=== PATIENT | male | born 1970 | race Caucasian/White ===

== ENCOUNTER → 2023-05-14 12:43 | Outpatient (CLI) | payer BC, SELFPAY ==
--- NOTE | 2023-05-14 12:43 | CT_ITS ---
FINAL REPORT TECHNIQUE: Then section axial CT images of the chest were obtained with contrast. Three-D reformatted images were also obtained.This study was performed with techniques to keep radiation doses as low as reasonably achievable (ALARA). Individualized dose reduction techniques using automated exposure control or adjustment of mA and/or kV according to the patient''s size were employed. CLINICAL HISTORY: atypical angina/abnl ecg COMPARISON: None FINDINGS: There is no evidence of pulmonary embolism. There is no evidence of thoracic aortic aneurysm or dissection. There is no evidence of mediastinal or hilar mass or adenopathy. There is no evidence of pulmonary mass or suspicious nodule. There is mild emphysema. Limited images of the upper abdomen demonstrate fatty infiltration of the liver. IMPRESSION: No evidence of pulmonary embolism. Fatty liver. Reviewed, Interpreted and Dictated by Johan Bang III, MD Transcribed by Cherie Phan Authenticated and [facility]
== END ==
LOC: RAD 12:43
PROVIDERS: PCP Nurse Practitioner Family; Visit Provider Physician Assistant
DX: I20.8 Other forms of angina pectoris (principal); R94.31 Abnormal electrocardiogram [ECG] [EKG]; Z85.72 Personal history of non-Hodgkin lymphomas; Z86.711 Personal history of pulmonary embolism; Z86.718 Personal history of other venous thrombosis and embolism
CPT/HCPCS: 71275; Q9967

== ENCOUNTER → 2023-06-30 12:59 | Outpatient (CLI) | payer BC, SELFPAY ==
--- NOTE | 2023-06-30 13:04 | CA_ITS ---
APPROVED REPORT EXAM: Comprehensive 2D, Doppler, and color-flow Echocardiogram Internet Webmaster: Kym Perez CRT Ht: 6 ft 0 in Wt: 274lbs BSA: 2.44 BP: 124/77 mmHg Indications: Abnormal ECG, Chest Pain, Diabetes, Hyperlipidemia, Hypertension/HDD, chemo/radiation , non-hodgkin lymphoma, obesity 2D Dimensions LVOT 2.09 cm (M/F) 1.5-2.5 LA Volume 32.70 mL LA Volume Index 13.40 mL/m2 (M/F) 16-34 M-Mode Dimensions RVDd 3.02 cm (0.9-2.6) LA Diam 2.69 cm (1.9-4.0) LVDd 5.25 cm (3.5-5.7) Ao Diam 4.44 cm (2.0-3.7) LVDs 3.80 cm (3.5-5.7) IVSd 1.59 cm (0.6-1.1) PWd 0.92 cm (0.6-1.1) EF (Teich) 53.20% FS 27.60% EDV (Teich) 132.40 mL TAPSE 1.48 (<1.7) ESV (Teich) 62.00 mL LV Diastology E Decel Time 160.00 (160-240 msec) E/A Ratio 0.69 MED E' 6.00 (< 7 cm/sec) MED A' 8.80 cm/s E'/MED E' Ratio 7.83 (>14) LAT E' 10.60 (<10 cm/sec) LAT A' 14.20 cm/s E/LAT E' Ratio 4.43 (>14) Aortic Valve AI PHT 544.00 ms AO Peak GR. 6.70 mmHg Mitral Valve MV A Velocity 68.00 (40-130 cm/s) E/A Ratio 0.69 MV Decel. Time 160.00 (160-240 ms) Pulmonary Valve PV Peak Velocity 154.00 (50-150 cm/s) Tricuspid Valve TR P. Velocity 178.00 cm/s RAP Estimate 10.00 mmHg RVSP 22.70 mmHg Left Ventricle The left ventricle is normal size. Left ventricular systolic function is mildly decreased. There is normal left ventricular wall thickness. There is mild global hypokinesis of the LV seay. Diastolic function is normal. LVEF is 40-45%. Right Ventricle The right ventricle is mildly dilated. The right ventricular systolic function is normal. Atria The left atrium size is normal. The right atrium size is normal. There is no Doppler evidence of interatrial shunt. Aortic Valve The aortic valve is mildly thickened. There is no aortic valvular stenosis. No aortic regurgitation is present. Mitral Valve The mitral valve is normal in structure. No evidence of mitral valve stenosis. No Mitral Regurgitation. Tricuspid Valve The tricuspid valve leaflets are thin and pliable. Trace tricuspid regurgitation. There is insufficient TR jet to estimate RVSP. Pulmonic Valve The pulmonary valve is normal in structure. Trace pulmonic regurgitation. Great Vessels The aortic root is normal in size. The ascending aorta is normal in size. IVC is normal in size and collapses >50% with inspiration. Pericardium There is no pericardial effusion. Other Information Study Quality: Fair Conclusion Mildly reduced LV systolic function (LVEF 40-45%) Mildly dilated RV with normal RV function. No significant valvular disease. Electronically signed by : Indira Segura, 06/30/2023 18:21:34
== END ==
PROVIDERS: PCP Nurse Practitioner Family; Visit Provider Internal Medicine
DX: I20.8 Other forms of angina pectoris (principal); R94.31 Abnormal electrocardiogram [ECG] [EKG]
CPT/HCPCS: 93306

== ENCOUNTER → 2023-07-19 11:44 | Outpatient (CLI) | payer BC, SELFPAY ==
[2023-07-19] VITALS (8 sets, daily range): BP systolic 113–140; BP diastolic 64–74; PULSE 68–78; RESP 16–18; TEMP 36.4–36.7; O2SAT 95–100
--- NOTE | 2023-07-19 12:36 | PC.NURSE ---
1225-[facility] 137
--- NOTE | 2023-07-19 13:10 | PC.NURSE ---
pt's heartrate is mid 70's, Metoprolol 5mg IV given per CTA standing orders. BP 120/64.
--- NOTE | 2023-07-19 13:34 | PC.NURSE ---
pt to CTA room, HR still 72, Metoprolol 5mg IV given. 133/69, Nitro 0.8mg SL given per orders
--- NOTE | 2023-07-19 13:47 | PC.NURSE ---
Pt tolerated procedure and medications well, no C/O. Taken to post op for recovery.
[2023-07-20 07:49] LABS: POC Glucose,Bedside 137 (70-110)
== END ==
LOC: RAD 11:44
PROVIDERS: PCP Nurse Practitioner Family; Visit Provider Physician Assistant
DX: I20.8 Other forms of angina pectoris (principal); R94.31 Abnormal electrocardiogram [ECG] [EKG]; Z85.72 Personal history of non-Hodgkin lymphomas; Z86.711 Personal history of pulmonary embolism; Z86.718 Personal history of other venous thrombosis and embolism
CPT/HCPCS: 75574; 82962; Q9967

== ENCOUNTER → 2023-07-28 14:03 | Outpatient (CLI) | payer BC, SELFPAY ==
[2023-07-28 15:41] LABS: Chloride 106 mmol/L (98-107)
[2023-07-28 15:42] LABS: Potassium 4.4 mmoL/L (3.5-5.1); Sodium 140 mmol/L (136-145)
[2023-07-28 15:44] LABS: Blood Urea Nitrogen 21 mg/dl (9-20)
[2023-07-28 15:45] LABS: Anion Gap 14.4 mEq/L (5-15); Calcium 9.3 mg/dl (8.4-10.2); Carbon Dioxide 24 mmol/L (22.0-30.0); Estimated Glomerular Filt Rate 78 ml/min (>60); GFR (African American) 94 ML/MIN (>60); Glucose 127 mg/dl (74-100)
[2023-07-28 16:39] LABS: Basophils % 0.3 % (0.1-2.0); Eosinophils # 0.2 K/mm3 (0.0-0.4); Eosinophils % 3.4 % (0.1-12.0); Hematocrit 53.4 % (42.0-52.0); Hemoglobin 17.4 g/dL (14.1-18.0); Lymphocytes # 1.5 K/mm3 (0.7-4.5); Lymphocytes % 23.6 % (10-50); Mean Corpuscular HGB Conc 32.5 g/dL (31.8-35.4); Mean Corpuscular Hemoglobin 26.5 pg (27.0-31.2); Mean Corpuscular Volume 81.5 fl (80-94); Mean Platelet Volume 8.1 fl (7.4-10.4); Monocytes # 0.6 K/mm3 (0.1-1.0); Monocytes % 9.1 % (1.7-9.3); Neutrophils # 4.2 K/mm3 (1.8-7.8); Neutrophils % 63.6 % (37.0-80.0); Platelet Count 244 K/mm3 (142-424); Red Blood Count 6.55 M/mm3 (4.60-6.20); Red Cell Distribution Width 17.6 % (11.5-17.5); White Blood Count 6.5 K/mm3 (4.8-10.8)
[2023-07-28 16:40] LABS: Cholesterol 166 mg/dl (140-200); HDL Cholesterol 41 mg/dl (40-60); Triglycerides 307 mg/dl (30-150); VLDL Cholesterol 61 mg/dL (0-40)
[2023-07-28 16:51] LABS: Direct LDL Cholesterol 94.91 mg/dL (100-129)
== END ==
PROVIDERS: PCP Nurse Practitioner Family; Visit Provider Physician Assistant
DX: E11.9 Type 2 diabetes mellitus without complications (principal); I10 Essential (primary) hypertension; R93.1 Abnormal findings on diagnostic imaging of heart and coronary circulation; E78.5 Hyperlipidemia, unspecified; Z85.72 Personal history of non-Hodgkin lymphomas; Z86.718 Personal history of other venous thrombosis and embolism
CPT/HCPCS: 36415; 80048; 80061; 85025

== ENCOUNTER 2023-07-29 12:40 | Outpatient (CLI) | payer BC, SELFPAY ==
[2023-07-29 13:15] VITALS: BP 139/72; PULSE 82; RESP 18; O2SAT 98
[2023-07-29 13:38] VITALS: BP 143/70; PULSE 87; RESP 18; O2SAT 98
== END 2023-07-29 13:38 | disposition home or self-care (01) ==
LOC: INF 12:41
PROVIDERS: PCP Nurse Practitioner Family; Visit Provider Nurse Practitioner Family
DX: D75.1 Secondary polycythemia (principal)
CPT/HCPCS: 99195

== ENCOUNTER 2024-02-29 14:38 | Outpatient (CLI) | payer BC, SELFPAY ==
--- NOTE | 2024-02-29 14:42 | MR_ITS ---
FINAL REPORT TECHNIQUE: Multiplanar MR without contrast was obtained of the left knee. CLINICAL HISTORY: PAIN OF LEFT KNEE JOINT. medial sided knee pain. COMPARISON: None FINDINGS: Motion artifact decreases sensitivity of this exam. Articular cartilage: No focal defect Marrow signal: Unremarkable Joint fluid: Physiologic Menisci: Normal morphology without tear Ligaments: Collateral and cruciate ligaments intact IMPRESSION: Unremarkable exam Reviewed, Interpreted and Dictated by Susi Palacios MD Transcribed by Cherie Phan Authenticated and [facility]
== END 2024-02-29 23:59 | disposition home or self-care (01) ==
LOC: RAD 14:38
PROVIDERS: PCP Nurse Practitioner Family; Visit Provider Nurse Practitioner Family
DX: M25.562 Pain in left knee (principal)
CPT/HCPCS: 73721

== ENCOUNTER 2024-03-25 09:49 | Outpatient (CLI) | payer BC, SELFPAY ==
--- NOTE | 2024-03-25 09:59 | MR_ITS ---
FINAL REPORT CLINICAL HISTORY: LOW BACK PAIN FINDINGS: Multiplanar MR imaging of the lumbar spine was performed without contrast. On the sagittal T2-weighted images, mild to moderate decreased signal seen throughout. There is a small hemangioma in the L1 vertebral body. There is grade 1 anterolisthesis of L4 on L5. There is no evidence of fracture. No bony mass is identified. The conus is seen at approximately the L1 level and has an unremarkable appearance. L1-2: Moderate disc bulge resulting in moderate bilateral neuroforaminal narrowing. There is mild canal stenosis. There is ligamentum flavum hypertrophy and hypertrophic facet change. L2-3: Mild disc bulge with hypertrophic facet changes. L3-4: Mild disc bulge with mild canal stenosis. There is a small focus of increased signal suggestive of annular tear. There are hypertrophic facet changes and ligamentum flavum hypertrophy. L4-5: Moderate disc bulge with central focal protrusion. There is severe canal stenosis with significant ligamentum flavum hypertrophy and moderate bilateral neuroforaminal narrowing. L5-S1: Mild disc bulge with ligamentum flavum hypertrophy and hypertrophic facet change. There is mild bilateral neuroforaminal narrowing. IMPRESSION: Multilevel degenerative disc disease with focal protrusion at L4-5 resulting in severe canal stenosis and moderate bilateral neuroforaminal narrowing. Reviewed, Interpreted and Dictated by Sarah Anand MD Transcribed by Meliza Larose Authenticated and [facility]
== END 2024-03-25 23:59 | disposition home or self-care (01) ==
PROVIDERS: PCP Nurse Practitioner Family; Visit Provider Nurse Practitioner Family
DX: M54.50 Low back pain, unspecified (principal)
CPT/HCPCS: 72148

== ENCOUNTER 2024-05-09 06:34 | Outpatient (CLI) | payer BC, SELFPAY ==
--- NOTE | 2024-05-09 07:40 | MR_ITS ---
FINAL REPORT CLINICAL HISTORY: LOCALIZED SWELLING, MASS AND LUMP. SWELLING MID FEMUR. PUT MARKER ON THIGH. COMPARISON: None FINDINGS: Multiplanar MR imaging of the left thigh was performed without contrast. A marker was placed at the lateral aspect of the mid thigh. Images are degraded by artifact. There is no evidence of fracture or bone marrow edema. No bony mass is identified. There is a presumed osteochondral lesion in the superior medial femoral head. Musculature is intact. No soft tissue mass or abnormal fluid collection is identified. No soft tissue inflammation is seen. There are mild degenerative changes in the left hip and knee. IMPRESSION: No evidence of soft tissue mass or abnormal fluid collection. Presumed osteochondral lesion superior medial femoral head. Reviewed, Interpreted and Dictated by Johan Bang III, MD Transcribed by Cherie Phan Authenticated and [facility]
[2024-05-09 07:41] LABS: Blood Urea Nitrogen 12 mg/dl (9-20); Estimated Glomerular Filt Rate 88 ml/min (>60); GFR (African American) 106 ML/MIN (>60)
== END 2024-05-09 23:59 | disposition home or self-care (01) ==
LOC: RAD 06:35
PROVIDERS: PCP Nurse Practitioner Family; Visit Provider Orthopaedic Surgery
DX: R22.42 Localized swelling, mass and lump, left lower limb (principal)
CPT/HCPCS: 36415; 73718; 82565; 84520

== ENCOUNTER 2024-05-16 10:19 | Outpatient (CLI) | payer BC, SELFPAY ==
--- NOTE | 2024-05-16 11:12 | MR_ITS ---
FINAL REPORT CLINICAL HISTORY: SWELLING LEFT THIGH. prior without done 05-09-2024 COMPARISON: 05/09/2024 FINDINGS: Post-contrast multiplanar imaging was obtained of the left femur and compared to the recent exam. Bone marrow signal intensity is within normal limits in the femoral shaft. There is no abnormal enhancement. The previously described osteochondral abnormality in the femoral head is incompletely imaged on all sequences but appears to be similar compared to the prior study on the coronal T1 weighted imaging. There is no abnormal enhancement within the muscular structures. There is no subcutaneous mass or abnormal enhancement. No other abnormality identified. IMPRESSION: No mass or abnormal soft tissue enhancement. Abnormality of the femoral head is unchanged from prior. Reviewed, Interpreted and Dictated by Farzana Merchant MD Transcribed by Cherie Phan Authenticated and . [facility]
[2024-05-16] MEDS: GADOTERIDOL INJ 20ML SYRINGE 20 ML IV (11:23)
[2024-05-16] MEDS: SODIUM CHLORIDE 0.9% 10ML SYR (RAD ONLY) 10 ML IV (11:23)
[2024-05-16] MEDS: GADOTERIDOL INJ 10ML SYRINGE 5 ML IV (11:23)
== END 2024-05-16 23:59 | disposition home or self-care (01) ==
LOC: RAD 10:19
PROVIDERS: PCP Nurse Practitioner Family; Visit Provider Orthopaedic Surgery
DX: R22.42 Localized swelling, mass and lump, left lower limb (principal)
CPT/HCPCS: 73719; A9576

== ENCOUNTER 2024-09-12 11:04 | Outpatient (CLI) | payer BC, SELFPAY ==
--- NOTE | 2024-09-12 11:24 | CA_ITS ---
APPROVED REPORT EXAM: Comprehensive 2D, Doppler, and color-flow Echocardiogram Respiratory Assistant: Maday Hilliard RVT Ht: 6 ft 0 in Wt: 260lbs BSA: 2.38 BP: 123/77 mmHg Indications: HFrEF,PRE-OP,HX NON-HODGKINS LYMPHOMA,ABN EKG,CAD,DM,HTN 2D Dimensions IVSd 0.93 cm M: 0.6-1.2 LVEF (Visual) 50.00 % PWd 0.78 cm M: 0.6 - 1.2 LA Volume 53.30 mL LVDd 5.38 cm M: 4.2 - 5.9 LA Volume Index 22.39 mL/m2 (M/F) 16-34 LVDs 4.00 cm M: 2.5 - 4.0 M-Mode Dimensions LA Diam 3.79 cm (1.9-4.0) TAPSE 3.06 (<1.7) LV Diastology E Decel Time 237 (160-240 msec) E/A Ratio 0.6 Aortic Valve RAUL Index 1.69 cm2/m2 AoV Peak Brendon. 109.0 (50-130 cm/s) AO Peak GR. 4.70 mmHg AO Mean GR. 2.80 (<5 mmHg) AO VTI 19.2 (18-25 cm) RAUL (VTI) 4.12 (2.5-4.5 cm2) Mitral Valve MV E Max Brendon. 38.0 (40-130 cm/s) MV A Velocity 69.0 (40-130 cm/s) E/A Ratio 0.54 MV PHT 69.0 ms Pulmonary Valve PV Peak Velocity 64.0 (50-150 cm/s) Left Ventricle The left ventricle is normal size. The left ventricular systolic function is mildly to moderately reduced. There is increased LV wall thickness. There is mild to moderate global hypokinesis present. The LV apical wall is moderately hypokinetic. Grade 1 diastolic dysfunction is present. LVEF is 40%. Right Ventricle Right ventricle is mildly dilated. The right ventricular systolic function is normal. Atria The left atrium size is normal. The right atrium size is normal. There is no Doppler evidence of interatrial shunt. Aortic Valve Aortic valve is mildly thickened. There is no aortic valvular stenosis. Trace aortic regurgitation is present. Mitral Valve The mitral valve leaflets are mildly thickened. No evidence of mitral valve stenosis. Trace mitral regurgitation. Tricuspid Valve Tricuspid valve is grossly normal in structure and function. Trace tricuspid regurgitation. There is insufficient TR jet to estimate RVSP. Pulmonic Valve The pulmonary valve is normal in structure. Trace pulmonic regurgitation. Great Vessels The aortic root is normal in size. The ascending aorta is not well-visualized. IVC is normal in size and collapses >50% with inspiration. Pericardium There is no pericardial effusion. Other Information Study Quality: Fair Conclusion Mild to moderate reduction in LV systolic function (LVEF 40%). LV apical wall is moderately hypokinetic. Mild RV dilation with normal RV function. No significant valvular stenosis or regurgitation. When directly compared to the prior TTE from 06/30/2023, the LV systolic function is overall unchanged. Electronically signed by : Indira Segura MD 09/13/2024 00:22:34
== END 2024-09-12 23:59 | disposition home or self-care (01) ==
LOC: RT 11:05
PROVIDERS: PCP Nurse Practitioner Family; Visit Provider Physician Assistant
DX: Z01.810 Encounter for preprocedural cardiovascular examination (principal); I51.7 Cardiomegaly; I50.20 Unspecified systolic (congestive) heart failure
CPT/HCPCS: 93306

== ENCOUNTER 2025-09-20 08:21 | Outpatient (CLI) | payer BC, SELFPAY ==
--- OUTSIDE RECORDS SUMMARY | 2025-09-05 08:40 | XMS_ITS | Encounter Summary ---
Author Organization [facility] Address [address] [place] [address] Care Team Providers Care Supervisor Assembly Room Name Role Phone Thao harrellreynaldo Zeynep TIP FINISHER Primary Care Provider [phone] Mary Aviles TIP FINISHER Unavailable [phone] Encounter Details Date Type Department Care Team (Late st Contact Info) Description 09/05/2025 8:40 AM EST Office Visit [place] [facility] [address], [address] [place] [address] Mary Aviles, TIP FINISHER [address] [place] [address] Acute left-sided low back pain without sciatica (Primary Dx); Mid back pain; Tobacco use Social History Tobacco Use Types Packs/Day Years Used Date Smoking Tobacco: Never Smokeless Tobacco: Current Chew Alcohol Use Standard Drinks/Week Comments Not Currently 0 (1 standard drink = 0.6 oz pur e alcohol) Sex and Gender Information Value Date Recorded Sex Assigned at Not on file Legal Sex Male 7:49 PM EDT Gender Identity Not on file Sexual Orientation Not on file documented as of this encounter Last Filed Vital Signs Vital Sign Reading Time Taken Comments Blood Pressure 126/82 09/05/2025 9:01 AM EST Pulse - - Temperature - - Respiratory Rate - - Oxygen Saturation - - Inhaled Oxygen Concentration - - Weight 125 kg (274 lb 11.1 oz) 09/05/2025 9:01 A M EST Height 182.9 cm (6') 09/05/2025 9:01 AM EST Body Mass Index 37.26 09/05/2025 9:01 AM EST documented in this encounter Miscellaneous Notes * Progress Notes - Mary Aviles, TIP FINISHER - 09/05/2025 8:40 AM EST We had the pleasure of seeing your patient in our clinic today for continued Neurosurgical evaluation. Verbal consent was obtained to use ambient listening technology to assist in the documentation of the encounter: yes Chief Complaint: Midback and left lower back pain History Of Present Illness Subjective Juarez Mark is a 54 y.o. male presents to the neurosurgical clinic today for midback pain and left lower back pain. History of Present Illness The patient presents for evaluation of mid back pain and left lower back pain. The patient has previously neurosurgical clinic in 2023 for left knee pain, however had an anterior listhesis at L4-5 and did not recommend any neurosurgical intervention. He began experiencing right-sided mid back pain approximately 3 weeks ago, which was severe enough to necessitate a hospital visit due to his inability to walk. The pain has since improved, which could be due to use of tramadol. He also reports left lower back pain but does not experience any leg pain, numbness, tingling, weakness, or loss of bowel or bladder control. The patient denies any saddle anesthesia. His pain is alleviated by sitting and exacerbated by bending over or lifting heavy objects. He has not taken tramadol today and reports no change in his condition without it. He recalls an incident last night where he was unable to walk after working on a tractor, even though he did not engage in heavy lifting. He had to sit down for 5 minutes before he could stand again, and the pain recurred after 10 minutes of standing. He has received chiropractic treatment, pain management, and injections in his back and hip since his last visit in 2023. He underwent a left hip replacement a year ago, after which he developed a blood clot extending from his ankle to his hip. He is currently on Xarelto, managed by his primary care physician. He also sees a subsea engineer, Dr. Campbell. He received a back injection in either June or July of 2024, which did not provide relief. However, an injection in his hip did provide temporary relief, leading to the diagnosis of a hip issue. He has not required any intervention sincehis surgery. He is currently taking tramadol for pain, administered 3 times daily, but has not taken any today. He has been advised against physical therapy by his pain management team. Past Medical History[1] Surgical History[2] Family History[3] Social History[4] Current Outpatient Medications Medication Instructions Aspirin Low Dose 81 mg, Oral, As needed B-D 3CC LUER-JAREN SYR 23GX1 23G X 1 3 ML misc USE DIRECTED TO INJECT TESTOSTERONE BD Disp Needle 23G X 1 misc USE DIRECTED FOR TESTOSTERONE BY DOCTOR BD Plastipak Syringe 21G X 1 3 ML misc USE DIRECTED FOR TESTOSTERONE INJECTIONS carvedilol (Coreg) 3.125 MG tablet TAKE ONE (1) TABLET BY MOUTH TWICE DAILY WITH FOOD OR A MEAL cyclobenzaprine (Flexeril) 10 MG tablet TAKE ONE (1) TABLET ORAL ROUTE EVERY 8 HOURS NEEDED DULoxetine (CYMBALTA) 60 mg, Oral, Daily esomeprazole (NEXIUM) 20 mg, Oral, Daily ezetimibe (Zetia) 10 MG tablet 1 tablet, Oral, Daily ibuprofen 800 MG tablet TAKE ONE (1) TABLET ORAL ROUTE EVERY 8 HOURS NEEDED Invokamet 150-1000 MG 1 tablet, Oral levothyroxine (Synthroid, Levoxyl) 75 MCG tablet TAKE ONE (1) TABLET (75 MCG) BY ORAL ROUTE ONCE DAILY ON AN EMPTY STOMACH WITH FULL GLASS OF WATER WAIT FOR ONE (1) HR BEFORE TAKING OTHER MEDS OR EATI meloxicam (MOBIC) 15 mg, Oral tamsulosin (Flomax) 0.4 MG 24 hr capsule Oral, Daily testosterone cypionate (Depo-Testosterone) 200 MG/ML injection INJECT INTRAMUSCULARLY 0.75 MLS EVERY WEEK valsartan (DIOVAN) 80 mg, Oral, Daily Xarelto 20 mg, Oral, Daily with dinner Xigduo XR 5-1000 MG TAKE TWO (2) TABLETS EVERY DAY BY ORAL ROUTE FOR 90 DAYS. Allergies Statins and Tirzepatide Objective Review of Systems 14 point review of systems was performed and was negative except as noted per HPI. Visit Vitals Ht 1.829 m (6') BMI 36.62 kg/m?? Smoking Status Never BSA 2.49 m?? Physical Exam Neurologic exam: Alert and oriented x3. Appropriate memory, attention span, and insight. Normal coordination noted. Strength 5/5 bilaterally in upper and lower extremities. No tremor noted. Biceps, triceps, brachioradialis, patellar, achilles reflexes symmetric and 2+ bilaterally. Sensation, including light touch, intact bilaterally. Negative Kenya's bilaterally. No clonus noted bilaterally. Negative straight leg raise test and Clint's test bilaterally. Results Imaging I personally reviewed and independently interpreted flexion-extension x-rays from the lumbar spine on September 05, 2025. Imaging demonstrates movement in flexion with reduction in extension. This is slightly worsened since his x-ray from 2023. The thoracic x-ray does not show any new fractures. Assessment and Plan Juarez Mark is a 54 y.o. male presents to the neurosurgical clinic today for midback and low back pain Assessment & Plan Imaging was reviewed in his noted above. The patient is complaining of localized unilateral back pain as well as localized unilateral midback pain which has improved since initial onset. He is not complaining of any symptoms consistent with neurogenic claudication at this time. Nonetheless, he doesshow some worsening slipping on lumbar x-rays today, therefore I would like the patient to follow up in 6 weeks for continued surveillance to make sure his symptoms do not worsened or changed. I havealso provided the patient a 1 time prescription for a muscle relaxer to see if this will help with some of his symptoms. If the patient finds relief in his, he will need to speak with his primary care provider for further refills. In addition, we discussed following up with pain management about potential injective therapies that could be beneficial for the patient in the meantime as well.Discussed the effects of tobacco use on overall health as well as back health and its contribution to pain.Recommended tobacco use and this counseling session lasted approximately 3-5 minutes. Patient was agreeable with this plan. They were given the opportunity to ask questions, which were answered to their satisfaction. They were informed to to contact the Neurosurgery clinic with any questions, concerns, or worsening symptoms. Patient specific comorbidities further complicating management during the perioperative period include: -Obesity - with a last BMI of: Body mass index is 37.26 kg/m??. -Tobacco use I personally spent a total of 35 minutes on this encounter. This time includes face to face with patient, and review of imaging, counseling and discussion and/or coordination of care. Parts of this note were dictated using M Modal Fluency Direct voice recognition software. As a result, errors may occur. When identified, these desk interviewer errors are corrected, but while every attempt is made to prevent/correct these, errors may still exist. Mary Aviles APRN [facility] Department of Neurosurgery There are no diagnoses linked to this encounter. [1] Past Medical History: Diagnosis Date High cholesterol Hypertension Type 2 diabetes mellitus [2] Past Surgical History: Procedure Laterality Date LYMPH NODE BIOPSY in groin TOTAL HIP ARTHROPLASTY Right UVULOPALATOPHARYNGOPLASTY [3] Family History Problem Relation Name Age of Onset Hypertension Mother Heart attack Father Cancer Father Conversions - Other Other Family history unknown [4] Social History Tobacco Use Smoking status: Never Smokeless tobacco: Current Types: Chew Substance Use Topics Alcohol use: Not Currently Drug use: Never documented in this encounter Plan of Treatment Upcoming Encounters Date Type Department Care Team (Late st Contact Info) Description 10/18/2025 10:00 AM EST Office Visit [place] [facility] [address], [address] [place] [address] Mary Aviles APRN [address] [facility] [address] [place] [address] documented as of this encounter Results * XR Thoracic Spine 2 Views (09/05/2025 10:05 AM EST) Anatomical Region Laterality Modality Spine, T-spine Digital Radiogra phy Impressions 09/05/2025 11:20 AM EST 1. Chronic appearing wedge deformity at T11 and T12 with sequelae of diffuse idiopathic skeletal hyperostosis in the lower thoracic spine. 2. Moderate degenerative disc changes at T12-L1, L1-L2 and L4-L5 with minimal posterior subluxation at L1-L2 and minimal anterior subluxation at L4-L5. No instability. CRITICAL RESULT: No. COMMUNICATION: Per this written report. Drafted by Sam Rodriguez MD on 09/05/2025 11:16 AM Final report signed by Sam Rodriguez MD on 09/05/2025 11:20 AM Narrative 09/05/2025 11:20 AM EST CLINICAL INDICATION: mid back pain TECHNIQUE: XR THORACIC SPINE 2 VIEWS, XR LUMBAR SPINE 4 VIEWS TO INCLUDE FLEXION EXTENSION COMPARISON: May 02, 2024. FINDINGS: 2 views of the thoracic spine show wedge shape of T11 and T12. Bulky bridging paravertebral ossification in the lower thoracic spine. No bone destruction. No paraspinal mass. Aorta is tortuous. Cardiac silhouette is appropriate in size and configuration. Calcified granuloma is appreciated in the left hilum. 4 views of the lumbar spine show disc space narrowing at T12-L1, L1-L2, L4-L5 and L5-S1. Minimal posterior subluxation at L1-L2 and minimal anterior subluxation at L4-L5. No instability in flexion or extension. Hypertrophic degenerative changes in the facets at L4-L5 and L5-S1. No fracture or bone destruction. Sacroiliac joints are normal. Procedure Note Sam Rodriguez MD - 09/05/2025 CLINICAL INDICATION: mid back pain TECHNIQUE: XR THORACIC SPINE 2 VIEWS, XR LUMBAR SPINE 4 VIEWS TO INCLUDE FLEXIONEXTENSION COMPARISON: May 02, 2024. FINDINGS: 2 views of the thoracic spine show wedge shape of T11 and T12. Bulkybridging paravertebral ossification in the lower thoracic spine. No bonedestruction. No paraspinal mass. Aorta is tortuous. Cardiac silhouette isappropriate in size and configuration. Calcified granuloma is appreciatedin the left hilum. 4 views of the lumbar spine show disc space narrowing at T12-L1, L1-L2,L4-L5 and L5-S1. Minimal posterior subluxation at L1-L2 and minimalanterior subluxation at L4-L5. No instability in flexion or extension.Hypertrophic degenerative changes in the facets at L4-L5 and L5-S1. Nofracture or bone destruction. Sacroiliac joints are normal. IMPRESSION: 1.Chronic appearing wedge deformity at T11 and T12 with sequelae ofdiffuse idiopathic skeletal hyperostosis in the lower thoracic spine. 2.Moderate degenerative disc changes at T12-L1, L1-L2 and L4-L5 withminimal posterior subluxation at L1-L2 and minimal anterior subluxation atL4-L5. No instability. CRITICAL RESULT: No. COMMUNICATION: Per this written report. Drafted by Sam Rodriguez MD on 09/05/2025 11:16 AM Final report signed by Sam Rodriguez MD on 09/05/2025 11:20 AM Mary Aviles TIP FINISHER IMG XR PROCEDURES Final Result * XR Lumbar Spine 4+ Views w Flexion Extension (09/05/2025 10:05 AM EST) Anatomical Region Laterality Modality Spine, L-spine Digital Radiogra phy Impressions 09/05/2025 11:20 AM EST 1. Chronic appearing wedge deformity at T11 and T12 with sequelae of diffuse idiopathic skeletal hyperostosis in the lower thoracic spine. 2. Moderate degenerative disc changes at T12-L1, L1-L2 and L4-L5 with minimal posterior subluxation at L1-L2 and minimal anterior subluxation at L4-L5. No instability. CRITICAL RESULT: No. COMMUNICATION: Per this written report. Drafted by Sam Rodriguez MD on 09/05/2025 11:16 AM Final report signed by Sam Rodriguez MD on 09/05/2025 11:20 AM Narrative 09/05/2025 11:20 AM EST CLINICAL INDICATION: mid back pain TECHNIQUE: XR THORACIC SPINE 2 VIEWS, XR LUMBAR SPINE 4 VIEWS TO INCLUDE FLEXION EXTENSION COMPARISON: May 02, 2024. FINDINGS: 2 views of the thoracic spine show wedge shape of T11 and T12. Bulky bridging paravertebral ossification in the lower thoracic spine. No bone destruction. No paraspinal mass. Aorta is tortuous. Cardiac silhouette is appropriate in size and configuration. Calcified granuloma is appreciated in the left hilum. 4 views of the lumbar spine show disc space narrowing at T12-L1, L1-L2, L4-L5 and L5-S1. Minimal posterior subluxation at L1-L2 and minimal anterior subluxation at L4-L5. No instability in flexion or extension. Hypertrophic degenerative changes in the facets at L4-L5 and L5-S1. No fracture or bone destruction. Sacroiliac joints are normal. Procedure Note Sam Rodriguez MD - 09/05/2025 CLINICAL INDICATION: mid back pain TECHNIQUE: XR THORACIC SPINE 2 VIEWS, XR LUMBAR SPINE 4 VIEWS TO INCLUDE FLEXIONEXTENSION COMPARISON: May 02, 2024. FINDINGS: 2 views of the thoracic spine show wedge shape of T11 and T12. Bulkybridging paravertebral ossification in the lower thoracic spine. No bonedestruction. No paraspinal mass. Aorta is tortuous. Cardiac silhouette isappropriate in size and configuration. Calcified granuloma is appreciatedin the left hilum. 4 views of the lumbar spine show disc space narrowing at T12-L1, L1-L2,L4-L5 and L5-S1. Minimal posterior subluxation at L1-L2 and minimalanterior subluxation at L4-L5. No instability in flexion or extension.Hypertrophic degenerative changes in the facets at L4-L5 and L5-S1. Nofracture or bone destruction. Sacroiliac joints are normal. IMPRESSION: 1.Chronic appearing wedge deformity at T11 and T12 with sequelae ofdiffuse idiopathic skeletal hyperostosis in the lower thoracic spine. 2.Moderate degenerative disc changes at T12-L1, L1-L2 and L4-L5 withminimal posterior subluxation at L1-L2 and minimal anterior subluxation atL4-L5. No instability. CRITICAL RESULT: No. COMMUNICATION: Per this written report. Drafted by Sam Rodriguez MD on 09/05/2025 11:16 AM Final report signed by Sam Rodriguez MD on 09/05/2025 11:20 AM Mary Aviles APRN IMG XR PROCEDURES Final Result documented in this encounter Visit Diagnoses Diagnosis Acute left-sided low back pain without sciatica- Primary Mid back pain Tobacco use Acute left-sided low back pain without sciatica Mid back pain documented in this encounter Additional Health Concerns Assessment Noted Time A fall risk assessment has been complete d for the patient 09/05/2025 9:07 AM EST A Body Mass Index follow-up plan has been documented for the patient 09/05/2025 10:27 AM EST documented as of this encounter Care Teams Supervisor Assembly Room Relationship Specialty Start Date End Date Danial Keller APRN [address] [place] [address] PCP - General 08/31/25 Mary Aviles APRN [address] [place] [address] Nurse Practitioner Neurosurgery 09/05/25 documented as of this encounter
--- OUTSIDE RECORDS SUMMARY | 2025-09-05 09:49 | XMS_ITS | Encounter Summary ---
Author Organization [facility] Address [address] [place] [place] [address] Care Team Providers Care Slitting Machine Feeder Name Role Phone Danial harrell CORRESPONDENCE REPRESENTATIVE Primary Care Provider [phone] Mary Aviles CORRESPONDENCE REPRESENTATIVE Unavailable [phone] Encounter Details Date Type Department Care Team (Latest Contact Info) Description 09/05/2025 9:49 AM EST - 09/05/2025 11:[address] [facility] Hospital Encounter [place] [facility] Rad[facility] [address], [address] [place] [address] Acute left-sided low back pain without sciatica; Mid back pain Discharge Disposition: Home or Self Care Social History Tobacco Use Types Packs/Day Years [...] on file documented as of this encounter Medications at Time of Discharge Aspirin Low Dose 81 MG EC tablet Take 1 tablet (81 mg) by mouth if needed. B-D 3CC LUER-JAREN SYR 23GX1 23G X 1 3 ML misc USE DIRECTED TO INJECT TESTOSTERONE 08/17/2023 BD Disp Needle 23G X 1 misc USE DIRECTED FOR TESTOSTERONE BY DOCTOR 01/21/2024 BD Plastipak Syringe 21G X 1 3 ML misc USE DIRECTED FOR TESTOSTERONE INJECTIONS 02/01/2024 carvedilol (Coreg) 3.125 MG tablet TAKE ONE (1) TABLET BY MOUTH TWICE DAILY WITH FOOD OR A MEAL Clomid 50 MG tablet Take 0.5 tablets by mouth daily. Cyanocobalamin ER 1000 MCG tablet controlled-rele ase daily. cyclobenzaprine (Flexeril) 5 MG tablet Take 1 tablet by mouth 3 times a day. 60 tablet 09/05/2025 09/25/20 25 DULoxetine (Cymbalta) [address] capsule Take 1 capsule (60 mg) by mouth 1 (one) time each day. esomeprazole (NexIUM) [address] capsule Take 1 capsule (20 mg) by mouth 1 (one) time each day. ezetimibe (Zetia) 10 MG tablet Take 1 tablet (10 mg) by mouth Daily. ibuprofen 800 MG tablet TAKE ONE (1) TABLET ORAL ROUTE EVERY 8 HOURS NEEDED Invokamet 150-1000 MG Take 1 tablet by mouth. levothyroxine (Synthroid, Levoxyl) 75 MCG tablet TAKE ONE (1) TABLET (75 MCG) BY ORAL ROUTE ONCE DAILY ON AN EMPTY STOMACH WITH FULL GLASS OF WATER WAIT FOR ONE (1) HR BEFORE TAKING OTHER MEDS OR EATI meloxicam (Mobic) 15 MG tablet Take 1 tablet (15 mg) by mouth. Ozempic, 0.25 or 0.5 MG/DOSE, 2 MG/3ML solution pen-injector tamsulosin (Flomax) 0.4 MG 24 hr capsule Take by mouth daily. testosterone cypionate (Depo-Testoster one) 200 MG/ML injection INJECT INTRAMUSCULARLY 0.75 MLS EVERY WEEK valsartan (Diovan) 80 MG tablet Take 1 tablet (80 mg) by mouth 1 (one) time each day. Xarelto 20 MG tablet Take 1 tablet by mouth 1 time each day with dinner. Xigduo XR 5-1000 MG TAKE TWO (2) TABLETS EVERY DAY BY ORAL ROUTE FOR 90 DAYS. documented as of this encounter Plan of Treatment Upcoming Encounters Date Type Department Care Team (Late st Contact Info) Description 10/18/2025 10:00 AM EST Office Visit [place] [facility] [address] [place] [address] Mary Aviles, CORRESPONDENCE REPRESENTATIVE [address] [place] [address] documented as of this encounter Procedures Procedure Name Priority Date/Time Associated Diagnosis Comments XR LUMBAR SPINE 4 VIEWS TO INCLUDE FLEXION EXTENSION Routine 09/05/2025 10:05 AM EST Acute left-sided low back pain without sciatica Mid back pain XR THORACIC SPINE 2 VIEWS Routine 09/05/2025 10:05 AM EST Acute left-sided low back pain without sciatica Mid back pain documented in this encounter Results * XR Lumbar Spine 4+ Views w [...] MD on 09/05/2025 11:20 AM Mary Aviles CORRESPONDENCE REPRESENTATIVE IMG XR PROCEDURES Final Result * XR Thoracic Spine 2 Views (09/05/2025 [...] Diagnosis Acute left-sided low back pain without sciatica Mid back pain documented in this encounter Additional Health Concerns Assessment Noted Time A fall risk assessment has been complete d for the patient 09/05/2025 9:07 AM EST A Body Mass Index follow-up plan has been documented for the patient 09/05/2025 10:27 AM EST documented as of this encounter Care Teams Slitting Machine Feeder Relationship Specialty Start Date End Date Danial Keller APRN [address] [place] [id number] PCP - General 08/31/25 Mary Aviles APRN [address] [facility] [address] [place] [address] Nurse Practitioner Neurosurgery 09/05/25 documented as of this encounter
--- OUTSIDE RECORDS SUMMARY | 2025-09-20 08:25 | XMS_ITS | Encounter Summary ---
Author Organization [facility] Address [address] [place] [address] Care Team Providers Care Produce Field Merchandiser Name Role Phone Ruby Gregorio MD Primary Care Provider [phone] Danial Keller SAFETY ANALYST Primary Care Provider Mary Aviles SAFETY ANALYST Unavailable [phone] Encounter Details Date Type Department Care Team (Late st Contact Info) Description 03/25/2024 Orders Only External Location [address] [place] [address] Danial Keller, SAFETY ANALYST [address] [place], [place] [id number] Social History Tobacco Use Types Packs/Day Years Used Date Smoking Tobacco: Never Assessed Sex and Gender Information Value Date Recorded Sex Assigned at Not on file Legal Sex Male 7:49 PM EDT Gender Identity Not on file Sexual Orientation Not on file documented as of this encounter Plan of Treatment Upcoming Encounters Date Type Department Care Team (Late st Contact Info) Description 10/18/2025 10:00 AM EST Office Visit [place] [facility] [address] [place] [address] Mary Aviles, SAFETY ANALYST [address] [place] [address] documented as of this encounter Procedures Procedure Name Priority Date/Time Associated Diagnosis Comments MR OUTSIDE IMAGES 03/25/2024 10:42 AM EDT documented in this encounter Results * MR transfer of outside films (03/25/2024 10:42 AM EDT) Anatomical Region Laterality Modality Magnetic Resonan ce 03/25/2024 10:4 2 AM EDT Danial Keller SAFETY ANALYST IMG MRI PROCEDURES Final R esult documented in this encounter Visit Diagnoses Not on filedocumented in this encounter Care Teams Produce Field Merchandiser Relationship Specialty Start Date End Date Ruby Gregorio MD [address] [place] [id number] PCP - General 03/14/21 08/30/25 Danial Keller APRN [address] [place] [id number] PCP - General 08/31/25 Mary Aviles APRN [id number] [place] [address] Nurse Practitioner Neurosurgery 09/05/25 documented as of this encounter
--- OUTSIDE RECORDS SUMMARY | 2025-09-20 08:26 | XMS_ITS | Clinical Summary ---
Author Organization [facility] Address [address] [place] [address] Care Team Providers Care Casting Molder Name Role Phone Pcp, Pending Only MD Primary Care Provider [phone] Allergies Active Allergy Reactions Criticality Noted Date Comments Statins Unknown 09/27/2024 Medications aspirin 81 MG TBEC daily. Active carvedilol (COREG) 3.125 MG TABS TAKE ONE (1) TABLET BY MOUTH TWICE DAILY WITH FOOD OR A MEAL Active DULoxetine (CYMBALTA) 60 MG CPEP Take 60 mg by mouth daily. Active esomeprazole (NEXIUM) 20 MG CPDR Take 20 mg by mouth daily. Active ezetimibe (ZETIA) 10 MG TABS Take 1 tablet by mouth daily. Active levothyroxine (SYNTHROID, LEVOTHROID) 75 MCG TABS Take 75 mcg by mouth daily. Active XARELTO 15 MG TABS Take 1 tablet twice a day by oral route. 09/26/2024 Active testosterone cypionate (DEPOTESTOTERONE CYPIONATE) 200 MG/ML SOLN SMARTSI. 75 Milliliter( s) IM Once a Week Active dapagliflozin-me tFORMIN (XIGDUO XR) 5-1000 mg TB24 Take 1 tablet by mouth 2 (two) times daily. Active Active Problems No known active problems Social History Tobacco Use Types Packs/Day Years Used Date Smoking Tobacco: Never Smokeless Tobacco: Current Tobacco Cessation:Ready to Q uit: Not Asked; Counseling Given: Not Answered Alcohol Use Standard Drinks/Week Comments Not Currently 0 (1 standard drink = 0.6 oz pur e alcohol) Sex and Gender Information Value Date Recorded Sex Assigned at Not on file Legal Sex Male 8:33 AM EST Gender Identity Not on file Sexual Orientation Not on file Last Filed Vital Signs Vital Sign Reading Time Taken Comments Blood Pressure 118/74 10/13/2024 8:44 AM EST Pulse 96 10/13/2024 8:44 AM EST Temperature - - Respiratory Rate 14 10/13/2024 8:44 AM EST Oxygen Saturation 97% 10/13/2024 8:44 AM EST Inhaled Oxygen Concentration - - Weight 118.8 kg (262 lb) 10/13/2024 8:44 AM EST Height 182.9 cm (6') 09/29/2024 10:46 AM EST Body Mass Index 35.53 09/29/2024 10:46 AM EST Plan of Treatment Health Maintenance Due Date Last Done Comments Colonoscopy 2013 PSA YEARLY 2018 Pneumococcal 50+ (1 of 1 - PCV) 2018 Shingrix (#1) 2018 DTap,Tdap,and Td (2 - Td or Tdap) 10/07/2022 10/07/2012 Influenza Vaccine (#1) 2025 2, 07/22/2021, 08/22/2019, Additional history exists RSV Vaccine (60+ or ) (1 - 1-dose 75+ series) 2043 HPV Aged Out No longer eligi ble based on patient's age to complete this topic Meningococcal conjugate valent 4 (MCV4) Aged Out No longer eligible based on patient's age to complete this topic RSV Immunization (<20 months) Aged Out No longer eligible based on patient's age to complete this topic Insurance ANTH BLUE CROSS ALL OTHERS NOT MEDICARE Care Teams Casting Molder Relationship Specialty Start Date End Date Pcp, Pending Only, [place], [place] [phone] PCP - General Internal Medicine 09/27/24
--- OUTSIDE RECORDS SUMMARY | 2025-09-20 08:26 | XMS_ITS | Continuity of Care Document ---
[facility] Organization [facility] Address [address] [place] [address] Care Team Providers Care Gate Watchman Name Role Phone GABRIELA GODDARD [facility] Assessment No assessment recorded. Plan of Treatment Reminders Order Date Submit Date Provider Last Modified By Organization Details Last Modified Time Details Appointments Follow Up 20 2024 08:00A M Kelsey Peralta, [employer]CHO[employer] GUIDANCE COUNSELOR Not available Not available Not available ESTABLISH ED PT 30 2025 08:30A M Danielle Groves, HIGH SCHOOL GUIDANCE COUNSELOR Not available Not available Not available Lab TSH, ultra-sen sitive, serum 2024 025 MEGAN [facility], [address], [address], [place], [address], 09/11/2025 08:31:50 CMP, serum or plasma 2024 025 MEAGN [facility], [address], [address], [place], [address], 09/11/2025 08:31:49 lipid panel, serum 2024 025 MEGAN [facility], [address], [address], [place], [address], 09/11/2025 08:31:49 CBC w/ auto diff 2024 025 MEGAN [facility], [address], [address], [place], [address], 09/11/2025 08:31:48 vitamin B12, serum 2024 MEGAN [facility], [address], [address], [place], [address], 09/11/2025 08:31:51 vitamin D, 25-hydrox y, total, serum 2024 MEGAN [facility], [address], [address], [place], [address], 09/11/2025 08:31:50 glucose, fingersti ck, blood 2024 [facility], [address] [place] [address] , [place], [address], 09/10/2025 08:56:54 HbA1c (hemoglob in A1c), blood 2024 [facility], [address] [place] [address] , [place], [address], 09/10/2025 08:56:53 Referral None recorded. Procedures None recorded. Surgeries None recorded. Imaging None recorded. Medication Orders Ozempic 0.25 mg or 0.5 mg (2 mg/3 mL) subcutane ous pen injector 2024 [facility], [address] [place] [address], [place], [address], 09/10/2025 08:56:55 Patient TargetsNo targets recorded. Patient Instructions Encounter Date Encounter Id Patient Instructions Last Modified By Organization Details Last Modified Time 09/10/2025 [id number] learning about type 2 diabetes rjessee Not available 09/10/2025 08:56:53 type 2 diabetes: care instructions rjessee Not available 09/10/2025 08:56:54 hip arthritis: care instructions rjessee Not available 09/10/2025 08:56:53 osteoarthritis: care instructions rjessee Not available 09/10/2025 08:56:53 learning about type 2 diabetes rjessee Not available 09/10/2025 08:56:53 type 2 diabetes: care instructions rjessee Not available 09/10/2025 08:56:53 iron deficiency anemia: care instructions rjessee Not available 09/10/2025 08:56:54 body mass index: care instructions rjessee Not available 09/10/2025 08:56:53 learning about healthy weight rjessee Not available 09/10/2025 08:56:53 obesity educatio n information rjessee Not available 09/10/2025 08:56:53 Continue Xigduo XR 03/1000 mg two tabs daily. Continue Ozempic 0.5 mg weekly. We will call you with your lab results. Follow up with your other health care providers as scheduled. I want to see you back in 3 months. rjessee Not available 09/10/2025 08:59:17 Reason for Referral None Reported. Results Created Date Observation Date Name Description Value Unit Range Abnormal Flag Note LastModifiedBy Organization Detail LastModifiedTime 08/27/2008/28/2025 CBC WITH DIFFE RENTI AL/PL ATELE T WBC 6.6 x10e3 /uL 3.4-10 .8 normal Not Available [facility] ([facility]) [address] [place], [address], 08/28/2025 11:08:07 08/27/2008/28/2025 CBC WITH DIFFE RENTI AL/PL ATELE T RBC 5.45 x10e6 /uL 4.14-5 .80 normal Not Available [facility] ([facility]) [address] [place], [address], 08/28/2025 11:08:07 08/27/2008/28/2025 CBC WITH DIFFE RENTI AL/PL ATELE T hemoglobin 16.3 g/dL 13.0-1 7.7 normal Not Available [facility] ([facility]) [address] [place], [address], 08/28/2025 11:08:07 08/27/2008/28/2025 CBC WITH DIFFE RENTI AL/PL ATELE T hematocrit 49.5 % 37.5-5 1.0 normal Not Available [facility] ([facility]) [address] [place], [address], 08/28/2025 11:08:07 08/27/2008/28/2025 CBC WITH DIFFE RENTI AL/PL ATELE T MCV 91 fL 79-97 normal Not Available [facility] ([facility]) [address] [place], [address], 08/28/2025 11:08:07 08/27/2008/28/2025 CBC WITH DIFFE RENTI AL/PL ATELE T MCH 29.9 pg 26.6-3 3.0 normal Not Available [facility] ([facility]) [address] [place], [address], 08/28/2025 11:08:07 08/27/2008/28/2025 CBC WITH DIFFE RENTI AL/PL ATELE T MCHC 32.9 g/dL 31.5-3 5.7 normal Not Available [facility] ([facility]) [address] [place], [address], 08/28/2025 11:08:07 08/27/2008/28/2025 CBC WITH DIFFE RENTI AL/PL ATELE T RDW 14.4 % 11.6-1 5.4 Not Available [facility] ([facility]) [address] [place], [address], 08/28/2025 11:08:07 08/27/2008/28/2025 CBC WITH DIFFE RENTI AL/PL ATELE T platelets 230 x10e3 /uL 150-45 0 normal Not Available [facility] ([facility]) [address] [place], [address], 08/28/2025 11:08:07 10/27/20 25 08/28/2025 CBC WITH DIFFE RENTI AL/PL ATELE T neutrophils 70 % not estab. normal Not Available [facility] ([facility]) [address] [facility], [place], [address], 08/28/2025 11:08:07 08/27/2008/28/2025 CBC WITH DIFFE RENTI AL/PL ATELE T lymphs 18 % not estab. normal Not Available [facility] ([facility]) [address] [facility], [place], [address], 08/28/2025 11:08:07 08/27/2008/28/2025 CBC WITH DIFFE RENTI AL/PL ATELE T monocytes 7 % not estab. normal Not Available [facility] ([facility]) [address] [facility], [place], [address], 08/28/2025 11:08:07 08/27/2008/28/2025 CBC WITH DIFFE RENTI AL/PL ATELE T eos 4 % not estab. normal Not Available [facility] ([facility]) [address] [facility], [place], [address], 08/28/2025 11:08:07 08/27/2008/28/2025 CBC WITH DIFFE RENTI AL/PL ATELE T basos 1 % not estab. normal Not Available [facility] ([facility]) [address] [facility], [place], [address], 08/28/2025 11:08:07 08/27/2008/28/2025 CBC WITH DIFFE RENTI AL/PL ATELE T immature cells CUTTER OPERATOR Not Available [facility] ([facility]) [address] [facility], [place], [address], 08/28/2025 11:08:07 08/27/2008/28/2025 CBC WITH DIFFE RENTI AL/PL ATELE T neutrophils (absolute) 4.6 x10e3 /uL 1.4-7. 0 normal Not Available [facility] ([facility]) [address] [facility], [place], [address], 08/28/2025 11:08:07 08/27/20 25 08/28/2025 CBC WITH DIFFE RENTI AL/PL ATELE T lymphs (absolute) 1.2 x10e3 /uL 0.7-3. 1 normal Not Available [facility] ([facility]) [address] [facility], [place], [address], 08/28/2025 11:08:07 08/27/2008/28/2025 CBC WITH DIFFE RENTI AL/PL ATELE T monocytes(ab solute) 0.5 x10e3 /uL 0.1-0. 9 normal Not Available [facility] ([facility]) [address] [facility], [place], [address], 08/28/2025 11:08:07 08/27/20 25 08/28/2025 CBC WITH DIFFE RENTI AL/PL ATELE T eos (absolute) 0.3 x10e3 /uL 0.0-0. 4 normal Not Available [facility] ([facility]) [address] [facility], [place], [address], 08/28/2025 11:08:07 08/27/20 25 08/28/2025 CBC WITH DIFFE RENTI AL/PL ATELE T baso (absolute) 0.0 x10e3 /uL 0.0-0. 2 normal Not Available [facility] ([facility]) [address] [facility], [place], [address], 08/28/2025 11:08:07 08/27/20 25 08/28/2025 CBC WITH DIFFE RENTI AL/PL ATELE T immature granulocytes 0 % not estab. Not Available [facility] ([facility]) [address] [facility], [place], [address], 08/28/2025 11:08:07 08/27/20 25 08/28/2025 CBC WITH DIFFE RENTI AL/PL ATELE T immature grans (abs) 0.0 x10e3 /uL 0.0-0. 1 Not Available [facility] ([facility]) [address] [facility], [place], [address], 08/28/2025 11:08:07 08/27/20 25 08/28/2025 CBC WITH DIFFE RENTI AL/PL ATELE T NRBC CUTTER OPERATOR Not Available [facility] ([facility]) [address] [facility], [place], [address], 08/28/2025 11:08:07 08/27/2008/28/2025 CBC WITH DIFFE RENTI AL/PL ATELE T hematology comments: CUTTER OPERATOR Not Available [facility] ([facility]) [address] [facility], [place], [address], 08/28/2025 11:08:07 08/27/2008/28/2025 COMP. METAB OLIC PANEL (14) glucose 157 mg/dL 70-99 above high normal Not Available [facility] ([facility]) [address] [facility], [place], [address], 08/28/2025 11:08:07 08/27/2008/28/2025 COMP. METAB OLIC PANEL (14) BUN 12 mg/dL 6-24 normal Not Available [facility] ([facility]) [address] [place], [address], 08/28/2025 11:08:07 08/27/2008/28/2025 COMP. METAB OLIC PANEL (14) creatinine 0.94 mg/dL 0.76-1 .27 normal Not Available [facility] ([facility]) [address] [place], [address], 08/28/2025 11:08:07 08/27/20 25 08/28/2025 COMP. METAB OLIC PANEL (14) eGFR 95 mL/mi n/1.7 3 >59 normal Not Available [facility] ([facility]) [address] [place], [address], 08/28/2025 11:08:07 08/27/2008/28/2025 COMP. METAB OLIC PANEL (14) BUN/creatini ne ratio 13 9-20 normal Not Available [facility] ([facility]) [address] [place], [address], 08/28/2025 11:08:07 08/27/2008/28/2025 COMP. METAB OLIC PANEL (14) sodium 139 mmol/ L 134-14 4 normal Not Available [facility] ([facility]) [address] [place], [address], 08/28/2025 11:08:07 08/27/2008/28/2025 COMP. METAB OLIC PANEL (14) potassium 4.6 mmol/ L 3.5-5. 2 normal Not Available [facility] ([facility]) [address] [place] [place], [address], 08/28/2025 11:08:07 08/27/2008/28/2025 COMP. METAB OLIC PANEL (14) chloride 104 mmol/ L 96-106 normal Not Available [facility] ([facility]) [address] [place] [place], [address], 08/28/2025 11:08:07 08/27/20 25 08/28/2025 COMP. METAB OLIC PANEL (14) carbon dioxide, total 20 mmol/ L 20-29 normal Not Available [facility] ([facility]) [address] [place] [place], [address], 08/28/2025 11:08:07 08/27/2008/28/2025 COMP. METAB OLIC PANEL (14) calcium 9.5 mg/dL 8.7-10 .2 normal Not Available [facility] ([facility]) [address] [place] [place], [address], 08/28/2025 11:08:07 08/27/2008/28/2025 COMP. METAB OLIC PANEL (14) protein, total 6.7 g/dL 6.0-8. 5 normal Not Available [facility] ([facility]) [address] [facility] [place], [address], 08/28/2025 11:08:07 08/27/2008/28/2025 COMP. METAB OLIC PANEL (14) albumin 4.4 g/dL 3.8-4. 9 normal Not Available [facility] ([facility]) [address] [place], [address], 08/28/2025 11:08:07 08/27/2008/28/2025 COMP. METAB OLIC PANEL (14) globulin, total 2.3 g/dL 1.5-4. 5 Not Available [facility] ([facility]) [address] [place] [place], [address], 08/28/2025 11:08:07 08/27/2008/28/2025 COMP. METAB OLIC PANEL (14) bilirubin, total 0.4 mg/dL 0.0-1. 2 normal Not Available [facility] ([facility]) [address] [place] [place], [address], 08/28/2025 11:08:07 08/27/2008/28/2025 COMP. METAB OLIC PANEL (14) alkaline phosphatase 57 IU/L 47-123 normal Not Available [facility] ([facility]) [address] [place] [place], [address], 08/28/2025 11:08:07 08/27/2008/28/2025 COMP. METAB OLIC PANEL (14) AST (SGOT) 32 IU/L 0-40 normal Not Available [facility] ([facility]) [address] [place] [place], [address], 08/28/2025 11:08:07 08/27/2008/28/2025 COMP. METAB OLIC PANEL (14) ALT (SGPT) 35 IU/L 0-44 normal Not Available [facility] ([facility]) [address] [place] [place], [address], 08/28/2025 11:08:07 08/27/20 25 08/28/2025 LIPID PANEL cholesterol, total 149 mg/dL 100-19 9 normal Not Available [facility] ([facility]) [address] [place] [place], [address], 08/28/2025 11:08:08 08/27/2008/28/2025 LIPID PANEL triglyceride s 193 mg/dL 0-149 above high normal Not Available [facility] ([facility]) [address] [facility], [place], [address], 08/28/2025 11:08:08 08/27/2008/28/2025 LIPID PANEL HDL cholesterol 34 mg/dL >39 below low normal Not Available [facility] ([facility]) [address] [facility], [place], [address], 08/28/2025 11:08:08 08/27/2008/28/2025 LIPID PANEL VLDL cholesterol barrie 33 mg/dL 5-40 Not Available [facility] ([facility]) [address] [facility], [place], [address], 08/28/2025 11:08:08 08/27/2008/28/2025 LIPID PANEL LDL chol calc ([facility]) 82 mg/dL 0-99 Not Available [facility] ([facility]) [address] [place] [place], [address], 08/28/2025 11:08:08 08/27/2008/28/2025 LIPID PANEL LDL calc comment: CUTTER OPERATOR Not Available [facility] ([facility]) [address] [facility], [place], [address], 08/28/2025 11:08:08 08/27/2008/28/2025 MONICO+L IPASE amylase 69 U/L 31-110 normal Not Available [facility] ([facility]) [address] [facility], [place], [address], 08/28/2025 11:08:08 08/27/2008/28/2025 MONICO+L IPASE lipase 62 U/L 13-78 normal Not Available [facility] ([facility]) [address] [facility], [place], [address], 08/28/2025 11:08:08 08/27/2008/28/2025 HEMOG LOBIN A1C hemoglobin A1C 7.2 % 4.8-5. 6 above high normal Predi abete s: 5.7 - 6.4 Diabe zena: >6.4 Glyce keri contr ol for adult s with diabe zena: <7.0 Not Available [facility] ([facility]) [address] [facility], [place], [address], 08/28/2025 11:08:09 08/27/2008/27/2025 urina lysis , dipst ick Leukocytes Negati ve Not Available [address], [address], 08/27/2025 10:09:16 08/27/2008/27/2025 urina lysis , dipst ick Nitrite negati ve Not Available [address], [address], 08/27/2025 10:09:16 08/27/2008/27/2025 urina lysis , dipst ick Urobilinogen .2 Not Available [facility] [address], [address], 08/27/2025 10:09:16 08/27/20 25 08/27/2025 urina lysis , dipst ick Protein Negati ve Not Available [address], [address], 08/27/2025 10:09:16 08/27/2008/27/2025 urina lysis , dipst ick pH 5.5 Not Available [address], [address], 08/27/2025 10:09:16 08/27/2008/27/2025 urina lysis , dipst ick Blood Negati ve Not Available [address], [address], 08/27/2025 10:09:16 08/27/2008/27/2025 urina lysis , dipst ick Specific [place] 1.015 Not Available [address], [address], 08/27/2025 10:09:16 08/27/2008/27/2025 urina lysis , dipst ick Ketone Negati ve Not Available [address], [address], 08/27/2025 10:09:16 08/27/2008/27/2025 urina lysis , dipst ick Bilirubin Negati ve Not Available [address], [address], 08/27/2025 10:09:16 08/27/2008/27/2025 urina lysis , dipst ick Glucose 1000 Not Available [address], [address], 08/27/2025 10:09:16 08/27/2008/27/2025 urina lysis , dipst ick Appearance Clear Not Available [address], [address], 08/27/2025 10:09:16 08/27/2008/27/2025 urina lysis , dipst ick Color Yellow Not Available [address], [address], 08/27/2025 10:09:16 09/10/20 25 09/10/2025 CBC WITH DIFFE RENTI AL/PL ATELE T WBC 5.9 x10e3 /uL 3.4-10 .8 normal Not Available [facility] ([facility]) [address] [place], [address], 09/11/2025 08:31:48 09/10/20 25 09/10/2025 CBC WITH DIFFE RENTI AL/PL ATELE T RBC 5.45 x10e6 /uL 4.14-5 .80 normal Not Available [facility] ([facility]) [address] [place], [address], 09/11/2025 08:31:48 09/10/20 25 09/10/2025 CBC WITH DIFFE RENTI AL/PL ATELE T hemoglobin 16.3 g/dL 13.0-1 7.7 normal Not Available [facility] ([facility]) [address] [place], [address], 09/11/2025 08:31:48 09/10/20 25 09/10/2025 CBC WITH DIFFE RENTI AL/PL ATELE T hematocrit 49.2 % 37.5-5 1.0 normal Not Available [facility] ([facility]) [address] [place], [address], 09/11/2025 08:31:48 09/10/20 25 09/10/2025 CBC WITH DIFFE RENTI AL/PL ATELE T MCV 90 fL 79-97 normal Not Available [facility] ([facility]) [address] [facility], [place], [address], 09/11/2025 08:31:48 09/10/20 25 09/10/2025 CBC WITH DIFFE RENTI AL/PL ATELE T MCH 29.9 pg 26.6-3 3.0 normal Not Available [facility] ([facility]) [address] [facility], [place], [address], 09/11/2025 08:31:48 09/10/20 25 09/10/2025 CBC WITH DIFFE RENTI AL/PL ATELE T MCHC 33.1 g/dL 31.5-3 5.7 normal Not Available [facility] ([facility]) [address] [facility], [place], [address], 09/11/2025 08:31:48 09/10/20 25 09/10/2025 CBC WITH DIFFE RENTI AL/PL ATELE T RDW 14.0 % 11.6-1 5.4 Not Available [facility] ([facility]) [address] [facility], [place], [address], 09/11/2025 08:31:48 09/10/20 25 09/10/2025 CBC WITH DIFFE RENTI AL/PL ATELE T platelets 221 x10e3 /uL 150-45 0 normal Not Available [facility] ([facility]) [address] [place], [address], 09/11/2025 08:31:48 09/10/20 25 09/10/2025 CBC WITH DIFFE RENTI AL/PL ATELE T neutrophils 65 % not estab. normal Not Available [facility] ([facility]) [address] [place], [address], 09/11/2025 08:31:48 09/10/20 25 09/10/2025 CBC WITH DIFFE RENTI AL/PL ATELE T lymphs 21 % not estab. normal Not Available [facility] ([facility]) [address] [place], [address], 09/11/2025 08:31:48 09/10/20 25 09/10/2025 CBC WITH DIFFE RENTI AL/PL ATELE T monocytes 7 % not estab. normal Not Available [facility] ([facility]) [address] [place], [address], 09/11/2025 08:31:48 09/10/20 25 09/10/2025 CBC WITH DIFFE RENTI AL/PL ATELE T eos 5 % not estab. normal Not Available [facility] ([facility]) [address] [place], [address], 09/11/2025 08:31:48 09/10/20 25 09/10/2025 CBC WITH DIFFE RENTI AL/PL ATELE T basos 1 % not estab. normal Not Available [facility] ([facility]) [address] [place], [address], 09/11/2025 08:31:48 09/10/20 25 09/10/2025 CBC WITH DIFFE RENTI AL/PL ATELE T immature cells CUTTER OPERATOR Not Available [facility] ([facility]) [address] [place], [address], 09/11/2025 08:31:48 09/10/20 25 09/10/2025 CBC WITH DIFFE RENTI AL/PL ATELE T neutrophils (absolute) 3.9 x10e3 /uL 1.4-7. 0 normal Not Available [facility] ([facility]) [address] [place], [address], 09/11/2025 08:31:48 09/10/20 25 09/10/2025 CBC WITH DIFFE RENTI AL/PL ATELE T lymphs (absolute) 1.2 x10e3 /uL 0.7-3. 1 normal Not Available [facility] ([facility]) [address] [place], [address], 09/11/2025 08:31:48 09/10/20 25 09/10/2025 CBC WITH DIFFE RENTI AL/PL ATELE T monocytes(ab solute) 0.4 x10e3 /uL 0.1-0. 9 normal Not Available [facility] ([facility]) [address] [facility], [place], [address], 09/11/2025 08:31:48 09/10/20 25 09/10/2025 CBC WITH DIFFE RENTI AL/PL ATELE T eos (absolute) 0.3 x10e3 /uL 0.0-0. 4 normal Not Available [facility] ([facility]) [address] [place], [address], 09/11/2025 08:31:48 09/10/20 25 09/10/2025 CBC WITH DIFFE RENTI AL/PL ATELE T baso (absolute) 0.0 x10e3 /uL 0.0-0. 2 normal Not Available [facility] ([facility]) [address] [place], [address], 09/11/2025 08:31:48 09/10/20 25 09/10/2025 CBC WITH DIFFE RENTI AL/PL ATELE T immature granulocytes 0 % not estab. Not Available [facility] ([facility]) [address] [place], [address], 09/11/2025 08:31:48 09/10/20 25 09/10/2025 CBC WITH DIFFE RENTI AL/PL ATELE T immature grans (abs) 0.0 x10e3 /uL 0.0-0. 1 Not Available [facility] ([facility]) [address] [place], [address], 09/11/2025 08:31:48 09/10/20 25 09/10/2025 CBC WITH DIFFE RENTI AL/PL ATELE T NRBC CUTTER OPERATOR Not Available [facility] ([facility]) [address] [place], [address], 09/11/2025 08:31:48 09/10/20 25 09/10/2025 CBC WITH DIFFE OREN AL/LIN Jenkins hematology comments: CUTTER OPERATOR Not Available [facility] ([facility]) [address], [place], [address], 09/11/2025 08:31:48 09/10/20 25 09/11/2025 COMP. METAB OLIC PANEL (14) glucose 179 mg/dL 70-99 above high normal Not Available [facility] ([facility]) [address], [place], [address], 09/11/2025 08:31:49 09/10/20 25 09/11/2025 COMP. METAB OLIC PANEL (14) BUN 14 mg/dL 6-24 normal Not Available [facility] ([facility]) [address] [facility], [place], [address], 09/11/2025 08:31:49 09/10/20 25 09/11/2025 COMP. METAB OLIC PANEL (14) creatinine 1.02 mg/dL 0.76-1 .27 normal Not Available [facility] ([facility]) [address] [facility], [place], [address], 09/11/2025 08:31:49 09/10/20 25 09/11/2025 COMP. METAB OLIC PANEL (14) eGFR 86 mL/mi n/1.7 3 >59 normal Not Available [facility] ([facility]) [address] [facility], [place], [address], 09/11/2025 08:31:49 09/10/20 25 09/11/2025 COMP. METAB OLIC PANEL (14) BUN/creatini ne ratio 14 9-20 normal Not Available [facility] ([facility]) [address] [facility], [place], [address], 09/11/2025 08:31:49 09/10/20 25 09/11/2025 COMP. METAB OLIC PANEL (14) sodium 138 mmol/ L 134-14 4 normal Not Available [facility] ([facility]) [address] [facility] [place], [address], 09/11/2025 08:31:49 09/10/20 25 09/11/2025 COMP. METAB OLIC PANEL (14) potassium 4.6 mmol/ L 3.5-5. 2 normal Not Available [facility] ([facility]) [address] [facility], [place], [address], 09/11/2025 08:31:49 09/10/20 25 09/11/2025 COMP. METAB OLIC PANEL (14) chloride 101 mmol/ L 96-106 normal Not Available [facility] ([facility]) [address] [facility], [place], [address], 09/11/2025 08:31:49 09/10/20 25 09/11/2025 COMP. METAB OLIC PANEL (14) carbon dioxide, total 22 mmol/ L 20-29 normal Not Available [facility] ([facility]) [address] [place], [address], 09/11/2025 08:31:49 09/10/20 25 09/11/2025 COMP. METAB OLIC PANEL (14) calcium 9.7 mg/dL 8.7-10 .2 normal Not Available [facility] ([facility]) [address] [place], [address], 09/11/2025 08:31:49 09/10/20 25 09/11/2025 COMP. METAB OLIC PANEL (14) protein, total 6.6 g/dL 6.0-8. 5 normal Not Available [facility] ([facility]) [address] [place], [address], 09/11/2025 08:31:49 09/10/20 25 09/11/2025 COMP. METAB OLIC PANEL (14) albumin 4.4 g/dL 3.8-4. 9 normal Not Available [facility] ([facility]) [address] [place], [address], 09/11/2025 08:31:49 09/10/20 25 09/11/2025 COMP. METAB OLIC PANEL (14) globulin, total 2.2 g/dL 1.5-4. 5 Not Available [facility] ([facility]) [address] [place] [place], [address], 09/11/2025 08:31:49 09/10/20 25 09/11/2025 COMP. METAB OLIC PANEL (14) bilirubin, total 0.6 mg/dL 0.0-1. 2 normal Not Available [facility] ([facility]) [address] [place], [address], 09/11/2025 08:31:49 09/10/20 25 09/11/2025 COMP. METAB OLIC PANEL (14) alkaline phosphatase 58 IU/L 47-123 normal Not Available [facility] ([facility]) [address] [place], [address], 09/11/2025 08:31:49 09/10/20 25 09/11/2025 COMP. METAB OLIC PANEL (14) AST (SGOT) 27 IU/L 0-40 normal Not Available [facility] ([facility]) [address] [place] [place], [address], 09/11/2025 08:31:49 09/10/20 25 09/11/2025 COMP. METAB OLIC PANEL (14) ALT (SGPT) 32 IU/L 0-44 normal Not Available [facility] ([facility]) [address] [place], [address], 09/11/2025 08:31:49 09/10/20 25 09/11/2025 LIPID PANEL cholesterol, total 127 mg/dL 100-19 9 normal Not Available [facility] ([facility]) [address] [facility], [place], [address], 09/11/2025 08:31:49 09/10/20 25 09/11/2025 LIPID PANEL triglyceride s 119 mg/dL 0-149 normal Not Available [facility] ([facility]) [address] [facility] [place], [address], 09/11/2025 08:31:49 09/10/20 25 09/11/2025 LIPID PANEL HDL cholesterol 34 mg/dL >39 below low normal Not Available [facility] ([facility]) [address] [facility] [place], [address], 09/11/2025 08:31:49 09/10/20 25 09/11/2025 LIPID PANEL VLDL cholesterol barrie 22 mg/dL 5-40 Not Available [facility] ([facility]) [address] [place], [address], 09/11/2025 08:31:49 09/10/20 25 09/11/2025 LIPID PANEL LDL chol calc ([facility]) 71 mg/dL 0-99 Not Available [facility] ([facility]) [address] [facility], [place], [address], 09/11/2025 08:31:49 09/10/20 25 09/11/2025 LIPID PANEL LDL calc comment: [employer]TER [employer] Not Available [facility] ([facility]) [address] [place], [address], 09/11/2025 08:31:49 09/10/20 25 09/11/2025 VITAM IN D, 25-HY DROXY vitamin D, 25-hydroxy 49.7 NG/mL 30.0-1 00.0 Vitam in D defic iency has been defin ed by the Insti tute of Medic ine and an Endoc rine Socie ty pract ice guide line as a level of serum 25-OH vitam in D less than 20 ng/mL (1,2) . The Endoc rine Socie ty went on to [facility] defin e vitam in D insuf ficie ncy as a level betwe en 21 and 29 ng/mL (2). 1. IOM (Inst itute of Medic ine). 2009. Dieta ry refer ence intlilian es for calci um and D. Kurtis sullivan [place]: [facility] . 2. Holic k MF, Binkl ey [place], Bisch off-F errar i BARBOSA, et al. Evalu ation , treat ment, and preve ntion of vitam in D defic iency : an Endoc rine Socie ty clini barrie pract ice guide line. JCEM. 2010; 96(7) :1911 -30. Not Available [facility] ([facility]) [address] [place], [address], 09/11/2025 08:31:50 09/10/20 25 09/11/2025 TSH RFX ON ABNOR MAL TO FREE T4 TSH 1.850 uIU/m L 0.450- 4.500 normal Not Available [facility] ([facility]) [address] [place], [address], 09/11/2025 08:31:50 09/10/20 25 09/11/2025 VITAM IN B12 vitamin B12 646 pg/mL 232-12 45 normal Not Available [facility] ([facility]) [address] [place], [address], 09/11/2025 08:31:51 09/10/20 25 09/10/2025 HbA1c (hemo globi n A1c), blood HbA1C 7.1 % Not Available [address] , [place], [address], 09/10/2025 08:21:55 09/10/20 25 09/10/2025 gluco se, ashutosh rodriguez k, blood Blood Glucose: mg/dl 189 Not Available [address] , [place], [address], 09/10/2025 08:21:55 08/27/2008/21/2025 CT, abdom en + pelvi s, w/o contr ast No observ ation record ed. [facility] (Medical Records) [address] [place], [address], 08/27/2025 13:13:09 08/30/20 CT, abdom en + pelvi s, w/ contr ast No observ ation record ed. [address] [facility], [place], [address], 08/31/2025 14:44:36 09/10/20 [place], ciara carballo r No observ ation record ed. [address] , [place], [address], 09/10/2025 12:02:40 09/10/2009/05/2025 XR, thora cic spine , 4 or more view No observ ation record ed. efryman Not Available 2024 13:39:04 Result Notes None recorded. 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 side of the nose Paula Perez RN [address], [place], [address], [place] [facility] 0 08:19:08 History of repair of hip joint 859367073 Active Paula Perez RN [address], [place], [address], [place] [facility] 0 08:19:08 Type 2 diabetes mellitus 18030827 Active Paula Perez RN [address], [place], [address], [place] [facility] 0 08:19:08 Hyperlip idemia [id number] Leilani Perez RN [address], [place], [address] [facility] 0 08:19:08 Hyperten sive disorder 13588721 Active Paula Perez RN [address], [place], [address] [facility] 0 08:19:08 History of malignan t lymphoma 795450279 Active Paula Perez RN [address], [place], [address] [facility] 0 08:19:08 Obesity 001738742 Active Paula Perez RN [address], [place], [address] [facility] 0 08:19:08 Sleep apnea 90850467 Active Paula Perez RN [address], [place], [address] [facility] 0 08:19:08 Pulmonar y embolism 32601390 Active Paula Perez RN [address], [place], [address] [facility] 0 08:19:08 Abnormal testoste addie 072469030 Active Paula Perez RN [address], [place], [address] [facility] 0 08:19:08 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 Paula Perez RN [address], [place], [address] [facility] 0 08:19:08 Exposure to SARS-CoV -2 Completed 201909/07/2024 Removal Reason: pt does not have covid now Mandie Stears null, [place] [facility] 4 08:38:53 Mixed hyperlip idemia 000534722 Active 2020 Danielle Groves, HIGH [employer]CHO[employer] GUIDANCE COUNSELOR [address], [place], [address] [facility] 1 13:44:59 Non-Hodg kin's lymphoma (clinica l) 704404245 Active 2020 Danielle Groves, HIGH SCHO[employer] GUIDANCE COUNSELOR [address], [place], [address] [facility] 13:45:00 Gastroes ophageal reflux disease without esophagi tis 194840053 Active 2020 Danielle Groves, HIGH SCHO[employer] GUIDANCE COUNSELOR [address], [place], [address] [facility] 13:45:05 Anxiety 71709067 Active 2020 Danielle Groves, HIGH SCHO[employer] GUIDANCE COUNSELOR [address], [place], [address] [facility] 13:45:07 Obstruct omi sleep apnea syndrome 82764998 Active 2020 Danielle Groves, HIGH SCHO[employer] GUIDANCE COUNSELOR [address], [place], [address] [facility] 13:45:13 Degenera tion of lumbar interver tebral disc 91536399 Active 2020 Danielle Groves, HIGH [employer]CHO[employer] GUIDANCE COUNSELOR [address], [place], [address], [place] [facility] 13:45:15 Osteoart hritis 660105373 Active 2020 Danielle Groves, HIGH [employer]CHO[employer] GUIDANCE COUNSELOR [address], [place], [address], [place] [facility] 13:45:18 Hypergly cemia due to type 2 diabetes mellitus 59824684943 9109 Active 2020 Danielle Groves, HIGH [employer]CHO[employer] GUIDANCE COUNSELOR [address], [place], [address], [place] [facility] 13:45:20 Osteoart hritis of hip 035564161 Active 2020 Danielle Groves, HIGH [employer]CHO[employer] GUIDANCE COUNSELOR [address], [place], [address] [facility] 13:45:21 Testoste addie level below referenc e range 202235534 Active 2020 Danielle Groves, HIGH [employer]CHO[employer] GUIDANCE COUNSELOR [address], [place], [address] [facility] 1 13:45:25 Vitamin B12 deficien cy (non anemic) 47497854 Active 2020 Danielle Groves, HIGH [employer]CHO[employer] GUIDANCE COUNSELOR [address], [place], [address] [facility] 1 13:45:35 Divertic ular disease 108706338 Active [address] 02-04-2024 Mandie Stears null[place] [facility] 5 10:55:53 Pain of left hip joint 48068309267 9100 Completed 202311/16/2024 Mandie Stears null[place] [facility] 5 09:03:46 Osteoart hritis of left hip joint 90593013375 9108 Active 2023 Kunal Wiseman, DO [address], [place], [address] [facility] 4 21:18:17 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 759764740 Active 2023 Kunal Wiseman, DO [address], [place], [address] [facility] 4 21:25:44 Somatic dysfunct ion of head region 725569918 Completed 202311/16/2024 Mandie Stears null[place] [facility] 5 09:03:26 Cervical somatic dysfunct ion 667356702 Active 2023 Kunal Wiseman, DO [address], [place], [address] [facility] 4 21:29:12 Somatic dysfunct ion of thoracic region 294451511 Completed 202311/16/2024 Mandie Stears [place] [facility] 5 09:02:53 Somatic dysfunct ion of lumbar region 396088939 Completed 202311/16/2024 Mandie Ste[place] [facility] 5 09:03:21 Somatic dysfunct ion of pelvic region 780025641 Completed 202311/16/2024 Mandie Stears [place] [facility] 5 09:03:10 Somatic dysfunct ion of sacral region 407850446 Completed 202311/16/2024 Mandie Stears [place] [facility] 5 09:02:58 Somatic dysfunct ion of lower limb 018533599 Completed 202311/16/2024 Mandie Stears [place] [facility] 5 09:03:16 Somatic dysfunct ion of upper limb 959698786 Completed 202311/16/2024 Mandie Stears [place] [facility] 5 09:02:47 Somatic dysfunct ion of rib 585125246 Completed 202311/16/2024 Mand[place] [facility] 5 09:03:03 Pain of left knee joint 05725927424 4107 Completed 202311/16/2024 Mandie Ste[place] [facility] 5 09:03:41 Deep venous thrombos is of lower extremit y 561538789 Active 2023 Kelsey Peralta, HIGH [employer]CHO[employer]UID[employer] COUNSELOR [address], [place], [address], [place] [facility] 4 10:16:29 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 Please review this document and add these problems to the patient's chart manually as needed. Problem Notes None recorded. Procedures Surgical History Date Name Laterality Status Provider Name and Address Organization Details Recorded Time 08/27/20 Medication Reconcilliation completed Mandie Mark [place] [facility] 08/27/2025 09:45:12 05/08/20 25 A1C level 8.0 to 9.0 completed [place] [facility] 05/08/2025 08:30:35 02/02/20 25 A1C level 7.0 to 7.9 completed [place] [facility] 02/01/2025 08:35:38 11/16/19 25 Negative Microalbumin completed [place] [email or web address] - [facility] 11/16/2024 12:40:31 11/16/19 25 A1C level 7.0 to 7.[address] [place] [address] - [facility] 11/16/2024 12:36:14 09/18/20 24 total replacement of hip completed Mandie Mark CT - [facility] 04/17/2025 10:34:26 08/09/20 24 Cryosurgery Dermatology completed Gabriela Goddard APRN [address], [place], [address], [place] [facility] 08/09/2024 18:22:52 08/07/20 24 A1C level 6.9 and below completed [place] - [facility] 08/07/2024 08:23:04 08/02/20 24 OMT completed Kunal Wiseman DO [address], [place], [address], [place] [facility] 08/01/2024 21:28:42 04/24/20 24 A1C level 7.0 to 7.9 completed [place] [email or web address] - [facility] 04/24/2024 08:29:26 01/12/20 24 A1C level 6.9 and below completed Batsheva Caballero [email or web address] - [facility] 01/12/2024 08:31:21 10/04/20 23 Negative Microalbumin completed [place] [facility] 10/04/2023 08:30:21 10/04/20 23 A1C level 6.9 and below completed [place] [email or web address] - [facility] 10/04/2023 08:30:58 06/17/20 23 A1C level 6.9 and below completed [place] [facility] 06/17/2023 08:24:49 05/12/20 23 Cryosurgery Dermatology completed Gabriela Goddard APRN [address], [place], [address], [place] [facility] 05/12/2023 17:48:37 03/04/20 A1C level 7.0 to 7.9 completed [place] [facility] 03/04/2023 08:27:24 01/05/20 Cryosurgery Dermatology completed Gabriela Goddard APRN [address], [place], [address], [place] [facility] 01/04/2023 18:14:32 11/26/19 23 A1C level 6.9 and below completed [place] [facility] 11/26/2022 08:43:45 11/18/19 Cryosurgery Dermatology completed Gabriela Goddard APRN [address], [place], [address], [place] [facility] 11/18/2022 18:02:12 08/19/20 Cryosurgery Dermatology completed Gabriela Goddard APRN [address], [place], [address], [place] [facility] 08/19/2022 15:45:48 08/17/20 Negative Microalbumin completed [place] [facility] 08/17/2022 08:40:32 08/17/20 A1C level 7.0 to 7.9 completed [place] [facility] 08/17/2022 08:40:28 05/13/20 A1C level 7.0 to 7.9 completed [place] [facility] 05/13/2022 08:52:34 04/09/20 22 Shave Biopsy trunk, arms, or legs completed Gabriela Goddard APRN [address], [place], [address], [place] [facility] 04/09/2022 17:50:49 01/22/20 A1C level 6.9 and below completed [place] [facility] 01/21/2022 08:25:16 10/22/20 A1C level 6.9 and below completed [place] [facility] 10/22/2021 08:44:24 07/22/20 Negative Microalbumin completed [place] [facility] 07/22/2021 08:42:49 07/22/20 A1C level 6.9 and below completed [place] [facility] 07/22/2021 08:46:31 04/30/20 A1C level 6.9 and below completed [place] [facility] 04/30/2021 08:50:47 01/30/20 A1C level 7.0 to 7.9 completed [place] [facility] 01/29/2021 08:32:19 10/01/20 Systolic B/P less than 130 mm Hg completed [place] [facility] 10/01/2020 14:56:16 10/01/20 Diastolic B/P less than 80 mm Hg completed [place] [facility] 10/01/2020 14:56:12 08/22/20 20 Systolic B/P less than 130 mm Hg completed [place] [facility] 08/22/2020 08:07:09 08/22/20 20 Diastolic B/P 80-89 mm Hg completed [place] [facility] 08/22/2020 08:07:19 08/07/20 20 Diastolic B/P less than 80 mm Hg completed [place] [facility] 08/07/2020 16:28:40 08/07/20 20 Systolic B/P 130-139 mm Hg completed [place] [facility] 08/07/2020 16:28:44 08/07/20 A1C level 6.9 and below completed [place] [facility] 08/07/2020 16:31:37 05/29/20 20 Suture/Staple removal completed Gabriela Goddard, H[employer]UID[employer] COUNSELOR [address], [place], [address] [place] [facility] 05/29/2020 18:32:14 05/22/20 20 Systolic B/P less than 130 mm Hg completed [place] [facility] 05/22/2020 08:33:33 05/22/20 20 Diastolic B/P less than 80 mm Hg completed [place] [facility] 05/22/2020 08:33:41 05/22/20 20 Negative Microalbumin completed [place] [facility] 05/22/2020 08:38:31 05/22/20 20 A1C level 6.9 and below completed [place] [facility] 05/22/2020 08:39:11 05/16/20 20 Punch Biopsy completed Gabriela Goddard APRN [address], [place], [address], [place] [facility] 05/16/2020 14:48:13 02/21/20 20 Systolic B/P less than 130 mm Hg completed [place] [facility] 02/21/2020 08:37:54 02/21/20 Diastolic B/P 80-89 mm Hg completed [place] [facility] 02/21/2020 08:38:00 02/21/20 A1C level 6.9 and below completed Jamila [place] [facility] 02/21/2020 08:39:41 11/22/19 Diastolic B/P 80-89 mm Hg completed [place] [facility] 11/22/2019 08:24:23 11/22/19 20 Systolic B/P 130-139 mm Hg completed [place] [facility] 11/22/2019 08:24:03 11/22/19 20 A1C level 6.9 and below completed [place] [facility] 11/22/2019 08:26:46 05/22/20 19 A1C level 6.9 and below completed [place] [facility] 05/22/2019 09:27:56 02/21/20 19 A1C level 6.9 and below completed [place] [facility] 02/20/2019 08:37:09 01/19/20 19 Suture/Staple removal completed Gabriela Goddard APRN [address], [place], [address], [place] [facility] 01/18/2019 08:55:01 01/12/20 19 Punch Biopsy completed Gabriela Goddard APRN [address], [place], [address], [place] [facility] 01/11/2019 11:04:43 11/21/19 19 A1C level 6.9 and below completed [place] [facility] 11/21/2018 08:30:52 09/28/20 18 Suture/Staple removal completed Gabriela Goddard APRN [address], [place], [address], [place] [facility] 09/28/2018 10:49:02 09/21/20 18 Punch Biopsy completed Gabriela Goddard, H[employer] COUNSELOR [address], [place], [address], [place] [facility] 09/21/2018 13:11:42 07/13/20 18 Cryosurgery Dermatology completed Gabriela Goddard, H[employer] G[employer] COUNSELOR [address], [place], [address], [place] [facility] 07/13/2018 08:51:18 Mohs surgery completed Mandie [place]oods [place] [facility] 07/16/2020 16:46:04 Colonoscopy completed [place] [facility] 05/08/2025 08:29:10 total replacement of hip completed Mand[place] [facility] 05/26/2022 08:13:45 biopsy completed Mand[place] Stears [place] [facility] 09/07/2024 08:30:02 Imaging Results None recorded. Procedure Notes None recorded. Medical Equipment None Reported. Allergies Allergen ID Allergen Name Allergen Category Reaction Reaction Severity Criticality Documentation Date Start Date Code Code System Note Provider Name and Address Organization Details Recorded Time 184438 Product containin g 3-hydroxy -3-methyl glutaryl- coenzyme A reductase inhibitor (product) medicatio n myalgias (muscle pain) moderate Not available 02/20/2019 73479 009 SNOMED Danielle Aubrey Groves, [employer] COUNSELOR [address], [place], [address], [place] [facility] 9 08:50:22 [id number] Mounjaro medicatio n Not available Not available Not available 08/07/2024 35935 34 RxNorm diver ticul itis [place] Vij[place] [facility] [place] [facility], [place] - [facility] 4 08:17:36 Medications Name Sig Start Date Stop Date Status Note LastModified by Organization Details LastModified Time Prescript ion - Prior Authoriza tion Request active Not Available Not Available Not Available ENCLOMIPH GEORGES 12.5 MG CAPSULE Take 1 capsule by mouth daily 2024 active Not Available Not Available Not Avai lable BD Luer-Flo Syringe 3 mL 23 x 1 USE DIRECTED FOR TESTOSTE ADDIE INJECTIO NS 10/18 completed Not Available Not Available Not Available cyclobenz aprine 10 mg tablet TAKE ONE (1) TABLET ORAL ROUTE EVERY 8 HOURS NEEDED 09/10 completed Not Available Not Available Not Available metformin 500 mg tablet take 1 tablet (500 mg) by oral route 2 times per day with morning and evening meals for 30 days 10/08 completed metformi n 500 mg oral tablet;R ecorded Status: Recorded on: 10/05/20 14 10:05AM; Disconti nued Status: Disconti nued on: 10/08/20 14 8:28AM;U ser: vinicius ;Est. Completi on: 04/03/20 15;Print ed: 10/05/20 14 Not Available Not Available Not Available cyanocoba yefri (vit B-12) ER 1,000 mcg tablet,ex tended release 06/01 completed Not Available Not Available Not Available nystatin 100,000 unit/mL oral suspensio n take 5 millilit ers (500,000 unit) by oral route 4 times per day for 14 days 07/01 completed nystatin 100,000 unit/mL oral suspensi on;Recor ded Status: Recorded on: 06/17/20 16 2:01PM;U ser: kenyatta kempEst. Completi on: 07/01/20 16;Print ed: 06/17/20 16 Not Available Not Available Not Available prednison e 10 mg tablet TAKE 1 TABLET BY MOUTH TWICE DAILY FOR THREE (3) DAYS THEN TAKE 1 TABLET ONCE DAILY FOR THREE (3) DAYS THEN TAKE ONE HALF (1/2) TABLET FOR THREE (3) DAYS 05/24 completed Not Available Not Available Not Available Cortispor in 3.5 mg/mL-10, 000 unit/mL-1 % ear drops,cindy pension instill 4 drops into both ears by otic route 3 times per day for 3-4 days 10/07 completed Cortispo rin 3.5-10,0 00-1 mg/mL-un it/mL-% otic drops,ty spension ;Recorde d Status: Recorded on: 03/22/20 12 10:05AM; Disconti nued Status: Disconti nued on: 10/07/20 12 9:33AM;U ser: vinicius ;Est. Completi on: 03/25/20 12;Indic ation: Otitis Externa - (3805 00);Prin quinten: 03/22/20 12 Not Available Not Available Not Available ibuprofen 800 mg tablet TAKE ONE (1) TABLET ORAL ROUTE EVERY 8 HOURS NEEDED active Not Available Not Available No t Available clarithro mycin 500 mg tablet take 1 tablet by oral route BID for 10 days 03/10 completed clarithr omycin 500 mg oral tablet;R ecorded Status: Recorded on: 02/04/20 10 3:06PM;D iscontin ued Status: Disconti nued on: 03/10/20 10 10:42AM; User: vniicius Baptiste on: 02/14/20 10;Print ed: 02/04/20 10 Not Available Not Available Not Available Avelox 400 mg tablet take 1 tablet (400 mg) by oral route once daily for 6 days 04/02 completed Avelox 400 mg oral tablet;R ecorded Status: Recorded on: 03/10/20 10 11:15AM; Disconti nued Status: Disconti nued on: 04/02/20 11 4:16PM;U ser: vinicius Baptiste on: 03/16/20 10 Not Available Not Available Not Available meloxicam 15 mg tablet TAKE ONE (1) TABLET BY MOUTH EVERY DAY 11/14 completed Not Available Not Available Not Available prednison e 20 mg tablet TAKE ONE (1) TABLET TWICE A DAY BY ORAL ROUTE FOR FIVE (5) DAYS. 05/24 completed Not Available Not Available Not Available testoster one cypionate 100 mg/mL intramusc ular oil inject 0.5 millilit er (50 mg) by intramus cular route every 2 weeks 05/18 completed testoste addie cypionat e 100 mg/mL intramus cular oil;comm ent: pt elected to stop;Rec orded Status: Recorded on: 11/28/19 14 9:33AM;D iscontin ued Status: Disconti nued on: 05/18/20 14 12:28PM; User: vinicius Baptiste on: 02/27/20 14;Indic ation: Androgen Deficien cy - (03.2599 02);Prin quinten: 11/28/19 14 Not Available Not Available Not Available fluoroura cil 5 % topical cream APPLY A SUFFICIE NT AMOUNT TO COVER THE LESIONS IN THE AFFECTED AREA(S) BY TOPICAL ROUTE 2 TIMES PER DAY for 4 weeks on biljillian l arms 12/23 completed Not Available Not Available Not Available Ferrex 150 mg iron capsule TAKE TWO (2) CAPSULES BY MOUTH EVERY DAY 06/17 completed Not Available Not Available Not Available valsartan 80 mg tablet TAKE 1 TABLET BY MOUTH EVERY DAY active Not Available Not Available No t Available metronida zole 500 mg tablet Take 1 tablet 3 times a day by oral route for 10 days. 11/14 completed Not Available Not Available Not Available ciproflox acin 500 mg tablet TAKE ONE (1) TABLET EVERY 12 HOURS BY ORAL ROUTE FOR 7 DAYS. 02/14 completed Not Available Not Available Not Available sulfameth oxazole 800 mg-trimet hoprim 160 mg tablet Take 1 tablet every 12 hours by oral route for 10 days. 09/29 completed Not Available Not Available Not Available lovastati n 10 mg tablet 10 mg by oral route. 08/12 completed Not Available Not Available Not Available aspirin 81 mg tablet,de layed release TAKE 1 TABLET BY MOUTH EVERY DAY active Not Available Not Available No t Available tramadol 50 mg tablet Take 1 tablet 3 times a day by oral route as needed. active old medicati on from 2023, pt restarte d taking 08-22-25 for back pain Not Available Not Available Not Available carvedilo l 3.125 mg tablet TAKE 1 TABLET BY MOUTH TWICE DAILY active Not Available Not Available No t Available lidocaine -prilocai ne 2.5 %-2.5 % topical cream Apply 1 applicat ion every day by topical route at bedtime for 30 days. 12/23 completed Not Available Not Available Not Available Hypodermi c Yale 23 gauge x 1 USE DIRECTED FOR YULI REAL BY DOCTOR 10/18 completed Not Available Not Available Not Available levothyro xine 75 mcg tablet TAKE ONE (1) TABLET BY MOUTH EVERY DAY ON AN EMPTY STOMACH WITH FULL GLASS OF WATER - WAIT FOR ONE (1) HOUR BEFORE TAKING OTHER MEDS OR EATING 2024 active Not Available Not Available Not Avai lable cefadroxi l 500 mg capsule TAKE ONE (1) CAPSULE BY MOUTH TWICE DAILY 10/18 completed Not Available Not Available Not Available levothyro xine 100 mcg tablet take 1 tablet (100 mcg) by oral route once daily for 30 days 07/17 completed levothyr oxine 100 mcg oral tablet;R ecorded Status: Recorded on: 10/05/20 14 10:05AM; Disconti nued Status: Disconti nued on: 07/17/20 15 9:33AM;U ser: vinicius ;Est. Completi on: 04/03/20 15;Print ed: 10/05/20 14 Not Available Not Available Not Available oxycodone -acetamin ophen 5 mg-325 mg tablet TAKE ONE (1) TABLET BY MOUTH EVERY FOUR (4) HOURS NEEDED FOR PAIN 10/18 completed Not Available Not Available Not Available Tessalon Perles 100 mg capsule take 1 capsule (100 mg) by oral route every 6 hours as needed for cough 05/18 completed Tessalon Perles 100 mg oral capsule; Recorded Status: Recorded on: 11/15/19 14 8:30PM;D iscontin ued Status: Disconti nued on: 05/18/20 14 11:59AM; User: vinicius TuttleEst. Completi on: 12/05/19 14;Indic ation: Cough - (16.7862 00);Prin quinten: 11/15/19 14 Not Available Not Available Not Available amoxicill in 875 mg tablet Take 1 tablet every 12 hours by oral route. 03/24 completed Not Available Not Available Not Available citalopra m 20 mg tablet Take 1 tablet every day by oral route. 04/15 completed Not Available Not Available Not Available pravastat in 10 mg tablet 10 mg by oral route. 10/19 completed Not Available Not Available Not Available tamsulosi n 0.4 mg capsule TAKE 1 CAPSULE BY MOUTH EVERY DAY active Not Available Not Available No t Available oseltamiv ir 75 mg capsule take 1 capsule (75 mg) by oral route 2 times per day for 5 days 01/25 completed Not Available Not Available Not Available metformin 1,000 mg tablet take 1 tablet (1,000 mg) by oral route 2 times per day with morning and evening meals for 30 days 04/14 completed metformi n 1,000 mg oral tablet;R ecorded Status: Recorded on: 03/16/20 16 2:07PM;D iscontin ued Status: Disconti nued on: 04/14/20 16 12:59PM; User: philip moscoso;EstYinka Completi on: 04/15/20 16;Print ed: 03/16/20 16 Not Available Not Available Not Available ranitidin e 150 mg tablet 150 mg by oral route. 08/12 completed Not Available Not Available Not Available lisinopri l 10 mg tablet take 1 tablet (10 mg) by oral route once daily for 30 days 03/[address] Hickman Not Available Not Available Not Available naproxen sodium 220 mg tablet 220 mg by oral route. 08/12 completed Not Available Not Available Not Available BD Luer-Flo Syringe 3 mL 25 gauge x 1 USE DIRECTED FOR TESTOSTE ADDIE INJECTIO NS 10/18 completed Not Available Not Available Not Available betametha sone dipropion ate 0.05 % topical cream APPLY A THIN LAYER TO THE AFFECTED AREA(S) BY TOPICAL ROUTE 2 times daily after completi on of Efudex treatmen t to alleviat e redness 12/23 completed Not Available Not Available Not Available omeprazol e 20 mg capsule,d elayed release 20 mg by oral route. 08/12 completed Not Available Not Available Not Available diclofena c sodium 75 mg tablet,de layed release 1 po bid prn 11/30 completed diclofen ac sodium 75 mg oral tablet,d elayed release (DR/EC); Recorded Status: Recorded on: 08/04/20 08 10:04PM; Disconti nued Status: Disconti nued on: 11/30/19 09 10:40AM; User: [email or web address] Not Available Not Available Not Available lisinopri l 5 mg tablet TAKE ONE (1) TABLET BY MOUTH EVERY DAY 09/03 completed Not Available Not Available Not Available Coumadin 5 mg tablet as directed 03/04 completed Coumadin 5 mg oral tablet;R ecorded Status: Recorded on: 10/05/20 11 10:19AM; Disconti nued Status: Disconti nued on: 03/04/20 12 8:36AM;U ser: [email or web address] ;Est. Completi on: 04/02/20 12;Indic ation: Cerebral Thromboe mbolism Preventi on - (4349 );Prin quinten: 10/05/20 11 Not Available Not Available Not Available testoster one cypionate 200 mg/mL intramusc ular oil active Not Available Not Available Not Available methylpre dnisolone 4 mg tablets in a dose pack Take 1 dose pk by oral route as directed . 03/14 completed Not Available Not Available Not Available hydrocodo ne 10 mg-chlorp heniramin e 8 mg/5 mL oral susp extend.re l 12hr Take 5 mL every 12 hours by oral route as needed. 03/07 completed Not Available Not Available Not Available albuterol sulfate HFA 90 mcg/actua tion aerosol inhaler inhale 2 puffs by inhalati on route every 4-6 hours as needed 04/14 completed albutero l sulfate 90 mcg/actu ation inhalati on HFA aerosol inhaler; Recorded Status: Recorded on: 11/16/19 14 1:21PM;D iscontin ued Status: Disconti nued on: 04/14/20 16 12:27PM; User: [email or web address] ;Est. Completi on: 11/18/19 14;Indic ation: Bronchos pasm Preventi on - (5191 );Prin quinten: 11/16/19 14 Not Available Not Available Not Available Clomid 50 mg tablet TAKE 1/2 TABLET BY MOUTH EVERY DAY 08/27 completed Not Available Not Available Not Available naproxen 500 mg tablet Take 1 tablet twice a day by oral route. 01/15 completed Not Available Not Available Not Available BD Luer-Flo Syringe 3 mL 21 gauge x 1 USE DIRECTED FOR TESTOSTE ADDIE KRAMER NS 10/18 completed Not Available Not Available Not Available amoxicill in 875 mg-potass ium clavulana te 125 mg tablet Take 1 tablet every 12 hours by oral route for 10 days. 03/07 completed Not Available Not Available Not Available esomepraz ole magnesium 20 mg capsule,d elayed release TAKE ONE (1) CAPSULE BY MOUTH EVERY DAY active Not Available Not Available No t Available enoxapari n 40 mg/0.4 mL subcutane ous syringe 10/01 completed Not Available Not Available Not Available Skelaxin 800 mg tablet Take 1 tablet 3 times a day by oral route. 01/15 completed Not Available Not Available Not Available ezetimibe 10 mg tablet TAKE ONE (1) TABLET BY MOUTH EVERY DAY active Not Available Not Available No t Available ketamine (bulk) 100 % powder 10/18 completed Not Available Not Available Not Available B-12 1,000 mcg tablet Take by oral route. active Not Available Not Available No t Available cyclobenz aprine 5 mg tablet TAKE ONE (1) TABLET BY MOUTH THREE (3) TIMES A DAY. active Not Available Not Available No t Available duloxetin e 60 mg capsule,d elayed release TAKE ONE (1) CAPSULE BY MOUTH EVERY DAY 2024 active Not Available Not Available Not Avai lable Aleve as needed active Not Available Not Available No t Available Coumadin 10/05 completed Coumadin Oral;Rec orded Status: Recorded on: 10/02/20 11 11:41AM; Disconti nued Status: Disconti nued on: 10/05/20 11 10:19AM; User: [email or web address];I ndicatio n: Cerebral Thromboe mbolism Preventi on - (4349 ) Not Available Not Available Not Available Vitamin D 5,000 IU daily x 2 active Not Available Not Available No t Available BD Regular Bevel Yale 18 gauge x 1 1/2 USE DIRECTED TO DRAW UP TESTOSTE ADDIE 10/18 completed Not Available Not Available Not Available Suprep Bowel Prep Kit 17.5 gram-3.13 gram-1.6 gram oral solution 01/17 completed Not Available Not Available Not Available AndroGel 20.25 mg/1.25 gram per pump act. (1.62 %) transderm al gel Apply 4 pumps daily as directed 11/28 completed AndroGel 20.25 mg/1.25 gram (1.62 %) transder mal gel in metered- dose pump;com ment: cost;Rec orded Status: Recorded on: 07/17/20 13 1:18PM;D iscontin ued Status: Disconti nued on: 11/28/19 14 9:38AM;U ser: [email or web address]; Est. Completi on: 01/14/20 14 Not Available Not Available Not Available Xarelto 15 mg tablet 10/18 completed Not Available Not Available Not Available Xarelto 20 mg tablet TAKE ONE (1) TABLET EVERY DAY BY ORAL ROUTE FOR 30 DAYS. active Not Available Not Available No t Available AndroGel 1.62 % (20.25 mg/1.25 gram) transderm al gel packet apply 2 pumps (20.25 mg) by transder mal route once daily in the morning to upper arm and shoulder 07/17 completed AndroGel 1.62 % (20.25 mg/1.25 gram) transder mal gel in packet;R ecorded Status: Recorded on: 04/27/20 13 4:10PM;D iscontin ued Status: Disconti nued on: 07/17/20 13 1:18PM;U ser: [email or web address];E st. Completi on: 10/24/20 13;Print ed: 04/27/20 13 Not Available Not Available Not Available Invokamet 150 mg-1,000 mg tablet TAKE ONE TABLET BY MOUTH TWO (2) TIMES A DAY WITH MEALS 05/25 completed changed to xigduo Not Available Not Available Not Available Xigduo XR 5 mg-1,000 mg tablet,ex tended release TAKE TWO (2) TABLETS EVERY DAY BY ORAL ROUTE FOR 90 DAYS. active Not Available Not Available No t Available Entresto 49 mg-51 mg tablet Take 1 tablet twice a day by oral route as directed for 90 days. 02/14 completed Not Available Not Available Not Available Entresto 24 mg-26 mg tablet Take 1 tablet twice a day by oral route for 30 days. 09/03 completed Not Available Not Available Not Available Synjardy 5 mg-500 mg tablet 07/13 completed Not Available Not Available Not Available Synjardy 12.5 mg-1,000 mg tablet Take 1 tablet twice a day by oral route as directed for 30 days. 07/13 completed Not Available Not Available Not Available Synjardy XR 25 mg-1,000 mg tablet, extended release Take 1 tablet every day by oral route. 11/21 completed Not Available Not Available Not Available Xyosted 75 mg/0.5 mL subcutane ous auto-inje ctor 12/08 completed Not Available Not Available Not Available Mounjaro 7.5 mg/0.5 mL subcutane ous pen injector INJECT 7.5 MG EVERY WEEK BY SUBCUTAN EOUS ROUTE. 05/12 completed Not Available Not Available Not Available Mounjaro 5 mg/0.5 mL subcutane ous pen injector INJECT FIVE (5) MG EVERY WEEK BY SUBCUTAN EOUS ROUTE. 10/14 completed Not Available Not Available Not Available Mounjaro 2.5 mg/0.5 mL subcutane ous pen injector 04/24 completed Not Available Not Available Not Available Ozempic 0.25 mg or 0.5 mg (2 mg/3 mL) subcutane ous pen injector Inject 0.5 mg every week by subcutan eous route for 90 days. 2024 active Not Available Not Available Not Avai lable Vitals Date Recorded Body height Body mass index (BMI) Body weight Body temperature Heart rate Oxygen saturation Respiratory rate Pain severity - 0-10 verbal numeric rating [Score] - Reported Systolic And Diastolic Provider Name and Address Organization Details Last Updated DateTime 5 182.88 cm 37.4 kg/m2 271072. 19 g 98.7 [degF] 82 /min 98 % 18 /min 0 132/72 mm[Hg] Elizabeth Lilly [place] - [facility] 5 08:48:34 Social History Question Answer Notes LastModified by Organizat ion Details LastModified Time Tobacco Smoking Status Former Smoker Not Available [employer] 08/16/2020 03:17:10 Able To Swim? No Information not available 09/29/2016 Do You Have An Advance Directive? No [id number] Information not available 08/16/2020 Do You Wear A Helmet When Biking? No [id number] Information not available 08/16/2020 Are You Blind Or Do You Have Difficulty Seeing? No [id number] Information not available 08/16/2020 What Is Your Level Of Caffeine Consumption? Moderate [id number] Information not available 08/16/2020 How Much Tobacco Do You Chew? 1/day Information not available 08/27/2025 Are You Deaf Or Do You Have Serious Difficulty Hearing? No [id number] Information not available 08/16/2020 What Type Of Diet Are You Following? REGULAR [id number] Information not available 08/16/2020 Which Illicit Or Recreational Drugs Have You Used? None [id number] Information not available 08/16/2020 What Is The Highest Grade Or Level Of School You Have Completed Or The Highest Degree You Have Received? [id number] Information not available 08/27/2025 Swimming/diving No Informati on not available 09/29/2016 Have There Been Any Changes To Your Family Or Social Situation? No Information no t available 08/27/2025 What Is The Fluoride Status Of Your Home? Unknown Information not available 08/27/2025 When Did You Quit Smoking? 16+yearssince lastcialbert Information not available 03/04/2023 Hard Of Hearing Or Deaf In One Or Both Ears? No Information not available 09/29/2016 Legally Blind In One Or Both Eyes? No Information no t available 09/29/2016 Live Alone Or With Others? With Others Information not available 09/29/2016 Do You Have A Medical Power Of Review Analyst? No Information not available 08/27/2025 What Was The Date Of Your Most Recent Tobacco Screening? 02/01/2025 Information not available 02/01/2025 How Many Children Do You Have? 3 [id number] Information not available 08/16/2020 What Is Your Current Pack Years? 10-19pahelga s Information not available 03/04/2023 Do You Use Protection During Sex? No [id number] Information not available 08/16/2020 What Is Your Relationship Status? [id number] Information not available 08/16/2020 Seat Belts Used Routinely Yes Information not available 09/29/2016 Are You Sexually Active? Yes [id number] Information not available 08/16/2020 Smoke Alarm In Home Yes Information not available 09/29/2016 At What Age Did You Start Smoking Tobacco? 11 Information not available 03/04/2023 Are You Passively Exposed To Smoke? No Information no t available 09/29/2016 How Much Tobacco Do You Smoke? No [email or web address] Information not available 01/12/2024 General Stress Level Medium Information not available 09/29/2016 Do You Use Sunscreen Routinely? No [id number] Information not available 08/16/2020 Has Tobacco Cessation Counseling Been Provided? Yes Information not available 03/04/2023 On What Date Was Tobacco Cessation Counseling Provided? 02/01/2025 Information not available 02/01/2025 How Many Years Have You Smoked Tobacco? 20 Information not available 03/04/2023 Do You Have Difficulty Walking Or Climbing Stairs? No [id number] Information not available 08/16/2020 Sex: Male Functional Status Question Answer Note LastModified by Organizat ion Details LastModified Time Do you or have you ever used smokeless tobacco? Currently chews tobacco Information not available 08/27/2025 Are you currently employed? Yes [id number] Information not available 08/16/2020 Do you have transportation difficulties? No Information not available 08/27/2025 Are you able to care for yourself independently? Yes [id number] Information not available 08/16/2020 Do you have difficulty dressing, bathing, grooming, or toileting? No [id number] Information not available 08/16/2020 Do you or have you ever used e-cigarettes or vape? Never used electronic cigarettes [id number] Information not available 08/16/2020 What is your exercise level? None [id number] Information not available 08/16/2020 Do you use any illicit or recreational drugs? No Information not available 08/27/2025 Do you or have you ever used any other forms of tobacco or nicotine? Yes Information not available 08/27/2025 What is your level of alcohol consumption? None [id number] Information not available 08/16/2020 Are you able to walk independently without assistance or assistive devices? YESWOREST [id number] Information not available 08/16/2020 Do you have difficulty doing errands alone? 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 [id number] Information not available 08/27/2025 Do you have difficulty concentrating, remembering or making decisions? No [id number] Information no t available 08/16/2020 Family History Relationship Description Onset Age of this Age Resolved Age Notes LastModified by Organization Details LastModified Time Paternal Grandmother Malignant neoplasm of colon bstears Not available 2019 16:46:43 Paternal Aunt Malignant neoplasm of pharynx bstears Not available 2019 16:46:54 Maternal Uncle Heart disease bstears Not available 2019 16:47:10 Maternal Uncle Heart valve replacement bstears Not available 05/2023 16:13:59 Maternal Grandfather Heart disease bstears Not available 2019 16:47:10 Mother Heart valve replacement bstears Not available 05/2023 16:13:59 Maternal Aunt Heart valve replacement bstears Not available 05/2023 16:13:59 Medical History Condition Response Allergies/Hayfever Y Vitamin B12 Deficiency Y Diabetes Y Hypertension Y Immunizations Vaccine Type Date Status Note Provider Nam e and Address Organization Details Recorded Time Influenza, split virus, quadrivalent, PF 1 completed Elizabeth Lilly [facility], [place] - [facility] 07/22/2021 09:50:07 Influenza, split virus, quadrivalent, preservative 2 completed Danielle Groves, ZEHRA [facility] [address], [place], [address], [facility] - [facility] 08/17/2022 08:50:47 Tdap 2 completed Not Available [facility] 09/03/2020 14:44:39 Influenza, split virus, quadrivalent, preservative 8 completed Not Available [facility] 11/18/2019 03:55:23 Influenza, split virus, quadrivalent, preservative 9 completed Not Available [facility] 11/18/2019 03:56:07 Past Encounters Encounter ID Performer Location Encounter Start Date Encounter Closed Date Diagnosis/Indication Diagnosis SNOMED-CT Code Diagnosis ICD10 Code Diagnosis IMO Codes Diagnosis Note [id number] Danial Keller APRN [facility] [address] [place] [address] 08/27/2025 09:36:07 08/27/2025 10:48:26 Acute abdominal pain 472287482 R10.9 80741 labsct- r/o kidney stones, hx of diverticul itis,lymph jeffrey Diverticular disease 397 201312 K57.90 discussed with pt the plan of care and if any worsening or pain not improving he needs to go to ed [facility]. Non-Hodgki n's lymphoma (clinical) 887661216 C85.90 Type 2 laci betes mellitus 87837338 E11.9 checked a1c with labs Disorder of aorta 809892 06 I70.0 9579811 calcificat ion seen on ct with out contrast- needs to follow up with cardiology . [id number] Danielle Groves APRN [address] [place] [address] 09/10/2025 08:20:15 09/10/2025 09:10:54 Hyperglycemia due to type 2 diabetes mellitus 7722442969 55546 E11.65 Long-term drug therapy 296420336 Z79.899 Body mass index 30+ - obesity 586048234 Z68.36 Mixed hyperlipidemia 267 933605 E78.2 Non-Hodgki n's lymphoma (clinical) 407511875 C85.90 Vitamin D deficiency 347 68416 E55.9 Gastroesop hageal reflux disease without esophagitis 982356649 K21.9 Anxiety 87456654 F41.9 Obstructiv e sleep apnea syndrome 27543687 G47.33 Vitamin B1 2 deficiency (non anemic) 38844481 E53.8 Degenerati on of lumbar intervertebral disc 59163600 M51.369 Osteoarthritis of hip 23 2235308 M16.9 Testostero ne level below reference range 549758599 R79.89 Iron defic iency anemia 25561792 D50.9 Subclinica l hypothyroidism 27226360 E02 Deep venou s thrombosis of lower extremity 652030523 I82.409 Type 2 laci betes mellitus 37334959 E11.9 Health Concerns Section Related Observation LastModified by Organization Detai ls LastModified Time None Recorded Concern Status LastModified by Organization Details LastModified Time None Recorded Payers Encounter Date Sequence Insurance Name Policy Number Policy Magana Covered Member ID Magana Member ID Guarantor Name 09/10/2025 1 [employer] [id number] Mandie Mark [id number] Juarez S Deedee Notes Date Note Type Note Provider Name and Address Organization Details Recorded Time 09/10/2025 text/html Juarez presents for 3 month follow up on his diabetes. He is currently on Xigduo XR 03/1000 mg 2 tabs daily and Ozempic 0.5 mg every other week (taking it this way due to expense but his deductible is now met so it should be covered at 100%). In the past, I had written Mounjaro but this was going to be too expensive. His last hgb a1c was 8.0%. Today it is 7.1%. No h/o pancreatitis or medullary thyroid carcinoma. He has h/o left thyroid nodule and ultrasound from 01/31/2018 revealed 4 mm hypoechoic nodule that was stable from 12/09/2016. Last ultrasound from 02/20/2019 showed that cyst had decreased in size and radiologist stated no further follow up studies were needed. For hypothyroidism, he is on Levothyroxine 75 mcg daily. He has h/o non-hodgkins lyphoma. He has sleep apnea and wears C-pap nightly and is benefiting from this. He has low T which is being managed by Kelsey Peralta APRN. He has iron deficiency anemia and sees editorial specialist, Dr. Hazel. Last PSA 02/01/2025Last colonoscopy 10/19/2018 - due for follow up 2027Former smoker who quit over 16 years ago. Chronic issues reviewed and stable. Danielle Groves, HIGH [employer]CHO[employer] G[employer]ANCE COUNSELOR [address], [place], [address], [facility] - [facility] 09/10/2025 09:00:40
--- OUTSIDE RECORDS SUMMARY | 2025-09-20 08:26 | XMS_ITS | Clinical Summary ---
Author Organization [facility] Address [address] [place] [address] Care Team Providers Care Bar Tacker Name Role Phone Danial Keller BELT OPERATOR Primary Care Provider [phone] Mary Aviles BELT OPERATOR Unavailable [phone] Allergies Active Allergy Reactions Criticality Noted Date Comments Statins Itching Medium 05/02/2024 Tirzepatide Other - please docum ent in the comment field Low 09/05/2025 Mounjaro Medications esomeprazole (NexIUM) [address] capsule Take 1 capsule (20 mg) by mouth 1 (one) time each day. Active levothyroxine (Synthroid, Levoxyl) 75 MCG tablet TAKE ONE (1) TABLET (75 MCG) BY ORAL ROUTE ONCE DAILY ON AN EMPTY STOMACH WITH FULL GLASS OF WATER WAIT FOR ONE (1) HR BEFORE TAKING OTHER MEDS OR EATI Active meloxicam (Mobic) 15 MG tablet Take 1 tablet (15 mg) by mouth. Active BD Disp Needle 23G X 1 misc USE DIRECTED FOR TESTOSTERONE BY DOCTOR 024 Active B-D 3CC LUER-JAREN SYR 23GX1 23G X 1 3 ML misc USE DIRECTED TO INJECT TESTOSTERONE 023 Active BD Plastipak Syringe 21G X 1 3 ML misc USE DIRECTED FOR TESTOSTERONE INJECTIONS 024 Active testosterone cypionate (Depo-Testost erone) 200 MG/ML injection INJECT INTRAMUSCULARLY 0.75 MLS EVERY WEEK Active valsartan (Diovan) 80 MG tablet Take 1 tablet (80 mg) by mouth 1 (one) time each day. Active Aspirin Low Dose 81 MG EC tablet Take 1 tablet (81 mg) by mouth if needed. Active Invokamet 150-1000 MG Take 1 tablet by mouth. Active carvedilol (Coreg) 3.125 MG tablet TAKE ONE (1) TABLET BY MOUTH TWICE DAILY WITH FOOD OR A MEAL Active DULoxetine (Cymbalta) [address] capsule Take 1 capsule (60 mg) by mouth 1 (one) time each day. Active ezetimibe (Zetia) 10 MG tablet Take 1 tablet (10 mg) by mouth Daily. Active tamsulosin (Flomax) 0.4 MG 24 hr capsule Take by mouth daily. Active Xarelto 20 MG tablet Take 1 tablet by mouth 1 time each day with dinner. Active ibuprofen 800 MG tablet TAKE ONE (1) TABLET ORAL ROUTE EVERY 8 HOURS NEEDED Active Xigduo XR 5-1000 MG TAKE TWO (2) TABLETS EVERY DAY BY ORAL ROUTE FOR 90 DAYS. Active Cyanocobalami n ER 1000 MCG tablet controlled-re lease daily. Active Clomid 50 MG tablet Take 0.5 tablets by mouth daily. Active Ozempic, 0.25 or 0.5 MG/DOSE, 2 MG/3ML solution pen-injector Active cyclobenzapri ne (Flexeril) 5 MG tablet Take 1 tablet by mouth 3 times a day. 60 tablet 025 2024 Active cyclobenzapri ne (Flexeril) 10 MG tablet TAKE ONE (1) TABLET ORAL ROUTE EVERY 8 HOURS NEEDED 2024 Discontinued Active Problems No known active problems Encounters Date Type Department Care Team Description 09/05/2025 9:49 AM EST - 09/05/2025 11:59 PM EST [facility] [address], [facility] [place] [address] Acute left-sided low back pain without sciatica; Mid back pain Discharge Disposition: Home or Self Care 09/05/2025 8:40 AM EST [facility] Visit [facility] [address], [address]st [place] [address] Mary Aviles, ZEHRA Acute left-sided low back pain without sciatica (Primary Dx); Mid back pain; Tobacco use 09/05/[address] [facility] [address], [address] [place] [address] Mary Aviles APRN 09/05/2025 Travel 08/31/[address] [facility] [address], [address] [place] [address] Boogie Dutton MD HCN - Patient Message from Last 3 Months Family History Medical History Relation Name Comments Cancer Father Heart attack Father Hypertension Mother Conversions - Other Other Family h istory unknown Relation Name Status Comments Father Mother Other Social History Tobacco Use Types Packs/Day Years [...] Pressure 126/82 09/05/2025 9:01 AM EST Pulse 81 09/26/2024 11:24 PM EST Temperature 36.8 C (98.2 F) 09/26/2024 11:24 PM EST Respiratory Rate 18 09/26/2024 11:24 PM EST Oxygen Saturation 96% 09/26/2024 11:24 PM EST Inhaled Oxygen Concentration - - Weight 125 kg (274 lb 11.1 oz) 09/05/2025 9:01 A M EST Height 182.9 cm (6') 09/05/2025 9:01 AM EST Body Mass Index 37.26 09/05/2025 9:01 AM EST Plan of Treatment Upcoming Encounters Date Type Department Care Team (Late st Contact Info) Description 10/18/2025 10:00 AM EST Office Visit [facility] [address], [address] [place] [address] Mary Aviles, BELT OPERATOR [address] [place] [address] Health Maintenance Due Date Last Done Comments [facility]-Depression Screening 1968 [facility]-/Child/Adol SDOH Screenings 1968 DVV-POTSH-86 Vaccine (#1) 1973 [facility]- SDOH Screenings 1986 [facility]-Adult SDOH Screenings 1986 [facility]-Hepatitis B Vaccines (1 of 3 - 19+ 3-dose series) 1987 CT Colonography 2013 Colonoscopy 2013 FIT-DNA 2013 FIT 2013 FOBT 2013 Sigmoidoscopy 2013 [facility]-Colorectal Cancer Screening 2013 [facility]-Pneumococcal Vaccine: 50+ Years (1 of 1 - PCV) 2018 [facility]-Zoster Vaccines (1 of 2) 2018 [facility]-DTaP,Tdap,and Td Vaccines (2 - Td or Tdap) 10/07/2022 10/07/2012 [facility]-Influenza Vaccine (#1) 07/02/202508/17, 07/22/2021, 08/22/2019, Additional history exists [facility]-HIV Screening Completed 09/26/2024 [facility]-Hepatitis C Screening Completed 09/26/2024 [facility]-Obesity Intervention Completed 09/05/2025, 12/2023 HPV Vaccines Aged Out No longer eligi ble based on patient's age to complete this topic [facility]-HIB Vaccines Aged Out No longer e ligible based on patient's age to complete this topic [facility]-Hepatitis A Vaccines Aged Out No longer eligible based on patient's age to complete this topic [facility]-IPV Vaccines Aged Out No longer e ligible based on patient's age to complete this topic [facility]-Rotavirus Vaccines Aged Out No lo nger eligible based on patient's age to complete this topic Procedures Procedure Name Priority Date/Time Associated Diagnosis Comments XR LUMBAR SPINE 4 VIEWS TO INCLUDE FLEXION EXTENSION Routine 09/05/2025 10:05 AM EST Acute left-sided low back pain without sciatica Mid back pain XR THORACIC SPINE 2 VIEWS Routine 09/05/2025 10:05 AM EST Acute left-sided low back pain without sciatica Mid back pain HEPATITIS C ANTIBODY - ED W/REFLEX TO HCV QUANT PCR STAT 09/26/2024 9:05 PM EST ED HIV 1/2 ANTIBODY/ANTIGEN SCREEN WITH REFLEX TO HIV I/II DIFFERENTIATION STAT 09/26/2024 9:05 PM EST from Last 3 Months or Most Recently Relevant to Health Maintenance Results * XR Lumbar Spine 4+ Views [...] MD on 09/05/2025 11:20 AM Mary Aviles BELT OPERATOR IMG XR PROCEDURES Final Result * XR [...] COMMUNICATION: Per this written report. Drafted by Sma Rodriguez MD on 09/05/2025 11:16 AM Final report signed by Sam Rodriguez MD on 09/05/2025 11:20 AM Mary Aviles BELT OPERATOR IMG XR PROCEDURES Final Result * ED HIV 1/2 Antibody/Antigen Screen w/Reflex to HIV 1/2 Differentiation (09/26/2024 9:05 PM EST) HIV 1 & 2 Antibody/Antigen Screen Non Reactive Non Reactive 09/26/2024 9:59 PM EST [facility] Comment:Screening for HIV 1 & 2 antibodies, and P24 antigen is NONREACTIVE. No confirmatory testing is required. Blood Venous blood specimen / Unknown Venipuncture / Unknown 09/26/2024 9:05 PM EST 09/26/2024 9:19 PM EST Christy Harris MD LAB BLOOD ORDERABLES Final Res ult Performing Organization Address City/[facility]/ZIP Co de Phone Number [facility] [address] [place] [address] * Hepatitis C Antibody - ED (09/26/2024 9:05 PM EST) Hepatitis C Antibody Negative Negative 09/26/2024 9:59 PM EST [facility] Blood Venous blood specimen / Unknown Venipuncture / Unknown 09/26/2024 9:05 PM EST 09/26/2024 9:19 PM EST Christy Harris MD LAB BLOOD ORDERABLES Final Res ult Performing Organization Address City/[facility]/ZIP Co de Phone Number [facility] [address] [place] [address] from Last 3 Months or Most Recently Relevant to Health Maintenance Insurance ANTHEM Care Teams Bar Tacker Relationship Specialty Start Date End Date Danial Keller APRN [address] [place], [place] [id number] PCP - General 08/31/25 Mary Aviles APRN [address] [address] Nurse Practitioner Neurosurgery 09/05/25
--- OUTSIDE RECORDS SUMMARY | 2025-09-20 08:26 | XMS_ITS | Encounter Summary ---
Author Organization Healthcare Address [address] [place] [address] Care Team Providers Care Underwater Welder Name Role Phone Danial Keller SPORTS CARTOONIST Primary Care Provider [phone] Mary Aviles SPORTS CARTOONIST Unavailable Encounter Details Date Type Department Care Team (Latest Contact Info) Description 09/05/2025 Travel Social History Tobacco Use Types Packs/Day Years [...] Visit [place] [facility] [address], [address]st [place] [address] Mary Aviles, SPORTS CARTOONIST [address] [place] [address] documented as of this encounter Visit Diagnoses Not on filedocumented in this encounter Additional Health Concerns Assessment Noted Time A fall risk assessment has been complete d for the patient 09/05/2025 9:07 AM EST A Body Mass Index follow-up plan has been documented for the patient 09/05/2025 10:27 AM EST documented as of this encounter Care Teams Underwater Welder Relationship Specialty Start Date End Date Danial Keller, SPORTS CARTOONIST [address] [place] [address] PCP - General 08/31/25 Mary Aviles, ZEHRA [address] [facility] [address] [place] [address] Nurse Practitioner Neurosurgery 09/05/25 documented as of this encounter
--- OUTSIDE RECORDS SUMMARY | 2025-09-20 08:26 | XMS_ITS | Data Portability ---
Author Organization [facility] Address [address] [place] [address] Care Team Providers Care Billing Supervisor Name Role Phone DANIELLE [place] Primary Care Provider Assessment Encounter Date Assessment Date Assessment LastModified by Organization Details LastModified Time 04/06/2019 04/06/2019 Mr. leblanc is symptomatic from L4-5 spondylolisthesis with lateral recess and foraminal stenosis. The bottom line here is he is better with chiropractic treatment. His pain waxes and wanes. It's been going on for 10 years. Functionally he has days where he has significant pain. 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 I told him a lumbar fusion is certainly an option. However, with the strenuous nature of his work I'm not sure even if surgery Progresses routinely ultimately does well that he will be able to get back to this type of physical work. He's not interested in pursuing surgery now. I support this. I told him if he gets to point where his pain is constant and he's having great difficulty working that she get back in to see me and we can further discuss surgery. He was happy with the plan. His was 2Yinka hathaway Not available 04/06/2019 10:38:04 Plan of Treatment Reminders Order Date Submit Date Provider Last Modified By Organization Details Last Modified Time Details Appointments None record ed. Lab None record ed. Referral None record ed. Procedures None record ed. Surgeries None record ed. Imaging None record ed. Medication Orders None record ed. Patient TargetsNo targets recorded. Patient Instructions Encounter Date Encounter Id Patient Instructions Last Modified By Organization Details Last Modified Time 03/14/2019 [id number] Spent 40 total minutes with the patient today. Greater than 50% of this time was spent counseling/coordi nation of care as documented in my assessment and plan above. Not available 03/18/2019 20:28:43 Reason for Referral None Reported. Results Created Date Observation Date Name Description Value Unit Range Abnormal Flag Note LastModifiedBy Organization Detail LastModifiedTime 03/13/20 19 03/02/2019 MRI, lumba r spine , w/o contr ast No observ ation record ed. ewiner Not Available 2018 11:25:32 03/13/20 19 01/17/2019 arthr oscop y hip photo s* No observ ation record ed. ewiner Not Available 2018 11:24:51 Result Notes None recorded. Procedures Surgical History Date Name Laterality Status Provider Name and Address Organization Details Recorded Time uvulopalatopharyngoplasty completed Britanyviviane Ayon [facility] 9 11:49:37 Imaging Results None recorded. Procedure Notes None recorded. Medical Equipment None Reported. Allergies No known drug allergies Medications Name Sig Start Date Stop Date Status Note LastModified by Organization Details LastModified Time lovastatin 10 mg tablet 03/14 completed Not Available Not Available Not Available citalopram 20 mg tablet active Not Available Not Available Not Available ranitidine 150 mg tablet 03/14 completed Not Available Not Available Not Available lisinopril 5 mg tablet active Not Available Not Available Not Available methylprednisolo ne 4 mg tablets in a dose pack 03/14 completed Not Available Not Available Not Available Suprep Bowel Prep Kit 17.5 gram-3.13 gram-1.6 gram oral solution 03/14 completed Not Available Not Available Not Available Invokamet 150 mg-1,000 mg tablet 2018 active Not Available Not Available Not Avai lable Synjardy XR 25 mg-1,000 mg tablet, extended release 03/14 completed Not Available Not Available Not Available Vitals Date Recorded Body height Body mass index (BMI) Body weight Systolic And Diastolic Provider Name and Address Organization Details Last Updated DateTime 03/14/2019 182.88 cm 40.7 kg/m2 598638.71 g 140/80 mm[Hg] Britanyviviane Ayon [facility] 03/14/2019 11:47:59 Date Recorded Body height Body mass index (BMI) Body weight Systolic And Diastolic Provider Name and Address Organization Details Last Updated DateTime 04/06/2019 182.88 cm 40.7 kg/m2 040229.71 g 132/80 mm[Hg] Britany Ayon [facility] 04/06/2019 09:44:18 Social History None recorded. Functional Status None recorded. Mental Status None recorded. Family History Nothing Reported. Medical History Condition Response Diabetes Y Cancer Y Deep Vein Thrombosis Y Sleep Apnea Y Past Encounters Encounter ID Performer Location Encounter Start Date Encounter Closed Date Diagnosis/Indication Diagnosis SNOMED-CT Code Diagnosis ICD10 Code Diagnosis IMO Codes Diagnosis Note [id number] MEENA NAVARRO PA-C [facility] [address] [place] [address] 03/14/2019 11:23:31 03/20/2019 11:20:55 Lumbar radiculopathy 499910325 M54.16 Mr. Mark is a 48 YO WM with a history of non-Hodgki n s lymphoma here today as a new patient referral from Danielle Chapman APRN for a evaluation of his 10 year history of intermitte nt low back pain which radiates down the posterior aspect of the right lower extremity. He states his leg pain is much more severe than his back pain. His lumbar MRI without contrast from 03/02/19 on a CD from [facility] was reviewed showing Grade 1 anterior listhesis of L4 on L5 with a right paracentra l disc protrusion and a small extruded component of the disc which extends superiorit y on the inferior end plate of L4 producing moderate central canal and right sided neuroforam inal stenosis at this level. Dr. Devries would recommend physical therapy, pain management referral for an injection at L4 to 5, and flexion extension lumbar x-rays to evaluate for instabilit y. He will follow up in a couple weeks for a recheck. He knows to call with any questions or concerns. Due to his history of non-Hodgki n s which was diagnosed by a biopsy in 2010 at , he reports Dr. Pulido ordered a pet scan. He s going to complete this and bring the results and CD with him at his next visit. The patient was seen and examined by Dr. Devries and myself. He agrees with the plan as stated above. [id number] JALEEL DEVRIES MD [facility] [address] [place] [address] 04/06/2019 09:35:35 04/10/2019 12:59:34 Lumbar spondylolisthesis [id number] 29133 M43.16 Health Concerns Section Related Observation LastModified by Organization Detai ls LastModified Time None Recorded Concern Status LastModified by Organization Details LastModified Time None Recorded Advance Directives Directive None Recorded Payers Insurance Date Sequence Insurance Name Policy Number Policy Magana Covered Member ID Magana Member ID Guarantor Name 09/25/2020 1 [place] [id number] Mandie Mark [id number] Juarez Mark Notes Date Note Type Note Provider Name and Address Organization Details Recorded Time 03/14/2019 text/html ROS as noted in the HPI Mr. Mark is a 48 YO WM with a history of non-Hodgkin s lymphoma here today as a new patient referral from Danielle Chapman APRN for a evaluation of his 10 year history of low back pain. He states his symptoms are intermittent, and his last flareup began in October 2018. He states his low back pain radiates down the posterior aspect of his right leg. He rates his pain as nine out of 10 and multi factorial. His pain is better with standing still and worse with walking and getting up from a chair. He s been to the chiropractor monthly for the last two years. He has been on steroids for the last two days which is slightly improving his symptoms. He intermittently takes Advil. He is self-employed as a fork lift mechanic. He presents today with a lumbar MRI from 03/02/19 on a CD from [facility]. MEENA NAVARRO PA-C [address] [place], [address], [facility] 03/18/2019 20:37:29 04/06/2019 text/html I saw Mr. leblanc in follow-up. I saw him about a month ago. He's had 10 years of back pain and occasional right lower extremity pain. Today, he describes an intermittent right L4-L5 radiculopathy. He wants her 1 visit a physical therapy. He didn't think it helped at all. He states he the therapist is less than his chiropractor. He's been going to a chiropractor 3 times a week since the last appointment. He's better. He does not want to undergo an epidural injection because he doesn't know anybody to they have helped. He is a pad extractor tender. He is self-employed and has one person works with him. JALEEL DEVRIES MD [facility] [place], [address], [facility] 04/06/2019 10:38:22
--- OUTSIDE RECORDS SUMMARY | 2025-09-20 08:26 | XMS_ITS | Encounter Summary ---
Author Organization [facility] Address [address] [place] [address] Care Team Providers Care Child Watch Attendant Name Role Phone Danial Keller GEOSCIENCE PROFESSOR Primary Care Provider [phone] Mary Aviles GEOSCIENCE PROFESSOR Unavailable [phone] Encounter Details Date Type Department Care Team (Late st Contact Info) Description 09/05/2025 Telephone [place] [facility] [address], [address] [place] [address] Mary Aviles, ZEHRA [address] [place] [address] Social History Tobacco Use Types Packs/Day Years [...] on file documented as of this encounter Miscellaneous Notes * Telephone Encounter - Mary Aviles APRN - 09/05/2025 11:40 AM EST Called the patient and left a detailed voicemail about x-rays, they did identified himself on voicemail. Asked him to call me back if they have any additional questions. No change in plan of care at this time. documented in this encounter Plan of Treatment Upcoming Encounters Date Type Department Care Team (Late st Contact Info) Description 10/18/2025 10:00 AM EST Office Visit [place] [facility] [address], [address] [place] [address] Mary Aviles APRN [id number] [place] [address] documented as of this encounter Visit Diagnoses Not on filedocumented in this encounter Additional Health Concerns Assessment Noted Time A fall risk assessment has been complete d for the patient 09/05/2025 9:07 AM EST A Body Mass Index follow-up plan has been documented for the patient 09/05/2025 10:27 AM EST documented as of this encounter Care Teams Child Watch Attendant Relationship Specialty Start Date End Date Danial Keller APRN [address] [place] [address] PCP - General 08/31/25 Mary Aviles APRN [id number] [place] [address] Nurse Practitioner Neurosurgery 09/05/25 documented as of this encounter
--- OUTSIDE RECORDS SUMMARY | 2025-09-20 08:26 | XMS_ITS | Continuity of Care Document ---
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 topical testosterone would be lower risk, but the lowest risk would be from clomiphene if he will respond to it well. He is extremely fatigued still and acknowledges the risk of using clomiphene and that it can still increase risk of VTE some even though it is lower risk. he would like to try this. continue flomax. stop clomiphene but switch to compounded enclomiphene. fu with us in 3 months and repeat labs prior to that apt Not available 07/26/2025 08:48:40 Plan of Treatment Reminders Order Date Submit Date Provider Last Modified By Organization Details Last Modified Time Details Appointments Follow Up 20 2024 08:00A M Kelsey Peralta APRN Not available Not available Not available ESTABLISH ED PT 30 2025 08:30A M Danielle Groves APRN Not available Not available Not available Lab CBC w/ auto diff - GET IN MORNING BEFORE 10AM 10/01/ 025 [facility], [address], [address], [place], [address], 07/26/2025 09:59:36 testoster one, free + total, serum - GET IN MORNING BEFORE 10AM 2024 025 [facility], [address], [address], [place], [address], 07/26/2025 09:59:36 Referral None recorded. Procedures None recorded. Surgeries None recorded. Imaging None recorded. Medication Orders tamsulosi n 0.4 mg capsule 2024 025 [facility], [address] [place], [address], 07/26/2025 09:59:38 ENCLOMIPH GEORGES 12.5 MG CAPSULE 2024 025 [facility], [address] [place], [address], 07/26/2025 09:59:38 Patient TargetsNo targets recorded. Patient Instructions Encounter Date Encounter Id Patient Instructions Last Modified By Organization Details Last Modified Time 07/26/2025 [id number] body mass index: care instructions Not available 07/26/2025 09:59:36 Starting a Weight-Loss Plan: Care Instructions Not available 07/26/2025 09:59:36 sleep apnea: car e instructions Not available 07/26/2025 09:59:36 type 2 diabetes: care instructions Not available 07/26/2025 09:59:36 benign prostatic hyperplasia: care instructions Not available 07/26/2025 09:59:36 Reason for Referral None Reported. Results Created Date Observation Date Name Description Value Unit Range Abnormal Flag Note LastModifiedBy Organization Detail LastModifiedTime 07/23/2007/24/2025 TSH+F REE T4 TSH 1.170 uIU/m L 0.450- 4.500 normal Not Available [facility] ([facility]) [address] [facility], [place], [address], 07/28/2025 12:11:25 07/23/2007/24/2025 TSH+F REE T4 T4,free(dire ct) 1.02 NG/dL 0.82-1 .77 normal Not Available [facility] ([facility]) [address] [place], [address], 07/28/2025 12:11:25 07/23/2007/24/2025 CBC WITH DIFFE RENTI AL/PL ATELE T WBC 6.4 x10e3 /uL 3.4-10 .8 normal Not Available [facility] ([facility]) [address] [place], [address], 07/28/2025 12:11:25 07/23/2007/24/2025 CBC WITH DIFFE RENTI AL/PL ATELE T RBC 5.50 x10e6 /uL 4.14-5 .80 normal Not Available [facility] ([facility]) [address] [place], [address], 07/28/2025 12:11:25 07/23/2007/24/2025 CBC WITH DIFFE RENTI AL/PL ATELE T hemoglobin 16.3 g/dL 13.0-1 7.7 normal Not Available [facility] ([facility]) [address] [place], [address], 07/28/2025 12:11:25 07/23/2007/24/2025 CBC WITH DIFFE RENTI AL/PL ATELE T hematocrit 50.0 % 37.5-5 1.0 normal Not Available [facility] ([facility]) [address] [place], [address], 07/28/2025 12:11:25 07/23/2007/24/2025 CBC WITH DIFFE RENTI AL/PL ATELE T MCV 91 fL 79-97 normal Not Available [facility] ([facility]) [address] [place], [address], 07/28/2025 12:11:25 07/23/2007/24/2025 CBC WITH DIFFE RENTI AL/PL ATELE T MCH 29.6 pg 26.6-3 3.0 normal Not Available [facility] ([facility]) [address] [facility], [place], [address], 07/28/2025 12:11:25 07/23/20 25 07/24/2025 CBC WITH DIFFE RENTI AL/PL ATELE T MCHC 32.6 g/dL 31.5-3 5.7 normal Not Available [facility] ([facility]) [address] [facility], [place], [address], 07/28/2025 12:11:25 07/23/2007/24/2025 CBC WITH DIFFE RENTI AL/PL ATELE T RDW 14.8 % 11.6-1 5.4 Not Available [facility] ([facility]) [address] [facility], [place], [address], 07/28/2025 12:11:25 07/23/2007/24/2025 CBC WITH DIFFE RENTI AL/PL ATELE T platelets 211 x10e3 /uL 150-45 0 normal Not Available [facility] ([facility]) [address] [facility], [place], [address], 07/28/2025 12:11:25 07/23/2007/24/2025 CBC WITH DIFFE RENTI AL/PL ATELE T neutrophils 66 % not estab. normal Not Available [facility] ([facility]) [address] [facility], [place], [address], 07/28/2025 12:11:25 07/23/2007/24/2025 CBC WITH DIFFE RENTI AL/PL ATELE T lymphs 21 % not estab. normal Not Available [facility] ([facility]) [address] [place], [address], 07/28/2025 12:11:25 07/23/20 25 07/24/2025 CBC WITH DIFFE RENTI AL/PL ATELE T monocytes 7 % not estab. normal Not Available [facility] ([facility]) [address] [place], [address], 07/28/2025 12:11:25 07/23/20 25 07/24/2025 CBC WITH DIFFE RENTI AL/PL ATELE T eos 4 % not estab. normal Not Available [facility] ([facility]) [address] [facility], [place], [address], 07/28/2025 12:11:25 07/23/20 25 07/24/2025 CBC WITH DIFFE RENTI AL/PL ATELE T basos 1 % not estab. normal Not Available [facility] ([facility]) [address] [facility], [place], [address], 07/28/2025 12:11:25 07/23/20 25 07/24/2025 CBC WITH DIFFE RENTI AL/PL ATELE T immature cells AIR BRAKE MAN Not Available [facility] ([facility]) [address] [place], [address], 07/28/2025 12:11:25 07/23/20 25 07/24/2025 CBC WITH DIFFE RENTI AL/PL ATELE T neutrophils (absolute) 4.3 x10e3 /uL 1.4-7. 0 normal Not Available [facility] ([facility]) [address] [place], [address], 07/28/2025 12:11:25 07/23/20 25 07/24/2025 CBC WITH DIFFE RENTI AL/PL ATELE T lymphs (absolute) 1.4 x10e3 /uL 0.7-3. 1 normal Not Available [facility] ([facility]) [address] [place], [address], 07/28/2025 12:11:25 07/23/20 25 07/24/2025 CBC WITH DIFFE RENTI AL/PL ATELE T monocytes(ab solute) 0.5 x10e3 /uL 0.1-0. 9 normal Not Available [facility] ([facility]) [address] [facility], [place], [address], 07/28/2025 12:11:25 07/23/20 25 07/24/2025 CBC WITH DIFFE RENTI AL/PL ATELE T eos (absolute) 0.3 x10e3 /uL 0.0-0. 4 normal Not Available [facility] ([facility]) [address] [facility], [place], [address], 07/28/2025 12:11:25 07/23/2007/24/2025 CBC WITH DIFFE RENTI AL/PL ATELE T baso (absolute) 0.0 x10e3 /uL 0.0-0. 2 normal Not Available [facility] ([facility]) [address] [facility], [place], [address], 07/28/2025 12:11:25 07/23/2007/24/2025 CBC WITH DIFFE RENTI AL/PL ATELE T immature granulocytes 0 % not estab. Not Available [facility] ([facility]) [address] [facility], [place], [address], 07/28/2025 12:11:25 07/23/2007/24/2025 CBC WITH DIFFE RENTI AL/PL ATELE T immature grans (abs) 0.0 x10e3 /uL 0.0-0. 1 Not Available [facility] ([facility]) [address] [facility], [place], [address], 07/28/2025 12:11:25 07/23/2007/24/2025 CBC WITH DIFFE RENTI AL/PL ATELE T NRBC [employer] MAN Not Available [facility] ([facility]) [address] [facility], [place], [address], 07/28/2025 12:11:25 07/23/2007/24/2025 CBC WITH DIFFE RENTI AL/PL ATELE T hematology comments: AIR BRAKE MAN Not Available [facility] ([facility]) [address] [place], [address], 07/28/2025 12:11:25 07/23/20 25 07/24/2025 COMP. METAB OLIC PANEL (14) glucose 178 mg/dL 70-99 above high normal Not Available [facility] ([facility]) [address] [place], [address], 07/28/2025 12:11:26 07/23/20 25 07/24/2025 COMP. METAB OLIC PANEL (14) BUN 16 mg/dL 6-24 normal Not Available [facility] ([facility]) [address] [place], [address], 07/28/2025 12:11:26 07/23/20 25 07/24/2025 COMP. METAB OLIC PANEL (14) creatinine 1.00 mg/dL 0.76-1 .27 normal Not Available [facility] ([facility]) [address] [place], [address], 07/28/2025 12:11:26 07/23/20 25 07/24/2025 COMP. METAB OLIC PANEL (14) eGFR 88 mL/mi n/1.7 3 >59 normal Not Available [facility] ([facility]) [address] [place], [address], 07/28/2025 12:11:26 07/23/20 25 07/24/2025 COMP. METAB OLIC PANEL (14) BUN/creatini ne ratio 16 9-20 normal Not Available [facility] ([facility]) [address] [place], [address], 07/28/2025 12:11:26 07/23/20 25 07/24/2025 COMP. METAB OLIC PANEL (14) sodium 143 mmol/ L 134-14 4 normal Not Available [facility] ([facility]) [address] [place], [address], 07/28/2025 12:11:26 07/23/20 25 07/24/2025 COMP. METAB OLIC PANEL (14) potassium 4.4 mmol/ L 3.5-5. 2 normal Not Available [facility] ([facility]) [address] [place], [address], 07/28/2025 12:11:26 07/23/20 25 07/24/2025 COMP. METAB OLIC PANEL (14) chloride 107 mmol/ L 96-106 above high normal Not Available [facility] ([facility]) [address] [place], [address], 07/28/2025 12:11:26 07/23/20 25 07/24/2025 COMP. METAB OLIC PANEL (14) carbon dioxide, total 17 mmol/ L 20-29 below low normal Not Available [facility] ([facility]) [address] [place], [address], 07/28/2025 12:11:26 07/23/20 25 07/24/2025 COMP. METAB OLIC PANEL (14) calcium 9.2 mg/dL 8.7-10 .2 normal Not Available [facility] ([facility]) [address] [place], [address], 07/28/2025 12:11:26 07/23/20 25 07/24/2025 COMP. METAB OLIC PANEL (14) protein, total 6.7 g/dL 6.0-8. 5 normal Not Available [facility] ([facility]) [address] [place], [address], 07/28/2025 12:11:26 07/23/20 25 07/24/2025 COMP. METAB OLIC PANEL (14) albumin 4.6 g/dL 3.8-4. 9 normal Not Available [facility] ([facility]) [address] [place], [address], 07/28/2025 12:11:26 07/23/20 25 07/24/2025 COMP. METAB OLIC PANEL (14) globulin, total 2.1 g/dL 1.5-4. 5 Not Available [facility] ([facility]) [address] [place], [address], 07/28/2025 12:11:26 07/23/20 25 07/24/2025 COMP. METAB OLIC PANEL (14) bilirubin, total 0.4 mg/dL 0.0-1. 2 normal Not Available [facility] ([facility]) [address] [place], [address], 07/28/2025 12:11:26 07/23/20 25 07/24/2025 COMP. METAB OLIC PANEL (14) alkaline phosphatase 67 IU/L 47-123 normal Ple ase note refer ence inter babs suarez e Not Available [facility] ([facility]) [address] [place], [address], 07/28/2025 12:11:26 07/23/20 25 07/24/2025 COMP. METAB OLIC PANEL (14) AST (SGOT) 31 IU/L 0-40 normal Not Available [facility] ([facility]) [address] [place], [address], 07/28/2025 12:11:26 07/23/20 25 07/24/2025 COMP. METAB OLIC PANEL (14) ALT (SGPT) 31 IU/L 0-44 normal Not Available [facility] ([facility]) [address] [place], [address], 07/28/2025 12:11:26 07/23/20 25 07/24/2025 TESTO STERO NE,FR EE AND TOTAL testosterone 256 NG/dL 264-91 6 below low normal Adult male refer ence inter babs is based on a popul ation of healt hy nonob gloria males (BMI <30) betwe en 19 and 39 years old. Carloz sharma et.al . JCEM 2017, 102;1 161-1 173. PMID: 10822 103. Not Available [facility] ([facility]) [address] [facility], [place], [address], 07/28/2025 12:11:26 07/23/2007/28/2025 TESTO STERO NE,FR EE AND TOTAL free testosterone (direct) 9.9 pg/mL 7.2-24 .0 Not Available [facility] ([facility]) [address] [facility], [place], [address], 07/28/2025 12:11:26 07/23/2007/24/2025 VITAM IN D, 25-HY DROXY vitamin D, 25-hydroxy 38.3 NG/mL 30.0-1 00.0 Vitam in D defic iency has been defin ed by the Insti tute of Medic ine and an Endoc rine Socie ty pract ice guide line as a level of serum 25-OH vitam in D less than 20 ng/mL (1,2) . The Endoc rine Socie ty went on to furth er defin e vitam in D insuf ficie ncy as a level betwe en 21 and 29 ng/mL (2). 1. IOM (Inst itute of Medic ine). 2009. Dieta ry refer ence intak es for calci um and D. Kurtis sullivan [place]: The [facility] . 2. Dean godinez MF, Berta do [place], Natalia off-F errcassidy i BARBOSA, et al. Evalu ation , treat ment, and preve ntion of vitam in D defic iency : an Endoc rine Socie ty clini barrie pract ice guide line. JCEM. 2010; 96(7) :1911 -30. Not Available [facility] ([facility]) [address] [facility], [place], [address], 07/28/2025 12:11:26 07/23/2007/24/2025 PLEZIYAD E NOTE please note Commen t The date and/o r time of colle ction was not indic ated on the requi sitio n as requi red by state and karishma al law. The date of recei pt of the speci men was used as the colle ction date if not suppl ied. Not Available [facility] ([facility]) [address] [facility], [place], [address], 07/28/2025 12:11:27 08/27/2008/21/2025 CT, abdom en + pelvi s, w/o contr ast No observ ation record ed. [facility] (Medical Records) [address] [place] [address] , [place], [address], 08/27/2025 13:13:09 08/30/20 CT, abdom en + pelvi s, w/ contr ast No observ ation record ed. [facility] [address], [place], [address], 08/31/2025 14:44:36 09/10/20 [place], ciara ladde r No observ ation record ed. [address] , [place], [address], 09/10/2025 12:02:40 09/10/2009/05/2025 XR, thora cic spine , 4 or more view No observ ation record ed. ef[facility]man Not Available 2024 13:39:04 Result Notes None recorded. 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 side of the nose Paula Perez RN [address], [place], [address], [place] [facility] 0 08:19:08 History of repair of hip joint 889116029 Active Paula Perez RN [address], [place], [address], [place] [facility] 0 08:19:08 Type 2 diabetes mellitus 74553100 Active Paula Perez, CHARLI [address], [place], [address], [place] [facility] 0 08:19:08 Hyperlip idemia 92733747 Active Paula Perez RN [address], [place], [address], [place] [facility] 0 08:19:08 Hyperten sive disorder 36807339 Active Paula Perez, RN [address], [place], [address], [place] [facility] 0 08:19:08 History of malignan t lymphoma 549388493 Active Paula Perez, CHARLI [address], [place], [address], [place] [facility] 0 08:19:08 Obesity 025046725 Active Paula Perez RN [address], [place], [address], [place] [facility] 0 08:19:08 Sleep apnea 58478977 Active Paula Perez, CHARLI [address], [place], [address], [place] [facility] 0 08:19:08 Pulmonar y embolism 84399094 Active Paula Perez, CHARLI [address], [place], [address], [place] [facility] 0 08:19:08 Abnormal testoste addie 239117141 Active Paula Perez, CHARLI [address], [place], [address], [place] [facility] 0 08:19:08 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 Paula Perez, CHARLI [address], [place], [address], [place] [facility] 0 08:19:08 Exposure to SARS-CoV -2 Completed 201909/07/2024 Removal Reason: pt does not have covid now Mandie Mark null, [place] - [facility] 4 08:38:53 Mixed hyperlip idemia 629693830 Active 2020 Danielle Groves, [employer] [address], [place], [address], [place] [facility] 13:44:59 Non-Hodg kin's lymphoma (clinica l) 941052740 Active 2020 Danielle Groves, [employer] [address], [place], [address], [place] [facility] 13:45:00 Gastroes ophageal reflux disease without esophagi tis 921363625 Active 2020 Danielle Groves, [employer] [address], [place], [address], [place] [facility] 13:45:05 Anxiety 41235985 Active 2020 Danielle Groves, [employer] [address], [place], [address], [place] [facility] 13:45:07 Obstruct omi sleep apnea syndrome 18512929 Active 2020 Danielle Groves, [employer] [address], [place], [address], [place] [facility] 13:45:13 Degenera tion of lumbar interver tebral disc 55593808 Active 2020 Danielle Groves, [employer] [address], [place], [address], [place] [facility] 13:45:15 Osteoart hritis 028822065 Active 2020 Danielle Groves, [employer] [address], [place], [address], [place] [facility] 13:45:18 Hypergly cemia due to type 2 diabetes mellitus 28927349554 9109 Active 2020 Danielle Groves, [employer] [address], [place], [address], [place] [facility] 13:45:20 Osteoart hritis of hip 106609084 Active 2020 Danielle Groves, [employer] [address], [place], [address], [place] [facility] 1 13:45:21 Testoste addie level below referenc e range 223050034 Active 2020 Danielle Groves, [employer] [address], [place], [address], [place] [facility] 1 13:45:25 Vitamin B12 deficien cy (non anemic) 20851251 Active 2020 Danielle Groves, [employer] [address], [place], [address] [facility] 13:45:35 Divertic ular disease 385197490 Active [address] 02-04-2024 Mandie Stears null, [place] [facility] 5 10:55:53 Pain of left hip joint 13042713572 9100 Completed 202311/16/2024 Mandie Stears null[place] [facility] 5 09:03:46 Osteoart hritis of left hip joint 93738262041 9108 Active 2023 Kunal Wiseman, DO [address], [place], [address], [place] [facility] 4 21:18:17 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 823706698 Active 2023 Kunal Long, DO [address], [place], [address], [place] [facility] 4 21:25:44 Somatic dysfunct ion of head region 939619146 Completed 202311/16/2024 Mandie Stears null[place] [facility] 5 09:03:26 Cervical somatic dysfunct ion 592479260 Active 2023 Kunal Long, DO [address], [place], [address], [place] [facility] 4 21:29:12 Somatic dysfunct ion of thoracic region 589150007 Completed 202311/16/2024 Mandie Stears null[place] [facility] 5 09:02:53 Somatic dysfunct ion of lumbar region 827975156 Completed 202311/16/2024 Mandie Stears null[place] [facility] 5 09:03:21 Somatic dysfunct ion of pelvic region 608075400 Completed 202311/16/2024 Mandie Stears null[place] [facility] 5 09:03:10 Somatic dysfunct ion of sacral region 909664479 Completed 202311/16/2024 Mandie Stears null[place] [facility] 5 09:02:58 Somatic dysfunct ion of lower limb 679557294 Completed 202311/16/2024 Mandie Stears null[place] [facility] 5 09:03:16 Somatic dysfunct ion of upper limb 506821486 Completed 202311/16/2024 Mandie Stears null[place] [facility] 5 09:02:47 Somatic dysfunct ion of rib 067260782 Completed 202311/16/2024 Mandie Stears null[place] [facility] 5 09:03:03 Pain of left knee joint 88038842518 4107 Completed 202311/16/2024 Mandie Stears null[place] [facility] 5 09:03:41 Deep venous thrombos is of lower extremit y 028898247 Active 2023 Kelsey Peralta, [employer] [address], [place], [address] [place] [facility] 4 10:16:29 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 Please review this document and add these problems to the patient's chart manually as needed. Problem Notes None recorded. Procedures Surgical History Date Name Laterality Status Provider Name and Address Organization Details Recorded Time 08/27/20 Medication Reconcilliation completed Mandie Mark [place] [facility] 08/27/2025 09:45:12 05/08/20 25 A1C level 8.0 to 9.0 completed Elizabeth [place] - [facility] 05/08/2025 08:30:35 02/02/20 25 A1C level 7.0 to 7.9 completed Elizabeth [place] [facility] 02/01/2025 08:35:38 11/16/19 25 Negative Microalbumin completed Elizabeth [place] [facility] 11/16/2024 12:40:31 11/16/19 25 A1C level 7.0 to 7.9 completed Elizabeth [place] [facility] 11/16/2024 12:36:14 09/18/20 24 total replacement of hip completed Mandie Mark [place] [facility] 04/17/2025 10:34:26 08/09/20 24 Cryosurgery Dermatology completed Gabriela Rupesh, [employer] [address], [place], [address], [place] [facility] 08/09/2024 18:22:52 08/07/20 24 A1C level 6.9 and below completed Elizabeth [place] [facility] 08/07/2024 08:23:04 08/02/20 24 OMT completed Kunal Wiseman, DO [address], [place], [address], [place] [facility] 08/01/2024 21:28:42 04/24/20 24 A1C level 7.0 to 7.9 completed Elizabeth [place] [facility] 04/24/2024 08:29:26 01/12/20 24 A1C level 6.9 and below completed Batsheva Caballero [place] [facility] 01/12/2024 08:31:21 10/04/20 23 Negative Microalbumin completed Elizabeth Vijaya [place] [facility] 10/04/2023 08:30:21 10/04/20 23 A1C level 6.9 and below completed Elizabeth Vijaya [place] [facility] 10/04/2023 08:30:58 06/17/20 23 A1C level 6.9 and below completed Elizabeth [place]ijaya [place] [facility] 06/17/2023 08:24:49 05/12/20 23 Cryosurgery Dermatology completed Gabriela Goddard APRN [address], [place], [address], [place] [facility] 05/12/2023 17:48:37 03/04/20 23 A1C level 7.0 to 7.9 completed Elizabeth [place]rios[place] [facility] 03/04/2023 08:27:24 01/05/20 23 Cryosurgery Dermatology completed Gabriela Goddard APRN [address], [place], [address], [place] [facility] 01/04/2023 18:14:32 11/26/19 23 A1C level 6.9 and below completed Elizabeth [place] [facility] 11/26/2022 08:43:45 11/18/19 23 Cryosurgery Dermatology completed Gabriela Goddard APRN [address], [place], [address], [place] [facility] 11/18/2022 18:02:12 08/19/20 22 Cryosurgery Dermatology completed Gabriela Goddard APRN [address], [place], [address], [place] [facility] 08/19/2022 15:45:48 08/17/20 Negative Microalbumin completed Elizabeth [place] [facility] 08/17/2022 08:40:32 08/17/20 22 A1C level 7.0 to 7.9 completed Elizabeth [place] [facility] 08/17/2022 08:40:28 05/13/20 22 A1C level 7.0 to 7.9 completed Elizabeth [place] [facility] 05/13/2022 08:52:34 04/09/20 22 Shave Biopsy trunk, arms, or legs completed Gabriela Goddard APRN [address], [place], [address], [place] [facility] 04/09/2022 17:50:49 01/22/20 A1C level 6.9 and below completed Elizabeth Vijaya [place] [facility] 01/21/2022 08:25:16 10/22/20 A1C level 6.9 and below completed [place]ijaya [place] [facility] 10/22/2021 08:44:24 07/22/20 Negative Microalbumin completed [place]ijaya [place] [facility] 07/22/2021 08:42:49 07/22/20 A1C level 6.9 and below completed [place]ij[place] [facility] 07/22/2021 08:46:31 04/30/20 A1C level 6.9 and below completed [place]ijaya [place] [facility] 04/30/2021 08:50:47 01/30/20 A1C level 7.0 to 7.9 completed [place] Vijaya [place] [facility] 01/29/2021 08:32:19 10/01/20 20 Systolic B/P less than 130 mm Hg completed Elizabeth Vijaya [place] [facility] 10/01/2020 14:56:16 10/01/20 20 Diastolic B/P less than 80 mm [...] 05/29/20 20 Suture/Staple removal completed Gabriela Goddard, [employer] [address], [place], [address], [place] [facility] 05/29/2020 18:32:14 05/22/20 20 Systolic B/P less than 130 mm Hg completed Elizabeth Vijaya [place] [facility] 05/22/2020 08:33:33 05/22/20 Diastolic B/P less than 80 mm Hg completed Elizabeth Berriosyles [place] [facility] 05/22/2020 08:33:41 05/22/20 Negative Microalbumin completed Elizabeth Vijaya [place] [facility] 05/22/2020 08:38:31 05/22/20 A1C level 6.9 and below completed Elizabeth Berriosyles [place] [facility] 05/22/2020 08:39:11 05/16/20 Punch Biopsy completed Gabriela Goddard APRN [address], [place], [address], [place] [facility] 05/16/2020 14:48:13 02/21/20 Systolic B/P less than 130 mm Hg completed Jamila Amy [place] [facility] 02/21/2020 08:37:54 02/21/20 Diastolic B/P 80-89 mm Hg [place] Jamila Denton [place] [facility] 02/21/2020 08:38:00 02/21/20 A1C level 6.9 and below completed Jamila Denton [place] [facility] 02/21/2020 08:39:41 11/22/19 Diastolic B/P 80-89 mm Hg completed Elizabeth Vijaya [place] [facility] 11/22/2019 08:24:23 11/22/19 Systolic B/P 130-139 mm Hg completed [place] Vijaya [place] [facility] 11/22/2019 08:24:03 11/22/19 A1C level 6.9 and below completed Elizabeth Berriosyles [place] [facility] 11/22/2019 08:26:46 05/22/20 A1C level 6.9 and below completed Jaimla Amy [place] [facility] 05/22/2019 09:27:56 02/21/20 A1C level 6.9 and below completed [place] Vijaya [place] [facility] 02/20/2019 08:37:09 01/19/20 19 Suture/Staple removal completed Gabriela Goddard APRN [address], [place], [address], [place] [facility] 01/18/2019 08:55:01 01/12/20 19 Punch Biopsy completed Gabriela Goddard APRN [address], [place], [address], [place] [facility] 01/11/2019 11:04:43 11/21/19 19 A1C level 6.9 and below completed Elizabeth Lilly [place] [facility] 11/21/2018 08:30:52 09/28/20 18 Suture/Staple removal completed Gabriela Goddard [employer] [address], [place], [address], [place] [facility] 09/28/2018 10:49:02 09/21/20 18 Punch Biopsy completed Gabriela Goddard [employer] [address], [place], [address], [place] [facility] 09/21/2018 13:11:42 07/13/20 18 Cryosurgery Dermatology completed Gabriela Rupesh [employer] [address], [place], [address], [facility] - [facility] 07/13/2018 08:51:18 Mohs surgery completed Mandiemike Soods [place] - [facility] 07/16/2020 16:46:04 Colonoscopy completed Elizabeth Lilly [place] [facility] 05/08/2025 08:29:10 total replacement of hip completed Mandie Stears [place] [facility] 05/26/2022 08:13:45 biopsy completed Mandie Stears [place] [facility] 09/07/2024 08:30:02 Imaging Results None recorded. Procedure Notes None recorded. Medical Equipment None Reported. Allergies Allergen ID Allergen Name Allergen Category Reaction Reaction Severity Criticality Documentation Date Start Date Code Code System Note Provider Name and Address Organization Details Recorded Time 653410 Product containin g 3-hydroxy -3-methyl glutaryl- coenzyme A reductase inhibitor (product) medicatio n myalgias (muscle pain) moderate Not available 02/20/2019 52014 009 SNOMED Danielle Aubrey Groves, [employer] [address], [place], [address], [place] - [facility] 9 08:50:22 561132 Mounjaro medicatio n Not available Not available Not available 08/07/2024 32260 34 RxNorm diver ticul itis Elizabeth Lilly null, [place] - [facility] 4 08:17:36 Medications Name Sig Start Date Stop Date Status Note LastModified by Organization Details LastModified Time ENCLOMIPH GEORGES 12.5 MG CAPSULE Take 1 capsule by mouth daily 2024 active Not Available Not Available Not Avai lable Prescript ion - Prior Authoriza tion Request active Not Available Not Available Not Available BD Luer-Flo Syringe 3 mL 23 x [...] Recorded on: 06/17/20 16 2:01PM;U ser: kenyatta maki;Est. Completi on: 07/01/20 16;Print ed: 06/17/20 16 [...] on: 03/25/20 12;Indic ation: Otitis Externa - (380 00);Prin quinten: 03/22/20 12 Not Available Not [...] Disconti nued on: 03/10/20 10 10:42AM; User: vinicius TuttleEst. Carmeni on: 02/14/20 10;Print ed: 02/04/20 10 Not Available Not Available Not Available Avelox 400 mg tablet take 1 tablet (400 mg) by oral route once daily for 6 days 04/02 completed Avelox 400 mg oral tablet;R ecorded Status: Recorded on: 03/10/20 10 11:15AM; Disconti nued Status: Disconti nued on: 04/02/20 11 4:16PM;U ser: vinicius ;Est. Completi on: 03/16/20 10 Not Available Not Available [...] nued on: 05/18/20 14 12:28PM; User: vinicius ;Est. Completi on: 02/27/20 14;Indic ation: Androgen Deficien cy - (03.2599 );Prin quinten: 11/28/19 14 Not Available Not Available Not Available fluoroura cil 5 % topical cream APPLY A SUFFICIE NT AMOUNT TO COVER THE LESIONS IN THE AFFECTED AREA(S) BY TOPICAL ROUTE 2 TIMES PER DAY for 4 weeks on bilatera l arms 12/23 completed Not Available Not [...] Available Not Available Not Available Hypodermi c Purchase 23 gauge x 1 USE DIRECTED FOR TESTOSTE ADDIE BY DOCTOR 10/18 completed Not Available Not [...] nued on: 05/18/20 14 11:59AM; User: vinicius ;Est. Completi on: 12/05/19 14;Indic ation: Cough - [...] mg tablet 10 mg by oral route. 12/19 /2018 completed Not Available Not Available Not Available [...] nued on: 04/14/20 16 12:59PM; User: philip Baptiste on: 04/15/20 16;Print ed: 03/16/20 Not Available Not Available Not Available ranitidin [...] sodium 75 mg oral tablet,d elayed release (/EC); Recorded Status: Recorded on: 08/04/20 08 10:04PM; [...] Disconti nued on: 03/04/20 12 8:36AM;U ser: vinicius ;Est. Completi on: 04/02/20 12;Indic ation: Cerebral Thromboe mbolism Preventi on - (43407 03);Prin quinten: 10/05/20 11 Not Available Not Available [...] 14;Indic ation: Bronchos pasm Preventi on - (51911 01);Prin quinten: 11/16/19 14 Not Available Not Available [...] Disconti nued on: 10/05/20 11 10:19AM; User: Cathryn plummer n: Cerebral Thromboe mbolism Preventi on - () Not Available Not Available Not Available Vitamin D 5,000 IU daily x 2 active Not Available Not Available No t Available BD Regular Bevel Purchase 18 gauge x 1 1/2 USE DIRECTED TO DRAW UP YULI REAL 10/18 completed Not Available Not Available Not [...] height Body mass index (BMI) Body weight Heart rate Oxygen saturation Respiratory rate Pain severity - 0-10 verbal numeric rating [Score] - Reported Systolic And Diastolic Provider Name and Address Organization Details Last Updated DateTime 5 182.88 cm 37.2 kg/m2 368092. 31 g 81 /min 98 % 18 /min 0 128/78 mm[Hg] Valeria Hardwick [place] - [facility] 5 08:24:22 Social History Question Answer Notes LastModified by Organizat ion Details LastModified Time Tobacco Smoking Status Former Smoker Not Available [facility] 08/16/2020 03:17:10 Able To Swim? No Information not available 09/29/2016 Do You Have An Advance Directive? No [id number] Information not available 08/16/2020 Do You Wear A Helmet When Biking? No [id number] Information not available 08/16/2020 Are You Blind Or Do You Have Difficulty Seeing? No [id number] Information not available 08/16/2020 What Is Your Level Of Caffeine Consumption? Moderate [id number] Information not available 08/16/2020 How Much Tobacco Do You Chew? 1/day Information not available 08/27/2025 Are You Deaf Or Do You Have Serious Difficulty Hearing? No [id number] Information not available 08/16/2020 What Type Of Diet Are You Following? REGULAR [id number] Information not available 08/16/2020 Which Illicit Or Recreational Drugs Have You Used? None [id number] Information not available 08/16/2020 What Is The Highest Grade Or Level Of School You Have Completed Or The Highest Degree You Have Received? [id number] Information not available 08/27/2025 Swimming/diving No Informati on not available 09/29/2016 Have There Been Any Changes To Your Family Or Social Situation? No Information no t available 08/27/2025 What Is The Fluoride Status Of Your Home? Unknown Information not available 08/27/2025 When Did You Quit Smoking? 16+yearssince lastcigarette Information not available 03/04/2023 Hard Of Hearing Or Deaf In One Or Both Ears? No Information not available 09/29/2016 Legally Blind In One Or Both Eyes? No Information no t available 09/29/2016 Live Alone Or With Others? With Others Information not available 09/29/2016 Do You Have A Medical Power Of Financial Dealers? No Information not available 08/27/2025 What Was The Date Of Your Most Recent Tobacco Screening? 02/01/2025 Information not available 02/01/2025 How Many Children Do You Have? 3 [id number] Information not available 08/16/2020 What Is Your Current Pack Years? 10-19pahelga s Information not available 03/04/2023 Do You Use Protection During Sex? No [id number] Information not available 08/16/2020 What Is Your Relationship Status? [id number] Information not available 08/16/2020 Seat Belts Used Routinely Yes Information not available 09/29/2016 Are You Sexually Active? Yes [id number] Information not available 08/16/2020 Smoke Alarm In Home Yes Information not available 09/29/2016 At What Age Did You Start Smoking Tobacco? 11 Information not available 03/04/2023 Are You Passively Exposed To Smoke? No Information no t available 09/29/2016 How Much Tobacco Do You Smoke? No [email or web address] Information not available 01/12/2024 General Stress Level Medium Information not available 09/29/2016 Do You Use Sunscreen Routinely? No [id number] Information not available 08/16/2020 Has Tobacco Cessation Counseling Been Provided? Yes Information not available 03/04/2023 On What Date Was Tobacco Cessation Counseling Provided? 02/01/2025 Information not available 02/01/2025 How Many Years Have You Smoked Tobacco? 20 Information not available 03/04/2023 Do You Have Difficulty Walking Or Climbing Stairs? No [id number] Information not available 08/16/2020 Sex: Male Functional Status Question Answer Note LastModified by Organizat ion Details LastModified Time Do you or have you ever used smokeless tobacco? Currently chews tobacco Information not available 08/27/2025 Are you currently employed? Yes [id number] Information not available 08/16/2020 Do you have transportation difficulties? No Information not available 08/27/2025 Are you able to care for yourself independently? Yes [id number] Information not available 08/16/2020 Do you have difficulty dressing, bathing, grooming, or toileting? No [id number] Information not available 08/16/2020 Do you or have you ever used e-cigarettes or vape? Never used electronic cigarettes [id number] Information not available 08/16/2020 What is your exercise level? None [id number] Information not available 08/16/2020 Do you use any illicit or recreational drugs? No Information not available 08/27/2025 Do you or have you ever used any other forms of tobacco or nicotine? Yes Information not available 08/27/2025 What is your level of alcohol consumption? None [id number] Information not available 08/16/2020 Are you able to walk independently without assistance or assistive devices? YESWOREST [id number] Information not available 08/16/2020 Do you have difficulty doing errands alone? 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 [id number] Information not available 08/27/2025 Do you have difficulty concentrating, remembering or making decisions? No [id number] Information no t available 08/16/2020 Family History [...] available 05/2023 16:13:59 Medical History Condition Response Vitamin B12 Deficiency Y Allergies/Hayfever Y Diabetes Y Hypertension Y Immunizations Vaccine Type Date Status Note Provider Nam e and Address Organization Details Recorded Time Influenza, split virus, quadrivalent, PF 1 completed Elizabeth Lilly null, [place] - [facility] 07/22/2021 09:50:07 Influenza, split virus, quadrivalent, preservative 2 completed Danielle Groves, [employer] [address], [place], [address], [place] [facility] 08/17/2022 08:50:47 Tdap 2 completed Not Available formerly [facility] 09/03/2020 14:44:39 Influenza, split virus, quadrivalent, preservative 8 completed Not Available formerly [facility] 11/18/2019 03:55:23 Influenza, split virus, quadrivalent, preservative 9 completed Not Available formerly [facility] 11/18/2019 03:56:07 Past Encounters Encounter ID Performer Location Encounter Start Date Encounter Closed Date Diagnosis/Indication Diagnosis SNOMED-CT Code Diagnosis ICD10 Code Diagnosis IMO Codes Diagnosis Note [id number] Kelsey Peralta APRN [facility] [address] [place] [address] 07/26/2025 08:15:23 07/26/2025 10:09:33 Male hypogonadism 02783658 E29.1 Testostero ne level below reference range 649516542 R79.89 noted transferen ce risk with topical testostero ne rx to his and grandchild justen who are at his home daily. xyosted was denied prior. Type 2 laci betes mellitus 66761223 E11.9 Obstructiv e sleep apnea syndrome 78903147 G47.33 Obesity 155994355 E66.9 Reduced libido 5573466 R 68.82 Needle phobia 890874510 F40.231 difficulty with doing his own injections d/t fear of needles and incoordina tion. Dysmetria 15501327 R27.8 difficulty with doing his own injections d/t fear of needles and incoordina tion. 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 Urinary fr equency due to benign prostatic hypertrophy 7417469431 55009 N40.1 R35.0 [id number] Danial ZEHRA Keller [address] [address] 07/23/2025 12:49:55 07/23/2025 13:04:59 Abnormal testosterone 510249125 R94.7 Malaise and fatigue 2717 03265 R53.81 R53.83 58594 Generalize d abdominal pain 249244866 R10.84 [id number] Health Concerns Section Related Observation LastModified by Organization Detai ls LastModified Time None Recorded Concern Status LastModified by Organization Details LastModified Time None Recorded Payers Encounter Date Sequence Insurance Name Policy Number Policy Magana Covered Member ID Magana Member ID Guarantor Name 07/26/2025 1 [place] [id number] Mandie Mark [id number] Juarez Mark Notes Date Note Type Note Provider Name and Address Organization Details Recorded Time 07/26/20 25 text/htm l Lower Urinary Tract Symptoms (LUTS)Reported by PatientHPIFor associated symptoms, patient reportsurgencyandnocturia 2 times a nightbut reportsno abdominal pain,no groin pain,no flank pain,no low back pain,no chills,no fever,no constipation,no diarrhea,no nausea,no vomiting,no temperaure,good force of stream,no straining,no post void dribbling,no hesitancy,empties well,no frequency,no dysuria,no incontinence,no urine odor,no gross hematuria,normal erection,normal libido,no hematospermia,no ejaculatory pain,no premature ejaculation,no penile pain, andno penile curvature. For duration, patient reportschronic.-04/30/21- testosterone 192-07/22/21- testosterone 91-10/22/21- testosterone 477, PSA 0.6-01/21/22- testosterone 322-05/13/22- testosterone 744-08/17/22- testosterone 85. -11/26/22- PSA 0.9, testosterone 247 -03/04/23- totalT 473, CBC- rbc 6.67, hgb 16.4, hct 50.7 -05/07/23- CBC- hct 51, hgb- 16.5, rbc 6.7 -07/09/23- CBC- rbc- 6.72, hgb 17.8, hct 54.1 -07/29/23- therapeutic phlebotomy x 500ml. -10/04/23- totalT 43, freeT 7.5 (pt was past due for a shot) -10/16/23- CBC- RBC- 5.86, hgb/hct. -01/12/24- psa 0.7, cmp- 0.92, gfr 98, cbc- rbc- 6.0, hgb 16.6, hct 50.1 04/05/24- testo- 315, cbc WNL, iron/tibc/ferritin WNL (5 days post injection) 06/30/24- rbc- 5.85, hgb- 17.6, hct 51.9, testo 642 08/28/24- RBC- 5.7, hgb 17.5, hct 48.2 02/01/25- Testo- 266, freeT 10.1, CBC WNL. CMP Stable, PSA 0.4, VitD 29.9, TSH 1.4, b12 652 07/24/25- CBC WNL. testo 256. Blaine comes from Danielle Groves APRN for low testosterone. He has h/o non-hodgkins lyphoma.He has sleep apnea and wears C-pap nightly and is benefiting from this.Chronic issues reviewed and stable. Sees Danielle Burgos as his PCP he does testosterone cypionate 150mg (0.75ml) q1wk.has been doing it since 2019. 07/26/25 pt rtc fu on lowt, secondary polycythemia, BPHhad hip replacement 09/18/[address] fernandez. has not taken testo since august 2024 d/t his hip sx as directed by ortho. he states that 1 wk postop he got a clot in his operative leg that went from his groin all the way to his heel. he has seen vascular sx and had the clot removed at [facility] he has seen hematology- consult reviewed from 11/15/24. reports flomattie working great got his labs to review still very fatigued. Kelsey Peralta, [employer] [address], [place], [address], [place] [facility] 07/26/2025 10:00:07
--- OUTSIDE RECORDS SUMMARY | 2025-09-20 08:27 | XMS_ITS | Continuity of Care Document ---
Author Organization [facility] Address [address] [place] [address] Care Team Providers Care Schedule Announcer Name Role Phone GABRIELA GODDARD [facility] Assessment Encounter Date Assessment Date Assessment LastModified by Organization Details LastModified Time 08/27/2025 08/27/2025 -Medications were reviewed and any necessary updates and renewals were made, patient instructed to complete as prescribed. -The potential side effects of medications were discussed. -Counseling was done on care goals and ways to prevent future hospitalizatio ns. -Further treatment per orders listed below. [email or web address] Not available 08/27/2025 09:45:11 Plan of Treatment Reminders Order Date Submit Date Provider Last Modified By Organization Details Last Modified Time Details Appointments Follow Up 20 2024 08:00A M Kelsey Peralta, [employer] Not available Not available Not available ESTABLISH ED PT 30 2025 08:30A M Danielle Groves APRN Not available Not available Not available Lab HbA1c (hemoglob in A1c), blood 2024 025 MEGAN [facility], [address], [address], [place], [address], 08/28/2025 11:08:09 urinalysi s, dipstick 2024 025 [facility], [address] [facility], [place], [address], 08/27/2025 10:33:18 amylase + lipase, serum 2024 MEGAN [facility], [address], [address], [place], [address], 08/28/2025 11:08:08 CBC w/ auto diff 2024 MEGAN [facility], [address], [address], [place], [address], 08/28/2025 11:08:07 CMP, serum or plasma 2024 MEGAN [facility], [address], [address], [place], [address], 08/28/2025 11:08:07 lipid panel, serum 2024 MEGAN [facility], [address], [address], [place], [address], 08/28/2025 11:08:08 Referral cardiolog ist referral - alek rodriguez, Call patients Mandie to schedule 2024 MEGAN Morgan MD, [address] [place] [address] [address], [place], [address], 09/12/2025 08:33:36 Procedures None recorded. Surgeries None recorded. Imaging CT, abdomen + pelvis, w/ contrast - r/o kidney stone, calcifica tion to aorta? hx of lymphoma, diverticu lar dz 2024 [facility], [address] [facility], [place], [address], 08/30/2025 15:32:26 [place], gallbladd er 2024 [facility], [address] [place] [address] , [place], [address], 09/10/2025 09:47:50 Medication Orders None recorded. Patient TargetsNo targets recorded. Patient InstructionsNo instructions recorded. Reason for Referral Body Presser Referral for Di sorder of aorta [facility], Call patients tera Lockwood to schedule [phone] Referring Physician: Danial Keller, Family Medicine, Encounter Date: 08/27/2025 Results Created Date Observation Date Name Description Value Unit Range Abnormal Flag Note LastModifiedBy Organization Detail LastModifiedTime 08/27/2008/28/2025 CBC WITH DIFFE RENTI AL/PL ATELE T WBC 6.6 x10e3 /uL 3.4-10 .8 normal Not Available [facility] ([facility]) [address] [place], [address], 08/28/2025 11:08:07 08/27/2008/28/2025 CBC WITH DIFFE RENTI AL/PL ATELE T RBC 5.45 x10e6 /uL 4.14-5 .80 normal Not Available [facility] ([facility]) [address] [place], [address], 08/28/2025 11:08:07 08/27/2008/28/2025 CBC WITH DIFFE RENTI AL/PL ATELE T hemoglobin 16.3 g/dL 13.0-1 7.7 normal Not Available [facility] ([facility]) [address] [place], [address], 08/28/2025 11:08:07 08/27/2008/28/2025 CBC WITH DIFFE RENTI AL/PL ATELE T hematocrit 49.5 % 37.5-5 1.0 normal Not Available [facility] ([facility]) [address] [place], [address], 08/28/2025 11:08:07 08/27/2008/28/2025 CBC WITH DIFFE RENTI AL/PL ATELE T MCV 91 fL 79-97 normal Not Available [facility] ([facility]) [address] [place], [address], 08/28/2025 11:08:07 08/27/20 25 08/28/2025 CBC WITH DIFFE RENTI AL/PL ATELE T MCH 29.9 pg 26.6-3 3.0 normal Not Available [facility] ([facility]) [address] [facility], [place], [address], 08/28/2025 11:08:07 08/27/2008/28/2025 CBC WITH DIFFE RENTI AL/PL ATELE T MCHC 32.9 g/dL 31.5-3 5.7 normal Not Available [facility] ([facility]) [address] [place], [address], 08/28/2025 11:08:07 08/27/2008/28/2025 CBC WITH DIFFE RENTI AL/PL ATELE T RDW 14.4 % 11.6-1 5.4 Not Available [facility] ([facility]) [address] [facility], [place], [address], 08/28/2025 11:08:07 08/27/2008/28/2025 CBC WITH DIFFE RENTI AL/PL ATELE T platelets 230 x10e3 /uL 150-45 0 normal Not Available [facility] ([facility]) [address] [place], [address], 08/28/2025 11:08:07 08/27/20 25 08/28/2025 CBC WITH DIFFE RENTI AL/PL ATELE T neutrophils 70 % not estab. normal Not Available [facility] ([facility]) [address] [place], [address], 08/28/2025 11:08:07 08/27/20 25 08/28/2025 CBC WITH DIFFE RENTI AL/PL ATELE T lymphs 18 % not estab. normal Not Available [facility] ([facility]) [address] [place], [address], 08/28/2025 11:08:07 08/27/2008/28/2025 CBC WITH DIFFE RENTI AL/PL ATELE T monocytes 7 % not estab. normal Not Available [facility] ([facility]) [address] [facility], [place], [address], 08/28/2025 11:08:07 08/27/2008/28/2025 CBC WITH DIFFE RENTI AL/PL ATELE T eos 4 % not estab. normal Not Available [facility] ([facility]) [address] [place], [address], 08/28/2025 11:08:07 08/27/2008/28/2025 CBC WITH DIFFE RENTI AL/PL ATELE T basos 1 % not estab. normal Not Available [facility] ([facility]) [address] [facility], [place], [address], 08/28/2025 11:08:07 08/27/2008/28/2025 CBC WITH DIFFE RENTI AL/PL ATELE T immature cells COURIER DELIVERY DRIVER Not Available [facility] ([facility]) [address] [place], [address], 08/28/2025 11:08:07 08/27/20 25 08/28/2025 CBC WITH DIFFE RENTI AL/PL ATELE T neutrophils (absolute) 4.6 x10e3 /uL 1.4-7. 0 normal Not Available [facility] ([facility]) [address] [place], [address], 08/28/2025 11:08:07 08/27/2008/28/2025 CBC WITH DIFFE RENTI AL/PL ATELE T lymphs (absolute) 1.2 x10e3 /uL 0.7-3. 1 normal Not Available [facility] ([facility]) [address] [place], [address], 08/28/2025 11:08:07 08/27/20 25 08/28/2025 CBC WITH DIFFE RENTI AL/PL ATELE T monocytes(ab solute) 0.5 x10e3 /uL 0.1-0. 9 normal Not Available [facility] ([facility]) [address] [facility], [place], [address], 08/28/2025 11:08:07 08/27/20 25 08/28/2025 CBC WITH DIFFE RENTI AL/PL ATELE T eos (absolute) 0.3 x10e3 /uL 0.0-0. 4 normal Not Available [facility] ([facility]) [address] [facility], [place], [address], 08/28/2025 11:08:07 08/27/2008/28/2025 CBC WITH DIFFE RENTI AL/PL ATELE T baso (absolute) 0.0 x10e3 /uL 0.0-0. 2 normal Not Available [facility] ([facility]) [address] [facility], [place], [address], 08/28/2025 11:08:07 08/27/2008/28/2025 CBC WITH DIFFE RENTI AL/PL ATELE T immature granulocytes 0 % not estab. Not Available [facility] ([facility]) [address] [facility], [place], [address], 08/28/2025 11:08:07 08/27/2008/28/2025 CBC WITH DIFFE RENTI AL/PL ATELE T immature grans (abs) 0.0 x10e3 /uL 0.0-0. 1 Not Available [facility] ([facility]) [address] [facility], [place], [address], 08/28/2025 11:08:07 08/27/20 25 08/28/2025 CBC WITH DIFFE RENTI AL/PL ATELE T NRBC COURIER DELIVERY DRIVER Not Available [facility] ([facility]) [address] [facility], [place], [address], 08/28/2025 11:08:07 08/27/20 25 08/28/2025 CBC WITH DIFFE RENTI AL/PL ATELE T hematology comments: COURIER DELIVERY DRIVER Not Available [facility] ([facility]) [address] [facility], [place], [address], 08/28/2025 11:08:07 08/27/20 25 08/28/2025 COMP. METAB OLIC PANEL (14) glucose 157 mg/dL 70-99 above high normal Not Available [facility] ([facility]) [address] [facility], [place], [address], 08/28/2025 11:08:07 08/27/2008/28/2025 COMP. METAB OLIC PANEL (14) BUN 12 mg/dL 6-24 normal Not Available [facility] ([facility]) [address] [facility], [place], [address], 08/28/2025 11:08:07 08/27/20 25 08/28/2025 COMP. METAB OLIC PANEL (14) creatinine 0.94 mg/dL 0.76-1 .27 normal Not Available [facility] ([facility]) [address] [facility], [place], [address], 08/28/2025 11:08:07 08/27/20 25 08/28/2025 COMP. METAB OLIC PANEL (14) eGFR 95 mL/mi n/1.7 3 >59 normal Not Available [facility] ([facility]) [address] [facility], [place], [address], 08/28/2025 11:08:07 08/27/20 25 08/28/2025 COMP. METAB OLIC PANEL (14) BUN/creatini ne ratio 13 9-20 normal Not Available [facility] ([facility]) [address] [facility], [place], [address], 08/28/2025 11:08:07 08/27/20 25 08/28/2025 COMP. METAB OLIC PANEL (14) sodium 139 mmol/ L 134-14 4 normal Not Available [facility] ([facility]) [address] [facility] [place], [address], 08/28/2025 11:08:07 08/27/20 25 08/28/2025 COMP. METAB OLIC PANEL (14) potassium 4.6 mmol/ L 3.5-5. 2 normal Not Available [facility] ([facility]) [address] [facility] [place], [address], 08/28/2025 11:08:07 08/27/2008/28/2025 COMP. METAB OLIC PANEL (14) chloride 104 mmol/ L 96-106 normal Not Available [facility] ([facility]) [address] [facility] [place], [address], 08/28/2025 11:08:07 08/27/2008/28/2025 COMP. METAB OLIC PANEL (14) carbon dioxide, total 20 mmol/ L 20-29 normal Not Available [facility] ([facility]) [address] [facility] [place], [address], 08/28/2025 11:08:07 08/27/20 25 08/28/2025 COMP. METAB OLIC PANEL (14) calcium 9.5 mg/dL 8.7-10 .2 normal Not Available [facility] ([facility]) [address] [facility] [place], [address], 08/28/2025 11:08:07 08/27/2008/28/2025 COMP. METAB OLIC PANEL (14) protein, total 6.7 g/dL 6.0-8. 5 normal Not Available [facility] ([facility]) [address] [facility] [place], [address], 08/28/2025 11:08:07 08/27/20 25 08/28/2025 COMP. METAB OLIC PANEL (14) albumin 4.4 g/dL 3.8-4. 9 normal Not Available [facility] ([facility]) [address] [place], [address], 08/28/2025 11:08:07 08/27/2008/28/2025 COMP. METAB OLIC PANEL (14) globulin, total 2.3 g/dL 1.5-4. 5 Not Available [facility] ([facility]) [address] [place], [address], 08/28/2025 11:08:07 08/27/2008/28/2025 COMP. METAB OLIC PANEL (14) bilirubin, total 0.4 mg/dL 0.0-1. 2 normal Not Available [facility] ([facility]) [address] [place], [address], 08/28/2025 11:08:07 08/27/2008/28/2025 COMP. METAB OLIC PANEL (14) alkaline phosphatase 57 IU/L 47-123 normal Not Available [facility] ([facility]) [address] [place], [address], 08/28/2025 11:08:07 08/27/2008/28/2025 COMP. METAB OLIC PANEL (14) AST (SGOT) 32 IU/L 0-40 normal Not Available [facility] ([facility]) [address] [place], [address], 08/28/2025 11:08:07 08/27/2008/28/2025 COMP. METAB OLIC PANEL (14) ALT (SGPT) 35 IU/L 0-44 normal Not Available [facility] ([facility]) [address] [place], [address], 08/28/2025 11:08:07 08/27/20 25 08/28/2025 LIPID PANEL cholesterol, total 149 mg/dL 100-19 9 normal Not Available [facility] ([facility]) [address] [place], [address], 08/28/2025 11:08:08 08/27/20 25 08/28/2025 LIPID PANEL triglyceride s 193 mg/dL 0-149 above high normal Not Available [facility] ([facility]) [address] [place], [address], 08/28/2025 11:08:08 08/27/2008/28/2025 LIPID PANEL HDL cholesterol 34 mg/dL >39 below low normal Not Available [facility] ([facility]) [address] [place], [address], 08/28/2025 11:08:08 08/27/2008/28/2025 LIPID PANEL VLDL cholesterol barrie 33 mg/dL 5-40 Not Available [facility] ([facility]) [address] [place], [address], 08/28/2025 11:08:08 08/27/2008/28/2025 LIPID PANEL LDL chol calc ([facility]) 82 mg/dL 0-99 Not Available [facility] ([facility]) [address] [place], [address], 08/28/2025 11:08:08 08/27/2008/28/2025 LIPID PANEL LDL calc comment: COURIER DELIVERY DRIVER Not Available [facility] ([facility]) [address] [place], [address], 08/28/2025 11:08:08 08/27/2008/28/2025 MONICO+L IPASE amylase 69 U/L 31-110 normal Not Available [facility] ([facility]) [address] [place], [address], 08/28/2025 11:08:08 08/27/2008/28/2025 MONICO+L IPASE lipase 62 U/L 13-78 normal Not Available [facility] ([facility]) [address] [place], [address], 08/28/2025 11:08:08 08/27/2008/28/2025 HEMOG LOBIN A1C hemoglobin A1C 7.2 % 4.8-5. 6 above high normal Predi abete s: 5.7 - 6.4 Diabe zena: >6.4 Glyce keri contr ol for adult s with diabe zena: <7.0 Not Available [facility] ([facility]) [address] [facility], [place], [address], 08/28/2025 11:08:09 08/27/2008/27/2025 urina lysis , dipst ick Leukocytes Negati ve Not Available [address], [address], 08/27/2025 10:09:16 08/27/2008/27/2025 urina lysis , dipst ick Nitrite negati ve Not Available [address], [address], 08/27/2025 10:09:16 08/27/2008/27/2025 urina lysis , dipst ick Urobilinogen .2 Not Available [facility] [address], [address], 08/27/2025 10:09:16 08/27/2008/27/2025 urina lysis , dipst ick Protein Negati ve Not Available [address], [address], 08/27/2025 10:09:16 08/27/2008/27/2025 urina lysis , dipst ick pH 5.[address], [address], 08/27/2025 10:09:16 08/27/2008/27/2025 urina lysis , dipst ick Blood Negati ve Not Available [address], [address], 08/27/2025 10:09:16 08/27/2008/27/2025 urina lysis , dipst ick Specific Harrison 1.015 Not Available [address], [address], 08/27/2025 10:09:16 08/27/2008/27/2025 urina lysis , dipst ick Ketone Negati ve Not Available [address], [address], 08/27/2025 10:09:16 08/27/2008/27/2025 urina lysis , dipst ick Bilirubin Negati ve Not Available [address], [address], 08/27/2025 10:09:16 08/27/2008/27/2025 urina lysis , dipst ick Glucose [address], [address], 08/27/2025 10:09:16 08/27/2008/27/2025 urina lysis , dipst ick Appearance Clear Not Available [address], [address], 08/27/2025 10:09:16 08/27/2008/27/2025 urina lysis , dipst ick Color Yellow Not Available [address], [address], 08/27/2025 10:09:16 10/27/20 25 08/21/2025 CT, abdom en + pelvi s, w/o contr ast No observ ation record ed. [facility] (Medical Records) [address] [place], [address], 08/27/2025 13:13:09 08/30/[address], abdom en + pelvi s, w/ contr ast No observ ation record ed. [facility] [address] [facility], [place], [address], 08/31/2025 14:44:36 09/10/20 [place], gallb ladde r No observ ation record ed. [address] , [place], [address], 09/10/2025 12:02:40 09/10/2009/05/2025 XR, thora cic spine , 4 or more view No observ ation record ed. ef[facility]man Not Available 2024 13:39:04 Result Notes None recorded. 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 basal squamous under right side of the nose Paula Perez RN [address], [place], [address], [place] [facility] 0 08:19:08 History of repair of hip joint 271498088 Active Paula Perez RN [address], [place], [address], [place] [facility] 0 08:19:08 Type 2 diabetes mellitus 49794382 Active Paula Perez RN [address], [place], [address], [place] [facility] 0 08:19:08 Hyperlip idemia 44017114 Leilani Perez RN [address], [place], [address], [place] [facility] 0 08:19:08 Hyperten sive disorder 02722852 Active Paula Perez RN [address], [place], [address] [facility] 0 08:19:08 History of malignan t lymphoma 329466630 Active Paula Perez RN [address], [place], [address] [facility] 0 08:19:08 Obesity 743350312 Active Paula Perez RN [address], [place], [address], [place] [facility] 0 08:19:08 Sleep apnea 33009251 Active Paula Perez RN [address], [place], [address], [place] [facility] 0 08:19:08 Pulmonar y embolism 01102883 Active Paula Perez RN [address], [place], [address], [place] [facility] 0 08:19:08 Abnormal testoste addie 305161666 Active Paula Perez RN [address], [place], [address] [facility] 0 08:19:08 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 Paula Perez RN [address], [place], [address], [place] [facility] 0 08:19:08 Exposure to SARS-CoV -2 Completed 201909/07/2024 Removal Reason: pt does not have covid now Mandiecristel Mark null, [place] - [facility] 4 08:38:53 Mixed hyperlip idemia 634856797 Active 2020 Danielle Groves, ZEHRA [address], [place], [address], [place] [facility] 1 13:44:59 Non-Hodg kin's lymphoma (clinica l) 106759270 Active 2020 Danielle Groves, ZEHRA [address], [place], [address], [place] [facility] 13:45:00 Gastroes ophageal reflux disease without esophagi tis 305495604 Active 2020 Danielle Aubrey Groves, [employer] [facility] [facility] [address], [place], [address], [place] [facility] 13:45:05 Anxiety 03390969 Active 2020 Danielle Aubrey Groves, [employer] [facility] [address], [place], [address], [place] [facility] 13:45:07 Obstruct omi sleep apnea syndrome 92625027 Active 2020 Danielleleno Groves, [employer] [address], [place], [address], [place] [facility] 13:45:13 Degenera tion of lumbar interver tebral disc 84446387 Active 2020 Danielle Groves, [employer] [address], [place], [address], [place] [facility] 13:45:15 Osteoart hritis 416940237 Active 2020 Danielle Groves, [employer] [address], [place], [address], [place] [facility] 13:45:18 Hypergly cemia due to type 2 diabetes mellitus 99518257221 9109 Active 2020 Danielle Groves, [employer] [address], [place], [address], [place] [facility] 13:45:20 Osteoart hritis of hip 305060008 Active 2020 Danielle Groves, [employer] [address], [place], [address], [place] [facility] 13:45:21 Testoste addie level below referenc e range 971087677 Active 2020 Danielle Groves, [employer] [address], [place], [address], [place] [facility] 13:45:25 Vitamin B12 deficien cy (non anemic) 12441731 Active 2020 Danielle Groves, [facility] [address], [place], [address], [place] [facility] 1 13:45:35 Divertic ular disease 836690395 Active [address] 02-04-2024 Mandie Stears null, [place] [facility] 5 10:55:53 Pain of left hip joint 86892640805 9100 Completed 202311/16/2024 Mandie Stears null[place] [facility] 5 09:03:46 Osteoart hritis of left hip joint 69869804239 9108 Active 2023 Kunal Wiseman, DO [address], [place], [address], [place] [facility] 4 21:18:17 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 169547962 Active 2023 Kunal Wiseman, DO [address], [place], [address], [place] [facility] 4 21:25:44 Somatic dysfunct ion of head region 501122843 Completed 202311/16/2024 Mandie Stears null[place] [facility] 5 09:03:26 Cervical somatic dysfunct ion 466317041 Active 2023 Kunal Wiseman, DO [address], [place], [address], [place] [facility] 4 21:29:12 Somatic dysfunct ion of thoracic region 992825684 Completed 202311/16/2024 Mandie Stears null[place] [facility] 5 09:02:53 Somatic dysfunct ion of lumbar region 603319504 Completed 202311/16/2024 Mandie Stears null[place] [facility] 5 09:03:21 Somatic dysfunct ion of pelvic region 473010401 Completed 202311/16/2024 Mandie Stears null[place] [facility] 5 09:03:10 Somatic dysfunct ion of sacral region 924464124 Completed 202311/16/2024 Mandie Stears null[place] [facility] 5 09:02:58 Somatic dysfunct ion of lower limb 923879942 Completed 202311/16/2024 Mandie Stears null[place] [facility] 5 09:03:16 Somatic dysfunct ion of upper limb 606965910 Completed 202311/16/2024 Mandie Stears null[place] [facility] 5 09:02:47 Somatic dysfunct ion of rib 733638986 Completed 202311/16/2024 Mandie Stears null[place] [facility] 5 09:03:03 Pain of left knee joint 05654301337 4107 Completed 202311/16/2024 Mand[place] Stears null[place] [facility] 5 09:03:41 Deep venous thrombos is of lower extremit y 956455090 Active 2023 Kelsey Peralta, [employer] [address], [place], [address], [place] [facility] 4 10:16:29 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 Please review this document and add these problems to the patient's chart manually as needed. Problem Notes None recorded. Procedures Surgical History Date Name Laterality Status Provider Name and Address Organization Details Recorded Time 08/27/20 Medication Reconcilliation completed Mandie Stears [place] [facility] 08/27/2025 09:45:12 05/08/20 25 [...] completed Gabriela Goddard APRN [address], [place], [address], [place] [facility] 08/09/2024 18:22:52 08/07/20 24 A1C level 6.9 and below completed Elizabeth Berriosyles [place] [facility] 08/07/2024 08:23:04 08/02/20 24 OMT completed uKnal Wiseman DO [address], [place], [address], [place] [facility] 08/01/2024 21:28:42 04/24/20 24 A1C level 7.0 to 7.9 completed Elizabeth [place]riosyles [place] [facility] 04/24/2024 08:29:26 01/12/20 24 A1C level 6.9 and below completed Batsheva Caballero [place] [facility] 01/12/2024 08:31:21 10/04/20 23 Negative Microalbumin completed Elizabeth [place] [facility] 10/04/2023 08:30:21 10/04/20 23 A1C level 6.9 and below completed Elizabeth [place] [facility] 10/04/2023 08:30:58 06/17/20 23 A1C level 6.9 and below completed Elizabeth [place] [facility] 06/17/2023 08:24:49 05/12/20 23 Cryosurgery Dermatology completed Gabriela Goddard APRN [address], [place], [address], [place] [facility] 05/12/2023 17:48:37 03/04/20 23 A1C level 7.0 to 7.9 completed Elizabeth [place]riosyles [place] [facility] 03/04/2023 08:27:24 01/05/20 23 Cryosurgery Dermatology completed Gabriela Goddard APRN [address], [place], [address], [place] [facility] 01/04/2023 18:14:32 11/26/19 23 A1C level 6.9 and below completed Elizabeth Vijaya [place] [facility] 11/26/2022 08:43:45 11/18/19 23 Cryosurgery Dermatology completed Gabriela Goddard APRN [address], [place], [address], [place] [facility] 11/18/2022 18:02:12 08/19/20 22 Cryosurgery Dermatology completed Gabriela Goddard APRN [address], [place], [address], [place] [facility] 08/19/2022 15:45:48 08/17/20 Negative Microalbumin completed Elizabeth Vijaya [place] [facility] 08/17/2022 08:40:32 08/17/20 A1C level 7.0 to 7.9 completed Elizabeth Vijaya [place] [facility] 08/17/2022 08:40:28 05/13/20 A1C level 7.0 to 7.9 completed Elizabeth [place]ijaya [place] [facility] 05/13/2022 08:52:34 04/09/20 22 Shave Biopsy trunk, arms, or legs completed Gabriela Goddard APRN [address], [place], [address], [place] [facility] 04/09/2022 17:50:49 01/22/20 A1C level 6.9 and below completed Elizabeth [place] [facility] 01/21/2022 08:25:16 10/22/20 21 A1C level 6.9 and below completed Elizabeth Vijaya [place] [facility] 10/22/2021 08:44:24 07/22/20 Negative Microalbumin completed Elizabeth Vijaya [place] [facility] 07/22/2021 08:42:49 07/22/20 21 A1C level 6.9 and below completed Elizabeth Vijaya [place] [facility] 07/22/2021 08:46:31 06/30/20 21 A1C level 6.9 and below completed Elizabeth [place] [facility] 04/30/2021 08:50:47 01/30/20 A1C level 7.0 to 7.9 completed Elizabeth V[place] [facility] 01/29/2021 08:32:19 10/01/20 20 Systolic B/P less than 130 mm Hg completed Elizabeth [place] [facility] 10/01/2020 14:56:16 10/01/20 20 Diastolic B/P less than 80 mm Hg completed Elizabeth [place] [facility] 10/01/2020 14:56:12 08/22/20 Systolic B/P less than 130 mm Hg completed Elizabeth [place] [facility] 08/22/2020 08:07:09 08/22/20 Diastolic B/P 80-89 mm Hg completed Elizabeth [place] [facility] 08/22/2020 08:07:19 08/07/20 Diastolic B/P less than 80 mm Hg completed Elizabeth [place] [facility] 08/07/2020 16:28:40 08/07/20 Systolic B/P 130-139 mm Hg completed Elizabeth [place] [facility] 08/07/2020 16:28:44 08/07/20 A1C level 6.9 and below completed Elizabeth [place] [facility] 08/07/2020 16:31:37 05/29/20 20 Suture/Staple removal completed Gabriela Goddard APRN [address], [place], [address] [place] [facility] 05/29/2020 18:32:14 05/22/20 Systolic B/P less than 130 mm Hg [...] completed Gabriela Goddard APRN [address], [place], [address], [place] [facility] 05/16/2020 14:48:13 02/21/20 20 Systolic B/P less than 130 mm Hg completed Jamila Amy [place] [facility] 02/21/2020 08:37:54 02/21/20 Diastolic B/P 80-89 mm Hg completed Jamilalouisa Jackcell [place] [facility] 02/21/2020 08:38:00 02/21/20 A1C level 6.9 and below completed Jamila Reyes [place] [facility] 02/21/2020 08:39:41 11/22/19 Diastolic B/P 80-89 mm Hg completed Elizabeth Lilly [place] [facility] 11/22/2019 08:24:23 11/22/19 Systolic B/P 130-139 mm Hg completed Elizabeth [place] [facility] 11/22/2019 08:24:03 11/22/19 A1C level 6.9 and below completed Elizabeth [place] [facility] 11/22/2019 08:26:46 05/22/20 A1C level 6.9 and below completed Jamila Reyes [place] [facility] 05/22/2019 09:27:56 02/21/20 A1C level 6.9 and below completed Elizabeth [place] [facility] 02/20/2019 08:37:09 01/19/20 19 Suture/Staple removal completed Gabriela Goddard APRN [address], [place], [address], [place] [facility] 01/18/2019 08:55:01 01/12/20 19 Punch Biopsy completed Gabriela Goddard APRN [address], [place], [address], [place] [facility] 01/11/2019 11:04:43 11/21/19 19 A1C level 6.9 and below completed Elizabeth Lilly [place] [facility] 11/21/2018 08:30:52 09/28/20 18 Suture/Staple removal completed Gabriela Goddard APRN [address], [place], [address], [place] [facility] 09/28/2018 10:49:02 09/21/20 18 Punch Biopsy completed Gabriela Goddard APRN [address], [place], [address], [place] [facility] 09/21/2018 13:11:42 07/13/20 18 Cryosurgery Dermatology completed Gabriela Goddard, [employer] [address], [place], [address], [place] [facility] 07/13/2018 08:51:18 Mohs surgery [...] Name and Address Organization Details Recorded Time 837191 Product containin g 3-hydroxy -3-methyl glutaryl- coenzyme A reductase inhibitor (product) medicatio n myalgias (muscle pain) moderate Not available 02/20/2019 60783 009 SNOMED Danielle Aubrey Groves, [employer] [address], [place], [address], [place] [facility] 9 08:50:22 308227 Mounjaro medicatio n Not available Not available Not available 08/07/2024 76046 34 RxNorm diver ticul itis Elizabeth Berriosyles [facility], [place] - [facility] 4 08:17:36 Medications [...] x 1 USE DIRECTED FOR TESTOSTE ADDIE DAUGHERTYIO NS 10/18 completed Not Available Not Available [...] Disconti nued on: 10/08/20 14 8:28AM;U ser: [email or web address] ;Est. Completi on: 04/03/20 15;Print ed: 10/05/20 [...] Disconti nued on: 10/07/20 12 9:33AM;U ser: [email or web address] ;Est. Completi on: 03/25/20 12;Indic ation: Otitis Externa - ( 00);Prin quinten: 03/22/20 12 Not Available Not [...] nued on: 03/10/20 10 10:42AM; User: vinicius TuttleEstYinka Completi on: 02/14/20 10;Print ed: 02/04/20 10 Not Available Not Available Not Available Avelox 400 mg tablet take 1 tablet (400 mg) by oral route once daily for 6 days 04/02 completed Avelox 400 mg oral tablet;R ecorded Status: Recorded on: 03/10/20 10 11:15AM; Disconti nued Status: Disconti nued on: 04/02/20 11 4:16PM;U ser: [email or web address] TuttleEstYinka Completi on: 03/16/20 10 Not Available Not [...] nued on: 05/18/20 14 12:28PM; User: vinicius TuttleEst. Completi on: 02/27/20 14;Indic ation: Androgen Deficien cy - (2599 );Prin quinten: 11/28/19 14 Not Available Not [...] Available Not Available Not Available Hypodermi c Dixon 23 gauge x 1 USE DIRECTED FOR [...] Disconti nued on: 03/04/20 12 8:36AM;U ser: [email or web address] ;Est. Completi on: 04/02/20 12;Indic ation: Cerebral [...] n: Cerebral Thromboe mbolism Preventi on - (9 ) Not Available Not Available Not Available Vitamin D 5,000 IU daily x 2 active Not Available Not Available No t Available BD Regular Bevel Dixon 18 gauge x 1 1/2 USE DIRECTED [...] height Body mass index (BMI) Body weight Respiratory rate Body temperature Heart rate Oxygen saturation Systolic And Diastolic Provider Name and Address Organization Details Last Updated DateTime 5 182.88 cm 37.3 kg/m2 209441. 9 g 18 /min 98.2 [degF] 90 /min 95 % 142/88 mm[Hg] Mandie Stears [place] - [facility] 5 09:52:10 Social History Question Answer Notes LastModified by Organizat ion Details LastModified Time Tobacco Smoking Status Former Smoker Not Available [facility] 08/16/2020 03:17:10 Able To Swim? No Information not available 09/29/2016 Do You Have An Advance Directive? No [id number] Information not available 08/16/2020 Do You Wear A Helmet When Biking? No [id number] Information not available 08/16/2020 Are You Blind Or Do You Have Difficulty Seeing? No [id number] Information not available 08/16/2020 What Is Your Level Of Caffeine Consumption? Moderate [id number] Information not available 08/16/2020 How Much Tobacco Do You Chew? 1/day Information not available 08/27/2025 Are You Deaf Or Do You Have Serious Difficulty Hearing? No [id number] Information not available 08/16/2020 What Type Of Diet Are You Following? REGULAR [id number] Information not available 08/16/2020 Which Illicit Or Recreational Drugs Have You Used? None [id number] Information not available 08/16/2020 What Is The Highest Grade Or Level Of School You Have Completed Or The Highest Degree You Have Received? [id number] Information not available 08/27/2025 Swimming/diving No Informati on not available 09/29/2016 Have There Been Any Changes To Your Family Or Social Situation? No Information no t available 08/27/2025 What Is The Fluoride Status Of Your Home? Unknown Information not available 08/27/2025 When Did You Quit Smoking? 16+yearssince lastjosefina Information not available 03/04/2023 Hard Of Hearing Or Deaf In One Or Both Ears? No Information not available 09/29/2016 Legally Blind In One Or Both Eyes? No Information no t available 09/29/2016 Live Alone Or With Others? With Others Information not available 09/29/2016 Do You Have A Medical Power Of Glue Mixer? No Information not available 08/27/2025 What Was The Date Of Your Most Recent Tobacco Screening? 02/01/2025 Information not available 02/01/2025 How Many Children Do You Have? 3 [id number] Information not available 08/16/2020 What Is Your Current Pack Years? 10-19packyear s Information not available 03/04/2023 Do You Use Protection During Sex? No [id number] Information not available 08/16/2020 What Is Your Relationship Status? [id number] Information not available 08/16/2020 Seat Belts Used Routinely Yes Information not available 09/29/2016 Are You Sexually Active? Yes [id number] Information not available 08/16/2020 Smoke Alarm In Home Yes Information not available 09/29/2016 At What Age Did You Start Smoking Tobacco? 11 Information not available 03/04/2023 Are You Passively Exposed To Smoke? No Information no t available 09/29/2016 How Much Tobacco Do You Smoke? No [email or web address] Information not available 01/12/2024 General Stress Level Medium Information not available 09/29/2016 Do You Use Sunscreen Routinely? No [id number] Information not available 08/16/2020 Has Tobacco Cessation Counseling Been Provided? Yes Information not available 03/04/2023 On What Date Was Tobacco Cessation Counseling Provided? 02/01/2025 Information not available 02/01/2025 How Many Years Have You Smoked Tobacco? 20 Information not available 03/04/2023 Do You Have Difficulty Walking Or Climbing Stairs? No [id number] Information not available 08/16/2020 Sex: Male Functional Status Question Answer Note LastModified by Organizat ion Details LastModified Time Do you or have you ever used smokeless tobacco? Currently chews tobacco Information not available 08/27/2025 Are you currently employed? Yes [id number] Information not available 08/16/2020 Do you have transportation difficulties? No Information not available 08/27/2025 Are you able to care for yourself independently? Yes [id number] Information not available 08/16/2020 Do you have difficulty dressing, bathing, grooming, or toileting? No [id number] Information not available 08/16/2020 Do you or have you ever used e-cigarettes or vape? Never used electronic cigarettes [id number] Information not available 08/16/2020 What is your exercise level? None [id number] Information not available 08/16/2020 Do you use any illicit or recreational drugs? No Information not available 08/27/2025 Do you or have you ever used any other forms of tobacco or nicotine? Yes Information not available 08/27/2025 What is your level of alcohol consumption? None [id number] Information not available 08/16/2020 Are you able to walk independently without assistance or assistive devices? YESWOREST [id number] Information not available 08/16/2020 Do you have difficulty doing errands alone? 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 [id number] Information not available 08/27/2025 Do you have difficulty concentrating, remembering or making decisions? No [id number] Information no t available 08/16/2020 Family History [...] virus, quadrivalent, PF 1 completed Elizabeth Lilly [facility], [place] - [facility] 07/22/2021 09:50:07 Influenza, split virus, quadrivalent, preservative 2 completed Danielle Groves, [employer] [address], [place], [address] 08/17/2022 08:50:47 Tdap 2 completed Not Available [facility] 09/03/2020 14:44:39 Influenza, split virus, quadrivalent, preservative 8 completed Not Available [facility] 11/18/2019 03:55:23 Influenza, split virus, quadrivalent, preservative 9 completed Not Available [facility] 11/18/2019 03:56:07 Past Encounters Encounter ID Performer Location Encounter Start Date Encounter Closed Date Diagnosis/Indication Diagnosis SNOMED-CT Code Diagnosis ICD10 Code Diagnosis IMO Codes Diagnosis Note [id number] Danial Keller APRN [address] [address] 08/27/2025 09:36:07 08/27/2025 10:48:26 Acute abdominal pain 206005863 R10.9 73443 labsct- r/o kidney stones, hx of diverticul itis,lymph jeffrey Diverticular disease 397 850196 K57.90 discussed with pt the plan of care and if any worsening or pain not improving he needs to go to ed [facility]. Non-Hodgki n's lymphoma (clinical) 189890522 C85.90 Type 2 laci betes mellitus 97816531 E11.9 checked a1c with labs Disorder of aorta 397759 06 I70.0 1451833 calcificat ion seen on ct with out contrast- needs to follow up with cardiology . Health Concerns Section Related Observation LastModified by Organization Detai ls LastModified Time None Recorded Concern Status LastModified by Organization Details LastModified Time None Recorded Payers Encounter Date Sequence Insurance Name Policy Number Policy Magana Covered Member ID Magnaa Member ID Guarantor Name 08/27/2025 1 [employer] [id number] Mandie Mark [id number] Mark Notes Date Note Type Note Provider Name and Address Organization Details Recorded Time 08/27/2025 text/html Emergency Depart ment Follow-Up RecordReported by PatientEmergency Room Follow-Up RecordFor discharge information, patient reportsname of hospital/urgent care patient was seen: ([facility]),patient presented to hospital/urgent care on or around: actual date 08-21-2025,patient presented to hospital for treatment of: (right back pain),treatment received by hospital/urgent care: (ct and medication),patient's condition has: unchanged, andhospital records available at the time of this visit: yes.ROS as noted in the HPI 54 year old male who presents to the office today for an ER follow up oncontinued left back pain, tender when pushed on,right abdomen tender when pushed on, gassy and feeling bloated. Danial Keller, [employer] [address], [place], [address], [place] [facility] 08/27/2025 12:03:49
--- OUTSIDE RECORDS SUMMARY | 2025-09-20 08:27 | XMS_ITS | Continuity of Care Document ---
Author Organization NOHEMY Yen Bon[facility] Address [address] [place] [address] Care Team Providers Care Computer Engineering Technician Name Role Phone GABRIELA GODDARD [facility] Assessment No assessment recorded. Plan of Treatment Reminders Order Date Submit Date Provider Last Modified By Organization Details Last Modified Time Details Appointments Follow Up 20 2024 08:00A M Kelsey Peralta, [employer] Not available Not available Not available ESTABLISH ED PT 30 2025 08:30A M Danielle Groves, [employer] Not available Not available Not available Lab venipunct ure 2024 025 jennifer [facility], [address], [address], [place], [address], 08/10/2025 16:41:35 vitamin D, 25-hydrox y, total, serum 2024 025 MEGAN [facility], [address], [address], [place], [address], 07/28/2025 12:11:26 TSH + free T4, serum 2024 025 MEGAN [facility], [address], [address], [place], [address], 07/28/2025 12:11:25 cobalamin and folate panel, serum 2024 025 jennifer [facility], [address], [address], [place], [address], 08/10/2025 16:41:35 CMP, serum or plasma 2024 025 PATERSON [facility], [address], [address], [place], [address], 07/28/2025 12:11:26 Referral None recorded. Procedures None recorded. Surgeries None recorded. Imaging None recorded. Medication Orders None recorded. Patient TargetsNo targets recorded. Patient InstructionsNo instructions recorded. Reason for Referral None Reported. Results Created Date Observation Date Name Description Value Unit Range Abnormal Flag Note LastModifiedBy Organization Detail LastModifiedTime 07/23/2007/24/2025 TSH+F REE T4 TSH 1.170 uIU/m L 0.450- 4.500 normal Not Available [facility] ([facility]) [address] [place], [address], 07/28/2025 12:11:25 07/23/20 25 07/24/2025 TSH+F REE T4 T4,free(dire ct) 1.02 NG/dL 0.82-1 .77 normal Not Available [facility] ([facility]) [address] [place], [address], 07/28/2025 12:11:25 07/23/20 25 07/24/2025 CBC WITH DIFFE RENTI AL/PL ATELE T WBC 6.4 x10e3 /uL 3.4-10 .8 normal Not Available [facility] ([facility]) [address] [place], [address], 07/28/2025 12:11:25 07/23/20 25 07/24/2025 CBC WITH DIFFE RENTI AL/PL ATELE T RBC 5.50 x10e6 /uL 4.14-5 .80 normal Not Available [facility] ([facility]) [address] [place], [address], 07/28/2025 12:11:25 07/23/20 25 07/24/2025 CBC WITH DIFFE RENTI AL/PL ATELE T hemoglobin 16.3 g/dL 13.0-1 7.7 normal Not Available [facility] ([facility]) [address] [place], [address], 07/28/2025 12:11:25 07/23/2007/24/2025 CBC WITH DIFFE RENTI AL/PL ATELE T hematocrit 50.0 % 37.5-5 1.0 normal Not Available [facility] ([facility]) [address] [place], [address], 07/28/2025 12:11:25 07/23/2007/24/2025 CBC WITH DIFFE RENTI AL/PL ATELE T MCV 91 fL 79-97 normal Not Available [facility] ([facility]) [address] [facility], [place], [address], 07/28/2025 12:11:25 07/23/2007/24/2025 CBC WITH DIFFE RENTI AL/PL ATELE T MCH 29.6 pg 26.6-3 3.0 normal Not Available [facility] ([facility]) [address] [place], [address], 07/28/2025 12:11:25 07/23/2007/24/2025 CBC WITH DIFFE RENTI AL/PL ATELE T MCHC 32.6 g/dL 31.5-3 5.7 normal Not Available [facility] ([facility]) [address] [place], [address], 07/28/2025 12:11:25 07/23/2007/24/2025 CBC WITH DIFFE RENTI AL/PL ATELE T RDW 14.8 % 11.6-1 5.4 Not Available [facility] ([facility]) [address] [place], [address], 07/28/2025 12:11:25 07/23/20 25 07/24/2025 CBC WITH DIFFE RENTI AL/PL ATELE T platelets 211 x10e3 /uL 150-45 0 normal Not Available [facility] ([facility]) [address] [facility], [place], [address], 07/28/2025 12:11:25 07/23/20 25 07/24/2025 CBC WITH DIFFE RENTI AL/PL ATELE T neutrophils 66 % not estab. normal Not Available [facility] ([facility]) [address] [facility], [place], [address], 07/28/2025 12:11:25 07/23/20 25 07/24/2025 CBC WITH DIFFE RENTI AL/PL ATELE T lymphs 21 % not estab. normal Not Available [facility] ([facility]) [address] [facility], [place], [address], 07/28/2025 12:11:25 07/23/20 25 07/24/2025 CBC WITH DIFFE RENTI AL/PL ATELE T monocytes 7 % not estab. normal Not Available [facility] ([facility]) [address] [facility], [place], [address], 07/28/2025 12:11:25 07/23/20 25 07/24/2025 CBC WITH DIFFE RENTI AL/PL ATELE T eos 4 % not estab. normal Not Available [facility] ([facility]) [address] [place], [address], 07/28/2025 12:11:25 07/23/2007/24/2025 CBC WITH DIFFE RENTI AL/PL ATELE T basos 1 % not estab. normal Not Available [facility] ([facility]) [address] [place], [address], 07/28/2025 12:11:25 07/23/20 25 07/24/2025 CBC WITH DIFFE RENTI AL/PL ATELE T immature cells SOLID TIRE TUBER MACHINE OPERATOR Not Available [facility] ([facility]) [address] [place], [address], 07/28/2025 12:11:25 07/23/2007/24/2025 CBC WITH DIFFE RENTI AL/PL ATELE T neutrophils (absolute) 4.3 x10e3 /uL 1.4-7. 0 normal Not Available [facility] ([facility]) [address] [place], [address], 07/28/2025 12:11:25 07/23/2007/24/2025 CBC WITH DIFFE RENTI AL/PL ATELE T lymphs (absolute) 1.4 x10e3 /uL 0.7-3. 1 normal Not Available [facility] ([facility]) [address] [place], [address], 07/28/2025 12:11:25 07/23/20 25 07/24/2025 CBC WITH DIFFE RENTI AL/PL ATELE T monocytes(ab solute) 0.5 x10e3 /uL 0.1-0. 9 normal Not Available [facility] ([facility]) [address] [place], [address], 07/28/2025 12:11:25 07/23/20 25 07/24/2025 CBC WITH DIFFE RENTI AL/PL ATELE T eos (absolute) 0.3 x10e3 /uL 0.0-0. 4 normal Not Available [facility] ([facility]) [address] [place], [address], 07/28/2025 12:11:25 07/23/20 25 07/24/2025 CBC WITH DIFFE RENTI AL/PL ATELE T baso (absolute) 0.0 x10e3 /uL 0.0-0. 2 normal Not Available [facility] ([facility]) [address] [place], [address], 07/28/2025 12:11:25 07/23/20 25 07/24/2025 CBC WITH DIFFE RENTI AL/PL ATELE T immature granulocytes 0 % not estab. Not Available [facility] ([facility]) [address] [facility], [place], [address], 07/28/2025 12:11:25 07/23/20 25 07/24/2025 CBC WITH DIFFE RENTI AL/PL ATELE T immature grans (abs) 0.0 x10e3 /uL 0.0-0. 1 Not Available [facility] ([facility]) [address] [facility], [place], [address], 07/28/2025 12:11:25 07/23/20 25 07/24/2025 CBC WITH DIFFE RENTI AL/PL ATELE T NRBC SOLID TIRE TUBER MACHINE OPERATOR Not Available [facility] ([facility]) [address] [facility], [place], [address], 07/28/2025 12:11:25 07/23/20 25 07/24/2025 CBC WITH DIFFE RENTI AL/PL ATELE T hematology comments: SOLID TIRE TUBER MACHINE OPERATOR Not Available [facility] ([facility]) [address] [facility], [place], [address], 07/28/2025 12:11:25 07/23/20 25 07/24/2025 COMP. METAB OLIC PANEL (14) glucose 178 mg/dL 70-99 above high normal Not Available [facility] ([facility]) [address] [place], [address], 07/28/2025 12:11:26 07/23/20 25 07/24/2025 COMP. METAB OLIC PANEL (14) BUN 16 mg/dL 6-24 normal Not Available [facility] ([facility]) [address] [place], [address], 07/28/2025 12:11:26 07/23/20 25 07/24/2025 COMP. METAB OLIC PANEL (14) creatinine 1.00 mg/dL 0.76-1 .27 normal Not Available [facility] ([facility]) [address] [place], [address], 07/28/2025 12:11:26 07/23/20 25 07/24/2025 COMP. METAB OLIC PANEL (14) eGFR 88 mL/mi n/1.7 3 >59 normal Not Available [facility] ([facility]) [address] [place], [address], 07/28/2025 12:11:26 07/23/20 25 07/24/2025 COMP. METAB OLIC PANEL (14) BUN/creatini ne ratio 16 9-20 normal Not Available [facility] ([facility]) [address] [place], [address], 07/28/2025 12:11:26 07/23/20 25 07/24/2025 COMP. METAB OLIC PANEL (14) sodium 143 mmol/ L 134-14 4 normal Not Available [facility] ([facility]) [address] [facility], [place], [address], 07/28/2025 12:11:26 07/23/20 25 07/24/2025 COMP. METAB OLIC PANEL (14) potassium 4.4 mmol/ L 3.5-5. 2 normal Not Available [facility] ([facility]) [address] [place], [address], 07/28/2025 12:11:26 07/23/20 25 07/24/2025 COMP. METAB OLIC PANEL (14) chloride 107 mmol/ L 96-106 above high normal Not Available [facility] ([facility]) [address] [place], [address], 07/28/2025 12:11:26 07/23/20 25 07/24/2025 COMP. METAB OLIC PANEL (14) carbon dioxide, total 17 mmol/ L 20-29 below low normal Not Available [facility] ([facility]) [address] [place], [address], 07/28/2025 12:11:26 07/23/20 25 07/24/2025 COMP. METAB OLIC PANEL (14) calcium 9.2 mg/dL 8.7-10 .2 normal Not Available [facility] ([facility]) [address] [place], [address], 07/28/2025 12:11:26 07/23/20 25 07/24/2025 COMP. METAB OLIC PANEL (14) protein, total 6.7 g/dL 6.0-8. 5 normal Not Available [facility] ([facility]) [address] [place], [address], 07/28/2025 12:11:26 07/23/20 25 07/24/2025 COMP. METAB OLIC PANEL (14) albumin 4.6 g/dL 3.8-4. 9 normal Not Available [facility] ([facility]) [address] [place], [address], 07/28/2025 12:11:26 07/23/20 25 07/24/2025 COMP. METAB OLIC PANEL (14) globulin, total 2.1 g/dL 1.5-4. 5 Not Available [facility] ([facility]) [address] [place], [address], 07/28/2025 12:11:26 07/23/20 25 07/24/2025 COMP. METAB OLIC PANEL (14) bilirubin, total 0.4 mg/dL 0.0-1. 2 normal Not Available [facility] ([facility]) [address] [place], [address], 07/28/2025 12:11:26 07/23/20 25 07/24/2025 COMP. METAB OLIC PANEL (14) alkaline phosphatase 67 IU/L 47-123 normal Ple ase note refer ence inter babs suarez e Not Available [facility] ([facility]) [address] [place], [address], 07/28/2025 12:11:26 07/23/20 25 07/24/2025 COMP. METAB OLIC PANEL (14) AST (SGOT) 31 IU/L 0-40 normal Not Available [facility] ([facility]) [address] [place], [address], 07/28/2025 12:11:26 07/23/20 25 07/24/2025 COMP. METAB OLIC PANEL (14) ALT (SGPT) 31 IU/L 0-44 normal Not Available [facility] ([facility]) [address] [place], [address], 07/28/2025 12:11:26 07/23/20 25 07/24/2025 TESTO STERO NE,FR EE AND TOTAL testosterone 256 NG/dL 264-91 6 below low normal Adult male refer ence inter babs is based on a popul ation of healt hy nonob gloria males (BMI <30) betwe en 19 and 39 years old. Carloz sharma, et.al . JCEM 2017, 102;1 161-1 173. PMID: 00359 103. Not Available [facility] ([facility]) [address] [place], [address], 07/28/2025 12:11:26 07/23/2007/28/2025 TESTO STERO NE,FR EE AND TOTAL free testosterone (direct) 9.9 pg/mL 7.2-24 .0 Not Available [facility] ([facility]) [address] [place], [address], 07/28/2025 12:11:26 07/23/2007/24/2025 VITAM IN D, 25-HY [...] 1. IOM (Inst itute of Medic ine). 2010. Dieta ry refer ence intak es for calci um and D. Kurtis sullivan [place]: [facility] . 2. Dean godinez MF, Berta do NC, Natalia off-F errar i BARBOSA, et al. Evalu ation , treat ment, and preve ntion of vitam in D defic iency : an Endoc rine Socie ty clini barrie pract ice guide line. JCEM. 2010; 96(7) :1911 -30. Not Available [facility] ([facility]) [address] [facility], [place], [address], 07/28/2025 12:11:26 07/23/2007/24/2025 PLEZIYAD E NOTE please note Commen t The date and/o r time of colle ction was not indic ated on the requi sitio n as requi red by state and karishma al law. The date of recei pt of the speci men was used as the colle ction date if not suppl ied. Not Available [facility] ([facility]) [address] [facility], [place], [address], 07/28/2025 12:11:27 08/27/2008/21/2025 CT, abdom en + pelvi s, w/o contr ast No observ ation record ed. [facility] (Medical Records) [address] [place] [address] , [place], [address], 08/27/2025 13:13:09 08/30/20 CT, abdom en + pelvi s, w/ contr ast No observ ation record ed. [address], [place], [address], 08/31/2025 14:44:36 09/10/20 [place], ciara carballo danis No observ ation record ed. [place] [id number] [facility] , [place], [address], 09/10/2025 12:02:40 09/10/20 25 09/05/2025 XR, thora cic spine , 4 or more view No observ ation record ed. efryman Not Available 2024 13:39:04 Result Notes None recorded. 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 under right side of the nose Paula Perez RN [address], [place], [address], [place] [facility] 0 08:19:08 History of repair of hip joint 803208216 Active Paula Perez RN [address], [place], [address], [place] [facility] 0 08:19:08 Type 2 diabetes mellitus 53827241 Active Paula Perez RN [address], [place], [address], [place] [facility] 0 08:19:08 Hyperlip idemia 91582497 Active Paula Perez RN [address], [place], [address], [place] [facility] 0 08:19:08 Hyperten sive disorder 28260511 Active Paula Perez RN [address], [place], [address], [place] [facility] 0 08:19:08 History of malignan t lymphoma 821784136 Leilani Perez RN [address], [place], [address], [place] [facility] 0 08:19:08 Obesity 831828856 Leilani Perez RN [address], [place], [address], [place] [facility] 0 08:19:08 Sleep apnea 82680342 Leilani Perez RN [address], [place], [address] [facility] 0 08:19:08 Pulmonar y embolism 76033490 Active Paula Perez RN [address], [place], [address] [facility] 0 08:19:08 Abnormal testoste addie 733832651 Active Paula Perez RN [address], [place], [address] [facility] 0 08:19:08 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 Paula Perez RN [address], [place], [address] [facility] 0 08:19:08 Exposure to SARS-CoV -2 Completed 201909/07/2024 Removal Reason: pt does not have covid now Mandie Mark null, [place] - [facility] 4 08:38:53 Mixed hyperlip idemia 745438473 Active 2020 Danielle Groves, [employer] [address], [place], [address] [facility] 1 13:44:59 Non-Hodg kin's lymphoma (clinica l) 907540586 Active 2020 Danielle Groves, [employer] [address], [place], [address] [facility] 1 13:45:00 Gastroes ophageal reflux disease without esophagi tis 644920996 Active 2020 Danielle Groves, [employer] [address], [place], [address] [facility] 1 13:45:05 Anxiety 96231863 Active 2020 Danielle Groves, [employer] [address], [place], [address] [facility] 1 13:45:07 Obstruct omi sleep apnea syndrome 83449257 Active 2020 Danielle Groves, [employer] [address], [place], [address] [facility] 13:45:13 Degenera tion of lumbar interver tebral disc 00219287 Active 2020 Danielle Groves, [employer] [address], [place], [address] [facility] 13:45:15 Osteoart hritis 362468575 Active 2020 Danielle Groves, [employer] [address], [place], [address] [facility] 13:45:18 Hypergly cemia due to type 2 diabetes mellitus 69366566845 9109 Active 2020 Danielle Groves, [employer] [address], [place], [address] [facility] 13:45:20 Osteoart hritis of hip 316058353 Active 2020 Danielle Groves, [employer] [address], [place], [address] [facility] 13:45:21 Testoste addie level below referenc e range 071002270 Active 2020 Danielle Groves, [employer] [address], [place], [address] [facility] 13:45:25 Vitamin B12 deficien cy (non anemic) 13608961 Active 2020 Danielle Groves, [employer] [address], [place], [address] [facility] 13:45:35 Divertic ular disease 294367701 Active [address] 02-04-2024 Mandie Stears null[place] [facility] 5 10:55:53 Pain of left hip joint 43059908894 9100 Completed 202311/16/2024 Mandie Stears null[place] [facility] 5 09:03:46 Osteoart hritis of left hip joint 31069062668 9108 Active 2023 Kunal Wiseman, DO [address], [place], [address] [facility] 4 21:18:17 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 106953254 Active 2023 Kunal Wiseman, DO [address], [place], [address] [facility] 4 21:25:44 Somatic dysfunct ion of head region 897625957 Completed 202311/16/2024 Mandie Stears [place] [facility] 5 09:03:26 Cervical somatic dysfunct ion 632134666 Active 2023 Kunal Wiseman, DO [address], [place], [address] [facility] 4 21:29:12 Somatic dysfunct ion of thoracic region 821609971 Completed 202311/16/2024 Mandie Stears [place] [facility] 5 09:02:53 Somatic dysfunct ion of lumbar region 804454749 Completed 202311/16/2024 Mandie Stears [place] [facility] 5 09:03:21 Somatic dysfunct ion of pelvic region 378391670 Completed 202311/16/2024 Mandie Stears [place] [facility] 5 09:03:10 Somatic dysfunct ion of sacral region 723728054 Completed 202311/16/2024 Mandie Stears [place] [facility] 5 09:02:58 Somatic dysfunct ion of lower limb 862931300 Completed 202311/16/2024 Mandie Stears [place] [facility] 5 09:03:16 Somatic dysfunct ion of upper limb 058867075 Completed 202311/16/2024 Mandie Stears [place] [facility] 5 09:02:47 Somatic dysfunct ion of rib 926364438 Completed 202311/16/2024 Mandie Stears [place] [facility] 5 09:03:03 Pain of left knee joint 89842593080 4107 Completed 202311/16/2024 Mandie Stears [place] [facility] 5 09:03:41 Deep venous thrombos is of lower extremit y 281624517 Active 2023 Kelsey Peralta, [employer] [address], [place], [address] [facility] 4 10:16:29 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 Please review this document and add these problems to the patient's chart manually as needed. Problem Notes None recorded. Procedures Surgical History Date Name Laterality Status Provider Name and Address Organization Details Recorded Time 08/27/20 25 Medication Reconcilliation completed Mandie Mark [place] [facility] 08/27/2025 09:45:12 05/08/20 25 A1C level 8.0 to 9.0 completed Elizabeth Lilly [place] [facility] 05/08/2025 08:30:35 02/02/20 25 A1C level 7.0 to 7.9 completed Elizabeth Lilly [place] [facility] 02/01/2025 08:35:38 11/16/19 25 Negative Microalbumin completed Elizabeth Lilly [place] [facility] 11/16/2024 12:40:31 11/16/19 25 A1C level 7.0 to 7.9 completed Elizabeth Lilly [place] [facility] 11/16/2024 12:36:14 09/18/20 total replacement of hip completed Mandie Mark [place] [facility] 04/17/2025 10:34:26 08/09/20 Cryosurgery Dermatology completed Gabriela Goddard APRN [address], [place], [address], [place] [facility] 08/09/2024 18:22:52 08/07/20 A1C level 6.9 and below completed Elizabeth Lilly [place] [facility] 08/07/2024 08:23:04 08/02/20 24 OMT completed Kunal Wiseman DO [address], [place], [address], [place] [facility] 08/01/2024 21:28:42 04/24/20 A1C level 7.0 to 7.9 completed Elizabeth Lilly [place] [facility] 04/24/2024 08:29:26 01/12/20 24 A1C level 6.9 and below completed Batsheva Caballero [place] [facility] 01/12/2024 08:31:21 10/04/20 23 Negative Microalbumin completed Elizabeth Lilly [place] [facility] 10/04/2023 08:30:21 10/04/20 23 A1C level 6.9 and below completed Elizabeth Lilly [place] [facility] 10/04/2023 08:30:58 06/17/20 A1C level 6.9 and below completed Elizabeth Lilly [place] [facility] 06/17/2023 08:24:49 05/12/20 Cryosurgery Dermatology completed Gabriela Goddard APRN [address], [place], [address], [place] [facility] 05/12/2023 17:48:37 03/04/20 A1C level 7.0 to 7.9 completed Elizabeth Lilly [place] [facility] 03/04/2023 08:27:24 01/05/20 23 Cryosurgery Dermatology completed Gabriela Goddard APRN [address], [place], [address], [place] [facility] 01/04/2023 18:14:32 11/26/19 23 A1C level 6.9 and below completed Elizabeth Lilly [place] [facility] 11/26/2022 08:43:45 11/18/19 23 Cryosurgery Dermatology completed Gabriela Goddard APRN [address], [place], [address], [place] [facility] 11/18/2022 18:02:12 08/19/20 22 Cryosurgery Dermatology completed Gabriela Goddard, [employer] [address], [place], [address], [place] [facility] 08/19/2022 15:45:48 08/17/20 Negative Microalbumin completed [place]ijaya [place] [facility] 08/17/2022 08:40:32 08/17/20 A1C level 7.0 to 7.9 completed [place]ijaya [place] [facility] 08/17/2022 08:40:28 05/13/20 A1C level 7.0 to 7.9 completed [place]ijaya [place] [facility] 05/13/2022 08:52:34 04/09/20 Shave Biopsy trunk, arms, or legs completed Gabriela Goddard APRN [address], [place], [address], [place] [facility] 04/09/2022 17:50:49 01/22/20 A1C level 6.9 and below completed [place]ijaya [place] [facility] 01/21/2022 08:25:16 10/22/20 A1C level 6.9 and below completed [place]ijaya [place] [facility] 10/22/2021 08:44:24 07/22/20 Negative Microalbumin completed [place]ij[place] [facility] 07/22/2021 08:42:49 07/22/20 A1C level 6.9 and below completed [place]ijaya [place] [facility] 07/22/2021 08:46:31 04/30/20 21 A1C level 6.9 and below completed [...] [place]ij[place] [facility] 08/07/2020 16:31:37 05/29/20 Suture/Staple removal completed Gabriela Goddard APRN [address], [place], [address], [place] [facility] 05/29/2020 18:32:14 05/22/20 Systolic B/P less than 130 mm Hg completed [place]ijaya [place] [facility] 05/22/2020 08:33:33 05/22/20 Diastolic B/P less than 80 mm Hg completed [place]ijaya [place] [facility] 05/22/2020 08:33:41 05/22/20 Negative Microalbumin completed [place]ij[place] [facility] 05/22/2020 08:38:31 05/22/20 20 A1C level 6.9 and below completed [place]ijaya [place] [facility] 05/22/2020 08:39:11 05/16/20 20 Punch Biopsy completed Gabriela Goddard APRN [address], [place], [address], [place] [facility] 05/16/2020 14:48:13 02/21/20 Systolic B/P less than 130 mm Hg completed Jamila Reyes [place] [facility] 02/21/2020 08:37:54 02/21/20 Diastolic B/P 80-89 mm Hg completed Jamila Reyes [place] [facility] 02/21/2020 08:38:00 02/21/20 20 A1C level 6.9 and below completed Jamila Reyes [place] [facility] 02/21/2020 08:39:41 11/22/19 20 Diastolic B/P 80-89 mm Hg completed Elizabeth Lilly [place] [facility] 11/22/2019 08:24:23 11/22/19 20 Systolic B/P 130-139 mm Hg completed Elizabeth [place] [facility] 11/22/2019 08:24:03 11/22/19 20 A1C level 6.9 and below completed [place] Lilly [place] [facility] 11/22/2019 08:26:46 05/22/20 19 A1C level 6.9 and below completed Jamila Reyes [place] [facility] 05/22/2019 09:27:56 02/21/20 A1C level 6.9 and below completed [place] Lilly [place] [facility] 02/20/2019 08:37:09 01/19/20 19 Suture/Staple removal completed Gabriela Goddard APRN [address], [place], [address], [place] [facility] 01/18/2019 08:55:01 01/12/20 19 Punch Biopsy completed Gabriela Goddard APRN [address], [place], [address], [place] [facility] 01/11/2019 11:04:43 11/21/19 19 A1C level 6.9 and below completed Elizabeth Lilly [place] - [facility] 11/21/2018 08:30:52 09/28/20 18 Suture/Staple removal completed Gabriela Goddard APRN [address], [place], [address], [place] [facility] 09/28/2018 10:49:02 09/21/20 18 Punch Biopsy completed Gabriela Goddard APRN [address], [place], [address], [place] [facility] 09/21/2018 13:11:42 07/13/20 18 Cryosurgery Dermatology completed Gabriela Goddard APRN [address], [place], [address], [place] [facility] 07/13/2018 08:51:18 Mohs surgery completed Mandie Mark [place] [facility] 07/16/2020 16:46:04 Colonoscopy completed Elizabeth Lilly [place] [facility] 05/08/2025 08:29:10 total replacement of hip completed Mandie Braries [place] [facility] 05/26/2022 08:13:45 biopsy completed Mandie Stears [place] [facility] 09/07/2024 08:30:02 Imaging Results None recorded. Procedure Notes None recorded. Medical Equipment None Reported. Allergies Allergen ID Allergen Name Allergen Category Reaction Reaction Severity Criticality Documentation Date Start Date Code Code System Note Provider Name and Address Organization Details Recorded Time 575723 Product containin g 3-hydroxy -3-methyl glutaryl- coenzyme A reductase inhibitor (product) medicatio n myalgias (muscle pain) moderate Not available 02/20/2019 58885 009 SNOMED Danielle Aubrey Groves, [employer] [address], [place], [address], [place] [facility] 9 08:50:22 [id number] Mounjaro medicatio n Not available Not available Not available 08/07/2024 08351 34 RxNorm diver ticul itis Elizabeth Berriosyles [facility], [place] - [facility] 4 08:17:36 Medications Name [...] B-12) ER 1,000 mcg tablet,ex tended release 08/01 /2022 completed Not Available Not Available Not Available [...] nued on: 10/07/20 12 9:33AM;U ser: vinicius TuttleEst. Completi on: 03/25/20 12;Indic ation: Otitis Externa - (06.3801 00);Prin quinten: 03/22/20 12 Not Available Not [...] Available Not Available Not Available Hypodermi c Monitor 23 gauge x 1 USE DIRECTED FOR [...] Disconti nued on: 07/17/20 15 9:33AM;U ser: [email or web address] ;Est. Completi on: 04/03/20 15;Print ed: 10/05/20 [...] nued on: 05/18/20 14 11:59AM; User: vinicius Peña Completruth ann on: 12/05/19 14;Indic ation: Cough - (16.7862 [...] nued on: 04/14/20 16 12:59PM; User: philip [email or web address] Completi on: 04/15/20 16;Print ed: 03/16/20 16 [...] ation: Cerebral Thromboe mbolism Preventi on - ();Prin quinten: 10/05/20 11 Not Available Not Available [...] 14;Indic ation: Bronchos pasm Preventi on - ();Prin quinten: 11/16/19 14 Not Available Not Available [...] Disconti nued on: 10/05/20 11 10:19AM; User: estepl;I ndicatio n: Cerebral Thromboe mbolism Preventi on - () Not Available Not Available Not Available Vitamin D 5,000 IU daily x 2 active Not Available Not Available No t Available BD Regular Bevel Monitor 18 gauge x 1 /2 USE DIRECTED TO DRAW UP TESTOSTE ADDIE [...] Avai lable Vitals Date Recorded Body height Provider Name an d Address Organization Details Last Updated DateTime 07/23/2025 182.88 cm Mandie Mark [place] - [facility] 07/23 13:02:11 Social History Question Answer Notes LastModified by Organizat ion Details LastModified Time Tobacco Smoking Status Former Smoker Not Available [facility] 08/16/2020 03:17:10 Able To Swim? No Information not available 09/29/2016 Do You Have An Advance Directive? No [id number] Information not available 08/16/2020 Do You Wear A Helmet When Biking? No [id number] Information not available 08/16/2020 Are You Blind Or Do You Have Difficulty Seeing? No [id number] Information not available 08/16/2020 What Is Your Level Of Caffeine Consumption? Moderate [id number] Information not available 08/16/2020 How Much Tobacco Do You Chew? 1/day Information not available 08/27/2025 Are You Deaf Or Do You Have Serious Difficulty Hearing? No [id number] Information not available 08/16/2020 What Type Of Diet Are You Following? REGULAR [id number] Information not available 08/16/2020 Which Illicit Or Recreational Drugs Have You Used? None [id number] Information not available 08/16/2020 What Is The Highest Grade Or Level Of School You Have Completed Or The Highest Degree You Have Received? GJ06450-4 Information not available 08/27/2025 Swimming/diving No Informati [...] Do You Have A Medical Power Of Civil Engineering Professional? No Information not available 08/27/2025 What Was The Date Of Your Most Recent Tobacco Screening? 02/01/2025 Information not available 02/01/2025 How Many Children Do You Have? 3 [id number] Information not available 08/16/2020 What Is Your Current Pack Years? 10-19packterese s Information not available 03/04/2023 Do You Use Protection During Sex? No [id number] Information not available 08/16/2020 What Is Your Relationship Status? [id number] Information not available 08/16/2020 Seat Belts Used Routinely Yes Information not available 09/29/2016 Are You Sexually Active? Yes [id number] Information not available 08/16/2020 Smoke Alarm In Home Yes Information not available 09/29/2016 At What Age Did You Start Smoking Tobacco? 11 Information not available 03/04/2023 Are You Passively Exposed To Smoke? No Information no t available 09/29/2016 How Much Tobacco Do You Smoke? No Information not available 01/12/2024 General Stress Level Medium Information not available 09/29/2016 Do You Use Sunscreen Routinely? No [id number] Information not available 08/16/2020 Has Tobacco Cessation Counseling Been Provided? Yes Information not available 03/04/2023 On What Date Was Tobacco Cessation Counseling Provided? 02/01/2025 Information not available 02/01/2025 How Many Years Have You Smoked Tobacco? 20 Information not available 03/04/2023 Do You Have Difficulty Walking Or Climbing Stairs? No [id number] Information not available 08/16/2020 Sex: Male Functional Status Question Answer Note LastModified by Organizat ion Details LastModified Time Do you or have you ever used smokeless tobacco? Currently chews tobacco Information not available 08/27/2025 Are you currently employed? Yes [id number] Information not available 08/16/2020 Do you have transportation difficulties? No Information not available 08/27/2025 Are you able to care for yourself independently? Yes [id number] Information not available 08/16/2020 Do you have difficulty dressing, bathing, grooming, or toileting? No [id number] Information not available 08/16/2020 Do you or have you ever used e-cigarettes or vape? Never used electronic cigarettes [id number] Information not available 08/16/2020 What is your exercise level? None [id number] Information not available 08/16/2020 Do you use any illicit or recreational drugs? No Information not available 08/27/2025 Do you or have you ever used any other forms of tobacco or nicotine? Yes Information not available 08/27/2025 What is your level of alcohol consumption? None [id number] Information not available 08/16/2020 Are you able to walk independently without assistance or assistive devices? YESWOREST [id number] Information not available 08/16/2020 Do you have difficulty doing errands alone? 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 [id number] Information not available 08/27/2025 Do you have difficulty concentrating, remembering or making decisions? No [id number] Information no t available 08/16/2020 Family History [...] split virus, quadrivalent, PF 1 completed Elizabeth blas, [place] [facility] 07/22/2021 09:50:07 Influenza, split virus, quadrivalent, preservative 2 completed Danielle Groves APRN [facility] [address], [place], [address], [place] [facility] 08/17/2022 08:50:47 Tdap 2 completed Not Available [facility] 09/03/2020 14:44:39 Influenza, split virus, quadrivalent, preservative 8 completed Not Available [facility] 11/18/2019 03:55:23 Influenza, split virus, quadrivalent, preservative 9 completed Not Available [facility] 11/18/2019 03:56:07 Past Encounters Encounter ID Performer Location Encounter Start Date Encounter Closed Date Diagnosis/Indication Diagnosis SNOMED-CT Code Diagnosis ICD10 Code Diagnosis IMO Codes Diagnosis Note [id number] Danial Keller APRN [address] [address] 07/23/2025 12:49:55 07/23/2025 13:04:59 Abnormal testosterone 147810034 R94.7 Malaise and fatigue 2717 12082 R53.81 R53.83 63376 Generalize d abdominal pain 565362477 R10.84 879792 Health Concerns Section Related Observation LastModified by Organization Detai ls LastModified Time None Recorded Concern Status LastModified by Organization Details LastModified Time None Recorded Payers Encounter Date Sequence Insurance Name Policy Number Policy Magana Covered Member ID Magana Member ID Guarantor Name 07/23/2025 1 [place] [id number] Mandie Mark [id number] Ju[address] Mark Notes Date Note Type Note Provider Name and Address Organization Details Recorded Time 07/23/2025 text/html pt in the office for labs Danial Keller, [employer] [address], [place], [address], [place] [facility] 07/23/2025 13:51:08
--- OUTSIDE RECORDS SUMMARY | 2025-09-20 08:28 | XMS_ITS | Encounter Summary ---
Author Organization [facility] Address [address] [place] [address] Care Team Providers Care Swing Tender Name Role Phone Danial Keller ZEHRA Primary Care Provider [phone]- [phone] Reason for Visit * Reason Onset Date Comments HCN - Patient Message 08/31/2025 Encounter Details Date Type Department Care Team (Late st Contact Info) Description 08/31/2025 Telephone [place] [facility] [address] [place] [address] Boogie Dutton MD [address] [place] [address] HCN - Patient Message Social History Tobacco Use Types Packs/Day Years [...] encounter Miscellaneous Notes * Telephone Encounter - Mireya Romo - 09/03/2025 9:04 AM EST Spoke with patient and scheduled f/up for 09/05 at 8:40AM. Patient requested I call his to inform her as well. Called Mandie and left VM informing her of scheduled appointment. Left call back number in case she needs to reschedule appointment for him. Please send secure chat or teams message ifshe calls back. * Telephone Encounter - Deja Payne - 08/31/2025 2:05 PM EDT Patient Phone Message Reason for Call: Request an appt His back is worse than what it was Best contact number and optimal time of day to reach caller: [phone] Note: Please do not reply to this message. Follow-up communication and further actions as a result of this message need to be communicated with the patient directly, if the patient is not active onMyChart. If the patient is active on MyChart, they will receive notification of the communication/outcome via [employer]. documented in this encounter Plan of Treatment Upcoming Encounters Date Type Department Care Team (Late st Contact Info) Description 10/18/2025 10:00 AM EST Office Visit [place] [facility] [address] [place] [address] Mary Aviles, ZEHRA [address] [place] [address] documented as of this encounter Visit Diagnoses Not on filedocumented in this encounter Additional Health Concerns Assessment Noted Time A fall risk assessment has been complete d for the patient 05/02/2024 9:19 AM EDT A Body Mass Index follow-up plan has been documented for the patient 05/09/2024 10:42 AM EDT documented as of this encounter Care Teams Swing Tender Relationship Specialty Start Date End Date Danial Keller APRN [address] [place] [address] PCP - General 08/31/25 documented as of this encounter
--- OUTSIDE RECORDS SUMMARY | 2025-09-20 08:30 | XMS_ITS | Data Portability ---
Author Organization Critical access hospital Address [address] [place] [address] Care Team Providers Care Fitter Placer Name Role Phone YOLA GODDARD [facility] Assessment Encounter Date Assessment Date Assessment LastModified [...] to that apt Not available 07/26/2025 08:48:40 08/27/2025 08/27/2025 -Medications were reviewed and any necessary updates and renewals were made, patient instructed to complete as prescribed. -The potential side effects of medications were discussed. -Counseling was done on care goals and ways to prevent future hospitalization s. -Further treatment per orders listed below. bstears Not available 08/27/2025 09:45:11 Plan of Treatment Reminders Order Date Submit Date Provider Last Modified By Organization Details Last Modified Time Details Appointments Follow Up 2024 08:00A M Kelsey Peralta APRN Not available Not available Not available ESTABLISH ED PT 30 2025 08:30A M Danielle Aubrey Germain, CUSHION COVER INSPECTOR Not available Not available Not available Lab TSH, ultra-sen sitive, serum 2024 025 MEGAN [facility], [address], [address], [place], [address], 09/11/2025 08:31:50 CMP, serum or plasma 2024 025 MEGAN [facility], [address], [address], [place], [address], 09/11/2025 08:31:49 lipid panel, serum 2024 025 MEGAN [facility], [address], [address], [place], [address], 09/11/2025 08:31:49 CBC w/ auto diff 2024 025 MEGAN [facility], [address], [address], [place], [address], 09/11/2025 08:31:48 vitamin B12, serum 2024 025 MEGAN [facility], [address], [address], [place], [address], 09/11/2025 08:31:51 vitamin D, 25-hydrox y, total, serum 2024 025 MEGAN [facility], [address], [address], [place], [address], 09/11/2025 08:31:50 glucose, fingersti ck, blood 2024 025 [facility], [facility], [address] [place] [address] , [place], [address], 09/10/2025 08:56:54 HbA1c (hemoglob in A1c), blood 2024 025 [facility], [facility], [address] [place] [address] , [place], [address], 09/10/2025 08:56:53 HbA1c (hemoglob in A1c), blood 2024 025 MEGAN [facility], [address], [address], [place], [address], 08/28/2025 11:08:09 urinalysi s, dipstick 2024 025 [facility], [address] [place], [address], 08/27/2025 10:33:18 amylase + lipase, serum 2024 025 MEGAN [facility], [address], [address], [place], [address], 08/28/2025 11:08:08 CBC w/ auto diff 2024 025 MEGAN [facility], [address], [address], [place], [address], 08/28/2025 11:08:07 CMP, serum or plasma 2024 025 MEGAN [facility], [address], [address], [place], [address], 08/28/2025 11:08:07 lipid panel, serum 2024 025 MEGAN [facility], [address], [address], [place], [address], 08/28/2025 11:08:08 CBC w/ auto diff - GET IN MORNING BEFORE 10AM 2024 025 sydney [facility], [address], [place], [address], 07/26/2025 09:59:36 testoster one, free + total, serum - GET IN MORNING BEFORE 10AM 2024 025 [email or web address] [facility], [address], [address], [place], [address], 07/26/2025 09:59:36 venipunct ure 2024 025 [facility], [address], [address], [place], [address], 08/10/2025 16:41:35 vitamin D, 25-hydrox y, total, serum 2024 025 MEGAN [facility], [address], [address], [place], [address], 07/28/2025 12:11:26 TSH + free T4, serum 2024 025 KANAB [facility], [address], [address], [place], [address], 07/28/2025 12:11:25 cobalamin and folate panel, serum 2024 025 [facility], [address], [address], [place], [address], 08/10/2025 16:41:35 CMP, serum or plasma 2024 025 KANAB [facility], [address], [address], [place], [address], 07/28/2025 12:11:26 glucose, fingersti ck, blood 2024 025 [facility], [facility], [address] [place] [address] , [place], [address], 05/08/2025 08:39:04 HbA1c (hemoglob in A1c), blood 2024 025 [facility], [facility], [address] [place] [address] , [place], [address], 05/08/2025 08:39:04 Referral cardiolog ist referral - alek rodriguez, Call patients Mandie to schedule 2024 KANAB Jamie Morgan MD, [address] [facility] [address], [place], [address], 09/12/2025 08:33:36 Procedures None recorded. Surgeries None recorded. Imaging CT, abdomen + pelvis, w/ contrast - r/o kidney stone, calcifica tion to aorta? hx of lymphoma, diverticu lar dz 2024 [facility], [address] [place], [address], 08/30/2025 15:32:26 US, gallbladd er 2024 [facility], [address] [place] [address] , [place], [address], 09/10/2025 09:47:50 Medication Orders Ozempic 0.25 mg or 0.5 mg (2 mg/3 mL) subcutane ous pen injector 2024 025 [facility], [address] [place] [address], [address], 09/10/2025 08:56:55 tamsulosi n 0.4 mg capsule [address] [place] [address], [address], 07/26/2025 09:59:38 ENCLOMIPH GEORGES 12.5 MG CAPSULE [address], [address], 07/26/2025 09:59:38 Patient TargetsNo targets recorded. Patient Instructions Encounter Date Encounter Id Patient Instructions Last Modified By Organization Details Last Modified Time 05/08/2025 [id number] learning about type 2 diabetes rjessee Not available 05/08/2025 08:39:04 type 2 diabetes: care instructions rjessee Not available 05/08/2025 08:39:04 learning about type 2 diabetes rjessee Not available 05/08/2025 08:39:04 type 2 diabetes: care instructions rjessee Not available 05/08/2025 08:39:04 iron deficiency anemia: care instructions rjessee Not available 05/08/2025 08:39:04 hip arthritis: care instructions rjessee Not available 05/08/2025 08:39:04 osteoarthritis: care instructions rjessee Not available 05/08/2025 08:39:04 body mass index: care instructions rjessee Not available 05/08/2025 08:39:04 learning about healthy weight rjessee Not available 05/08/2025 08:39:04 obesity educatio n information rjessee Not available 05/08/2025 08:39:04 Continue Xigduo XR 03/1000 mg two tabs daily. Continue Ozempic 0.5 mg weekly. Once your deductible is met, will increase the dose to 1 mg weekly. Follow up with your other health care providers as scheduled. I want to see you back in 3 months. If your Hgb a1f is again 8 or higher, I will add Glimepiride or a basal insulin. rjessee Not available 05/08/2025 08:38:56 07/26/2025 [id number] body mass index: care instructions Not available 07/26/2025 09:59:36 Starting a Weight-Loss Plan: Care Instructions Not available 07/26/2025 09:59:36 sleep apnea: car e instructions Not available 07/26/2025 09:59:36 type 2 diabetes: care instructions Not available 07/26/2025 09:59:36 benign prostatic hyperplasia: care instructions Not available 07/26/2025 09:59:36 09/10/2025 [id number] learning about type 2 diabetes rjessee Not [...] Not available 09/10/2025 08:59:[address] Supervisor Referral for Di sorder of aorta alek hill, Call patients Mandie to schedule [phone] Referring Physician: Danial Keller, Family Medicine, Encounter Date: 08/27/2025 Results Created Date Observation Date Name Description Value Unit Range Abnormal Flag Note LastModifiedBy Organization Detail LastModifiedTime 05/08/2005/08/2025 HbA1c (hemo globi n A1c), blood HbA1C 8.0 % Not Available [address] , [place], [address], 05/07/2025 17:17:57 05/08/20 25 05/08/2025 gluco se, finge rstic k, blood Blood Glucose: mg/dl 205 Not Available [address] , [place], [address], 05/07/2025 17:17:56 07/23/20 25 07/24/2025 TSH+F REE T4 TSH 1.170 uIU/m L 0.450- 4.500 normal Not Available [facility] ([facility]) [address] [place], [address], 07/28/2025 12:11:25 07/23/2007/24/2025 TSH+F REE T4 T4,free(dire ct) 1.02 NG/dL 0.82-1 .77 normal Not Available [facility] ([facility]) [address] [place], [address], 07/28/2025 12:11:25 07/23/2007/24/2025 CBC WITH DIFFE RENTI AL/PL ATELE T WBC 6.4 x10e3 /uL 3.4-10 .8 normal Not Available [facility] ([facility]) [address] [place], [address], 07/28/2025 12:11:25 07/23/2007/24/2025 CBC WITH DIFFE RENTI AL/PL ATELE T RBC 5.50 x10e6 /uL 4.14-5 .80 normal Not Available [facility] ([facility]) [address] [place], [address], 07/28/2025 12:11:25 07/23/2007/24/2025 CBC WITH DIFFE RENTI AL/PL ATELE T hemoglobin 16.3 g/dL 13.0-1 7.7 normal Not Available [facility] ([facility]) [address] [place], [address], 07/28/2025 12:11:25 07/23/2007/24/2025 CBC WITH DIFFE RENTI AL/PL ATELE T hematocrit 50.0 % 37.5-5 1.0 normal Not Available [facility] ([facility]) [address] [place], [address], 07/28/2025 12:11:25 07/23/2007/24/2025 CBC WITH DIFFE RENTI AL/PL ATELE T MCV 91 fL 79-97 normal Not Available [facility] ([facility]) [address] [place], [address], 07/28/2025 12:11:25 07/23/20 25 07/24/2025 CBC WITH DIFFE RENTI AL/PL ATELE T MCH 29.6 pg 26.6-3 3.0 normal Not Available [facility] ([facility]) [address] [place], [address], 07/28/2025 12:11:25 07/23/2007/24/2025 CBC WITH DIFFE RENTI AL/PL ATELE T MCHC 32.6 g/dL 31.5-3 5.7 normal Not Available [facility] ([facility]) [address] [place], [address], 07/28/2025 12:11:25 07/23/20 25 07/24/2025 CBC WITH DIFFE RENTI AL/PL ATELE T RDW 14.8 % 11.6-1 5.4 Not Available [facility] ([facility]) [address] [place], [address], 07/28/2025 12:11:25 07/23/20 25 07/24/2025 CBC WITH DIFFE RENTI AL/PL ATELE T platelets 211 x10e3 /uL 150-45 0 normal Not Available [facility] ([facility]) [address] [place], [address], 07/28/2025 12:11:25 07/23/20 25 07/24/2025 CBC WITH DIFFE RENTI AL/PL ATELE T neutrophils 66 % not estab. normal Not Available [facility] ([facility]) [address] [place], [address], 07/28/2025 12:11:25 07/23/20 25 07/24/2025 CBC WITH DIFFE RENTI AL/PL ATELE T lymphs 21 % not estab. normal Not Available [facility] ([facility]) [address] [place], [address], 07/28/2025 12:11:25 07/23/20 25 07/24/2025 CBC WITH DIFFE RENTI AL/PL ATELE T monocytes 7 % not estab. normal Not Available [facility] ([facility]) [address] [facility], [place], [address], 07/28/2025 12:11:25 07/23/20 25 07/24/2025 CBC WITH DIFFE RENTI AL/PL ATELE T eos 4 % not estab. normal Not Available [facility] ([facility]) [address] [facility], [place], [address], 07/28/2025 12:11:25 07/23/20 25 07/24/2025 CBC WITH DIFFE RENTI AL/PL ATELE T basos 1 % not estab. normal Not Available [facility] ([facility]) [address] [place], [address], 07/28/2025 12:11:25 07/23/20 25 07/24/2025 CBC WITH DIFFE RENTI AL/PL ATELE T immature cells STAMPER BLOCKER Not Available [facility] ([facility]) [address] [place], [address], 07/28/2025 12:11:25 07/23/20 25 07/24/2025 CBC WITH DIFFE RENTI AL/PL ATELE T neutrophils (absolute) 4.3 x10e3 /uL 1.4-7. 0 normal Not Available [facility] ([facility]) [address] [place], [address], 07/28/2025 12:11:25 07/23/20 25 07/24/2025 CBC WITH DIFFE RENTI AL/PL ATELE T lymphs (absolute) 1.4 x10e3 /uL 0.7-3. 1 normal Not Available [facility] ([facility]) [address] [facility], [place], [address], 07/28/2025 12:11:25 07/23/2007/24/2025 CBC WITH DIFFE RENTI AL/PL ATELE T monocytes(ab solute) 0.5 x10e3 /uL 0.1-0. 9 normal Not Available [facility] ([facility]) [address] [facility], [place], [address], 07/28/2025 12:11:25 07/23/2007/24/2025 CBC WITH DIFFE RENTI AL/PL ATELE T eos (absolute) 0.3 x10e3 /uL 0.0-0. 4 normal Not Available [facility] ([facility]) [address] [facility], [place], [address], 07/28/2025 12:11:25 07/23/20 25 07/24/2025 CBC WITH DIFFE RENTI AL/PL ATELE T baso (absolute) 0.0 x10e3 /uL 0.0-0. 2 normal Not Available [facility] ([facility]) [address] [facility], [place], [address], 07/28/2025 12:11:25 07/23/20 25 07/24/2025 CBC WITH DIFFE RENTI AL/PL ATELE T immature granulocytes 0 % not estab. Not Available [facility] ([facility]) [address] [place], [address], 07/28/2025 12:11:25 07/23/20 25 07/24/2025 CBC WITH DIFFE RENTI AL/PL ATELE T immature grans (abs) 0.0 x10e3 /uL 0.0-0. 1 Not Available [facility] ([facility]) [address] [facility], [place], [address], 07/28/2025 12:11:25 07/23/20 25 07/24/2025 CBC WITH DIFFE RENTI AL/PL ATELE T NRBC STAMPER BLOCKER Not Available [facility] ([facility]) [address] [facility], [place], [address], 07/28/2025 12:11:25 07/23/20 25 07/24/2025 CBC WITH DIFFE RENTI AL/PL ATELE T hematology comments: STAMPER BLOCKER Not Available [facility] ([facility]) [address] [facility], [place], [address], 07/28/2025 12:11:25 07/23/20 25 07/24/2025 COMP. METAB OLIC PANEL (14) glucose 178 mg/dL 70-99 above high normal Not Available [facility] ([facility]) [address] [facility], [place], [address], 07/28/2025 12:11:26 07/23/20 25 07/24/2025 COMP. METAB OLIC PANEL (14) BUN 16 mg/dL 6-24 normal Not Available [facility] ([facility]) [address] [facility], [place], [address], 07/28/2025 12:11:26 07/23/20 25 07/24/2025 COMP. METAB OLIC PANEL (14) creatinine 1.00 mg/dL 0.76-1 .27 normal Not Available [facility] ([facility]) [address] [facility], [place], [address], 07/28/2025 12:11:26 07/23/20 25 07/24/2025 COMP. METAB OLIC PANEL (14) eGFR 88 mL/mi n/1.7 3 >59 normal Not Available [facility] ([facility]) [address] [facility] [place], [address], 07/28/2025 12:11:26 07/23/20 25 07/24/2025 COMP. METAB OLIC PANEL (14) BUN/creatini ne ratio 16 9-20 normal Not Available [facility] ([facility]) [address] [facility], [place], [address], 07/28/2025 12:11:26 07/23/20 25 07/24/2025 COMP. METAB OLIC PANEL (14) sodium 143 mmol/ L 134-14 4 normal Not Available [facility] ([facility]) [address] [place], [address], 07/28/2025 12:11:26 07/23/20 25 07/24/2025 COMP. METAB OLIC PANEL (14) potassium 4.4 mmol/ L 3.5-5. 2 normal Not Available [facility] ([facility]) [address] [place], [address], 07/28/2025 12:11:26 07/23/20 25 07/24/2025 COMP. METAB OLIC PANEL (14) chloride 107 mmol/ L 96-106 above high normal Not Available [facility] ([facility]) [address] [place], [address], 07/28/2025 12:11:26 07/23/20 25 07/24/2025 COMP. METAB OLIC PANEL (14) carbon dioxide, total 17 mmol/ L 20-29 below low normal Not Available [facility] ([facility]) [address] [place], [address], 07/28/2025 12:11:26 07/23/20 25 07/24/2025 COMP. METAB OLIC PANEL (14) calcium 9.2 mg/dL 8.7-10 .2 normal Not Available [facility] ([facility]) [address] [place], [address], 07/28/2025 12:11:26 07/23/20 25 07/24/2025 COMP. METAB OLIC PANEL (14) protein, total 6.7 g/dL 6.0-8. 5 normal Not Available [facility] ([facility]) [address] [place], [address], 07/28/2025 12:11:26 07/23/20 25 07/24/2025 COMP. METAB OLIC PANEL (14) albumin 4.6 g/dL 3.8-4. 9 normal Not Available [facility] ([facility]) [address] [place], [address], 07/28/2025 12:11:26 07/23/20 25 07/24/2025 COMP. METAB OLIC PANEL (14) globulin, total 2.1 g/dL 1.5-4. 5 Not Available [facility] ([facility]) [address] [place], [address], 07/28/2025 12:11:26 07/23/20 25 07/24/2025 COMP. METAB OLIC PANEL (14) bilirubin, total 0.4 mg/dL 0.0-1. 2 normal Not Available [facility] ([facility]) [address] [place], [address], 07/28/2025 12:11:26 07/23/20 25 07/24/2025 COMP. METAB OLIC PANEL (14) alkaline phosphatase 67 IU/L 47-123 normal Ple ase note refer ence inter babs daniela e Not Available [facility] ([facility]) [address] [place], [address], 07/28/2025 12:11:26 07/23/20 25 07/24/2025 COMP. METAB OLIC PANEL (14) AST (SGOT) 31 IU/L 0-40 normal Not Available [facility] ([facility]) [address] [facility] [place], [address], 07/28/2025 12:11:26 07/23/20 25 07/24/2025 COMP. METAB OLIC PANEL (14) ALT (SGPT) 31 IU/L 0-44 normal Not Available [facility] ([facility]) [address] [facility] [place], [address], 07/28/2025 12:11:26 07/23/2007/24/2025 TESTO STERO NE,FR EE AND TOTAL testosterone 256 NG/dL 264-91 6 below low normal Adult male refer ence inter babs is based on a popul ation of healt hy nonob gloria males (BMI <30) betwe en 19 and 39 years old. Carloz sharma, et.al . JCEM 2017, 102;1 161-1 173. PMID: 01713 103. Not Available [facility] ([facility]) [address] [place], [address], 07/28/2025 12:11:26 07/23/2007/28/2025 TESTO STERO NE,FR EE AND TOTAL free testosterone (direct) 9.9 pg/mL 7.2-24 .0 Not Available [facility] ([facility]) [address] [place], [address], 07/28/2025 12:11:26 07/23/2007/24/2025 VITAM IN D, 25-HY [...] um and D. Kurtis sullivan [place]: [facility] Press . 2. Dean godinez MF, Berta do [place], Natalia off-F errar i BARBOSA, et al. Evalu ation , treat ment, and preve ntion of vitam in D defic iency : an Endoc rine Socie ty clini barrie pract ice guide line. JCEM. 2011 Francis; 96(7) :1911 -. Not Available [facility] ([facility]) [address] [facility], [place], [address], 07/28/2025 12:11:26 07/23/2007/24/2025 SPIKE Villalta NOTE please note Commen t The date and/o r time of colle ction was not indic ated on the requi sitio n as requi red by state and karishma al law. The date of recei pt of the speci men was used as the colle ction date if not suppl ied. Not Available [facility] ([facility]) [address] [facility], [place], [address], 07/28/2025 12:11:27 08/27/2008/28/2025 CBC WITH DIFFE RENTI AL/PL ATELE T WBC 6.6 x10e3 /uL 3.4-10 .8 normal Not Available [facility] ([facility]) [address] [facility], [place], [address], 08/28/2025 11:08:07 08/27/2008/28/2025 CBC WITH DIFFE RENTI AL/PL ATELE T RBC 5.45 x10e6 /uL 4.14-5 .80 normal Not Available [facility] ([facility]) [address] [place], [address], 08/28/2025 11:08:07 08/27/2008/28/2025 CBC WITH DIFFE RENTI AL/PL ATELE T hemoglobin 16.3 g/dL 13.0-1 7.7 normal Not Available [facility] ([facility]) [address] [facility] [place], [address], 08/28/2025 11:08:07 08/27/2008/28/2025 CBC WITH DIFFE RENTI AL/PL ATELE T hematocrit 49.5 % 37.5-5 1.0 normal Not Available [facility] ([facility]) [address] [place], [address], 08/28/2025 11:08:07 08/27/2008/28/2025 CBC WITH DIFFE RENTI AL/PL ATELE T MCV 91 fL 79-97 normal Not Available [facility] ([facility]) [address] [facility], [place], [address], 08/28/2025 11:08:07 08/27/2008/28/2025 CBC WITH DIFFE RENTI AL/PL ATELE T MCH 29.9 pg 26.6-3 3.0 normal Not Available [facility] ([facility]) [address] [facility], [place], [address], 08/28/2025 11:08:07 08/27/2008/28/2025 CBC WITH DIFFE RENTI AL/PL ATELE T MCHC 32.9 g/dL 31.5-3 5.7 normal Not Available [facility] ([facility]) [address] [facility], [place], [address], 08/28/2025 11:08:07 08/27/2008/28/2025 CBC WITH DIFFE RENTI AL/PL ATELE T RDW 14.4 % 11.6-1 5.4 Not Available [facility] ([facility]) [address] [facility], [place], [address], 08/28/2025 11:08:07 08/27/2008/28/2025 CBC WITH DIFFE RENTI AL/PL ATELE T platelets 230 x10e3 /uL 150-45 0 normal Not Available [facility] ([facility]) [address] [place], [address], 08/28/2025 11:08:07 08/27/2008/28/2025 CBC WITH DIFFE RENTI AL/PL ATELE T neutrophils 70 % not estab. normal Not Available [facility] ([facility]) [address] [facility], [place], [address], 08/28/2025 11:08:07 08/27/2008/28/2025 CBC WITH DIFFE RENTI AL/PL ATELE T lymphs 18 % not estab. normal Not Available [facility] ([facility]) [address] [facility], [place], [address], 08/28/2025 11:08:07 08/27/2008/28/2025 CBC WITH DIFFE RENTI AL/PL ATELE T monocytes 7 % not estab. normal Not Available [facility] ([facility]) [address] [facility], [place], [address], 08/28/2025 11:08:07 08/27/2008/28/2025 CBC WITH DIFFE RENTI AL/PL ATELE T eos 4 % not estab. normal Not Available [facility] ([facility]) [address] [facility], [place], [address], 08/28/2025 11:08:07 08/27/2008/28/2025 CBC WITH DIFFE RENTI AL/PL ATELE T basos 1 % not estab. normal Not Available [facility] ([facility]) [address] [facility], [place], [address], 08/28/2025 11:08:07 08/27/2008/28/2025 CBC WITH DIFFE RENTI AL/PL ATELE T immature cells STAMPER BLOCKER Not Available [facility] ([facility]) [address] [place], [address], 08/28/2025 11:08:07 08/27/2008/28/2025 CBC WITH DIFFE RENTI AL/PL ATELE T neutrophils (absolute) 4.6 x10e3 /uL 1.4-7. 0 normal Not Available [facility] ([facility]) [address] [place], [address], 08/28/2025 11:08:07 08/27/2008/28/2025 CBC WITH DIFFE RENTI AL/PL ATELE T lymphs (absolute) 1.2 x10e3 /uL 0.7-3. 1 normal Not Available [facility] ([facility]) [address] [facility], [place], [address], 08/28/2025 11:08:07 08/27/20 25 08/28/2025 CBC WITH DIFFE RENTI AL/PL ATELE T monocytes(ab solute) 0.5 x10e3 /uL 0.1-0. 9 normal Not Available [facility] ([facility]) [address] [facility], [place], [address], 08/28/2025 11:08:07 08/27/2008/28/2025 CBC WITH DIFFE RENTI AL/PL ATELE T eos (absolute) 0.3 x10e3 /uL 0.0-0. 4 normal Not Available [facility] ([facility]) [address] [place], [address], 08/28/2025 11:08:07 08/27/20 25 08/28/2025 CBC WITH DIFFE RENTI AL/PL ATELE T baso (absolute) 0.0 x10e3 /uL 0.0-0. 2 normal Not Available [facility] ([facility]) [address] [place], [address], 08/28/2025 11:08:07 08/27/2008/28/2025 CBC WITH DIFFE RENTI AL/PL ATELE T immature granulocytes 0 % not estab. Not Available [facility] ([facility]) [address] [place], [address], 08/28/2025 11:08:07 08/27/20 25 08/28/2025 CBC WITH DIFFE RENTI AL/PL ATELE T immature grans (abs) 0.0 x10e3 /uL 0.0-0. 1 Not Available [facility] ([facility]) [address] [place], [address], 08/28/2025 11:08:07 08/27/20 25 08/28/2025 CBC WITH DIFFE RENTI AL/PL ATELE T NRBC STAMPER BLOCKER Not Available [facility] ([facility]) [address] [facility], [place], [address], 08/28/2025 11:08:07 08/27/20 25 08/28/2025 CBC WITH DIFFE RENTI AL/PL ATELE T hematology comments: STAMPER BLOCKER Not Available [facility] ([facility]) [address] [facility] [place], [address], 08/28/2025 11:08:07 08/27/2008/28/2025 COMP. METAB OLIC PANEL (14) glucose 157 mg/dL 70-99 above high normal Not Available [facility] ([facility]) [address] [facility] [place], [address], 08/28/2025 11:08:07 08/27/20 25 08/28/2025 COMP. METAB OLIC PANEL (14) BUN 12 mg/dL 6-24 normal Not Available [facility] ([facility]) [address] [facility], [place], [address], 08/28/2025 11:08:07 08/27/20 25 08/28/2025 COMP. METAB OLIC PANEL (14) creatinine 0.94 mg/dL 0.76-1 .27 normal Not Available [facility] ([facility]) [address] [facility], [place], [address], 08/28/2025 11:08:07 08/27/20 25 08/28/2025 COMP. METAB OLIC PANEL (14) eGFR 95 mL/mi n/1.7 3 >59 normal Not Available [facility] ([facility]) [address] [facility], [place], [address], 08/28/2025 11:08:07 08/27/20 25 08/28/2025 COMP. METAB OLIC PANEL (14) BUN/creatini ne ratio 13 9-20 normal Not Available [facility] ([facility]) [address] [facility] [place], [address], 08/28/2025 11:08:07 08/27/20 25 08/28/2025 COMP. METAB OLIC PANEL (14) sodium 139 mmol/ L 134-14 4 normal Not Available [facility] ([facility]) [address] [facility] [place], [address], 08/28/2025 11:08:07 08/27/20 25 08/28/2025 COMP. METAB OLIC PANEL (14) potassium 4.6 mmol/ L 3.5-5. 2 normal Not Available [facility] ([facility]) [address] [facility] [place], [address], 08/28/2025 11:08:07 08/27/20 25 08/28/2025 COMP. METAB OLIC PANEL (14) chloride 104 mmol/ L 96-106 normal Not Available [facility] ([facility]) [address] [facility] [place], [address], 08/28/2025 11:08:07 08/27/20 25 08/28/2025 COMP. METAB OLIC PANEL (14) carbon dioxide, total 20 mmol/ L 20-29 normal Not Available [facility] ([facility]) [address] [facility] [place], [address], 08/28/2025 11:08:07 08/27/20 25 08/28/2025 COMP. METAB OLIC PANEL (14) calcium 9.5 mg/dL 8.7-10 .2 normal Not Available [facility] ([facility]) [address] [facility] [place], [address], 08/28/2025 11:08:07 08/27/20 25 08/28/2025 COMP. METAB OLIC PANEL (14) protein, total 6.7 g/dL 6.0-8. 5 normal Not Available [facility] ([facility]) [address] [place], [address], 08/28/2025 11:08:07 08/27/20 25 08/28/2025 COMP. METAB OLIC PANEL (14) albumin 4.4 g/dL 3.8-4. 9 normal Not Available [facility] ([facility]) [address] [facility] [place], [address], 08/28/2025 11:08:07 08/27/20 25 08/28/2025 COMP. METAB OLIC PANEL (14) globulin, total 2.3 g/dL 1.5-4. 5 Not Available [facility] ([facility]) [address] [facility] [place], [address], 08/28/2025 11:08:07 08/27/20 25 08/28/2025 COMP. METAB OLIC PANEL (14) bilirubin, total 0.4 mg/dL 0.0-1. 2 normal Not Available [facility] ([facility]) [address] [facility] [place], [address], 08/28/2025 11:08:07 08/27/20 25 08/28/2025 COMP. METAB OLIC PANEL (14) alkaline phosphatase 57 IU/L 47-123 normal Not Available [facility] ([facility]) [address] [facility] [place], [address], 08/28/2025 11:08:07 08/27/20 25 08/28/2025 COMP. METAB OLIC PANEL (14) AST (SGOT) 32 IU/L 0-40 normal Not Available [facility] ([facility]) [address] [facility] [place], [address], 08/28/2025 11:08:07 08/27/20 25 08/28/2025 COMP. METAB OLIC PANEL (14) ALT (SGPT) 35 IU/L 0-44 normal Not Available [facility] ([facility]) [address] [place], [address], 08/28/2025 11:08:07 08/27/2008/28/2025 LIPID PANEL cholesterol, total 149 mg/dL 100-19 9 normal Not Available [facility] ([facility]) [address] [facility] [place], [address], 08/28/2025 11:08:08 08/27/2008/28/2025 LIPID PANEL triglyceride s 193 mg/dL 0-149 above high normal Not Available [facility] ([facility]) [address] [place], [address], 08/28/2025 11:08:08 08/27/2008/28/2025 LIPID PANEL HDL cholesterol 34 mg/dL >39 below low normal Not Available [facility] ([facility]) [address] [place], [address], 08/28/2025 11:08:08 08/27/2008/28/2025 LIPID PANEL VLDL cholesterol barrie 33 mg/dL 5-40 Not Available [facility] ([facility]) [address] [place], [address], 08/28/2025 11:08:08 08/27/20 25 08/28/2025 LIPID PANEL LDL chol calc ([facility]) 82 mg/dL 0-99 Not Available [facility] ([facility]) [address] [place], [address], 08/28/2025 11:08:08 08/27/2008/28/2025 LIPID PANEL LDL calc comment: STAMPER BLOCKER Not Available [facility] ([facility]) [address] [place], [address], 08/28/2025 11:08:08 08/27/20 25 08/28/2025 MONICO+L IPASE amylase 69 U/L 31-110 normal Not Available [facility] ([facility]) [address] [place], [address], 08/28/2025 11:08:08 08/27/2008/28/2025 MONICO+L IPASE lipase 62 U/L 13-78 normal Not Available [facility] ([facility]) [address] [facility], [place], [address], 08/28/2025 11:08:08 08/27/2008/28/2025 HEMOG LOBIN A1C hemoglobin A1C 7.2 % 4.8-5. 6 above high normal Predi abete s: 5.7 - 6.4 Diabe zena: >6.4 Glyce keri contr ol for adult s with diabe zena: <7.0 Not Available [facility] ([facility]) [address] [facility], [place], [address], 08/28/2025 11:08:09 08/27/2008/27/2025 urina lysis , dipst ick Leukocytes Negati ve Not Available [address], [address], 08/27/2025 10:09:16 08/27/2008/27/2025 urina lysis , dipst ick Nitrite negati ve Not Available [address], [address], 08/27/2025 10:09:16 08/27/2008/27/2025 urina lysis , dipst ick Urobilinogen .2 Not Available [facility] [address], [address], 08/27/2025 10:09:16 08/27/2008/27/2025 urina lysis , dipst ick Protein Negati ve Not Available [address], [address], 08/27/2025 10:09:16 08/27/2008/27/2025 urina lysis , dipst ick pH 5.5 Not Available [address], [address], 08/27/2025 10:09:16 08/27/2008/27/2025 urina lysis , dipst ick Blood Negati ve Not Available [address], [address], 08/27/2025 10:09:16 08/27/2008/27/2025 urina lysis , dipst ick Specific Ona 1.015 Not Available [address], [address], 08/27/2025 10:09:16 08/27/2008/27/2025 urina lysis , dipst ick Ketone Negati ve Not Available [address], [address], 08/27/2025 10:09:16 08/27/2008/27/2025 urina lysis , dipst ick Bilirubin Negati ve Not Available [address], [address], 08/27/2025 10:09:16 08/27/2008/27/2025 urina lysis , dipst ick Glucose 1000 Not Available [address], [address], 08/27/2025 10:09:16 08/27/2008/27/2025 urina lysis , dipst ick Appearance Clear Not Available [address], [address], 08/27/2025 10:09:16 08/27/20 25 08/27/2025 urina lysis , dipst ick Color Yellow Not Available [facility] [address] [facility], [place], [address], 08/27/2025 10:09:16 09/10/20 25 09/10/2025 CBC WITH DIFFE RENTI AL/PL ATELE T WBC 5.9 x10e3 /uL 3.4-10 .8 normal Not Available [facility] ([facility]) [address] [facility], [place], [address], 09/11/2025 08:31:48 09/10/2009/10/2025 CBC WITH DIFFE RENTI AL/PL ATELE T RBC 5.45 x10e6 /uL 4.14-5 .80 normal Not Available [facility] ([facility]) [address] [place], [address], 09/11/2025 08:31:48 09/10/20 25 09/10/2025 CBC WITH DIFFE RENTI AL/PL ATELE T hemoglobin 16.3 g/dL 13.0-1 7.7 normal Not Available [facility] ([facility]) [address] [place], [address], 09/11/2025 08:31:48 09/10/20 25 09/10/2025 CBC WITH DIFFE RENTI AL/PL ATELE T hematocrit 49.2 % 37.5-5 1.0 normal Not Available [facility] ([facility]) [address] [place], [address], 09/11/2025 08:31:48 09/10/20 25 09/10/2025 CBC WITH DIFFE RENTI AL/PL ATELE T MCV 90 fL 79-97 normal Not Available [facility] ([facility]) [address] [place], [address], 09/11/2025 08:31:48 09/10/20 25 09/10/2025 CBC WITH DIFFE RENTI AL/PL ATELE T MCH 29.9 pg 26.6-3 3.0 normal Not Available [facility] ([facility]) [address] [place], [address], 09/11/2025 08:31:48 09/10/20 25 09/10/2025 CBC WITH DIFFE RENTI AL/PL ATELE T MCHC 33.1 g/dL 31.5-3 5.7 normal Not Available [facility] ([facility]) [address] [facility], [place], [address], 09/11/2025 08:31:48 09/10/20 25 09/10/2025 CBC WITH DIFFE RENTI AL/PL ATELE T RDW 14.0 % 11.6-1 5.4 Not Available [facility] ([facility]) [address] [place], [address], 09/11/2025 08:31:48 09/10/20 25 09/10/2025 CBC WITH DIFFE RENTI AL/PL ATELE T platelets 221 x10e3 /uL 150-45 0 normal Not Available [facility] ([facility]) [address] [facility], [place], [address], 09/11/2025 08:31:48 09/10/20 25 09/10/2025 CBC WITH DIFFE RENTI AL/PL ATELE T neutrophils 65 % not estab. normal Not Available [facility] ([facility]) [address] [place], [address], 09/11/2025 08:31:48 09/10/20 25 09/10/2025 CBC WITH DIFFE RENTI AL/PL ATELE T lymphs 21 % not estab. normal Not Available [facility] ([facility]) [address] [place], [address], 09/11/2025 08:31:48 09/10/20 25 09/10/2025 CBC WITH DIFFE RENTI AL/PL ATELE T monocytes 7 % not estab. normal Not Available [facility] ([facility]) [address] [place], [address], 09/11/2025 08:31:48 09/10/20 25 09/10/2025 CBC WITH DIFFE RENTI AL/PL ATELE T eos 5 % not estab. normal Not Available [facility] ([facility]) [address] [facility], [place], [address], 09/11/2025 08:31:48 09/10/20 25 09/10/2025 CBC WITH DIFFE RENTI AL/PL ATELE T basos 1 % not estab. normal Not Available [facility] ([facility]) [address] [facility], [place], [address], 09/11/2025 08:31:48 09/10/20 25 09/10/2025 CBC WITH DIFFE RENTI AL/PL ATELE T immature cells STAMPER BLOCKER Not Available [facility] ([facility]) [address] [place], [address], 09/11/2025 08:31:48 09/10/20 25 09/10/2025 CBC WITH DIFFE RENTI AL/PL ATELE T neutrophils (absolute) 3.9 x10e3 /uL 1.4-7. 0 normal Not Available [facility] ([facility]) [address] [place], [address], 09/11/2025 08:31:48 09/10/20 25 09/10/2025 CBC WITH DIFFE RENTI AL/PL ATELE T lymphs (absolute) 1.2 x10e3 /uL 0.7-3. 1 normal Not Available [facility] ([facility]) [address] [place], [address], 09/11/2025 08:31:48 09/10/20 25 09/10/2025 CBC WITH DIFFE RENTI AL/PL ATELE T monocytes(ab solute) 0.4 x10e3 /uL 0.1-0. 9 normal Not Available [facility] ([facility]) [address] [facility], [place], [address], 09/11/2025 08:31:48 09/10/20 25 09/10/2025 CBC WITH DIFFE RENTI AL/PL ATELE T eos (absolute) 0.3 x10e3 /uL 0.0-0. 4 normal Not Available [facility] ([facility]) [address] [facility], [place], [address], 09/11/2025 08:31:48 09/10/20 25 09/10/2025 CBC WITH DIFFE RENTI AL/PL ATELE T baso (absolute) 0.0 x10e3 /uL 0.0-0. 2 normal Not Available [facility] ([facility]) [address] [facility], [place], [address], 09/11/2025 08:31:48 09/10/20 25 09/10/2025 CBC WITH DIFFE RENTI AL/PL ATELE T immature granulocytes 0 % not estab. Not Available [facility] ([facility]) [address] [facility], [place], [address], 09/11/2025 08:31:48 09/10/20 25 09/10/2025 CBC WITH DIFFE RENTI AL/PL ATELE T immature grans (abs) 0.0 x10e3 /uL 0.0-0. 1 Not Available [facility] ([facility]) [address] [facility], [place], [address], 09/11/2025 08:31:48 09/10/20 25 09/10/2025 CBC WITH DIFFE RENTI AL/PL ATELE T NRBC STAMPER BLOCKER Not Available [facility] ([facility]) [address] [facility], [place], [address], 09/11/2025 08:31:48 09/10/20 25 09/10/2025 CBC WITH DIFFE RENTI AL/PL ATELE T hematology comments: STAMPER BLOCKER Not Available [facility] ([facility]) [address] [facility], [place], [address], 09/11/2025 08:31:48 09/10/20 25 09/11/2025 COMP. METAB OLIC PANEL (14) glucose 179 mg/dL 70-99 above high normal Not Available [facility] ([facility]) [address] [facility] [place], [address], 09/11/2025 08:31:49 09/10/20 25 09/11/2025 COMP. METAB OLIC PANEL (14) BUN 14 mg/dL 6-24 normal Not Available [facility] ([facility]) [address] [facility] [place], [address], 09/11/2025 08:31:49 09/10/20 25 09/11/2025 COMP. METAB OLIC PANEL (14) creatinine 1.02 mg/dL 0.76-1 .27 normal Not Available [facility] ([facility]) [address] [facility] [place], [address], 09/11/2025 08:31:49 09/10/20 25 09/11/2025 COMP. METAB OLIC PANEL (14) eGFR 86 mL/mi n/1.7 3 >59 normal Not Available [facility] ([facility]) [address] [facility] [place], [address], 09/11/2025 08:31:49 09/10/20 25 09/11/2025 COMP. METAB OLIC PANEL (14) BUN/creatini ne ratio 14 9-20 normal Not Available [facility] ([facility]) [address] [facility] [place], [address], 09/11/2025 08:31:49 09/10/20 25 09/11/2025 COMP. METAB OLIC PANEL (14) sodium 138 mmol/ L 134-14 4 normal Not Available [facility] ([facility]) [address] [facility] [place], [address], 09/11/2025 08:31:49 09/10/20 25 09/11/2025 COMP. METAB OLIC PANEL (14) potassium 4.6 mmol/ L 3.5-5. 2 normal Not Available [facility] ([facility]) [address] [place], [address], 09/11/2025 08:31:49 09/10/20 25 09/11/2025 COMP. METAB OLIC PANEL (14) chloride 101 mmol/ L 96-106 normal Not Available [facility] ([facility]) [address] [place], [address], 09/11/2025 08:31:49 09/10/20 25 09/11/2025 COMP. METAB OLIC PANEL (14) carbon dioxide, total 22 mmol/ L 20-29 normal Not Available [facility] ([facility]) [address] [place], [address], 09/11/2025 08:31:49 09/10/20 25 09/11/2025 COMP. METAB OLIC PANEL (14) calcium 9.7 mg/dL 8.7-10 .2 normal Not Available [facility] ([facility]) [address] [place], [address], 09/11/2025 08:31:49 09/10/20 25 09/11/2025 COMP. METAB OLIC PANEL (14) protein, total 6.6 g/dL 6.0-8. 5 normal Not Available [facility] ([facility]) [address] [place], [address], 09/11/2025 08:31:49 09/10/20 25 09/11/2025 COMP. METAB OLIC PANEL (14) albumin 4.4 g/dL 3.8-4. 9 normal Not Available [facility] ([facility]) [address] [place], [address], 09/11/2025 08:31:49 09/10/20 25 09/11/2025 COMP. METAB OLIC PANEL (14) globulin, total 2.2 g/dL 1.5-4. 5 Not Available [facility] ([facility]) [address] [facility], [place], [address], 09/11/2025 08:31:49 09/10/20 25 09/11/2025 COMP. METAB OLIC PANEL (14) bilirubin, total 0.6 mg/dL 0.0-1. 2 normal Not Available [facility] ([facility]) [address] [facility] [place], [address], 09/11/2025 08:31:49 09/10/20 25 09/11/2025 COMP. METAB OLIC PANEL (14) alkaline phosphatase 58 IU/L 47-123 normal Not Available [facility] ([facility]) [address] [facility], [place], [address], 09/11/2025 08:31:49 09/10/20 25 09/11/2025 COMP. METAB OLIC PANEL (14) AST (SGOT) 27 IU/L 0-40 normal Not Available [facility] ([facility]) [address] [facility], [place], [address], 09/11/2025 08:31:49 09/10/20 25 09/11/2025 COMP. METAB OLIC PANEL (14) ALT (SGPT) 32 IU/L 0-44 normal Not Available [facility] ([facility]) [address] [facility] [place], [address], 09/11/2025 08:31:49 09/10/20 25 09/11/2025 LIPID PANEL cholesterol, total 127 mg/dL 100-19 9 normal Not Available [facility] ([facility]) [address] [facility], [place], [address], 09/11/2025 08:31:49 09/10/20 25 09/11/2025 LIPID PANEL triglyceride s 119 mg/dL 0-149 normal Not Available [facility] ([facility]) [address] [place], [address], 09/11/2025 08:31:49 09/10/20 25 09/11/2025 LIPID PANEL HDL cholesterol 34 mg/dL >39 below low normal Not Available [facility] ([facility]) [address] [place], [address], 09/11/2025 08:31:49 09/10/20 25 09/11/2025 LIPID PANEL VLDL cholesterol barrie 22 mg/dL 5-40 Not Available [facility] ([facility]) [address] [place], [address], 09/11/2025 08:31:49 09/10/20 25 09/11/2025 LIPID PANEL LDL chol calc ([facility]) 71 mg/dL 0-99 Not Available [facility] ([facility]) [address] [place], [address], 09/11/2025 08:31:49 09/10/20 25 09/11/2025 LIPID PANEL LDL calc comment: STAMPER BLOCKER Not Available [facility] ([facility]) [address] [place], [address], 09/11/2025 08:31:49 09/10/2009/11/2025 VITAM IN D, 25-HY DROXY vitamin D, [...] um and D. Kurtis sullivan [place]: [facility] . 2. Dean godinez MF, Berta do [place], Natalia off-F errcassidy i BARBOSA, et al. Evalu ation , treat ment, and preve ntion of vitam in D defic iency : an Endoc rine Socie ty clini barrie pract ice guide line. JCEM. 2010; 96(7) :1911 -30. Not Available [facility] ([facility]) [address] [facility], [place], [address], 09/11/2025 08:31:50 09/10/20 25 09/11/2025 TSH RFX ON ABNOR MAL TO FREE T4 TSH 1.850 uIU/m L 0.450- 4.500 normal Not Available [facility] ([facility]) [address] [facility], [place], [address], 09/11/2025 08:31:50 09/10/20 25 09/11/2025 VITAM IN B12 vitamin B12 646 pg/mL 232-12 45 normal Not Available [facility] ([facility]) [address] [facility], [place], [address], 09/11/2025 08:31:51 09/10/20 25 09/10/2025 HbA1c (hemo globi n A1c), blood HbA1C 7.1 % Not Available [address] , [place], [address], 09/10/2025 08:21:55 09/10/20 25 09/10/2025 gluco se, ashutosh godinez, blood Blood Glucose: mg/dl 189 Not Available [address] , [place], [address], 09/10/2025 08:21:55 04/18/20 25 XR, elbow , 3 or more view No observ ation record ed. [email or web address] [address] , [place], [address], 04/23/2025 08:14:54 04/18/20 25 XR, humer us, 2 or more view No observ ation record ed. [address] , [place], [address], 04/23/2025 08:14:54 04/24/[address], upper arm, w/o contr ast No observ ation record ed. [facility] [address] [facility], [place], [address], 04/24/2025 11:41:29 05/18/20 25 05/17/2025 MRI, elbow , w/o contr ast No observ ation record ed. [facility] [address] , [place], [address], 05/18/2025 14:45:25 08/27/20 25 08/21/2025 CT, abdom en + pelvi s, w/o contr ast No observ ation record ed. [facility] (Medical Records) [address] , [place], [address], 08/27/2025 13:13:09 08/30/[address], abdom en + pelvi s, w/ contr ast No observ ation record ed. [facility] [address] [facility], [place], [address], 08/31/2025 14:44:36 09/10/20 25 US, gallb ladde r No observ ation record ed. [address] , [place], [address], 09/10/2025 12:02:40 09/10/20 25 09/05/2025 XR, thora cic spine , 4 or more view No observ ation record ed. [email or web address] Not Available 2024 13:39:04 Result Notes None recorded. 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 basal squamous under right side of the nose Paula Perez RN [address], [place], [address], [place] [facility] 0 08:19:08 History of repair of hip joint 278761795 Active Paula Perez RN [address], [place], [address], [place] [facility] 0 08:19:08 Type 2 diabetes mellitus 18792049 Active Paula Perez RN [address], [place], [address], [place] [facility] 0 08:19:08 Hyperlip idemia 94329531 Leilani Perez RN [address], [place], [address], [place] [facility] 0 08:19:08 Hyperten sive disorder 03184262 Active Paula Perez RN [address], [place], [address], [place] [facility] 0 08:19:08 History of malignan t lymphoma 144652011 Leilani Perez RN [address], [place], [address], [place] [facility] 0 08:19:08 Obesity 489811924 Active Paula Perez RN [address], [place], [address], [place] [facility] 0 08:19:08 Sleep apnea 71645487 Leilani Perez RN [address], [place], [address], [place] [facility] 0 08:19:08 Pulmonar y embolism 06915011 Active Paula Perez RN [address], [place], [address], [place] [facility] 0 08:19:08 Abnormal testoste addie 345445616 Active Paula Perez RN [address], [place], [address] [facility] 0 08:19:08 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 Paula Perez RN [address], [place], [address] [facility] 0 08:19:08 Exposure to SARS-CoV -2 Completed 201909/07/2024 Removal Reason: pt does not have covid now Mandie Mark null, [place] - [facility] 4 08:38:53 Mixed hyperlip idemia 809714950 Active 2020 Danielle Groves, [employer]PECT[employer] [address], [place], [address] [facility] 1 13:44:59 Non-Hodg kin's lymphoma (clinica l) 941126227 Active 2020 Danielle Groves, [employer]PECT[employer] [address], [place], [address] [facility] 1 13:45:00 Gastroes ophageal reflux disease without esophagi tis 466362857 Active 2020 Danielle Groves, [employer]PECT[employer] [address], [place], [address] [facility] 1 13:45:05 Anxiety 77250788 Active 2020 Danielle Groves, [employer]PECT[employer] [address], [place], [address] [facility] 1 13:45:07 Obstruct omi sleep apnea syndrome 08125768 Active 2020 Danielle Groves, [employer]PECT[employer] [address], [place], [address] [facility] 1 13:45:13 Degenera tion of lumbar interver tebral disc 91513820 Active 2020 Danielle Groves, [employer] [address], [place], [address], [place] [facility] 1 13:45:15 Osteoart hritis 287106541 Active 2020 Danielle Groves, [employer]PECT[employer] [address], [place], [address], [place] [facility] 1 13:45:18 Hypergly cemia due to type 2 diabetes mellitus 53195856800 9109 Active 2020 Danielle Groves, [employer] INSPECT[employer] [address], [place], [address] [facility] 1 13:45:20 Osteoart hritis of hip 973207816 Active 2020 Danielle Groves, [employer] INS[employer] [address], [place], [address], [place] [facility] 13:45:21 Testoste addie level below referenc e range 743581829 Active 2020 Danielle Groves, [employer] INSPECT[employer] [address], [place], [address] [facility] 13:45:25 Vitamin B12 deficien cy (non anemic) 67070985 Active 2020 Danielle Groves, [employer] [address], [place], [address] [facility] 13:45:35 Divertic ular disease 226072800 Active [address] 02-04-2024 Mandie Stears null, [place] [facility] 5 10:55:53 Pain of left hip joint 14385428429 9100 Completed 202311/16/2024 Mandie Stears null, [place] - [facility] 5 09:03:46 Osteoart hritis of left hip joint 39214916502 9108 Active 2023 Kunal Wiseman, DO [address], [place], [address], [place] [facility] 4 21:18:17 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 699049595 Active 2023 Kunal Wiseman, DO [address], [place], [address], [place] - [facility] 4 21:25:44 Somatic dysfunct ion of head region [id number] Completed 202311/16/2024 Mandie Stears null, [place] - [facility] 5 09:03:26 Cervical somatic dysfunct ion 569199928 Active 2023 Kunal Wiseman, DO [address], [place], [address], [place] - [facility] 4 21:29:12 Somatic dysfunct ion of thoracic region [id number] Completed 202311/16/2024 Mandie Stears null, [place] - [facility] 5 09:02:53 Somatic dysfunct ion of lumbar region [id number] Completed 202311/16/2024 Mandie Stears null, [place] - [facility] 5 09:03:21 Somatic dysfunct ion of pelvic region 870244061 Completed 202311/16/2024 Mand[place] Ste[place] [facility] 5 09:03:10 Somatic dysfunct ion of sacral region 412140724 Completed 202311/16/2024 Mand[place] Ste[place] [facility] 5 09:02:58 Somatic dysfunct ion of lower limb 472252349 Completed 202311/16/2024 [place] [facility] 5 09:03:16 Somatic dysfunct ion of upper limb 686693566 Completed 202311/16/2024 Mand[place] [facility] 5 09:02:47 Somatic dysfunct ion of rib 977785809 Completed 202311/16/2024 Mand[place] [facility] 5 09:03:03 Pain of left knee joint 84876437671 4107 Completed 202311/16/2024 Mandie Deedee [place] [facility] 5 09:03:41 Deep venous thrombos is of lower extremit y 857724301 Active 2023 Kelsey Peralta, [employer] INSPECT[employer] [address], [place], [address], [place] [facility] 4 10:16:29 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 43873560 Active 2024 Mandie Barries [place] [facility] 5 09:04:44 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 724920889 Active 2024 Kelsey Peralta, [employer] INS[employer] [address], [place], [address], [place] [facility] 5 16:57:16 Notes:Some problems listed i n Document: #[id number] could not be added to this patient's [...] [place] [facility] 11/16/2024 12:36:14 09/18/20 24 total replacement of hip completed Mandie Mark [place] [facility] 04/17/2025 10:34:26 08/09/20 24 Cryosurgery Dermatology completed Yolaambar Goddard, [employer]PECTOR [address], [place], [address], [place] [facility] 08/09/2024 18:22:52 08/07/20 24 A1C level 6.9 and below completed Elizabeth [place] [facility] 08/07/2024 08:23:04 08/02/20 24 OMT completed Kunal Wiseman DO [address], [place], [address], [place] [facility] 08/01/2024 21:28:42 04/24/20 A1C [...] 06/17/2023 08:24:49 05/12/20 23 Cryosurgery Dermatology completed Yola Goddard APRN [address], [place], [address], [place] [facility] 05/12/2023 17:48:37 03/04/20 A1C level 7.0 to 7.9 completed [place] [facility] 03/04/2023 08:27:24 01/05/20 23 Cryosurgery Dermatology completed Yola Goddard APRN [address], [place], [address], [place] [facility] 01/04/2023 18:14:32 11/26/19 23 A1C level 6.9 and below completed Eilzabeth [place] [facility] 11/26/2022 08:43:45 11/18/19 23 Cryosurgery Dermatology completed Yola Goddard APRN [address], [place], [address], [place] [facility] 11/18/2022 18:02:12 08/19/20 22 Cryosurgery Dermatology completed Yola Goddard APRN [address], [place], [address], [place] [facility] 08/19/2022 15:45:48 08/17/20 Negative Microalbumin completed [place] Vijaya [place] [facility] 08/17/2022 08:40:32 08/17/20 A1C level 7.0 to 7.9 completed [place]ijaya [place] [facility] 08/17/2022 08:40:28 05/13/20 A1C level 7.0 to 7.9 completed [place]ij[place] [facility] 05/13/2022 08:52:34 04/09/20 Shave Biopsy trunk, arms, or legs completed Yola Goddard, [employer] INSPECTOR [address], [place], [address], [place] [facility] 04/09/2022 17:50:49 01/22/20 A1C [...] Systolic B/P 130-139 mm Hg completed Elizabeth [place] [facility] 08/07/2020 16:28:44 08/07/20 20 A1C level 6.9 and below completed [place]ij[place] [facility] 08/07/2020 16:31:37 05/29/20 20 Suture/Staple removal completed Yola Goddard APRN [address], [place], [address], [place] [facility] 05/29/2020 18:32:14 05/22/20 Systolic B/P less than 130 mm Hg completed Elizabeth [place] [facility] 05/22/2020 08:33:33 05/22/20 Diastolic B/P less than 80 mm Hg completed [place]ij[place] [facility] 05/22/2020 08:33:41 05/22/20 Negative Microalbumin completed Elizabeth [place] [facility] 05/22/2020 08:38:31 05/22/20 20 A1C level 6.9 and below completed [place]ij[place] [facility] 05/22/2020 08:39:11 05/16/20 20 Punch Biopsy completed Yola Goddard APRN [address], [place], [address], [place] [facility] 05/16/2020 14:48:13 02/21/20 Systolic B/P less than 130 mm Hg completed [place] Reyes [place] [facility] 02/21/2020 08:37:54 02/21/20 Diastolic B/P 80-89 mm Hg completed Jamila Jackcell [place] [facility] 02/21/2020 08:38:00 02/21/20 20 A1C level 6.9 and below completed Jamila Jackcell [place] [facility] 02/21/2020 08:39:41 11/22/19 Diastolic B/P 80-89 mm Hg completed [place]ij[place] [facility] 11/22/2019 08:24:23 11/22/19 20 Systolic B/P 130-139 mm Hg completed [place]ij[place] [facility] 11/22/2019 08:24:03 11/22/19 20 A1C level 6.9 and below completed [place]ij[place] [facility] 11/22/2019 08:26:46 05/22/20 19 A1C level 6.9 and below completed Jamila Reyes [place] [facility] 05/22/2019 09:27:56 02/21/20 19 A1C level 6.9 and below completed [place] [facility] 02/20/2019 08:37:09 01/19/20 19 Suture/Staple removal completed Yolaambar Goddard [employer] INS[employer] [address], [place], [address], [place] [facility] 01/18/2019 08:55:01 01/12/20 19 Punch Biopsy completed Yolaambar Goddard [employer] [address], [place], [address], [place] [facility] 01/11/2019 11:04:43 11/21/19 19 A1C level 6.9 and below completed Elizabeth [place] [facility] 11/21/2018 08:30:52 09/28/20 18 Suture/Staple removal completed Yolaambar Goddard APRN [address], [place], [address], [place] [facility] 09/28/2018 10:49:02 09/21/20 18 Punch Biopsy completed Yolaambar Goddard [employer] [address], [place], [address], [place] [facility] 09/21/2018 13:11:42 07/13/20 18 Cryosurgery Dermatology completed Yola Rupesh [employer] INSPECTOR [address], [place], [address], [place] [facility] 07/13/2018 08:51:18 Mohs surgery completed Mandiemike Soods [place] [facility] 07/16/2020 16:46:04 Colonoscopy [...] Name and Address Organization Details Recorded Time 886488 Product containin g 3-hydroxy -3-methyl glutaryl- coenzyme A reductase inhibitor (product) medicatio n myalgias (muscle pain) moderate Not available 02/20/2019 37525 009 SNOMED Danielle Aubrey Groves, [employer] INSPECTOR [address], [place], [address], [place] [facility] 9 08:50:22 [id number] [facility] medicatio n Not available Not available Not available 08/07/2024 12858 34 RxNorm diver ticul itis Elizabeth Vijaya [facility], [place] - [facility] 4 08:17:36 Medications [...] Recorded on: 06/17/20 16 2:01PM;U ser: [email or web address] Yu Completi on: 07/01/20 16;Print ed: 06/17/20 16 [...] nued on: 10/07/20 12 9:33AM;U ser: vinicius TuttleEstYinka Completi on: 03/25/20 12;Indic ation: Otitis Externa [...] nued on: 03/10/20 10 10:42AM; User: vinicius Baptiste on: 02/14/20 10;Print ed: 02/04/20 10 [...] TIMES PER DAY for 4 weeks on sivakumar davalos arms 12/23 completed Not Available Not Available [...] Available Not Available Not Available Hypodermi c [place] 23 gauge x 1 USE DIRECTED FOR [...] Disconti nued on: 07/17/20 15 9:33AM;U ser: [email or web address] ;Est. Completi on: 04/03/20 15;Print ed: 10/05/20 [...] on: 05/18/20 14 11:59AM; User: vinicius Peña Completi on: 12/05/19 14;Indic ation: Cough - [...] sodium 75 mg oral tablet,d elayed release (/JOCELINE); Recorded Status: Recorded on: 08/04/20 08 10:04PM; [...] ation: Cerebral Thromboe mbolism Preventi on - (07.4349 02);Prin quinten: 10/05/20 11 Not Available Not Available [...] Available Not Available No t Available Coumadin 12/02/ 2011 12/05 /2011 completed Coumadin Oral;Rec orded Status: Recorded on: 10/02/20 11 11:41AM; Disconti nued Status: Disconti nued on: 10/05/20 11 10:19AM; User: estepl;I ndicatio n: Cerebral Thromboe mbolism Preventi on - (9 ) Not Available Not Available Not Available Vitamin D 5,000 IU daily x 2 active Not Available Not Available No t Available BD Regular Bevel [place] 18 gauge x 1 1/2 USE DIRECTED [...] Disconti nued on: 07/17/20 13 1:18PM;U ser: [facility];Ambar st. Baptiste on: 10/24/20 13;Print ed: 04/27/20 13 Not [...] active Not Available Not Available Not Avai labshelby Vitals Date Recorded Body height Body mass index (BMI) Body weight Body temperature Heart rate Oxygen saturation Respiratory rate Pain severity - 0-10 verbal numeric rating [Score] - Reported Systolic And Diastolic Provider Name and Address Organization Details Last Updated DateTime 5 182.88 cm 37.6 kg/m2 572777. 09 g 98.5 [degF] 81 /min 97 % 20 /min 0 126/80 mm[Hg] Elizabeth [place] - [facility] 5 08:27:52 Date Recorded Body height Provider Name an d Address Organization Details Last Updated DateTime 07/23/2025 182.88 cm Mandie Soodchristine [place] - [facility] 07/23 13:02:11 Date Recorded Body height Body mass index (BMI) Body weight Heart rate Oxygen saturation Respiratory rate Pain severity - 0-10 verbal numeric rating [Score] - Reported Systolic And Diastolic Provider Name and Address Organization Details Last Updated DateTime 5 182.88 cm 37.2 kg/m2 249640. 31 g 81 /min 98 % 18 /min 0 128/78 mm[Hg] Valeria Hardwick [place] - [facility] 5 08:24:22 Date Recorded Body height Body mass index (BMI) Body weight Respiratory rate Body temperature Heart rate Oxygen saturation Systolic And Diastolic Provider Name and Address Organization Details Last Updated DateTime 5 182.88 cm 37.3 kg/m2 652911. 9 g 18 /min 98.2 [degF] 90 /min 95 % 142/88 mm[Hg] Mandie Soods [place] - [facility] 5 09:52:10 Date Recorded Body height Body mass index (BMI) Body weight Body temperature Heart rate Oxygen saturation Respiratory rate Pain severity - 0-10 verbal numeric rating [Score] - Reported Systolic And Diastolic Provider Name and Address Organization Details Last Updated DateTime 5 182.88 cm 37.4 kg/m2 042401. 19 g 98.7 [degF] 82 /min 98 % 18 /min 0 132/72 mm[Hg] Elizabeth [place] [facility] 08:48:34 Social History Question Answer Notes LastModified by Organizat ion Details LastModified Time Tobacco Smoking Status Former Smoker Not Available [facility] 08/16/2020 03:17:10 Able To Swim? No Information not available 09/29/2016 Do You Have An Advance Directive? No [id number] Information not available 08/16/2020 Do You Wear A Helmet When Biking? No [id number] Information not available 08/16/2020 Are You Blind Or Do You Have Difficulty Seeing? No [id number] Information not available 08/16/2020 What Is Your Level Of Caffeine Consumption? Moderate [id number] Information not available 08/16/2020 How Much Tobacco Do You Chew? 1/day Information not available 08/27/2025 Are You Deaf Or Do You Have Serious Difficulty Hearing? No [id number] Information not available 08/16/2020 What Type Of Diet Are You Following? REGULAR [id number] Information not available 08/16/2020 Which Illicit Or Recreational Drugs Have You Used? None [id number] Information not available 08/16/2020 What Is The Highest Grade Or Level Of School You Have Completed Or The Highest Degree You Have Received? [id number] Information not available 08/27/2025 Swimming/diving No Informati [...] Do You Have A Medical Power Of Metrology Engineer? No Information not available 08/27/2025 What Was The Date Of Your Most Recent Tobacco Screening? 02/01/2025 Information not available 02/01/2025 How Many Children Do You Have? 3 [id number] Information not available 08/16/2020 What Is Your Current Pack Years? 10-19pahelga king Information not available 03/04/2023 Do You Use Protection During Sex? No [id number] Information not available 08/16/2020 What Is Your Relationship Status? [id number] Information not available 08/16/2020 Seat Belts Used Routinely Yes Information not available 09/29/2016 Are You Sexually Active? Yes [id number] Information not available 08/16/2020 Smoke Alarm In Home Yes Information not available 09/29/2016 At What Age Did You Start Smoking Tobacco? 11 Information not available 03/04/2023 Are You Passively Exposed To Smoke? No Information no t available 09/29/2016 How Much Tobacco Do You Smoke? No [email or web address] Information not available 01/12/2024 General Stress Level Medium Information not available 09/29/2016 Do You Use Sunscreen Routinely? No [id number] Information not available 08/16/2020 Has Tobacco Cessation Counseling Been Provided? Yes Information not available 03/04/2023 On What Date Was Tobacco Cessation Counseling Provided? 02/01/2025 Information not available 02/01/2025 How Many Years Have You Smoked Tobacco? 20 Information not available 03/04/2023 Do You Have Difficulty Walking Or Climbing Stairs? No [id number] Information not available 08/16/2020 Sex: Male Functional Status Question Answer Note LastModified by Organizat ion Details LastModified Time Do you or have you ever used smokeless tobacco? Currently chews tobacco Information not available 08/27/2025 Are you currently employed? Yes [id number] Information not available 08/16/2020 Do you have transportation difficulties? No Information not available 08/27/2025 Are you able to care for yourself independently? Yes [id number] Information not available 08/16/2020 Do you have difficulty dressing, bathing, grooming, or toileting? No [id number] Information not available 08/16/2020 Do you or have you ever used e-cigarettes or vape? Never used electronic cigarettes [id number] Information not available 08/16/2020 What is your exercise level? None [id number] Information not available 08/16/2020 Do you use any illicit or recreational drugs? No Information not available 08/27/2025 Do you or have you ever used any other forms of tobacco or nicotine? Yes Information not available 08/27/2025 What is your level of alcohol consumption? None [id number] Information not available 08/16/2020 Are you able to walk independently without assistance or assistive devices? YESWOREST [id number] Information not available 08/16/2020 Do you have difficulty doing errands alone? 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 [id number] Information not available 08/27/2025 Do you have difficulty concentrating, remembering or making decisions? No [id number] Information no t available 08/16/2020 Family History [...] available 05/2023 16:13:59 Medical History Condition Response Diabetes Y Vitamin B12 Deficiency Y Allergies/Hayfever Y Hypertension Y Immunizations Vaccine Type Date Status Note Provider Nam e and Address Organization Details Recorded Time Influenza, split virus, quadrivalent, PF 1 completed Elizabeth bl[place], [place] [facility] 07/22/2021 09:50:07 Influenza, split virus, quadrivalent, preservative 2 completed Danielle Aubreyyumiko Groves, [employer] INSPECTOR [address], [place], [address], [place] [facility] 08/17/2022 08:50:47 Tdap 2 completed Not Available [facility] 09/03/2020 14:44:39 Influenza, split virus, quadrivalent, preservative 8 completed Not Available [facility] 11/18/2019 03:55:23 Influenza, split virus, quadrivalent, preservative 9 completed Not Available [facility] 11/18/2019 03:56:07 Past Encounters Encounter ID Performer Location Encounter Start Date Encounter Closed Date Diagnosis/Indication Diagnosis SNOMED-CT Code Diagnosis ICD10 Code Diagnosis IMO Codes Diagnosis Note [id number] [facility] [address] [place] [address] 02/03/2010 00:00:00 [id number] [facility] [address] [place] [address] 03/10/2010 00:00:00 [id number] [facility] [address] [place] [address] 04/02/2011 00:00:00 [id number] [facility] [address] [place] [address] 10/19/2011 00:00:00 [id number] [facility] [address] [place] [address] 11/03/2011 00:00:00 [id number] [facility] [address] [place] [address] 04/06/2011 00:00:00 [id number] [facility] [address] [place] [address] 04/21/2011 00:00:00 [id number] [facility] [address] [place] [address] 12/04/2011 00:00:00 [id number] [facility] [address] [place] [address] 06/02/2011 00:00:00 [id number] [facility] [address] [place] [address] 01/07/2012 00:00:00 [id number] [facility] [address] [place] [address] 06/30/2011 00:00:00 [id number] [facility] [address] [place] [address] 08/25/2011 00:00:00 [id number] [facility] [address] [place] [address] 10/05/2011 00:00:00 [id number] [facility] [address] [place] [address] 10/19/2011 00:00:00 [id number] [facility] [address] [place] [address] 01/07/2012 00:00:00 [id number] [facility] [address] [place] [address] 01/21/2012 00:00:00 [id number] [facility] [address] [place] [address] 03/04/2012 00:00:00 [id number] [facility] [address] [place] [address] 03/17/2012 00:00:00 [id number] [facility] [address] [place] [address] 03/22/2012 00:00:00 [id number] [facility] [address] [place] [address] 10/07/2012 00:00:00 [id number] [facility] [address] [place] [address] 10/07/2012 00:00:00 [id number] [facility] [address] [place] [address] 03/31/2013 00:00:00 [id number] [facility] [address] [place] [address] 04/25/2013 00:00:00 [id number] [facility] [address] [place] [address] 06/06/2013 00:00:00 [id number] [facility] [address] [place] [address] 06/06/2013 00:00:00 [id number] [facility] [address] [place] [address] 10/13/2013 00:00:00 [id number] [facility] [address] [place] [address] 11/13/2013 00:00:00 [id number] [facility] [address] [place] [address] 02/16/2008 00:00:00 [id number] [facility] [address] [place] [address] 11/30/2008 00:00:00 [id number] [facility] [address] [place] [address] 11/16/2013 00:00:00 [id number] [facility] [address] [place] [address] 11/28/2013 00:00:00 [id number] [facility] [address] [place] [address] 12/05/2013 00:00:00 [id number] [facility] [address] [place] [address] 12/08/2013 00:00:00 [id number] [facility] [address] [place] [address] 12/26/2013 00:00:00 [id number] [facility] [address] [place] [address] 05/18/2014 00:00:00 [id number] [facility] [address] [place] [address] 06/04/2014 00:00:00 [id number] [facility] [address] [place] [address] 10/05/2014 00:00:00 [id number] [facility] [address] [place] [address] 01/11/2015 00:00:00 [id number] [facility] [address] [place] [address] 02/15/2015 00:00:00 [id number] [facility] [address] [place] [address] 02/15/2015 00:00:00 [id number] [facility] [address] [place] [address] 07/16/2015 00:00:00 [id number] [facility] [address] [place] [address] 10/22/2015 00:00:00 [id number] [facility] [address] [place] [address] 04/14/2016 00:00:00 [id number] [facility] [address] [place] [address] 06/17/2016 00:00:00 [id number] Danielle Groves APRN [address] [place] , [place] [address] 09/29/2016 08:30:31 09/29/2016 09:19:25 Body mass index 30+ - obesity 806961590 Z68.39 Non-Hodgki n's lymphoma (clinical) 047497526 C85.90 Vitamin B1 2 deficiency (non anemic) 12216812 E53.8 Type 2 laci betes mellitus without complication 425073299 E11.9 [id number] Daneille Groves [address] [place] [address] 12/09/2016 11:45:09 12/09/2016 13:07:42 Globus sensation 89721578 F45.8 Dyspnea on exertion 6084 5006 R06.09 Temporoman dibular joint disorder 75326306 M26.623 Non-Hodgki n's lymphoma (clinical) 718342952 C85.90 [id number] Roel Duong MD [address] [place] [address] 01/15/2017 15:50:33 01/15/2017 16:24:15 Acute maxillary sinusitis 42242709 J01.00 [id number] Danielle Groves [address] [place] [address] 04/07/2017 08:15:07 04/07/2017 09:09:35 Vaccine declined by patient 3690813182 02 Z28.21 Body mass index 30+ - obesity 896635739 Z68.39 Non-Hodgki n's lymphoma (clinical) 109886950 C85.90 Vitamin B1 2 deficiency (non anemic) 21608701 E53.8 Type 2 laci betes mellitus without complication 538411679 E11.9 Mixed hyperlipidemia 267 981897 E78.2 Vitamin D deficiency 347 90563 E55.9 Nocturia 002765685 R35.1 Gastroesop hageal reflux disease without esophagitis 078149074 K21.9 [id number] Danielle Groves [employer] INSPECTOR [address] [place] [address] 07/13/2017 07:57:08 07/13/2017 08:26:33 Vaccine declined by patient 5603215684 02 Z28.21 Body mass index 30+ - obesity 196678875 Z68.39 Non-Hodgki n's lymphoma (clinical) 491656507 C85.90 Vitamin B1 2 deficiency (non anemic) 26951898 E53.8 Type 2 laci betes mellitus without complication 823266799 E11.9 Mixed hyperlipidemia 267 099985 E78.2 Vitamin D deficiency 347 11711 E55.9 Gastroesop hageal reflux disease without esophagitis 477005896 K21.9 [id number] Roel Duong MD [address] [place] [address] 10/15/2017 08:09:27 10/15/2017 09:02:51 Upper respiratory infection 26592827 J06.9 Influenza caused by Influenza B virus 47537529 J10.1 [id number] Danielle Groves [address] [place] [address] 10/26/2017 08:26:05 10/26/2017 09:21:07 Vaccine declined by patient [id number] 02 Z28.21 Body mass index 30+ - obesity 110354893 Z68.38 Non-Hodgki n's lymphoma (clinical) 715581597 C85.90 Vitamin B1 2 deficiency (non anemic) 82387963 E53.8 Type 2 laci betes mellitus without complication 789787943 E11.9 Mixed hyperlipidemia 267 249302 E78.2 Vitamin D deficiency 347 92339 E55.9 Gastroesop hageal reflux disease without esophagitis 703592774 K21.9 Thyroid nodule 060220764 E04.1 [id number] Danielle Groves [address] [place] [address] 12/08/2017 08:44:43 12/08/2017 09:08:00 Abnormal testosterone 411973751 R94.7 Vaccine de clined by patient [id number] 02 Z28.21 Body mass index 30+ - obesity 562803816 Z68.39 Non-Hodgki n's lymphoma (clinical) 145119518 C85.90 Vitamin B1 2 deficiency (non anemic) 54230275 E53.8 Type 2 laci betes mellitus without complication 615871868 E11.9 Mixed hyperlipidemia 267 921828 E78.2 Vitamin D deficiency 347 76812 E55.9 Gastroesop hageal reflux disease without esophagitis 143158243 K21.9 Thyroid nodule 480164099 E04.1 Anxiety 26226704 F41.9 [id number] Danielle Groves [address] [place] [address] 01/25/2018 08:33:51 01/25/2018 09:26:00 Body mass index 30+ - obesity 710247407 Z68.38 Non-Hodgki n's lymphoma (clinical) 969094366 C85.90 Vitamin B1 2 deficiency (non anemic) 57664236 E53.8 Type 2 laci betes mellitus without complication 907094401 E11.9 Mixed hyperlipidemia 267 072943 E78.2 Vitamin D deficiency 347 70936 E55.9 Gastroesop hageal reflux disease without esophagitis 320249812 K21.9 Thyroid nodule 028031019 E04.1 Acute bronchitis 2085914 2 J20.9 [id number] Danielle Groves [address] [place] [address] 03/07/2018 07:58:32 03/07/2018 12:06:43 Type 2 diabetes mellitus without complication 940503338 E11.9 Body mass index 30+ - obesity 548695207 Z68.39 Non-Hodgki n's lymphoma (clinical) 042719989 C85.90 Vitamin B1 2 deficiency (non anemic) 10844941 E53.8 Mixed hyperlipidemia 267 356923 E78.2 Vitamin D deficiency 347 11109 E55.9 Gastroesop hageal reflux disease without esophagitis 337803264 K21.9 Thyroid nodule 321712361 E04.1 Hernia of anterior abdominal wall 491856880 K43.9 [id number] Danielle Groves [address] [place] [address] 05/11/2018 08:07:42 05/11/2018 09:07:05 Obstructive sleep apnea syndrome 00723515 G47.33 Type 2 laci betes mellitus without complication 677326022 E11.9 Body mass index 30+ - obesity 890658638 Z68.38 Non-Hodgki n's lymphoma (clinical) 595413913 C85.90 Vitamin B1 2 deficiency (non anemic) 38322557 E53.8 Mixed hyperlipidemia 267 050009 E78.2 Vitamin D deficiency 347 67569 E55.9 Gastroesop hageal reflux disease without esophagitis 918207722 K21.9 Thyroid nodule 552707496 E04.1 Anxiety 89812191 F41.9 Hernia of anterior abdominal wall 378228802 K43.9 Screening for malignant neoplasm of colon 934896535 Z12.11 Fatigue 59452107 R53.83 Nocturia 583789967 R35.1 Renewal of prescription 696804598 Z76.0 [id number] Yola Goddard APRN [address] 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 [address] 07/13/2018 07:59:32 07/13/2018 08:50:32 Multiple actinic keratoses 133792608 L57.0 [id number] Danielle Groves [address] [place] [address] 08/10/2018 07:55:37 08/10/2018 09:05:51 Administration of influenza vaccine 67042126 Z23 Type 2 laci betes mellitus without complication 559382255 E11.9 Body mass index 30+ - obesity 356260775 Z68.38 Non-Hodgki n's lymphoma (clinical) 898237565 C85.90 Mixed hyperlipidemia 267 440282 E78.2 Vitamin D deficiency 347 27480 E55.9 Gastroesop hageal reflux disease without esophagitis 585778158 K21.9 Thyroid nodule 005094736 E04.1 Anxiety 36694389 F41.9 Obstructiv e sleep apnea syndrome 20604213 G47.33 Vitamin B1 2 deficiency (non anemic) 37487952 E53.8 [id number] Yola Goddard APRN [address] [place] [address] 09/21/2018 08:31:11 09/21/2018 09:44:07 Neoplasm of uncertain behavior of skin 00316835 D48.5 8 mm punch completed in clinic today [id number] Yola Goddard APRN [address] [place] [address] 09/28/2018 07:48:28 09/28/2018 08:31:57 Removal of suture 82664677 Z48.02 patient tolerated well Nodular ba juni cell carcinoma of skin 081796373 C44.91 Patient and I discussed proceeding with a smaller 8 mm excision around biopsy site in attempt to obtain clear margins vs pursuing a wide excision. He is going to think it over and we will pursue surgical follow up after [place]. [id number] Danielle Groves APRN [address] [place] [address] 11/21/2018 08:03:09 11/21/2018 09:03:08 Type 2 diabetes mellitus without complication 793364998 E11.9 Body mass index 30+ - obesity 937688147 Z68.38 Non-Hodgki n's lymphoma (clinical) 461855212 C85.90 Mixed hyperlipidemia 267 036331 E78.2 Vitamin D deficiency 347 00645 E55.9 Gastroesop hageal reflux disease without esophagitis 758790231 K21.9 Thyroid nodule 457076872 E04.1 Anxiety 48618118 F41.9 Obstructiv e sleep apnea syndrome 08173759 G47.33 Vitamin B1 2 deficiency (non anemic) 80005292 E53.8 Renewal of prescription 853136804 Z76.0 [id number] Yola Goddard APRN [address] [place] [address] 01/11/2019 07:49:11 01/11/2019 09:04:10 Nodular basal cell carcinoma of skin 857919447 C44.91 8 mm punch completed around biopsy scar completed today in effort to avoid a larger excision. [id number] Danielle Groves APRN [address] [place] [address] 01/17/2019 09:45:44 01/17/2019 11:00:43 Type 2 diabetes mellitus without complication 633448175 E11.9 Body mass index 30+ - obesity 654894682 Z68.38 Non-Hodgki n's lymphoma (clinical) 008975724 C85.90 Mixed hyperlipidemia 267 784430 E78.2 Vitamin D deficiency 347 31377 E55.9 Gastroesop hageal reflux disease without esophagitis 086614519 K21.9 Thyroid nodule 772921992 E04.1 Anxiety 89015952 F41.9 Obstructiv e sleep apnea syndrome 66520034 G47.33 Vitamin B1 2 deficiency (non anemic) 53712153 E53.8 Pain in right knee 83857 06355 84175 M25.561 Pain of ri ght hip joint 6189015539 73822 M25.551 Low back pain 359680256 M54.5 Neuropathy 314693102 G62 .9 [id number] Yola Goddard [address] [place] [address] 01/18/2019 07:49:41 01/18/2019 09:27:09 Removal of suture 28614200 Z48.02 patient tolerated well [id number] Danielle Groves [address] [place] [address] 02/20/2019 08:08:39 02/20/2019 13:46:53 Type 2 diabetes mellitus without complication 326402586 E11.9 Body mass index 30+ - obesity 080680646 Z68.41 Non-Hodgki n's lymphoma (clinical) 829754535 C85.90 Mixed hyperlipidemia 267 949114 E78.2 Vitamin D deficiency 347 23377 E55.9 Gastroesop hageal reflux disease without esophagitis 208872357 K21.9 Thyroid nodule 019717940 E04.1 Anxiety 81730464 F41.9 Obstructiv e sleep apnea syndrome 22430965 G47.33 Vitamin B1 2 deficiency (non anemic) 29080455 E53.8 Renewal of prescription 431526946 Z76.0 Nocturia 439657648 R35.1 Pain of ri ght hip joint 1259922069 57000 M25.438 [id number] Danielle Groves [address] [place] [address] 05/22/2019 08:49:19 05/22/2019 09:54:13 Type 2 diabetes mellitus without complication 665560536 E11.9 Body mass index 30+ - obesity 132490370 Z68.41 Non-Hodgki n's lymphoma (clinical) 317157148 C85.90 Mixed hyperlipidemia 267 726505 E78.2 Vitamin D deficiency 347 77195 E55.9 Gastroesop hageal reflux disease without esophagitis 562754553 K21.9 Anxiety 99994075 F41.9 Obstructiv e sleep apnea syndrome 34357064 G47.33 Vitamin B1 2 deficiency (non anemic) 90354243 E53.8 Renewal of prescription 141892994 Z76.0 [id number] Yola Goddard [address] [place] [address] 05/23/2019 07:52:13 05/23/2019 08:27:52 History of malignant basal cell neoplasm of skin 886392977 Z85.828 no recurrence Actinic keratosis 618181 007 L57.0 previously successful ly treated with cryo. New scaling papules today - we discussed waiting for cooler months to treat with cryo. return in September or October [id number] Danielle Groves [address] [place] [address] 08/22/2019 08:19:37 08/22/2019 14:35:16 Administration of influenza vaccine 93801032 Z23 Type 2 laci betes mellitus without complication 219304360 E11.9 Body mass index 30+ - obesity 236511834 Z68.41 Non-Hodgki n's lymphoma (clinical) 212488926 C85.90 Mixed hyperlipidemia 267 804848 E78.2 Vitamin D deficiency 347 58850 E55.9 Gastroesop hageal reflux disease without esophagitis 283299871 K21.9 Anxiety 76344359 F41.9 Obstructiv e sleep apnea syndrome 07776341 G47.33 Vitamin B1 2 deficiency (non anemic) 09172691 E53.8 Renewal of prescription 606100271 Z76.0 Degenerati on of lumbar intervertebral disc 32279888 M51.36 [id number] Danielle Groves [address] [place] [address] 11/22/2019 08:10:05 11/22/2019 08:42:31 Type 2 diabetes mellitus without complication 665541485 E11.9 Body mass index 30+ - obesity 089187808 Z68.39 Non-Hodgki n's lymphoma (clinical) 810912599 C85.90 Mixed hyperlipidemia 267 811961 E78.2 Vitamin D deficiency 347 33913 E55.9 Gastroesop hageal reflux disease without esophagitis 253912845 K21.9 Anxiety 15262386 F41.9 Obstructiv e sleep apnea syndrome 36879327 G47.33 Vitamin B1 2 deficiency (non anemic) 60190479 E53.8 Degenerati on of lumbar intervertebral disc 46533579 M51.36 Hyperglyce juli due to type 2 diabetes mellitus 3873394273 51766 E11.65 Osteoarthritis 328763760 M19.90 [id number] Danielle Groves APRN [address] [place] [address] 01/15/2020 08:26:02 01/15/2020 09:35:30 Type 2 diabetes mellitus without complication 683423821 E11.9 Body mass index 30+ - obesity 382262512 Z68.39 Non-Hodgki n's lymphoma (clinical) 464659886 C85.90 Mixed hyperlipidemia 267 205567 E78.2 Vitamin D deficiency 347 55739 E55.9 Gastroesop hageal reflux disease without esophagitis 888294084 K21.9 Anxiety 56096353 F41.9 Obstructiv e sleep apnea syndrome 43076330 G47.33 Vitamin B1 2 deficiency (non anemic) 26974901 E53.8 Degenerati on of lumbar intervertebral disc 65302235 M51.36 Hyperglyce juli due to type 2 diabetes mellitus 1795676853 31102 E11.65 Osteoarthritis 555747920 M19.90 Injury of finger 0624925 8 S69.91XA Fatigue 11316078 R53.83 Nocturia 096326425 R35.1 [id number] Danielle Aubrey Germain, [address] [place] [address] 02/21/2020 08:19:13 02/21/2020 09:10:28 Renewal of prescription 652086594 Z76.0 Type 2 laci betes mellitus without complication 283339775 E11.9 Body mass index 30+ - obesity 357681826 Z68.39 Non-Hodgki n's lymphoma (clinical) 733000769 C85.90 Mixed hyperlipidemia 267 228932 E78.2 Vitamin D deficiency 347 67869 E55.9 Gastroesop hageal reflux disease without esophagitis 087492857 K21.9 Anxiety 83380119 F41.9 Obstructiv e sleep apnea syndrome 19964823 G47.33 Vitamin B1 2 deficiency (non anemic) 66963616 E53.8 Degenerati on of lumbar intervertebral disc 04920573 M51.36 Osteoarthritis 716625170 M19.90 Hyperglyce juli due to type 2 diabetes mellitus 9238189937 16881 E11.65 [id number] Yola Goddard [address] [place] [address] 04/16/2020 17:23:38 04/16/2020 18:28:40 Multiple actinic keratoses 566962116 L57.0 History of malignant basal cell neoplasm of skin 163473543 Z85.828 no recurrence Sebaceous cyst of skin 650812263 L72.3 discussed removal - defers at this time, may re-conside r upper back Hemosideri n pigmentation of skin 628632171 L81.8 [id number] Danielle Groves [address] [place] [address] 04/22/2020 16:34:27 04/22/2020 17:05:12 Type 2 diabetes mellitus without complication 965052576 E11.9 Body mass index 30+ - obesity 002447930 Z68.39 Non-Hodgki n's lymphoma (clinical) 887202066 C85.90 Mixed hyperlipidemia 267 531561 E78.2 Vitamin D deficiency 347 03462 E55.9 Gastroesop hageal reflux disease without esophagitis 691290714 K21.9 Anxiety 74315194 F41.9 Obstructiv e sleep apnea syndrome 12228543 G47.33 Vitamin B1 2 deficiency (non anemic) 30024871 E53.8 Degenerati on of lumbar intervertebral disc 57120988 M51.36 Osteoarthritis 711475373 M19.90 Hyperglyce juli due to type 2 diabetes mellitus 0041291203 65630 E11.65 Osteoarthritis of hip 23 3985155 M16.9 [id number] Yola Goddard APRN [address] [place] [address] 05/16/2020 13:42:56 05/16/2020 15:22:05 Epidermoid cyst of skin 812866487 L72.3 [id number] Danielle Groves [address] [place] [address] 05/22/2020 08:15:27 05/22/2020 09:39:43 Type 2 diabetes mellitus without complication 103097262 E11.9 Body mass index 30+ - obesity 231892028 Z68.39 Non-Hodgki n's lymphoma (clinical) 741233417 C85.90 Mixed hyperlipidemia 267 699624 E78.2 Vitamin D deficiency 347 95277 E55.9 Gastroesop hageal reflux disease without esophagitis 040078348 K21.9 Anxiety 37888408 F41.9 Obstructiv e sleep apnea syndrome 44845278 G47.33 Vitamin B1 2 deficiency (non anemic) 74756451 E53.8 Degenerati on of lumbar intervertebral disc 39661551 M51.36 Osteoarthritis 086639693 M19.90 Hyperglyce juli due to type 2 diabetes mellitus 8457675014 58613 E11.65 Osteoarthritis of hip 23 3185437 M16.9 Testostero ne level below reference range 756338942 R79.89 Hepatitis C screening 41 7648659 Z11.59 Long-term drug therapy 916919380 Z79.899 Dizziness 245742236 R42 Fatigue 50876870 R53.83 [id number] Yola Goddard APRN [address] [place] [address] 05/29/2020 17:54:37 05/29/2020 18:07:56 Removal of suture 20676489 Z48.02 patient tolerated well Epidermoid cyst of skin 031725756 L72.3 pathology discussed , note: entire cyst was unable to be removed per clinical impression [id number] Yola Goddard APRN [address] [place] [address] 07/16/2020 16:40:10 07/16/2020 17:56:36 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 Multiple a ctinic keratoses 864324843 L57.0 Apply topical Efudex 2x for 4 weeks on arms and x2 weeks on left lateral neck when weather gets cooler [id number] Danielle Groves APRN [address] [place] [address] 08/07/2020 16:16:13 08/07/2020 16:56:40 Type 2 diabetes mellitus without complication 172691912 E11.9 Body mass index 30+ - obesity 426899753 Z68.39 Non-Hodgki n's lymphoma (clinical) 473306241 C85.90 Mixed hyperlipidemia 267 637955 E78.2 Vitamin D deficiency 347 72984 E55.9 Gastroesop hageal reflux disease without esophagitis 164623721 K21.9 Anxiety 69997018 F41.9 Obstructiv e sleep apnea syndrome 24251453 G47.33 Vitamin B1 2 deficiency (non anemic) 97441104 E53.8 Degenerati on of lumbar intervertebral disc 94086498 M51.36 Osteoarthritis 125218498 M19.90 Hyperglyce juli due to type 2 diabetes mellitus 5168455813 14859 E11.65 Osteoarthritis of hip 23 2499113 M16.9 Testostero ne level below reference range 581534975 R79.89 Long-term drug therapy 299827631 Z79.899 Pain of mu ltiple joints 16805364 M25.50 Pain of bi lateral hands 5195368294 8290168 M79.203 [id number] Ruby Gregorio MD [address] [place] [address] 08/16/2020 10:03:29 08/16/2020 10:58:27 Exposure to SARS-CoV-2 160214212 Z20.642 [id number] Danielle Groves [address] [place] [address] 08/22/2020 07:57:07 08/22/2020 09:04:31 Body mass index 30+ - obesity 457849508 Z68.39 Non-Hodgki n's lymphoma (clinical) 426478846 C85.90 Mixed hyperlipidemia 267 352763 E78.2 Vitamin D deficiency 347 56849 E55.9 Gastroesop hageal reflux disease without esophagitis 747334777 K21.9 Anxiety 21130521 F41.9 Obstructiv e sleep apnea syndrome 26632506 G47.33 Vitamin B1 2 deficiency (non anemic) 19149602 E53.8 Degenerati on of lumbar intervertebral disc 80631501 M51.36 Osteoarthritis 133839722 M19.90 Hyperglyce juli due to type 2 diabetes mellitus 3220828481 53990 E11.65 Osteoarthritis of hip 23 3986595 M16.9 Testostero ne level below reference range 376390068 R79.89 Long-term drug therapy 610920731 Z79.899 Pre-surger y evaluation 016028780 Z01.455 [id number] Danielle Groves [address] [place] [address] 10/01/2020 14:40:36 10/01/2020 15:06:36 Body mass index 30+ - obesity 612129420 Z68.39 Mixed hyperlipidemia 267 966259 E78.2 Non-Hodgki n's lymphoma (clinical) 637535226 C85.90 Vitamin D deficiency 347 96939 E55.9 Gastroesop hageal reflux disease without esophagitis 543345115 K21.9 Anxiety 06183357 F41.9 Obstructiv e sleep apnea syndrome 23855523 G47.33 Vitamin B1 2 deficiency (non anemic) 97773862 E53.8 Degenerati on of lumbar intervertebral disc 12444821 M51.36 Osteoarthritis 764180057 M19.90 Hyperglyce juli due to type 2 diabetes mellitus 1222858670 70201 E11.65 Osteoarthritis of hip 23 1031228 M16.9 Testostero ne level below reference range 108459099 R79.89 Long-term drug therapy 009008238 Z79.311 [id number] Danielle Groves [address] [place] [address] 12/18/2020 09:29:43 12/18/2020 10:01:31 Injury of hand 673778759 S69.91XA [id number] Danielle Groves [address] [place] [address] 01/29/2021 08:13:35 01/29/2021 08:58:58 Body mass index 30+ - obesity 469329113 Z68.39 Mixed hyperlipidemia 267 001046 E78.2 Non-Hodgki n's lymphoma (clinical) 877085519 C85.90 Vitamin D deficiency 347 50707 E55.9 Gastroesop hageal reflux disease without esophagitis 266271575 K21.9 Anxiety 40953878 F41.9 Obstructiv e sleep apnea syndrome 47591699 G47.33 Vitamin B1 2 deficiency (non anemic) 38966487 E53.8 Degenerati on of lumbar intervertebral disc 21269230 M51.36 Osteoarthritis 779339782 M19.90 Hyperglyce juli due to type 2 diabetes mellitus 7809925036 03608 E11.65 Osteoarthritis of hip 23 5576324 M16.9 Testostero ne level below reference range 093719993 R79.89 Long-term drug therapy 601371631 Z79.899 C-reactive protein outside reference range 733261718 R79.82 [id number] Danielle Groves [address] [place] [address] 04/30/2021 08:13:33 04/30/2021 09:18:33 Hyperglycemia due to type 2 diabetes mellitus 3363850087 26740 E11.65 Body mass index 30+ - obesity 230893982 Z68.39 Mixed hyperlipidemia 267 792482 E78.2 Non-Hodgki n's lymphoma (clinical) 938634002 C85.90 Vitamin D deficiency 347 55279 E55.9 Gastroesop hageal reflux disease without esophagitis 029569688 K21.9 Anxiety 68722601 F41.9 Obstructiv e sleep apnea syndrome 37677166 G47.33 Vitamin B1 2 deficiency (non anemic) 82322980 E53.8 Degenerati on of lumbar intervertebral disc 70303943 M51.36 Osteoarthritis 252990494 M19.90 Osteoarthritis of hip 23 0975436 M16.9 Testostero ne level below reference range 480341930 R79.89 Long-term drug therapy 348246675 Z79.400 [id number] Danielle Groves [address] [place] [address] 07/22/2021 08:28:14 07/22/2021 13:51:15 Hyperglycemia due to type 2 diabetes mellitus 0434653862 55927 E11.65 Long-term drug therapy 214240344 Z79.899 Body mass index 30+ - obesity 572517801 Z68.39 Mixed hyperlipidemia 267 328979 E78.2 Non-Hodgki n's lymphoma (clinical) 406276028 C85.90 Vitamin D deficiency 347 92559 E55.9 Gastroesop hageal reflux disease without esophagitis 038117551 K21.9 Anxiety 33095320 F41.9 Obstructiv e sleep apnea syndrome 82757860 G47.33 Vitamin B1 2 deficiency (non anemic) 21042961 E53.8 Degenerati on of lumbar intervertebral disc 77616771 M51.36 Osteoarthritis 168985831 M19.90 Osteoarthritis of hip 23 8448522 M16.9 Testostero ne level below reference range 546651593 R79.89 Administra tion of influenza vaccine 35783092 Z23 [id number] Danielle Groves [address] [place] [address] 10/22/2021 08:18:49 10/22/2021 09:15:17 Hyperglycemia due to type 2 diabetes mellitus 0701421375 21061 E11.65 Long-term drug therapy 653005837 Z79.899 Body mass index 30+ - obesity 611744837 Z68.39 Mixed hyperlipidemia 267 990443 E78.2 Non-Hodgki n's lymphoma (clinical) 941760027 C85.90 Vitamin D deficiency 347 50129 E55.9 Gastroesop hageal reflux disease without esophagitis 260229287 K21.9 Anxiety 01677079 F41.9 Obstructiv e sleep apnea syndrome 48888459 G47.33 Vitamin B1 2 deficiency (non anemic) 42570824 E53.8 Degenerati on of lumbar intervertebral disc 90815945 M51.36 Osteoarthritis 139167103 M19.90 Osteoarthritis of hip 23 6926242 M16.9 Testostero ne level below reference range 383716611 R79.89 Nocturia 592300108 R35.1 [id number] Danielle Groves [address] [place] [address] 11/10/2021 10:16:32 11/10/2021 10:43:41 Hyperglycemia due to type 2 diabetes mellitus 2222473667 58805 E11.65 Body mass index 30+ - obesity 551551598 Z68.39 Non-Hodgki n's lymphoma (clinical) 866665522 C85.90 Crushing i njury of finger 94693002 S67.10XA Closed fra cture finger distal phalanx, tuft 928539431 S62.631A [id number] Danielle Groves [address] [place] [address] 01/21/2022 08:06:44 01/21/2022 09:26:51 Hyperglycemia due to type 2 diabetes mellitus 4720475141 47725 E11.65 Body mass index 30+ - obesity 532051124 Z68.39 Long-term drug therapy 854982223 Z79.899 Mixed hyperlipidemia 267 612512 E78.2 Non-Hodgki n's lymphoma (clinical) 617906834 C85.90 Vitamin D deficiency 347 89638 E55.9 Gastroesop hageal reflux disease without esophagitis 753685782 K21.9 Anxiety 50008380 F41.9 Obstructiv e sleep apnea syndrome 23976668 G47.33 Vitamin B1 2 deficiency (non anemic) 01236802 E53.8 Degenerati on of lumbar intervertebral disc 80812792 M51.36 Osteoarthritis of hip 23 1538565 M16.9 Testostero ne level below reference range 821572912 R79.89 [id number] Yola Goddard [employer] [facility] [address] [place] [address] 05/20/2022 16:59:14 05/20/2022 17:55:33 Senile hyperkeratosis 616031143 L82.1 Squamous Acanthoma Actinic keratosis 007 L57.0 return during cooler weather for cryo [id number] Yola Goddard [employer] [facility] [address] [place] [address] 04/09/2022 17:02:37 04/09/2022 18:01:58 Actinic keratosis 623927701 L57.0 return during cooler weather for cryo Neoplasm of skin 6958156 04 D49.2 right upper arm [id number] Danielle Groves, [address] [place] [address] 05/13/2022 07:58:39 05/13/2022 09:18:23 Hyperglycemia due to type 2 diabetes mellitus 7290830312 76705 E11.65 Long-term drug therapy 552805175 Z79.899 Body mass index 30+ - obesity 277637581 Z68.38 Mixed hyperlipidemia 267 562031 E78.2 Non-Hodgki n's lymphoma (clinical) 680069828 C85.90 Vitamin D deficiency 347 57458 E55.9 Gastroesop hageal reflux disease without esophagitis 088765616 K21.9 Anxiety 34033682 F41.9 Obstructiv e sleep apnea syndrome 47358551 G47.33 Vitamin B1 2 deficiency (non anemic) 94180501 E53.8 Degenerati on of lumbar intervertebral disc 62653937 M51.36 Osteoarthritis of hip 23 9392996 M16.9 Testostero ne level below reference range 444307388 R79.89 [id number] Danial [facility] [address] [place] [address] 06/01/2022 16:35:33 06/01/2022 17:25:20 History of malignant lymphoma 056951735 Z85.72 Non-Hodgki n's lymphoma (clinical) 749485211 C85.90 Dizziness 540592303 R42 Unexplaine d weight loss 557209222 R63.4 labs [id number] Danial Keller APRN [facility] [address] [place] [address] 06/08/2022 13:54:12 06/08/2022 13:58:26 [id number] Danielle Groves [address] [place] [address] 06/09/2022 13:51:38 06/09/2022 14:31:39 Hyperglycemia due to type 2 diabetes mellitus 7005940569 70417 E11.65 Long-term drug therapy 081002783 Z79.899 Body mass index 30+ - obesity 089688778 Z68.38 Mixed hyperlipidemia 267 287161 E78.2 Non-Hodgki n's lymphoma (clinical) 172355115 C85.90 Vitamin D deficiency 347 39258 E55.9 Gastroesop hageal reflux disease without esophagitis 396927361 K21.9 Anxiety 68164320 F41.9 Obstructiv e sleep apnea syndrome 70452875 G47.33 Vitamin B1 2 deficiency (non anemic) 74999012 E53.8 Degenerati on of lumbar intervertebral disc 39598403 M51.36 Osteoarthritis of hip 23 3904350 M16.9 Testostero ne level below reference range 544587795 R79.89 Dizziness 239557767 R42 [id number] Danielle Groves [address] [place] [address] 08/17/2022 08:14:46 08/17/2022 09:44:54 Long-term drug therapy 499533471 Z79.899 Influenza vaccine needed 2886906641 106 Z23 Hyperglyce juli due to type 2 diabetes mellitus [id number] 71173 E11.65 Body mass index 30+ - obesity 845916379 Z68.38 Mixed hyperlipidemia 267 005316 E78.2 Non-Hodgki n's lymphoma (clinical) 197059277 C85.90 Vitamin D deficiency 347 27644 E55.9 Gastroesop hageal reflux disease without esophagitis 136174902 K21.9 Anxiety 97354188 F41.9 Obstructiv e sleep apnea syndrome 34760514 G47.33 Vitamin B1 2 deficiency (non anemic) 02800874 E53.8 Degenerati on of lumbar intervertebral disc 38977007 M51.36 Osteoarthritis of hip 23 6023116 M16.9 Testostero ne level below reference range 883460361 R79.89 Iron defic iency anemia 08001666 D50.9 [id number] [facility] [address] [place] [address] 08/19/2022 14:30:41 08/19/2022 16:04:30 Actinic keratosis 522391354 L57.0 cryo applied re-eval left upper forearm for resolve. [id number] [facility] 1 [place] [address] 10/29/2022 08:20:19 10/29/2022 09:05:08 Testosterone level below reference range 630219406 R79.89 Discussed with pt protocol/p olicy for evaluating /treating hypogonadi sm: - will begin replacemen t and standardiz ed dose, and then may adjust in the future.--- - Minimum visit in office o7kjoeew and possibly labs as needed.--- - Pt to visit monthly for refills. no refill to be given if overdue for visit to office.- Controlled substance agreement required. UPDATED 10/29/22- UDS - UPDATED--- - If failed UDS- no prescripti on for controlled substance will be given.- LANNY at every refill. UPDATED Type 2 laci betes mellitus 25226240 E11.9 Obstructiv e sleep apnea syndrome 03405592 G47.33 Obesity 905595044 E66.9 [id number] [facility] 1 [place] [address] 11/27/2022 11:17:12 11/27/2022 11:42:08 Testosterone level below reference range 216255993 R79.89 Discussed with pt protocol/p olicy for evaluating /treating hypogonadi sm: - will begin replacemen t and standardiz ed dose, and then may adjust in the future.--- - Minimum visit in office [id number] and possibly labs as needed.--- - Pt to visit monthly for refills. no refill to be given if overdue for visit to office.- Controlled substance agreement required. UPDATED 10/29/22- UDS - UPDATED--- - If failed UDS- no prescripti on for controlled substance will be given.- LANNY at every refill. UPDATED Type 2 laci betes mellitus 77249828 E11.9 Obstructiv e sleep apnea syndrome 84080826 G47.33 Obesity 931079885 E66.9 [id number] Yola Goddard [facility] [address] [place] [address] 11/18/2022 16:16:57 11/19/2022 17:59:33 Actinic keratosis 345327266 L57.0 cryo applied Note: repeat cryo on right dorsal hand has not resolved scaling changes, my consider biopsy in the future. [id number] Danielle Groves [address] [place] [address] 11/26/2022 08:19:55 11/26/2022 09:16:42 Hyperglycemia due to type 2 diabetes mellitus 8066819302 08488 E11.65 Long-term drug therapy 234525085 Z79.899 Body mass index 30+ - obesity 381556506 Z68.38 Mixed hyperlipidemia 267 961967 E78.2 Non-Hodgki n's lymphoma (clinical) 558695171 C85.90 Vitamin D deficiency 347 22773 E55.9 Gastroesop hageal reflux disease without esophagitis 893798140 K21.9 Anxiety 08080044 F41.9 Obstructiv e sleep apnea syndrome 23803731 G47.33 Vitamin B1 2 deficiency (non anemic) 81463710 E53.8 Degenerati on of lumbar intervertebral disc 88158549 M51.36 Osteoarthritis of hip 23 2668132 M16.9 Testostero ne level below reference range 000045893 R79.89 Iron defic iency anemia 61254306 D50.9 Nocturia 077543365 R35.1 [id number] Kelsey Peralta [facility] 1 [place] [address] 12/29/2022 07:54:53 12/29/2022 08:32:36 Testosterone level below reference range 723825397 R79.89 Discussed with pt protocol/lucho bonilla for evaluating /treating hypogonadi sm: - will begin replacemen t and standardiz ed dose, and then may adjust in the future.--- - Minimum visit in office [id number] and possibly labs as needed.--- - Pt to visit monthly for refills. no refill to be given if overdue for visit to office.- Controlled substance agreement required. UPDATED 10/29/22- UDS - UPDATED--- - If failed UDS- no prescripti on for controlled substance will be given.- LANNY at every refill. UPDATED Type 2 laci betes mellitus 80587918 E11.9 Obstructiv e sleep apnea syndrome 53364467 G47.33 Obesity 539563074 E66.9 [id number] Danial Keller APRN [address] [address] 12/08/2022 17:28:41 12/08/2022 18:17:39 Pain of right hand 0079659731 17537 M79.641 if happens again have labs drawn, [id number] Kelsey Peralta [facility] 1 [place] [address] 01/26/2023 07:58:54 01/26/2023 08:31:36 Testosterone level below reference range 548836421 R79.89 Discussed with pt protocol/lucho bonilla for evaluating /treating hypogonadi sm: - will begin replacemen t and standardiz ed dose, and then may adjust in the future.--- - Minimum visit in office i0pwdduf and possibly labs as needed.--- - Pt to visit monthly for refills. no refill to be given if overdue for visit to office.- Controlled substance agreement required. UPDATED 10/29/22- UDS - UPDATED--- - If failed UDS- no prescripti on for controlled substance will be given.- LANNY at every refill. UPDATED Type 2 laci betes mellitus 22853682 E11.9 Obstructiv e sleep apnea syndrome 90428846 G47.33 Obesity 833227276 E66.9 [id number] [facility] [address] [place] [address] 01/04/2023 17:38:15 01/04/2023 18:13:03 Multiple actinic keratoses 814592324 L57.0 cryo applied much improvemen t from previous visits. [id number] [facility] 1 [place] [address] 02/23/2023 08:10:03 02/23/2023 09:01:51 Testosterone level below reference range 828049849 R79.89 Discussed with pt protocol/p irene for evaluating /treating hypogonadi sm: - will begin replacemen t and standardiz ed dose, and then may adjust in the future.--- - Minimum visit in office m4bgctee and possibly labs as needed.--- - Pt to visit monthly for refills. no refill to be given if overdue for visit to office.- Controlled substance agreement required. UPDATED 10/29/22- UDS - UPDATED--- - If failed UDS- no prescripti on for controlled substance will be given.- LANNY at every refill. UPDATED Type 2 laci betes mellitus 42972172 E11.9 Obstructiv e sleep apnea syndrome 19842750 G47.33 Obesity 481831549 E66.9 Strain of trapezius muscle 952605986 S46.812A Neck pain 62210417 M54.2 [id number] [facility] 1 [place] [address] 03/25/2023 08:20:29 03/25/2023 09:17:36 Testosterone level below reference range 384823713 R79.89 Discussed with pt protocol/p irene for evaluating /treating hypogonadi sm: - will begin replacemen t and standardiz ed dose, and then may adjust in the future.--- - Minimum visit in office z4pxxmaq and possibly labs as needed.--- - Pt to visit monthly for refills. no refill to be given if overdue for visit to office.- Controlled substance agreement required. UPDATED 10/29/22- UDS - UPDATED--- - If failed UDS- no prescripti on for controlled substance will be given.- LANNY at every refill. UPDATED Type 2 laci betes mellitus 73243773 E11.9 Obstructiv e sleep apnea syndrome 47887879 G47.33 Obesity 130814688 E66.9 Reduced libido 1219935 R 68.82 Needle phobia 129978518 F40.231 difficulty with doing his own injections d/t fear of needles and incoordina tion. Dysmetria 60147558 R27.8 difficulty with doing his own injections d/t fear of needles and incoordina tion. Abnormal urine 278595266 R82.90 [id number] Danielle Groves, [address] [place] [address] 03/04/2023 08:02:30 03/04/2023 08:46:53 Hyperglycemia due to type 2 diabetes mellitus 0349619822 98083 E11.65 Long-term drug therapy 622866969 Z79.899 Body mass index 30+ - obesity 410939998 Z68.38 Mixed hyperlipidemia 267 545340 E78.2 Non-Hodgki n's lymphoma (clinical) 783730653 C85.90 Vitamin D deficiency 347 34606 E55.9 Gastroesop hageal reflux disease without esophagitis 667512516 K21.9 Anxiety 23795461 F41.9 Obstructiv e sleep apnea syndrome 69170271 G47.33 Vitamin B1 2 deficiency (non anemic) 92347736 E53.8 Degenerati on of lumbar intervertebral disc 46155861 M51.36 Osteoarthritis of hip 23 0350847 M16.9 Testostero ne level below reference range 452299808 R79.89 Iron defic iency anemia 56075749 D50.9 Type 2 laci betes mellitus 04146608 E11.9 [id number] Kelsey Peralta [employer] [facility] [address] [place] [address] 04/22/2023 08:14:52 04/22/2023 09:06:01 Testosterone level below reference range 919092201 R79.89 Discussed with pt protocol/p irene for evaluating /treating hypogonadi sm: - will begin replacemen t and standardiz ed dose, and then may adjust in the future.--- - Minimum visit in office [id number] and possibly labs as needed.--- - Pt to visit monthly for refills. no refill to be given if overdue for visit to office.- Controlled substance agreement required. UPDATED 10/29/22- UDS - UPDATED--- - If failed UDS- no prescripti on for controlled substance will be given.- LANNY at every refill. UPDATED Type 2 laci betes mellitus 10247870 E11.9 Obstructiv e sleep apnea syndrome 63825964 G47.33 Obesity 008744244 E66.9 Reduced libido 7830388 R 68.82 Needle phobia 737596822 F40.231 difficulty with doing his own injections d/t fear of needles and incoordina tion. Dysmetria 64910221 R27.8 difficulty with doing his own injections d/t fear of needles and incoordina tion. Long-term drug therapy 648469509 Z79.753 [id number] [facility] 1 [place] [address] 05/21/2023 08:04:09 05/21/2023 08:53:42 Testosterone level below reference range 257297546 R79.89 Discussed with pt protocol/lucho bonilla for evaluating /treating hypogonadi sm: - will begin replacemen t and standardiz ed dose, and then may adjust in the future.--- - Minimum visit in office h4dwayax and possibly labs as needed.--- - Pt to visit monthly for refills. no refill to be given if overdue for visit to office.- Controlled substance agreement required. UPDATED 10/29/22- UDS - UPDATED--- - If failed UDS- no prescripti on for controlled substance will be given.- LANNY at every refill. UPDATED Type 2 laci betes mellitus 93102269 E11.9 Obstructiv e sleep apnea syndrome 42300308 G47.33 Obesity 864778791 E66.9 Reduced libido 7986543 R 68.82 Needle phobia 518361809 F40.231 difficulty with doing his own injections d/t fear of needles and incoordina tion. Dysmetria 73480737 R27.8 difficulty with doing his own injections d/t fear of needles and incoordina tion. Long-term drug therapy 723751241 Z79.899 Secondary polycythemia 50809547 D75.1 [id number] Danial Keller APRN [facility] [address] [place] [address] 05/07/2023 15:47:32 05/07/2023 16:55:00 Pain of left shoulder joint 4982563032 4060195 M25.[address] morgan, advised pt to go to ed pt refused. labs sent to [facility], pt agrees to go to ed if symptoms worsen or return. pt will see aravind on wednesday at 11 am [id number] Yola Goddard [facility] 1 [place] [address] 05/12/2023 17:00:24 05/12/2023 17:56:53 Actinic keratosis 576734927 L57.0 cryo applied , tolerated well [id number] Kelsey Peralta [facility] 1 [place] [address] 06/18/2023 08:29:55 06/18/2023 09:29:57 Testosterone level below reference range 609742990 R79.89 Discussed with pt protocol/p irene for evaluating /treating hypogonadi sm: - will begin replacemen t and standardiz ed dose, and then may adjust in the future.--- - Minimum visit in office t7ynfjsx and possibly labs as needed.--- - Pt to visit monthly for refills. no refill to be given if overdue for visit to office.- Controlled substance agreement required. UPDATED 10/29/22- UDS - UPDATED--- - If failed UDS- no prescripti on for controlled substance will be given.- LANNY at every refill. UPDATED Type 2 laci betes mellitus 72624422 E11.9 Obstructiv e sleep apnea syndrome 88988002 G47.33 Obesity 636141529 E66.9 Reduced libido 3057731 R 68.82 Needle phobia 190130818 F40.231 difficulty with doing his own injections d/t fear of needles and incoordina tion. Dysmetria 78901144 R27.8 difficulty with doing his own injections d/t fear of needles and incoordina tion. Long-term drug therapy 209683763 Z79.899 Secondary polycythemia 43626688 D75.1 -hematolog ist referral [id number] Danielle Groves APRN [address] [place] [address] 06/17/2023 08:09:00 06/17/2023 08:46:48 Hyperglycemia due to type 2 diabetes mellitus 3724342441 11463 E11.65 Long-term drug therapy 000333082 Z79.899 Body mass index 30+ - obesity 347321389 Z68.38 Mixed hyperlipidemia 267 254311 E78.2 Non-Hodgki n's lymphoma (clinical) 653771435 C85.90 Vitamin D deficiency 347 34208 E55.9 Gastroesop hageal reflux disease without esophagitis 691036157 K21.9 Anxiety 24386531 F41.9 Obstructiv e sleep apnea syndrome 65804179 G47.33 Vitamin B1 2 deficiency (non anemic) 65348504 E53.8 Degenerati on of lumbar intervertebral disc 03481660 M51.36 Osteoarthritis of hip 23 7744022 M16.9 Testostero ne level below reference range 910739441 R79.89 Iron defic iency anemia 72672704 D50.9 [id number] Kelsey Peralta APRN [facility] [address] [place] [address] 07/20/2023 08:27:32 07/20/2023 08:54:00 Testosterone level below reference range 851565207 R79.89 Discussed with pt protocol/p irene for evaluating /treating hypogonadi sm: - will begin replacemen t and standardiz ed dose, and then may adjust in the future.--- - Minimum visit in office u5xvxhsz and possibly labs as needed.--- - Pt to visit monthly for refills. no refill to be given if overdue for visit to office.- Controlled substance agreement required. UPDATED 10/29/22- UDS - UPDATED--- - If failed UDS- no prescripti on for controlled substance will be given.- LANNY at every refill. UPDATED Type 2 laci betes mellitus 34640439 E11.9 Obstructiv e sleep apnea syndrome 10883554 G47.33 Obesity 712984702 E66.9 Reduced libido 3321640 R 68.82 Needle phobia 269439022 F40.231 difficulty with doing his own injections d/t fear of needles and incoordina tion. Dysmetria 34201045 R27.8 difficulty with doing his own injections d/t fear of needles and incoordina tion. Long-term drug therapy 604490436 Z79.899 Secondary polycythemia 67084437 D75.1 -hematolog ist referral [id number] Danial Keller APRN [address] [address] 07/09/2023 07:55:33 07/09/2023 08:46:28 Pain of multiple joints 43515297 M25.50 Thyroid nodule 180597307 E04.1 [id number] Kelsey Peralta [facility] [address] [place] [address] 08/17/2023 08:22:51 08/17/2023 09:19:49 Testosterone level below reference range 785020162 R79.89 Discussed with pt protocol/p irene for evaluating /treating hypogonadi sm: - will begin replacemen t and standardiz ed dose, and then may adjust in the future.--- - Minimum visit in office y4ukljaq and possibly labs as needed.--- - Pt to visit monthly for refills. no refill to be given if overdue for visit to office.- Controlled substance agreement required. UPDATED 10/29/22- UDS - UPDATED--- - If failed UDS- no prescripti on for controlled substance will be given.- LANNY at every refill. UPDATED Type 2 laci betes mellitus 75168745 E11.9 Obstructiv e sleep apnea syndrome 63919466 G47.33 Obesity 415772306 E66.9 Reduced libido 0074912 R 68.82 Needle phobia 162687317 F40.231 difficulty with doing his own injections d/t fear of needles and incoordina tion. Dysmetria 50793031 R27.8 difficulty with doing his own injections d/t fear of needles and incoordina tion. Long-term drug therapy 351951419 Z79.899 Secondary polycythemia 76791399 D75.1 -hematolog ist referral [id number] Kelsey Peralta [facility] [address] [place] [address] 09/14/2023 08:36:40 09/14/2023 09:15:25 Testosterone level below reference range 933238446 R79.89 Discussed with pt protocol/p irene for evaluating /treating hypogonadi sm: - will begin replacemen t and standardiz ed dose, and then may adjust in the future.--- - Minimum visit in office d2aebnfw and possibly labs as needed.--- - Pt to visit monthly for refills. no refill to be given if overdue for visit to office.- Controlled substance agreement required. UPDATED 10/29/22- UDS - UPDATED--- - If failed UDS- no prescripti on for controlled substance will be given.- LANNY at every refill. UPDATED Type 2 laci betes mellitus 47305322 E11.9 Obstructiv e sleep apnea syndrome 25184041 G47.33 Obesity 983914693 E66.9 Reduced libido 9484690 R 68.82 Needle phobia 587076822 F40.231 difficulty with doing his own injections d/t fear of needles and incoordina tion. Dysmetria 41415313 R27.8 difficulty with doing his own injections d/t fear of needles and incoordina tion. Long-term drug therapy 314700823 Z79.899 Secondary polycythemia 61040508 D75.1 -hematolog ist referral [id number] Danial Keller APRN [address] [address] 09/03/2023 08:06:57 09/03/2023 08:58:54 Hearing difficulty 314883460 H91.91 [id number] Kelsey Peralta [facility] [address] [place] [address] 10/15/2023 08:31:31 10/15/2023 09:23:25 Testosterone level below reference range 096156277 R79.89 Discussed with pt protocol/p irene for evaluating /treating hypogonadi sm: - will begin replacemen t and standardiz ed dose, and then may adjust in the future.--- - Minimum visit in office q8johxae and possibly labs as needed.--- - Pt to visit monthly for refills. no refill to be given if overdue for visit to office.- Controlled substance agreement required. UPDATED 10/15/23- UDS - UPDATED--- - If failed UDS- no prescripti on for controlled substance will be given.- LANNY at every refill. UPDATED Type 2 laci betes mellitus 62700423 E11.9 Obstructiv e sleep apnea syndrome 52741446 G47.33 Obesity 392688974 E66.9 Reduced libido 0964808 R 68.82 Needle phobia 242437800 F40.231 difficulty with doing his own injections d/t fear of needles and incoordina tion. Dysmetria 16306308 R27.8 difficulty with doing his own injections d/t fear of needles and incoordina tion. Long-term drug therapy 668190088 Z79.899 Secondary polycythemia 36199406 D75.1 -hematolog ist referral [id number] Danielle Groves APRN [address] [place] [address] 10/04/2023 08:09:04 10/04/2023 09:08:54 Hyperglycemia due to type 2 diabetes mellitus 3580501488 28414 E11.65 Long-term drug therapy 100839118 Z79.899 Body mass index 30+ - obesity 269418785 Z68.38 Mixed hyperlipidemia 267 706226 E78.2 Non-Hodgki n's lymphoma (clinical) 124698102 C85.90 Vitamin D deficiency 347 70233 E55.9 Gastroesop hageal reflux disease without esophagitis 605169140 K21.9 Anxiety 93404766 F41.9 Obstructiv e sleep apnea syndrome 84614166 G47.33 Vitamin B1 2 deficiency (non anemic) 20307747 E53.8 Degenerati on of lumbar intervertebral disc 62733482 M51.36 Osteoarthritis of hip 23 5121205 M16.9 Testostero ne level below reference range 605014182 R79.89 Iron defic iency anemia 09455962 D50.9 Fatigue 92617470 R53.83 [id number] [facility] [address] [place] [address] 11/11/2023 07:55:36 11/11/2023 09:49:52 Testosterone level below reference range 910186524 R79.89 Discussed with pt protocol/p irene for evaluating /treating hypogonadi sm: - will begin replacemen t and standardiz ed dose, and then may adjust in the future.--- - Minimum visit in office t2irwwim and possibly labs as needed.--- - Pt to visit monthly for refills. no refill to be given if overdue for visit to office.- Controlled substance agreement required. UPDATED 10/15/23- UDS - UPDATED--- - If failed UDS- no prescripti on for controlled substance will be given.- LANNY at every refill. UPDATED Type 2 laci betes mellitus 42001115 E11.9 Obstructiv e sleep apnea syndrome 31535224 G47.33 Obesity 407749033 E66.9 Reduced libido 1715930 R 68.82 Needle phobia 009179485 F40.231 difficulty with doing his own injections d/t fear of needles and incoordina tion. Dysmetria 27453867 R27.8 difficulty with doing his own injections d/t fear of needles and incoordina tion. Long-term drug therapy 208402380 Z79.899 Secondary polycythemia 59226638 D75.1 -hematolog ist referral [id number] [facility] [address] [place] [address] 12/14/2023 07:51:14 12/14/2023 08:55:03 Testosterone level below reference range 672996941 R79.89 Discussed with pt protocol/p irene for evaluating /treating hypogonadi sm: - will begin replacemen t and standardiz ed dose, and then may adjust in the future.--- - Minimum visit in office w1gydzvu and possibly labs as needed.--- - Pt to visit monthly for refills. no refill to be given if overdue for visit to office.- Controlled substance agreement required. UPDATED 10/15/23- UDS - UPDATED--- - If failed UDS- no prescripti on for controlled substance will be given.- LANNY at every refill. UPDATED Type 2 laci betes mellitus 58428367 E11.9 Obstructiv e sleep apnea syndrome 03605357 G47.33 Obesity 876642273 E66.9 Reduced libido 4339653 R 68.82 Needle phobia 903517578 F40.231 difficulty with doing his own injections d/t fear of needles and incoordina tion. Dysmetria 16490356 R27.8 difficulty with doing his own injections d/t fear of needles and incoordina tion. Long-term drug therapy 523587730 Z79.899 Secondary polycythemia 07147924 D75.1 -hematolog ist referral [id number] Yola Goddard APRN [facility] [address] [place] [address] 12/08/2023 17:06:40 12/08/2023 18:15:15 Actinic keratosis 883896491 L57.0 under control at this time. continue to monitor. [id number] Danial Keller APRN [address] [address] 12/28/2023 16:45:01 12/28/2023 17:13:16 Hemoglobin above reference range 246052684 R71.8 [id number] Danielle Groves [address] [place] [address] 01/12/2024 08:10:48 01/12/2024 08:52:37 Hyperglycemia due to type 2 diabetes mellitus 7683394151 85532 E11.65 Long-term drug therapy 816808546 Z79.899 Body mass index 30+ - obesity 048537198 Z68.38 Mixed hyperlipidemia 267 089204 E78.2 Non-Hodgki n's lymphoma (clinical) 125336752 C85.90 Vitamin D deficiency 347 10940 E55.9 Gastroesop hageal reflux disease without esophagitis 136408780 K21.9 Anxiety 81585997 F41.9 Obstructiv e sleep apnea syndrome 70616077 G47.33 Vitamin B1 2 deficiency (non anemic) 04564251 E53.8 Degenerati on of lumbar intervertebral disc 36040914 M51.36 Osteoarthritis of hip 23 5376494 M16.9 Testostero ne level below reference range 573084550 R79.89 Iron defic iency anemia 88972976 D50.9 Subclinica l hypothyroidism 82670704 E02 Nocturia 682565746 R35.1 [id number] Danial Keller APRN [facility] [address] [place] [address] 01/18/2024 12:55:34 01/18/2024 13:30:43 Pain of left knee joint 4152871889 43218 M25.562 Perianal pain 707471206 R10.[address] of pelvis- needs to follow up with urology to have prostate checked rojelio [id number] Kelsey Peralta APRN [facility] [address] [place] [address] 01/19/2024 08:32:42 01/19/2024 09:48:23 Testosterone level below reference range 314495914 R79.89 Discussed with pt protocol/p jennifery for evaluating /treating hypogonadi sm: - will begin replacemen t and standardiz ed dose, and then may adjust in the future.--- - Minimum visit in office r7yotrnb and possibly labs as needed.--- - Pt to visit monthly for refills. no refill to be given if overdue for visit to office.- Controlled substance agreement required. UPDATED 10/15/23- UDS - UPDATED--- - If failed UDS- no prescripti on for controlled substance will be given.- LANNY at every refill. UPDATED Type 2 laci betes mellitus 63468823 E11.9 Obstructiv e sleep apnea syndrome 46562113 G47.33 Obesity 643632398 E66.9 Reduced libido 9485576 R 68.82 Needle phobia 580235425 F40.231 difficulty with doing his own injections d/t fear of needles and incoordina tion. Dysmetria 42867107 R27.8 difficulty with doing his own injections d/t fear of needles and incoordina tion. Long-term drug therapy 548871329 Z79.899 Secondary polycythemia 70080369 D75.1 -hematolog ist referral Low back pain 281447443 M54.50 Pain of hip region 43659 002 M25.766 [id number] Danial Keller APRN [facility] [address] [place] [address] 02/15/2024 08:04:31 02/15/2024 08:43:44 Pain of left knee joint [id number] 20305 M25.562 will order mri- r/o meni us tear, mdl,mll, acl tearhas been going to chiropract or without relief [id number] Kelsey Peralta [facility] [address] [place] [address] 03/03/2024 08:22:03 03/03/2024 09:16:23 Testosterone level below reference range 833441876 R79.89 Discussed with pt protocol/p irene for evaluating /treating hypogonadi sm: - will begin replacemen t and standardiz ed dose, and then may adjust in the future.--- - Minimum visit in office j1xashab and possibly labs as needed.--- - Pt to visit monthly for refills. no refill to be given if overdue for visit to office.- Controlled substance agreement required. UPDATED 10/15/23- UDS - UPDATED--- - If failed UDS- no prescripti on for controlled substance will be given.- LANNY at every refill. UPDATED Type 2 laci betes mellitus 72456861 E11.9 Obstructiv e sleep apnea syndrome 43443648 G47.33 Obesity 869321623 E66.9 Reduced libido 3249084 R 68.82 Needle phobia 538401775 F40.231 difficulty with doing his own injections d/t fear of needles and incoordina tion. Dysmetria 48991531 R27.8 difficulty with doing his own injections d/t fear of needles and incoordina tion. Long-term drug therapy 441351966 Z79.899 Secondary polycythemia 22092601 D75.1 -hematolog ist referral [id number] Kelsey Peralta [facility] [address] [place] [address] 04/05/2024 08:08:15 04/05/2024 09:09:01 Testosterone level below reference range 416871594 R79.89 Discussed with pt protocol/p irene for evaluating /treating hypogonadi sm: - will begin replacemen t and standardiz ed dose, and then may adjust in the future.--- - Minimum visit in office [id number] and possibly labs as needed.--- - Pt to visit monthly for refills. no refill to be given if overdue for visit to office.- Controlled substance agreement required. UPDATED 10/15/23- UDS - UPDATED--- - If failed UDS- no prescripti on for controlled substance will be given.- LANNY at every refill. UPDATED Type 2 laci betes mellitus 65678598 E11.9 Obstructiv e sleep apnea syndrome 11730164 G47.33 Obesity 126270982 E66.9 Reduced libido 1665887 R 68.82 Needle phobia 414200186 F40.231 difficulty with doing his own injections d/t fear of needles and incoordina tion. Dysmetria 02332216 R27.8 difficulty with doing his own injections d/t fear of needles and incoordina tion. Long-term drug therapy 797469868 Z79.899 Secondary polycythemia 48749336 D75.1 -hematolog ist referral [id number] Danial Keller APRN [address] [address] 03/14/2024 10:51:03 03/14/2024 11:54:00 Low back pain 023682842 M54.50 [id number] Kelsey Peralta [facility] [address] [place] [address] 05/03/2024 08:10:34 05/03/2024 08:39:26 Testosterone level below reference range 785692366 R79.89 Discussed with pt protocol/p irene for evaluating /treating hypogonadi sm: - will begin replacemen t and standardiz ed dose, and then may adjust in the future.--- - Minimum visit in office [id number] and possibly labs as needed.--- - Pt to visit monthly for refills. no refill to be given if overdue for visit to office.- Controlled substance agreement required. UPDATED 10/15/23- UDS - UPDATED--- - If failed UDS- no prescripti on for controlled substance will be given.- LANNY at every refill. UPDATED Type 2 laci betes mellitus 50455684 E11.9 Obstructiv e sleep apnea syndrome 36112072 G47.33 Obesity 072792438 E66.9 Reduced libido 0712238 R 68.82 Needle phobia 852511469 F40.231 difficulty with doing his own injections d/t fear of needles and incoordina tion. Dysmetria 62288179 R27.8 difficulty with doing his own injections d/t fear of needles and incoordina tion. Long-term drug therapy 269188094 Z79.899 Secondary polycythemia 23490611 D75.1 -hematolog ist referral [id number] Danielle Groves APRN [address] [place] [address] 04/24/2024 08:12:57 04/24/2024 10:20:11 Hyperglycemia due to type 2 diabetes mellitus 7026572215 45280 E11.65 Long-term drug therapy 173580260 Z79.899 Body mass index 30+ - obesity 681462625 Z68.38 Mixed hyperlipidemia 267 801431 E78.2 Non-Hodgki n's lymphoma (clinical) 870001144 C85.90 Vitamin D deficiency 347 51747 E55.9 Gastroesop hageal reflux disease without esophagitis 482051640 K21.9 Anxiety 03595119 F41.9 Obstructiv e sleep apnea syndrome 69622131 G47.33 Vitamin B1 2 deficiency (non anemic) 63859065 E53.8 Degenerati on of lumbar intervertebral disc 42541799 M51.36 Osteoarthritis of hip 23 5123741 M16.9 Testostero ne level below reference range 016173331 R79.89 Iron defic iency anemia 50927758 D50.9 Subclinica l hypothyroidism 49617060 E02 [id number] [facility] [address] [place] [address] 05/31/2024 08:02:43 05/31/2024 08:57:43 Testosterone level below reference range 205545392 R79.89 Discussed with pt protocol/p irene for evaluating /treating hypogonadi sm: - will begin replacemen t and standardiz ed dose, and then may adjust in the future.--- - Minimum visit in office [id number] and possibly labs as needed.--- - Pt to visit monthly for refills. no refill to be given if overdue for visit to office.- Controlled substance agreement required. UPDATED 10/15/23- UDS - UPDATED--- - If failed UDS- no prescripti on for controlled substance will be given.- LANNY at every refill. UPDATED Type 2 laci betes mellitus 42026748 E11.9 Obstructiv e sleep apnea syndrome 55633941 G47.33 Obesity 369853741 E66.9 Reduced libido 6881144 R 68.82 Needle phobia 281743849 F40.231 difficulty with doing his own injections d/t fear of needles and incoordina tion. Dysmetria 31628381 R27.8 difficulty with doing his own injections d/t fear of needles and incoordina tion. Long-term drug therapy 135284889 Z79.899 Secondary polycythemia 73582934 D75.1 -hematolog ist referral [id number] [facility] [address] [place] [address] 06/27/2024 08:37:32 06/27/2024 09:52:20 Testosterone level below reference range 652064185 R79.89 Discussed with pt protocol/p irene for evaluating /treating hypogonadi sm: - will begin replacemen t and standardiz ed dose, and then may adjust in the future.--- - Minimum visit in office q2zwgylv and possibly labs as needed.--- - Pt to visit monthly for refills. no refill to be given if overdue for visit to office.- Controlled substance agreement required. UPDATED 10/15/23- UDS - UPDATED--- - If failed UDS- no prescripti on for controlled substance will be given.- LANNY at every refill. UPDATED Type 2 laci betes mellitus 45666893 E11.9 Obstructiv e sleep apnea syndrome 64396883 G47.33 Obesity 546573415 E66.9 Reduced libido 9659312 R 68.82 Needle phobia 040787998 F40.231 difficulty with doing his own injections d/t fear of needles and incoordina tion. Dysmetria 34483769 R27.8 difficulty with doing his own injections d/t fear of needles and incoordina tion. Long-term drug therapy 332858477 Z79.899 Secondary polycythemia 53570181 D75.1 -hematolog ist referral [id number] Kelsey Peralta [employer] [facility] [address] [place] [address] 07/28/2024 15:21:31 07/28/2024 16:06:55 Testosterone level below reference range 462714166 R79.89 Discussed with pt protocol/lucho bonilla for evaluating /treating hypogonadi sm: - will begin replacemen t and standardiz ed dose, and then may adjust in the future.--- - Minimum visit in office k6ljdoeg and possibly labs as needed.--- - Pt to visit monthly for refills. no refill to be given if overdue for visit to office.- Controlled substance agreement required. UPDATED 10/15/23- UDS - UPDATED--- - If failed UDS- no prescripti on for controlled substance will be given.- LANNY at every refill. UPDATED Type 2 laci betes mellitus 47988364 E11.9 Obstructiv e sleep apnea syndrome 94575113 G47.33 Obesity 276644339 E66.9 Reduced libido 1775863 R 68.82 Needle phobia 733268610 F40.231 difficulty with doing his own injections d/t fear of needles and incoordina tion. Dysmetria 68372352 R27.8 difficulty with doing his own injections d/t fear of needles and incoordina tion. Long-term drug therapy 953418651 Z79.899 Secondary polycythemia 49845447 D75.1 -hematolog ist referral [id number] Kelsey Peralta APRN [facility] [address] [place] [address] 08/29/2024 08:01:53 08/29/2024 08:43:07 Testosterone level below reference range 745110394 R79.89 Discussed with pt protocol/p irene for evaluating /treating hypogonadi sm: - will begin replacemen t and standardiz ed dose, and then may adjust in the future.--- - Minimum visit in office w3reejdj and possibly labs as needed.--- - Pt to visit monthly for refills. no refill to be given if overdue for visit to office.- Controlled substance agreement required. UPDATED 10/15/23- UDS - UPDATED--- - If failed UDS- no prescripti on for controlled substance will be given.- LANNY at every refill. UPDATED noted transferen ce risk with topical testostero ne rx to his and grandchild justen who are at his home daily. Type 2 laci betes mellitus 00059364 E11.9 Obstructiv e sleep apnea syndrome 39186361 G47.33 Obesity 634136709 E66.9 Reduced libido 6630890 R 68.82 Needle phobia 026980452 F40.231 difficulty with doing his own injections d/t fear of needles and incoordina tion. Dysmetria 57256720 R27.8 difficulty with doing his own injections d/t fear of needles and incoordina tion. Long-term drug therapy 040059437 Z79.899 Secondary polycythemia 17843710 D75.1 -hematolog ist referral [id number] Danial Keller APRN [facility] [address] [place] [address] 07/31/2024 09:36:35 07/31/2024 10:42:17 Pain of left hip joint 2810998793 37567 M25.552 r/o avascular necrosis [id number] Jonathan Potter DO [facility] [address] [place] [address] 08/02/2024 07:56:59 08/02/2024 09:17:59 Pain of left hip joint 8075337407 24751 M25.552 - MRI L femur w/ contrast 05/16/24 revealed no mass of soft tissue enhancemen t of the femoral head- CT L hip w/wo contrast 08/01/24 revealed advanced osteoarthr itisKeep appointmen t with Dr. Pulido on 08/03 Osteoarthr itis of left hip joint 1361247100 66707 M16.12 Maintain appointmen t with Dr. Pulido per above Stenosis o f spinal canal due to intervertebral disc 329996891 M99.59 MRI Lumbar spine w/o contrast 03/25/24 revealed multilevel degenerati ve disc disease with focal protrusion al L4-L5 resulting in severe canal stenosis and moderate bilateral neuroforam inal narrowingC ontinue taking tramadol, meloxicam, aleve as written Somatic dy sfunction of head region 888912303 M99.00 See osteopathi c structural exam and procedural note for this and below listed somatic dysfunctio ns Cervical s omatic dysfunction 810423200 M99.01 Somatic dy sfunction of thoracic region 931061636 M99.02 Somatic dy sfunction of lumbar region 286937411 M99.03 Somatic dy sfunction of sacral region 060892125 M99.04 Somatic dy sfunction of pelvic region 781308350 M99.05 Somatic dy sfunction of lower limb 754537321 M99.06 Somatic dy sfunction of upper limb 409755938 M99.07 Somatic dy sfunction of rib 384326478 M99.08 Pain of le ft knee joint 7130943968 95883 M25.562 MRI w/o contrast 02/29/24 unremarkab le.OMT performed todayPt tolerated treatment well with minimal discomfort . Both objective and subjective improvemen t in tissue tone and texture. No acute neurologic al or orthopedic concerns either before or following treatment. We discussed associated anatomy of regions treated and their connection s. Recommende d pt stay well hydrated to help prevent post treatment soreness. We discussed that if necessary they could take OTC tylenol or ibuprofen by the manufactur er instructio ns. Plan to f/u for re-evaluat ion in about 2 weeks or prn with other questions or concerns. Body mass index 30+ - obesity 388189672 Z68.36 Discussed importance of lifestyle modificati ons including avoidance of processed sugars and greasy/fat ty foods such as fast food. Advised to exercise at least 30 minutes per day with encouragem ent to take 30 minute walk after eating dinner in the evening. Obesity 456000871 E66.9 [id number] Danielle Groves APRN [address] [place] [address] 08/07/2024 08:09:07 08/07/2024 08:36:39 Hyperglycemia due to type 2 diabetes mellitus 6323066209 80904 E11.65 Long-term drug therapy 907940506 Z79.899 Body mass index 30+ - obesity 977542214 Z68.38 Mixed hyperlipidemia 267 533619 E78.2 Non-Hodgki n's lymphoma (clinical) 695481322 C85.90 Vitamin D deficiency 347 04880 E55.9 Gastroesop hageal reflux disease without esophagitis 362120816 K21.9 Anxiety 45811618 F41.9 Obstructiv e sleep apnea syndrome 66241525 G47.33 Vitamin B1 2 deficiency (non anemic) 52362766 E53.8 Degenerati on of lumbar intervertebral disc 07403725 M51.369 Osteoarthritis of hip 23 9856507 M16.9 Testostero ne level below reference range 717513133 R79.89 Iron defic iency anemia 61758228 D50.9 Subclinica l hypothyroidism 96427584 E02 [id number] Yola Goddard [facility] [address] [place] [address] 08/09/2024 17:41:48 08/09/2024 18:26:03 Multiple actinic keratoses 596415867 L57.0 cryo applied today, tolerated well [id number] Kelsey Peralta [facility] [address] [place] [address] 10/13/2024 09:35:02 10/13/2024 10:21:38 Testosterone level below reference range 162566795 R79.89 Discussed with pt protocol/p irene for evaluating /treating hypogonadi sm: - will begin replacemen t and standardiz ed dose, and then may adjust in the future.--- - Minimum visit in office e5lhiqxj and possibly labs as needed.--- - Pt to visit monthly for refills. no refill to be given if overdue for visit to office.- Controlled substance agreement required. UPDATED 10/13/24- UDS - UPDATED--- - If failed UDS- no prescripti on for controlled substance will be given.- LANNY at every refill. UPDATED noted transferen ce risk with topical testostero ne rx to his and grandchild justen who are at his home daily. Type 2 laci betes mellitus 47413569 E11.9 Obstructiv e sleep apnea syndrome 62033929 G47.33 Obesity 614431792 E66.9 Reduced libido 1597090 R 68.82 Needle phobia 420318099 F40.231 difficulty with doing his own injections d/t fear of needles and incoordina tion. Dysmetria 41581039 R27.8 difficulty with doing his own injections d/t fear of needles and incoordina tion. Long-term drug therapy 997547228 Z79.899 Secondary polycythemia 66919124 D75.1 -hematolog ist referral Increased frequency of urination 997626021 R35.0 Deep venou s thrombosis of lower extremity 025645811 I82.538 [id number] Danial Keller [address] [address] 09/07/2024 08:23:34 09/07/2024 09:39:24 Pain of left hip joint 5225843675 92783 M25.552 cardiology to clear- cleared from my standpoint with moderate risk [id number] Danial Keller [address] [address] 11/03/2024 10:52:23 11/03/2024 12:55:46 Diverticular disease 552528615 K57.90 discussed with pt the plan of care and if any worsening or pain not improving he needs to go to ed rojelio. [id number] Danial Keller [address] [address] 11/09/2024 08:24:22 11/09/2024 08:51:04 Dark stools 06856401 R19.5 ct with contrast - normal- needs colonoscop y but pt wants to wait for labs first Screening for malignant neoplasm of colon 475277305 Z12.11 Diarrhea 22819285 R19.7 [id number] Danielle Groves APRN [address] [place] [address] 11/16/2024 11:50:07 11/16/2024 13:00:32 Hyperglycemia due to type 2 diabetes mellitus 5589766705 42176 E11.65 Long-term drug therapy 382089440 Z79.899 Body mass index 30+ - obesity 825107493 Z68.36 Mixed hyperlipidemia 267 046089 E78.2 Non-Hodgki n's lymphoma (clinical) 636722441 C85.90 Vitamin D deficiency 347 40203 E55.9 Gastroesop hageal reflux disease without esophagitis 341532966 K21.9 Anxiety 40359075 F41.9 Obstructiv e sleep apnea syndrome 34696601 G47.33 Vitamin B1 2 deficiency (non anemic) 49106487 E53.8 Degenerati on of lumbar intervertebral disc 05799519 M51.369 Osteoarthritis of hip 23 5283363 M16.9 Testostero ne level below reference range 184649173 R79.89 Iron defic iency anemia 31555089 D50.9 Subclinica l hypothyroidism 25304136 E02 Deep venou s thrombosis of lower extremity 284691347 I82.497 [id number] Kelsey Peralta [employer] [facility] [address] [place] [address] 12/27/2024 15:31:49 12/27/2024 17:03:25 Testosterone level below reference range 582944924 R79.89 Discussed with pt protocol/p irene for evaluating /treating hypogonadi sm: - will begin replacemen t and standardiz ed dose, and then may adjust in the future.--- - Minimum visit in office n2rwwumr and possibly labs as needed.--- - Pt to visit monthly for refills. no refill to be given if overdue for visit to office.- Controlled substance agreement required. UPDATED 10/13/24- UDS - UPDATED--- - If failed UDS- no prescripti on for controlled substance will be given.- LANNY at every refill. UPDATED noted transferen ce risk with topical testostero ne rx to his and grandchild justen who are at his home daily. Type 2 laci betes mellitus 99762692 E11.9 Obstructiv e sleep apnea syndrome 25877482 G47.33 Obesity 873739927 E66.9 Reduced libido 6292029 R 68.82 Needle phobia 448932071 F40.231 difficulty with doing his own injections d/t fear of needles and incoordina tion. Dysmetria 35945382 R27.8 difficulty with doing his own injections d/t fear of needles and incoordina tion. 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 [id number] [facility] [address] [place] [address] 02/23/2025 07:51:17 02/23/2025 08:32:08 Male hypogonadism 63634154 E29.1 Testostero ne level below reference range 830334659 R79.89 noted transferen ce risk with topical testostero ne rx to his and grandchild justen who are at his home daily. xyosted was denied prior. Type 2 laci betes mellitus 71406673 E11.9 Obstructiv e sleep apnea syndrome 84609378 G47.33 Obesity 616624085 E66.9 Reduced libido 1905340 R 68.82 Needle phobia 531168068 F40.231 difficulty with doing his own injections d/t fear of needles and incoordina tion. Dysmetria 44379394 R27.8 difficulty with doing his own injections d/t fear of needles and incoordina tion. Long-term drug therapy 786718184 Z79.899 Secondary polycythemia 99573438 D75.1 -following with hematologi st Increased frequency of urination 703538786 R35.0 Deep venou s thrombosis of lower extremity 671366193 I82.409 Prothrombi n [id number] mutation 829543247 D68.52 -hematolog y recommende d life long anticoagul ation. Urinary fr equency due to benign prostatic hypertrophy 8867160449 49230 N40.1 R35.0 83620010 [id number] Danielle Groves APRN [address] [place] [address] 02/01/2025 08:11:59 02/01/2025 08:57:20 Hyperglycemia due to type 2 diabetes mellitus 2218077989 24986 E11.65 Long-term drug therapy 852517638 Z79.899 Body mass index 30+ - obesity 076401455 Z68.36 Mixed hyperlipidemia 267 385876 E78.2 Non-Hodgki n's lymphoma (clinical) 063490544 C85.90 Vitamin D deficiency 347 09104 E55.9 Gastroesop hageal reflux disease without esophagitis 895070579 K21.9 Anxiety 89508012 F41.9 Obstructiv e sleep apnea syndrome 55965060 G47.33 Vitamin B1 2 deficiency (non anemic) 58801543 E53.8 Degenerati on of lumbar intervertebral disc 67618606 M51.369 Osteoarthritis of hip 23 2119902 M16.9 Testostero ne level below reference range 987275077 R79.89 Iron defic iency anemia 20420214 D50.9 Subclinica l hypothyroidism 85085121 E02 Deep venou s thrombosis of lower extremity 930138352 I82.409 Nocturia 000869982 R35.1 Type 2 laci betes mellitus 17217218 E11.9 [id number] Kelsey Peralta [facility] [address] [place] [address] 07/26/2025 08:15:23 07/26/2025 10:09:33 Male hypogonadism 81160576 E29.1 Testostero ne level below reference range 423688386 R79.89 noted transferen ce risk with topical testostero ne rx to his and grandchild justen who are at his home daily. xyosted was denied prior. Type 2 laci betes mellitus 10532024 E11.9 Obstructiv e sleep apnea syndrome 66701048 G47.33 Obesity 878115220 E66.9 Reduced libido 6861864 R 68.82 Needle phobia 167201890 F40.231 difficulty with doing his own injections d/t fear of needles and incoordina tion. Dysmetria 11194439 R27.8 difficulty with doing his own injections d/t fear of needles and incoordina tion. Long-term drug therapy 566803724 Z79.899 Secondary polycythemia 40692486 D75.1 -following with hematologi st Increased frequency of urination 972804318 R35.0 Deep venou s thrombosis of lower extremity 506949254 I82.409 Prothrombi n R53391H mutation 537652715 D68.52 -hematolog y recommende d life long anticoagul ation. Urinary fr equency due to benign prostatic hypertrophy 6586548675 55366 N40.1 R35.0 24436921 [id number] Danial Keller [facility] [address] [place] [address] 04/17/2025 10:19:59 04/17/2025 11:11:48 Pain in right arm 359713393 M79.601 020321 [id number] Danielle Groves [address] [place] [address] 05/08/2025 08:17:49 05/08/2025 08:42:07 Hyperglycemia due to type 2 diabetes mellitus 3067343526 81665 E11.65 Long-term drug therapy 410444320 Z79.899 Body mass index 30+ - obesity 774763456 Z68.36 Mixed hyperlipidemia 267 731756 E78.2 Non-Hodgki n's lymphoma (clinical) 203145623 C85.90 Vitamin D deficiency 347 11978 E55.9 Gastroesop hageal reflux disease without esophagitis 689274381 K21.9 Anxiety 69346075 F41.9 Obstructiv e sleep apnea syndrome 77948198 G47.33 Vitamin B1 2 deficiency (non anemic) 09503606 E53.8 Degenerati on of lumbar intervertebral disc 72104545 M51.369 Osteoarthritis of hip 23 6490098 M16.9 Testostero ne level below reference range 659699868 R79.89 Iron defic iency anemia 95773149 D50.9 Subclinica l hypothyroidism 48448398 E02 Deep venou s thrombosis of lower extremity 138222191 I82.409 Type 2 laci betes mellitus 33377304 E11.9 [id number] Danial Keller [address] [address] 07/23/2025 12:49:55 07/23/2025 13:04:59 Abnormal testosterone 291899605 R94.7 Malaise and fatigue 2717 88429 R53.81 R53.83 16838 Generalize d abdominal pain 621454155 R10.84 062407 [id number] Danial Keller [address] [address] 08/27/2025 09:36:07 08/27/2025 10:48:26 Acute abdominal pain 268909340 R10.9 93193 labsct- r/o kidney stones, hx of diverticul itis,lymph jeffrey Diverticular disease 397 050285 K57.90 discussed with pt the plan of care and if any worsening or pain not improving he needs to go to ed rojelio. Non-Hodgki n's lymphoma (clinical) 903182889 C85.90 Type 2 laci betes mellitus 22199157 E11.9 checked a1c with labs Disorder of aorta 810485 06 I70.0 1459012 calcificat ion seen on ct with out contrast- needs to follow up with cardiology . [id number] Danielle Groves [address] [place] [address] 09/10/2025 08:20:15 09/10/2025 09:10:54 Hyperglycemia due to type 2 diabetes mellitus 3225275611 12181 E11.65 Long-term drug therapy 732393240 Z79.899 Body mass index 30+ - obesity 194543672 Z68.36 Mixed hyperlipidemia 267 395888 E78.2 Non-Hodgki n's lymphoma (clinical) 634140802 C85.90 Vitamin D deficiency 347 88762 E55.9 Gastroesop hageal reflux disease without esophagitis 340167177 K21.9 Anxiety 48159565 F41.9 Obstructiv e sleep apnea syndrome 85353948 G47.33 Vitamin B1 2 deficiency (non anemic) 14944037 E53.8 Degenerati on of lumbar intervertebral disc 24730771 M51.369 Osteoarthritis of hip 23 1225308 M16.9 Testostero ne level below reference range 806864579 R79.89 Iron defic iency anemia 90489324 D50.9 Subclinica l hypothyroidism 96804550 E02 Deep venou s thrombosis of lower extremity 481386612 I82.409 Type 2 laci betes mellitus 42311520 E11.9 Health Concerns Section Related Observation LastModified by Organization Detai ls LastModified Time None Recorded Concern Status LastModified by Organization Details LastModified Time None Recorded Advance Directives Directive N: Payers Insurance Date Sequence Insurance Name Policy Number Policy Magana Covered Member ID Magana Member ID Guarantor Name 09/07/2025 1 [place] [id number] Mandie Mark [id number] Juarez King Deedee Notes Date Note Type Note Provider Name and Address Organization Details Recorded Time 05/08/20 25 text/htm anoop Pizarro presents for 3 month follow up on his diabetes. He is currently on Xigduo XR 03/1000 mg 2 tabs daily and Ozempic 0.5 mg weekly. He is currently only taking this every other week until his deductible is met and he can afford to go back on it weekly. In the past, I had written Mounjaro but this was going to be too expensive. His last hgb a1c was 7.1%. Today it is 8.0%. No h/o pancreatitis or medullary thyroid carcinoma. [...] He has iron deficiency anemia and sees heating fixture tender, Dr. Hazel. Last PSA 02/01/2025Last colonoscopy 10/19/2018 - due for follow up 2027Former smoker who quit over 16 years ago. Chronic issues reviewed and stable. Danielle Groves, CUSHION COVER INSPECTOR [address], [place], [address], [place] [facility] 05/08/2025 08:39:43 07/23/20 25 text/htm l pt in the office for labs Danial Keller, CUSHION COVER INSPECTOR [address], [place], [address], [facility] - [facility] 07/23/2025 13:51:08 07/26/20 25 text/htm l Lower Urinary Tract [...] polycythemia, BPHhad hip replacement 09/18/[address] pulido. has not taken testo since august 2024 d/t his hip sx as directed by ortho. he states that 1 wk postop he got a clot in his operative leg that went from his groin all the way to his heel. he has seen vascular sx and had the clot removed at [facility] he has seen hematology- consult reviewed from 11/15/24. reports flomax working great got his labs to review still very fatigued. Kelsey Peralta, CUSHION COVER INSPECTOR [address], [place], [address], [place] [facility] 07/26/2025 10:00:07 08/27/20 text/htm l Emergency Department Follow-Up RecordReported by PatientEmergency Room Follow-Up RecordFor discharge information, patient reportsname of hospital/urgent care patient was seen: ([facility]),patient presented to hospital/urgent care on or [...] pushed on, gassy and feeling bloated. Danial Keller APRN [address], [place], [address], [facility] - [facility] 08/27/2025 12:03:49 09/10/20 text/htm anoop Pizarro presents for 3 month follow up on [...] He has iron deficiency anemia and sees heating fixture tender, Dr. Hazel. Last PSA 02/01/2025Last colonoscopy 10/19/2018 - due for follow up 2027Former smoker who quit over 16 years ago. Chronic issues reviewed and stable. Danielle Groves, CUSHION COVER INSPECTOR [address], [place], [address], [facility] - [facility] 09/10/2025 09:00:40
--- NOTE | 2025-09-20 08:45 | CA_ITS ---
APPROVED REPORT EXAM: Comprehensive 2D, Doppler, and color-flow Echocardiogram Building Services Coordinator: Astrid Muñoz RT(R) Ht: 6 ft 0 in Wt: 281lbs BSA: 2.46 BP: 135/89 mmHg Indications: CAD, HFrEF, hx PE, hx lymphoma Echo Enhancing Agent Indication: Endocardial border delineation Agent(s) / Amount(s) Used: Definity 2 cc 2D Dimensions LVEF (Fitzgerald's) 43.80 % M: 52 - 72 LV Volume 153.90 mL M: 62 - 150 LV Volume Index 62.6 mL/m2 M: 34 - 74 LA Volume 31.70 mL LA Volume Index 12.89 mL/m2 (M/F) 16-34 EF AP4 41.20 % EF AP2 44.0 % EF BP 43.8 % GL Strain -12.9 % M-Mode Dimensions RVDd 3.87 cm (0.9-2.6) LA Diam 3.53 cm (1.9-4.0) LVDd 5.29 cm (3.5-5.7) LVDs 3.96 cm (3.5-5.7) IVSd 0.93 cm (0.6-1.1) PWd 1.03 cm (0.6-1.1) EF (Teich) 49.30% FS 25.10% EDV (Teich) 134.80 mL ESV (Teich) 68.30 mL LV Diastology E Decel Time 310 (160-240 msec) E/A Ratio 0.83 Mitral Valve MV A Velocity 72.0 (40-130 cm/s) E/A Ratio 0.83 Left Ventricle The left ventricle is normal size. Left ventricular systolic function is normal. The left ventricular ejection fraction is within the normal range. There is increased left ventricular wall thickness. There is mild hypokinesis of the septal and anteroseptal LV seay. The left ventricular diastolic function is normal. LVEF is 55% Right Ventricle The right ventricle is normal size. The right ventricular systolic function is normal. Atria The left atrium size is normal. The right atrium size is normal. There is no color Doppler evidence of interatrial shunt. Aortic Valve The aortic valve opens well. There is no hemodynamically significant aortic valvular stenosis. No aortic regurgitation is present. Mitral Valve The mitral valve is normal in structure. No evidence of mitral valve stenosis. Trace mitral regurgitation is present. Tricuspid Valve The tricuspid valve leaflets are thin and pliable. Trace tricuspid regurgitation. There is insufficient TR jet to estimate RVSP. Pulmonic Valve The pulmonary valve is grossly normal in structure. Trace pulmonic valve regurgitation is present. Great Vessels The aortic root is normal in size. IVC is normal in size and collapses >50% with inspiration. Pericardium There is no pericardial effusion. Other Information Study Quality: Fair Conclusion Normal biventricular systolic function. Mild hypokinesis of the septal and anteroseptal LV seay. No significant valvular stenosis or regurgitation. Electronically signed by : Indira Segura MD 09/29/2025 20:19:11
[2025-09-20] MEDS: DEFINITY US ECHO CONTRAST 2ML INJ 2 MG IV (09:19)
== END 2025-09-20 23:59 | disposition home or self-care (01) ==
LOC: RT 08:21
PROVIDERS: PCP Nurse Practitioner Family; Visit Provider Internal Medicine
DX: I25.118 Atherosclerotic heart disease of native coronary artery with other forms of angina pectoris (principal); E78.2 Mixed hyperlipidemia; I11.0 Hypertensive heart disease with heart failure; I50.20 Unspecified systolic (congestive) heart failure; R93.1 Abnormal findings on diagnostic imaging of heart and coronary circulation; R94.31 Abnormal electrocardiogram [ECG] [EKG]; Z82.49 Family history of ischemic heart disease and other diseases of the circulatory system
CPT/HCPCS: 93306; Q9957

== ENCOUNTER 2025-09-26 11:02 | Outpatient (CLI) | payer BC, SELFPAY ==
--- NOTE | 2025-09-26 | CA_ITS ---
APPROVED REPORT Exam: Pharmacologic Technologist: Tereza Figueroa Stress Nurse: Rita SOLIS, RN Ht: 6 ft 0 in Wt: 281 lbs BSA: 2.46 m2 HR: 73 bpm BP: 131/86 mmHg Indications: Heart failure with reduced ejection fraction, Electrocardiogram changes, known coronary artery disease Stress Test Details Test: Lexiscan HR Resting HR: 73 bpm Max Heart Rate (APMHR): 164.456012 bpm Max HR Achieved: 82 bpm Target HR (85% APMHR): 139.570700 bpm % of APMHR: 50.00 Recovery HR: 84 bpm BP Resting BP: 131.0/86.0 mmHg Max BP: 142.0/87.0 mmHg Recovery BP: 142.0/87.0 mmHg ECG Stress ECG Conclusion Lungs clear to auscultation prior to test start. Symptoms: None Arrhythmias/Ectopy: PAC ST-T Changes: Less than 0.[address] segment changes. Electronically signed by : Indira Segura MD 09/30/2025 22:26:56
--- NOTE | 2025-09-26 11:15 | CA_ITS ---
FINAL REPORT TECHNIQUE: Bassett scale, color and spectral doppler images of the bilateral carotid arteries were obtained. CLINICAL HISTORY: CAD,HTN,EX SMOKER FINDINGS: Peak systolic velocity in the right internal carotid artery is 82 cm/sec. The internal carotid to common carotid artery ratio is 1.3. There is no significant carotid artery stenosis. There is mild plaque formation. The right vertebral artery is normal in direction. Peak systolic velocity in the left internal carotid artery is 81 cm/sec. The internal carotid to common carotid artery ratio is 1.0. There is no significant carotid artery stenosis there is mild plaque formation. The left vertebral artery is normal in direction. IMPRESSION: Less than 50% carotid stenosis bilaterally. Reviewed, Interpreted and Dictated by Farzana Merchant MD Transcribed by Nila Milligan Authenticated and [facility]
--- NOTE | 2025-09-26 12:30 | NM_ITS ---
APPROVED REPORT Exam: Nuclear Stress Test Indication: family hx..high cholesterol.HTN Patient Location: Outpatient Stress Tech: Tereza Figueroa SD Tech:Isha WeinsteinCHRISSY RT(R)(N) Ht: 6 ft 0 in Wt: 280 lbs HR: 74 bpm BP: 131/86 mmHg BSA: 2.46 m2 TID: 1.19 History: family hx..high cholesterol.HTN Procedure: Patient received 0.4 mg of intravenous Lexiscan, resting heart rate 74 bpm, resting blood pressure 131/86 mmHg, with Lexiscan maximum heart rate achieved was 92 bpm which is 85 % of the maximum predicted heart rate and blood pressure was 134/81 mmHg. With Lexiscan, patient denied any complaint of chest pain. The patient was not able to lay on his abdomen for prone images. Cardiac Stress and Resting SPECT Images: Cardiac Stress and Resting SPECT images were obtained using technetium 99m Myoview 32.5 mCi stress and 10.40 mCi at rest. The patient could not lie on his abdomen. Therefore, prone stress imaging could not be performed. This may affect diagnostic interpretation of the study findings. Resting and stress imaging in supine positions demonstrate a medium sized, mild, partially reversible perfusion defect in the basal to mid inferior LV seay. Gated imaging demonstrates mild reduction in global LV systolic function. LVEF is calculated 46%. Conclusion: Medium sized, mild, partially reversible perfusion defect in the basal to mid inferior LV seay. Findings are suggestive of partial reversible ischemia. Gated imaging demonstrates mild reduction in global LV systolic function. LVEF is calculated 46%. Electronically signed by : Indira Segura MD 09/30/2025 22:23:46
[2025-09-26 13:20] VITALS: BP 131/86; PULSE 73; RESP 16
[2025-09-26] MEDS: ISOTOPE MYOVIEW (PER STUDY) 1 DOSE IV (14:17)
[2025-09-26] MEDS: SODIUM CHLORIDE 0.9% 10ML SYR (RAD ONLY) 10 ML IV ×2 (14:17)
== END 2025-09-26 23:59 | disposition home or self-care (01) ==
LOC: RT 11:03
PROVIDERS: PCP Nurse Practitioner Family; Visit Provider Internal Medicine
DX: I65.23 Occlusion and stenosis of bilateral carotid arteries (principal); I25.118 Atherosclerotic heart disease of native coronary artery with other forms of angina pectoris; E78.2 Mixed hyperlipidemia; I11.0 Hypertensive heart disease with heart failure; I50.20 Unspecified systolic (congestive) heart failure; R94.31 Abnormal electrocardiogram [ECG] [EKG]; R93.1 Abnormal findings on diagnostic imaging of heart and coronary circulation; R94.39 Abnormal result of other cardiovascular function study; Z82.49 Family history of ischemic heart disease and other diseases of the circulatory system
CPT/HCPCS: 78452; 93017; 93018; 93880; A9502; J2785

== ENCOUNTER 2025-10-03 14:35 | Outpatient (CLI) | payer BC, SELFPAY ==
--- OUTSIDE RECORDS SUMMARY | 2025-09-05 08:40 | XMS_ITS | Encounter Summary ---
Author Organization [facility] Address [address] [place] [address] Care Team Providers Care Composition Floor Layer Name Role Phone Thao harrellreynaldo Zeynep JINRIKISHA DRIVER Primary Care Provider [phone] Mary Aviles JINRIKISHA DRIVER Unavailable [phone] Encounter Details Date Type Department Care Team (Late st Contact Info) Description 09/05/2025 8:40 AM EST Office Visit [place] [facility] [address], [address] [place] [address] Mary Aviles, JINRIKISHA DRIVER [address] [place] [address] Acute left-sided low back pain [...] Notes * Progress Notes - Mary Aviles, JINRIKISHA DRIVER - 09/05/2025 8:40 AM EST We had [...] change in his condition without it. He recallsan incident last night where he was unable [...] primary care physician. He also sees a value stream leader, Dr. Campbell. He received a back injection [...] result, errors may occur. When identified, these american indian studies professor errors are corrected, but while every attempt is made to prevent/correct these, errors may still exist. Mary Aviles APRN [facility] Department of Neurosurgery There are no [...] Visit [place] [facility] [address], [address] [place] [address] Mary Aviles APRN [address] [facility] [address] [place] [address] documented as of this encounter [...] MD on 09/05/2025 11:20 AM Mary Aviles JINRIKISHA DRIVER IMG XR PROCEDURES Final Result * XR [...] destruction. Sacroiliac joints are normal. Procedure Note Sma Rodriguez MD - 09/05/2025 CLINICAL INDICATION: mid [...] documented as of this encounter Care Teams Composition Floor Layer Relationship Specialty Start Date End Date Danial Keller APRN [address] [place] [address] PCP - General 08/31/25 Mary Aviles APRN [address] [place] [address] Nurse Practitioner Neurosurgery 09/05/25 documented as of this encounter
--- OUTSIDE RECORDS SUMMARY | 2025-09-05 09:49 | XMS_ITS | Encounter Summary ---
Author Organization [facility] Address [address] [place] [address] Care Team Providers Care Political Cartoonist Name Role Phone Danial harrell BOSOM PRESSER Primary Care Provider [phone] Mary Aviles BOSOM PRESSER Unavailable [phone] Encounter Details Date Type Department Care Team (Latest Contact Info) Description 09/05/2025 9:49 AM EST - 09/05/2025 11:59 PM [facility] Hospital Encounter [place] [facility] Rad[facility] [address] [place] [address] Acute left-sided low back pain without sciatica; [...] 3 times a day. 60 tablet 09/05/2025 DULoxetine (Cymbalta) [address] capsule Take [...] Visit [place] [facility] [address] [place] [address] Mary Aviles, BOSOM PRESSER [address] [place] [address] documented as of this encounter Procedures Procedure [...] 11:16 AM Final report signed by Sam oRdriguez MD on 09/05/2025 11:20 AM Mary Aviles BOSOM PRESSER IMG XR PROCEDURES Final Result * XR [...] 09/05/2025 11:16 AM Final report signed by Sma Rodriguez MD on 09/05/2025 11:20 AM Mary [...] documented as of this encounter Care Teams Political Cartoonist Relationship Specialty Start Date End Date Danial Keller APRN [address] [place] [id number] PCP - General 08/31/25 Mary Aviles APRN [address] [facility] [address] [place] [address] Nurse Practitioner Neurosurgery 09/05/25 documented as of this encounter
--- NOTE | 2025-10-03 14:38 | MR_ITS ---
FINAL REPORT CLINICAL HISTORY: LUMBAR RADICULITIS RADIATING LOW BACK PAIN COMPARISON: None FINDINGS: Multiplanar MR imaging of the lumbar spine was performed without contrast. On the sagittal T2-weighted images, there is abnormal decreased signal throughout the lower thoracic and lumbar discs with relative sparing at the L2-3 level. The vertebrae are of normal height. Grade 1 spondylolisthesis of L4 on L5. L2-3: There is no significant canal stenosis or neural foraminal narrowing. L3-4: Mild diffuse disc bulge. Mild bilateral neuroforaminal narrowing. L4-5: Moderate diffuse disc bulge. Broad-based midline disc protrusion. Moderate to high-grade bilateral neuroforaminal narrowing. Moderate spinal canal compromise. L5-S1: Mild disc bulge. Moderate bilateral neuroforaminal narrowing. IMPRESSION: Grade 1 spondylolisthesis of L4 on L5. Broad-based midline disc protrusion with moderate spinal canal compromise and moderate to high-grade bilateral neuroforaminal narrowing at L4-5. Reviewed, Interpreted and Dictated by Tristin Carrion MD Transcribed by Cherie Phan Authenticated and [facility]
--- OUTSIDE RECORDS SUMMARY | 2025-10-03 14:39 | XMS_ITS | Encounter Summary ---
Author Organization [facility] Address [address] [place] [address] Care Team Providers Care Knuckle Bender Name Role Phone Danial Keller ZEHRA Primary Care Provider [phone] Reason for Visit * Reason Onset Date Comments HCN - Patient Message 08/31/2025 Encounter Details Date Type Department Care Team (Late st Contact Info) Description 08/31/2025 Telephone [place] [facility] [address], [address] [place] [address] Boogie Dutton MD [address] [place] [address] HCN - Patient Message Social [...] optimal time of day to reach caller: [phone] Note: Please do not reply to this message. Follow-up communication and further actions as a result of this message need to be communicated with the patient directly, if the patient is not active onMyChart. If the patient is active on MyChart, they will receive notification of the communication/outcome via [employer]. documented in this encounter Plan of Treatment Upcoming Encounters Date Type Department Care Team (Late st Contact Info) Description 10/18/2025 10:00 AM EST Office Visit [place] [facility] [address], [address] [place] [address] Mary Aviles, ZEHRA [address] [place] [address] documented as of this encounter Visit Diagnoses Not on filedocumented in this encounter Additional Health Concerns Assessment Noted Time A fall risk assessment has been complete d for the patient 05/02/2024 9:19 AM EDT A Body Mass Index follow-up plan has been documented for the patient 05/09/2024 10:42 AM EDT documented as of this encounter Care Teams Knuckle Bender Relationship Specialty Start Date End Date Danial Keller APRN [address] [place] [address] PCP - General 08/31/25 documented as of this encounter
--- OUTSIDE RECORDS SUMMARY | 2025-10-03 14:39 | XMS_ITS | Encounter Summary ---
Author Organization Healthcare Address [address] [place] [address] Care Team Providers Care Sports Clerk Name Role Phone Danial Keller PATIENT INTAKE REPRESENTATIVE Primary Care Provider [phone] Mary Aviles PATIENT INTAKE REPRESENTATIVE Unavailable [phone] Encounter Details Date Type Department Care Team [...] Visit [place] [facility] [address], [address] [place] [address] Mary Aviles, PATIENT INTAKE REPRESENTATIVE [address] [place] [address] documented as of this encounter Visit Diagnoses Not on filedocumented in this encounter Additional Health Concerns Assessment Noted Time A fall risk assessment has been complete d for the patient 09/05/2025 9:07 AM EST A Body Mass Index follow-up plan has been documented for the patient 09/05/2025 10:27 AM EST documented as of this encounter Care Teams Sports Clerk Relationship Specialty Start Date End Date Danial Keller, PATIENT INTAKE REPRESENTATIVE [address] [place] [address] PCP - General 08/31/25 Mary Aviles, ZEHRA [address] [facility] [address] [place] [address] Nurse Practitioner Neurosurgery 09/05/25 documented as of this encounter
--- OUTSIDE RECORDS SUMMARY | 2025-10-03 14:39 | XMS_ITS | Clinical Summary ---
Author Organization [facility] Address [address] [place] [address] Care Team Providers Care Distributor Cleaner Name Role Phone Danielle Groves NP Primary Care Provider Source Comments This information has been disclosed to you from confidential records protectedfrom disclosure by state law. You shall make no further disclosure of thisinformation without the specific, written, and informed release of theindividual to whom it pertains, or as otherwise permitted by law. A generalauthorization for the release of medical or other information is not sufficientfor the purposes of therelease of HIV test results or diagnoses. [id number] Allergies No known active allergies Medications canagliflozin-m etformin (INVOKAMET) 150-1,000 mg Tab Invokamet 150 mg-1,000 mg tablet 9 Active INVOKAMET 150-1,000 mg Tab 9 Active citalopram (CELEXA) 20 MG tablet citalopram 20 mg tablet Active citalopram (CELEXA) 20 MG tablet 9 Active lisinopril (PRINIVIL,ZESTR IL) 5 MG tablet lisinopril 5 mg tablet Active Social History Tobacco Use Types Packs/Day Years Used Date Smoking Tobacco: Never Smokeless Tobacco: Never Alcohol Use Standard Drinks/Week Comments Never 0 (1 standard drink = 0.6 oz pur e alcohol) AUDIT-C Answer Date Recorded Frequency of Alcohol Consumption Never 09/08/2019 Average Number of Drinks Not on file 019 Frequency of Binge Drinking Not on file 06/2019 PHQ-2 Answer Date Recorded PHQ-2 Score 6 09/08/2019 Sex and Gender Information Value Date Recorded Sex Assigned at Not on file Legal Sex Male 2:58 PM EDT Gender Identity Not on file Sexual Orientation Not on file Last Filed Vital Signs Vital Sign Reading Time Taken Comments Blood Pressure 128/87 09/15/2019 2:36 PM EST Pulse 79 09/15/2019 2:36 PM EST Temperature 36.1 C (97 F) 09/15/2019 2:36 PM EST Respiratory Rate 18 09/15/2019 2:36 PM EST Oxygen Saturation 97% 09/15/2019 2:36 PM EST Inhaled Oxygen Concentration 97% 09/15/2019 2 :36 PM EST Weight 136.1 kg (300 lb) 09/08/2019 10:24 AM EST Height 182.9 cm (6') 09/08/2019 10:24 AM EST Body Mass Index 40.69 09/08/2019 10:24 AM EST Plan of Treatment Not on file Insurance BLUE ACCESS Member Subscriber Plan / Payer (Ef fective 2018-Present) Name:Juarez Caputo Relation to Subscriber:Spouse Name:MANDIE CAPUTO Date of :1971 (Home) Address: [address] [place] [address] Payer ID:[id number] (NAIC) Type:PPO Address: [facility] [id number] [place] [id number] Care Teams Distributor Cleaner Relationship Specialty Start Date End Date Danielle Groves NP [address] [place] [address] NOHEMY Martin [address] PCP - General 08/15/19
--- OUTSIDE RECORDS SUMMARY | 2025-10-03 14:39 | XMS_ITS | Encounter Summary ---
Author Organization [facility] Address [address] [place] [address] Care Team Providers Care Instrument Worker Name Role Phone Ruby Gregorio MD Primary Care Provider [phone] Danial Keller ABNORMAL PSYCHOLOGY TEACHER Primary Care Provider Mary Aviles ABNORMAL PSYCHOLOGY TEACHER Unavailable [phone] Encounter Details Date Type Department Care Team (Late st Contact Info) Description 03/25/2024 Orders Only External Location [address] [place] [address] Danial Keller, ABNORMAL PSYCHOLOGY TEACHER [address] [place], [place] [id number] Social History Tobacco Use Types Packs/Day Years [...] Visit [place] [facility] [address] [place] [address] Mary Aviles, ABNORMAL PSYCHOLOGY TEACHER [address] [place] [address] documented as of this encounter Procedures Procedure Name Priority Date/Time Associated Diagnosis Comments MR OUTSIDE IMAGES 03/25/2024 10:42 AM EDT documented in this encounter Results * MR transfer of outside films (03/25/2024 10:42 AM EDT) Anatomical Region Laterality Modality Magnetic Resonan ce 03/25/2024 10:4 2 AM EDT Danial Keller ABNORMAL PSYCHOLOGY TEACHER IMG MRI PROCEDURES Final R esult documented in this encounter Visit Diagnoses Not on filedocumented in this encounter Care Teams Instrument Worker Relationship Specialty Start Date End Date Ruby Gregorio MD [address] [place] [address] PCP - General 03/14/21 08/30/25 Danial Keller APRN [address] [place] [address] PCP - General 08/31/25 Mary Aviles APRN [id number] [place] [address] Nurse Practitioner Neurosurgery 09/05/25 documented as of this encounter
--- OUTSIDE RECORDS SUMMARY | 2025-10-03 14:39 | XMS_ITS | Encounter Summary ---
Author Organization [facility] Address [address] [place] [address] Care Team Providers Care Auto Brake Mechanic Name Role Phone Danial Keller RAILWAY HEAD TENDER Primary Care Provider [phone] Mary Aviles RAILWAY HEAD TENDER Unavailable Encounter Details Date Type Department Care Team (Late st Contact Info) Description 09/05/2025 Telephone [place] [facility] [address], [address] [place] [address] Mary Aviles, ZEHRA [address] [place] [address] Social History Tobacco Use Types [...] Description 10/18/2025 10:00 AM EST Office Visit [place] [facility] [address], [address] [place] [address] Mary Aviles APRN [id number] [place] [address] documented as of this encounter Visit Diagnoses Not on filedocumented in this encounter Additional Health Concerns Assessment Noted Time A fall risk assessment has been complete d for the patient 09/05/2025 9:07 AM EST A Body Mass Index follow-up plan has been documented for the patient 09/05/2025 10:27 AM EST documented as of this encounter Care Teams Auto Brake Mechanic Relationship Specialty Start Date End Date Danial Keller APRN [address] [place] [address] PCP - General 08/31/25 Mary Aviles APRN [id number] [place] [address] Nurse Practitioner Neurosurgery 09/05/25 documented as of this encounter
--- OUTSIDE RECORDS SUMMARY | 2025-10-03 14:39 | XMS_ITS | Clinical Summary ---
Author Organization [facility] Address [address] [place] [address] Care Team Providers Care Cyber Special Agent Name Role Phone Danial Keller JEWELRY SORTER Primary Care Provider [phone] Mary Aviles JEWELRY SORTER Unavailable [phone] Allergies Active Allergy Reactions Criticality Noted Date [...] 3 times a day. 60 tablet 025 Active cyclobenzapri ne (Flexeril) 10 MG tablet TAKE ONE (1) TABLET ORAL ROUTE EVERY 8 HOURS NEEDED 2024 Discontinued Active Problems No known active problems Encounters Date Type Department Care Team Description 09/05/2025 9:49 AM EST - 09/05/2025 11:59 PM EST Hospital Encounter [facility] Radiology [address], [address] [place] [phone] Acute left-sided low back pain without sciatica; Mid back pain Discharge Disposition: Home or Self Care 09/05/2025 8:40 AM EST Office Visit [place] [address], [address] [place] [phone] Mary Aviles, ZEHRA Acute left-sided low back pain without sciatica (Primary Dx); Mid back pain; Tobacco use 09/05/[address] [place] [address] aMry Aviles, ZEHRA 09/05/2025 Travel 08/31/2025 Telephone [facility] [address], [address] [place] [address] Boogie Dutton MD HCN - [...] Description 10/18/2025 10:00 AM EST Office Visit [facility] [address], [address] [place] [address] Mary Aviles, JEWELRY SORTER [address] [place] [address] Health Maintenance Due Date Last Done Comments [facility]-Depression Screening 1970 [facility]-/Child/Adol SDOH Screenings 1968 [facility]-[id number]-[id number] Vaccine (#1) 1973 [facility]- SDOH Screenings 1986 [...] MD on 09/05/2025 11:20 AM Mary Aviles JEWELRY SORTER IMG XR PROCEDURES Final Result * XR [...] MD on 09/05/2025 11:20 AM Mary Aviles JEWELRY SORTER IMG XR PROCEDURES Final Result * ED HIV 1/2 Antibody/Antigen Screen w/Reflex to HIV 1/2 Differentiation (09/26/2024 9:05 PM EST) Pathologist [facility] HIV 1 & 2 Antibody/Antigen Screen Non Reactive Non Reactive 09/26/2024 9:[address] [facility] Comment:Screening for HIV 1 & 2 antibodies, and P24 antigen is NONREACTIVE. No confirmatory testing is required. Blood Venous blood specimen / Unknown Venipuncture / Unknown 09/26/2024 9:05 PM EST 09/26/2024 9:19 PM EST Christy Harris MD LAB BLOOD ORDERABLES Final Res ult [facility] [address] [place] [address] * Hepatitis C Antibody - ED (09/26/2024 9:05 PM EST) Pathologist [facility] Hepatitis C Antibody Negative Negative 09/26/2024 9:[address] [facility] Blood Venous blood specimen / Unknown Venipuncture / Unknown 09/26/2024 9:05 PM EST 09/26/2024 9:19 PM EST Christy Harris MD LAB BLOOD ORDERABLES Final Res ult [facility] [address] [place] [address] from Last 3 Months or Most Recently Relevant to Health Maintenance Insurance [facility] Care Teams Cyber Special Agent Relationship Specialty Start Date End Date Danial Keller, ZEHRA [address] [place] [address] PCP - General 08/31/25 Mary Aviles, JEWELRY SORTER [address] [facility] [address] [place] [address] Nurse Practitioner Neurosurgery 09/05/25
--- OUTSIDE RECORDS SUMMARY | 2025-10-03 14:39 | XMS_ITS | Clinical Summary ---
Author Organization [facility] Address [address] [place] [address] Care Team Providers Care Senior Hydrogeologist Name Role Phone Pcp, Pending Only MD Primary Care Provider Allergies Active Allergy Reactions Criticality Noted Date [...] 09/29/2024 10:46 AM EST Plan of Treatment Upcoming Encounters Date Type Department Care Team (Late st Contact Info) Description 12/07/2025 9:00 AM EST Office Visit [facility] [place] [address] [place] [address] [place] [address] [place], [place] [id number] Health Maintenance Due Date Last Done Comments [...] patient's age to complete this topic Insurance YARED BLUE CROSS ALL OTHERS NOT MEDICARE Care Teams Senior Hydrogeologist Relationship Specialty Start Date End Date Pcp, Pending Only, [place], [place] [id number] PCP - General Internal Medicine 09/27/24
== END 2025-10-03 23:59 | disposition home or self-care (01) ==
LOC: RAD 14:36
PROVIDERS: PCP Nurse Practitioner Family; Visit Provider Orthopaedic Surgery
DX: M51.16 Intervertebral disc disorders with radiculopathy, lumbar region (principal); M43.16 Spondylolisthesis, lumbar region; M48.061 Spinal stenosis, lumbar region without neurogenic claudication; M99.73 Connective tissue and disc stenosis of intervertebral foramina of lumbar region
CPT/HCPCS: 72148

== ENCOUNTER 2025-10-09 09:38 | Outpatient (CLI) | payer BC, SELFPAY ==
[2025-10-09 10:07] LABS: Hematocrit 45.4 % (42.0-52.0); Hemoglobin 16.1 g/dL (14.1-18.0); Immature Granulocytes % 0.3 %; Mean Corpuscular HGB Conc 35.5 g/dL (31.8-35.4); Mean Corpuscular Hemoglobin 30.7 pg (27.0-31.2); Mean Corpuscular Volume 86.5 fl (80-94); Nucleated Red Blood Cells % 0 %; Platelet Count 181 K/mm3 (142-424); Red Blood Count 5.25 M/mm3 (4.60-6.20); Red Cell Distribution Width-SD 41.3 fL; White Blood Count 6.2 K/mm3 (4.8-10.8)
[2025-10-09 10:19] LABS: INR 1.08 (0.9-1.1); Prothrombin Time 11.9 seconds (10.1-12.5)
[2025-10-09 10:20] LABS: Ammonia < 9 umol/L (9-30)
[2025-10-09 11:12] LABS: Ferritin 27.1 ng/ml (17.9-464)
[2025-10-09 11:45] LABS: Alanine Aminotransferase 44 U/L (12-78); Albumin Level 4.2 g/dl (3.5-5.0); Albumin/Globulin Ratio 1.6 (1.1-1.8); Alkaline Phosphatase 63 U/L (38-126); Anion Gap 18.4 mEq/L (5-15); Aspartate Amino Transferase 40 U/L (17-59); Bilirubin,Total 0.7 mg/dl (0.2-1.3); Blood Urea Nitrogen 17 mg/dl (9-20); Calcium 9.2 mg/dl (8.4-10.2); Carbon Dioxide 20 mmol/L (22.0-30.0); Chloride 104 mmol/L (98-107); Creatinine,Serum 0.90 mg/dl (0.66-1.25); Estimated Glomerular Filt Rate 87 ml/min (>60); GFR (African American) 106 ML/MIN (>60); Globulin 2.7 g/dL (1.3-3.2); Glucose 176 mg/dl (74-100); Iron 85 ug/dL (49-181); Potassium 4.4 mmoL/L (3.5-5.1); Sodium 138 mmol/L (136-145); Total Protein,Serum 6.9 g/dl (6.3-8.2)
[2025-10-09 11:53] LABS: Total Iron Binding Capacity 353 ug/dL (261-462)
[2025-10-10 07:34] LABS: Hepatitis C Antibody Non Reactive (Non Reactive)
== END 2025-10-09 23:59 | disposition home or self-care (01) ==
LOC: LAB 09:39
PROVIDERS: PCP Nurse Practitioner Family; Visit Provider Internal Medicine Gastroenterology
DX: K74.60 Unspecified cirrhosis of liver (principal); K75.81 Nonalcoholic steatohepatitis (NASH); K76.6 Portal hypertension; K74.69 Other cirrhosis of liver; B19.20 Unspecified viral hepatitis C without hepatic coma
CPT/HCPCS: 36415; 80053; 82103; 82105; 82140; 82164; 82172; 82247; 82465; 82728; 82947; 82977; 83010; 83521; 83540; 83550; 84450; 84460; 84478; 85025; 85610; 86015; 86381; 86706; 86803